=== PATIENT | female | born 1970 | race Caucasian/White ===

== ENCOUNTER → 2016-05-03 | Outpatient (REF) | payer MEDICARE, OTHER ==
[~2016-05-03] MED LIST: AMBI10TA PO; BIOT1CAP2 PO; CALC250T PO; DULO30CA PO; FLINTSTONE COMPLETE PO; GABA-279 PO; OMEP20CA3 PO; VYTO10TA PO; vitaminB12 PO; vitaminD3 PO
[2016-05-03 18:09] LABS: IONIZED CALCIUM 4.9 MG/DL (4.5-5.3)
== END ==
LOC: M SFHCCAPE 08:31
PROVIDERS: ATTEND Physician Assistant
DX: E83.51 Hypocalcemia (principal)

== ENCOUNTER → 2016-06-02 | Outpatient (CLI) | payer MEDICARE, OTHER ==
--- NOTE | 2016-06-02 14:06 | REP ---
PA CHEST AND LEFT RIB SERIES: 06/02/2016 COMPARISON: 04/11/2016. CLINICAL HISTORY: Pleuritic chest pain, chest wall pain. FINDINGS: PA CHEST: Lungs are well inflated. The CP angles are sharply defined. There is no effusion, lateral pleural thickening, apical scarring or pneumothorax. No infiltrate, atelectasis or mass. The heart is not enlarged. The aorta is normal. Airway is intact. There is no widening of the mediastinum. There are multiple clips in the right upper quadrant from cholecystectomy and a clip and staple lines in the left upper quadrant. These are unchanged. No free air. Clavicle, scapula, humerus and visualized ribs are intact. LEFT RIBS: Four detailed views show the posterior rib articulations intact. No effusion, lateral pleural thickening or pneumothorax noted. Visualized spine shows mild endplate spurs scattered throughout, but normal for age. The clavicle, scapula and humeral head are unremarkable. There are anastomotic suture lines overlying the left upper quadrant in the stomach. I cannot see any definite displaced fracture or healing fracture. The costochondral junctions are grossly intact. No focal lesion. IMPRESSION: 1. No visible or displaced fracture, healing fracture, focal rib lesion, effusion or pneumothorax on that left side. 2. Negative PA chest. Signed by Jayden Perkins MD 06/02/2016 05:07 P
== END ==
LOC: M RAD 12:34
PROVIDERS: ATTEND Physician Assistant
DX: R07.81 Pleurodynia (principal)

== ENCOUNTER → 2016-06-09 | Outpatient (REF) | payer MEDICARE, OTHER ==
[2016-06-09 16:53] LABS: BLOOD UREA NITROGEN 14 MG/DL (7-18); CREATININE FOR GFR 0.75 MG/DL (0.55-1.02); GLOMERULAR FILTRATION RATE > 60.0 (>58)
== END ==
LOC: M SFHCCAPE 07:34
PROVIDERS: ATTEND Physician Assistant
DX: I10 Essential (primary) hypertension (principal)

== ENCOUNTER → 2016-08-02 | Outpatient (REF) | payer MEDICARE, OTHER | LOC: M LABDRWCV 18:11 | PROVIDERS: ATTEND Internal Medicine Endocrinology, Diabetes & Metabolism | DX: M81.0 Age-related osteoporosis without current pathological fracture (principal) ==

== ENCOUNTER → 2016-08-19 | Outpatient (CLI) | payer MEDICARE, OTHER ==
--- NOTE | 2016-09-07 00:57 | ECWPNPC ---
PATIENT NAME: ELIDIA WEEMS : 1970 GENDER: FEMALE VISIT DATE: 08/19/2016 DISCHARGE DATE: 08/19/16 1517 VISIT LOCKED DATE TIME: PHYSICIAN: WILIAM HERBERT RESOURCE: WILIAM HERBERT REASON FOR APPOINTMENT 1. CHRONIC PAIN HISTORY OF PRESENT ILLNESS FALL RISK SCREENING: SCREENING :NO FALLS IN THE PAST YEAR PAIN SCREENING: PATIENT HAS A COMPLAINT OF ACUTE OR CHRONIC PAIN :YES TODAY'S VISIT: NOTES: REFERRED BY DR YASMIN ARIAS FOR CHRONIC PAIN INVOLVING RIBSLEFT SIDE. HAD SUDDEN SPONTANEOUS FX OF LEFT RIBS WHILE WALKING 03/22/16. 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 WENT TO ER FEW DAYS LATER. AT [facility]. AFTER CT OF ABD/CHEST - FOUND THAT FX AFFECTED 9, 10, 11, 12. FEELT TO BE SECONDARY TO SEVERE OSTEOPOROSIS. HAS MALABSORTION 2ND TO GASTRIC BYPASS. IS NOW ON FORTEO, BUT THIS IS MAKING THE BONES VERY SORE. ALL VIT LEVELS GOOD EXCEPT FOR CALCIUM. DR FAJARDO AND DR ARIAS FEELS THAT THERE IS NERVE ENTRAPMENT. . CURRENT MEDICATIONS TAKING FLINTSTONES COMPLETE 60 MG TABLET CHEWABLE 2 TABLETS ORALLY ONCE A DAY TAKING CALCIUM CITRATE + D 500MG/600MG TABLET 1 TABLET ORALLY TWICE A DAY TAKING VITAMIN B-12 500 MCG TABLET 1 TABLET ORALLY DAILY TAKING ALCOHOL PREP PAD 70 % PAD DIRECTED - DIRECTED TAKING BIOTIN 5000 MCG TABLET 1 TABLET ORALLY TWICE A DAY TAKING CPAP MACHINE DIRECTED TAKING EPIPEN 2-LEONARD 0.3 MG/0.3ML DEVICE DIRECTED INJECTION PRN TAKING MAGNESIUM 300 MG CAPSULE 1 CAPSULE WITH A MEAL ORALLY ONCE A DAY TAKING POTASSIUM 99 MG TABLET 1 TABLET ORALLY ONCE A DAY OTC PRODUCT TAKING VYTORIN 10-80 MG TABLET 1 TABLET ORALLY ONCE A DAY TAKING ALBUTEROL SULFATE HFA 108 (90 BASE) MCG/ACT AEROSOL SOLUTION 2 PUFFS NEEDED INHALATION EVERY 4 HRS TAKING OMEPRAZOLE 20 MG CAPSULE DELAYED RELEASE 1 CAPSULE ORALLY ONCE A DAY TAKING AMBIEN 10 MG TABLET 1 TABLET AT BEDTIME NEEDED ORALLY ONCE A DAY (MDD1) TAKING BUPROPION HCL ER (SR) 150 MG TABLET EXTENDED RELEASE 12 HOUR 1 TABLET ORALLY TWICE A DAY TAKING CYMBALTA 30 MG CAPSULE DELAYED RELEASE PARTICLES 2 ORALLY DAILY TAKING FORTEO 600 MCG/2.4ML SOLUTION 0.08 ML SUBCUTANEOUS ONCE A DAY TAKING GABAPENTIN 300 MG CAPSULE 1 ORALLY THREE TIMES A DAY TAKING OXYCODONE-ACETAMINOPHEN 10-325 MG TABLET 1 TABLET NEEDED ORALLY EVERY 8 HRS (MDD 3) TAKING LIDODERM 5 % PATCH 1 PATCH TO SKIN REMOVE AFTER 12 HOURS EXTERNALLY ONCE A DAY NOT-TAKING METHOCARBAMOL 750 MG TABLET 1 TABLET ORALLY EVERY 4 HRS NOT-TAKING ZETIA 10 MG TABLET 1 TABLET ORALLY ONCE A DAY DISCONTINUED CEFDINIR 300 MG CAPSULE 1 CAPSULE ORALLY EVERY 12 HRS MEDICATION LIST REVIEWED AND RECONCILED WITH THE PATIENT PAST MEDICAL HISTORY DEPRESSION CHRONIC PAIN HYPERTENSION/STROKE 06/2001 ELEVATED CHOLESTEROL SLEEP APNEA/COPD/DEVIATED SEPTUM-DR ROXIE HAMILTON RESTLESS LEG SYNDROME LT WRIST NERVE DAMAGE/RSD A RESULT HX OVARIAN CANCER ACID REFLUX STROKE IN 2001 SMOKER + HRT FX RIBS OSTEOPOROSIS HX [place] ALLERGIES BEE STINGS: ANAPHYLAXIS: ALLERGY SURGICAL HISTORY TUBAL LIGATION 08/1990 RT SIDE INGUINAL HERNIA REPAIR 03/2000 RADICAL HYSTERECTOMY DUE TO OVARIAN CANCER 06/2000 LT WRIST RECONSTRUCTION/JOINT FUSION 05/2005 RT KNEE PROCEDURE 05/2005 CYSTOSCOPY 12/2006 ENDOSCOPY 01/2007 GASTRIC BYPASS 01/23/2012 COLONOSCOPY 2009 CHOLECYSTECTOMY CYST REMOVAL FROM HEAD FAMILY HISTORY FATHER: 54 YRS, ACID REFLUX-ASPIRATED, DIAGNOSED WITH HEART DISEASE, OTHER MOTHER: ALIVE 66 YRS, HEART DISEASE, D.M., DIAGNOSED WITH DIABETES, HEART DISEASE SIBLINGS: ALIVE, ACID REFLUX, DIAGNOSED WITH HYPERTENSION SON(S): ALIVE, HYPERTENSION, DIAGNOSED WITH HYPERTENSION, OTHER DAUGHTER(S): ALIVE, DIAGNOSED WITH OTHER 2 BROTHER(S) . 2 SON(S) , 1 DAUGHTER(S) . FATHER FROM ASPIRATION DUE TO ACID REFLUX.NO CANCER REPORTED IN FAMILY.DAUGHTER--FIBROMYALGIA AND RA1 SON ADHD1 SON HTN. SOCIAL HISTORY GENERAL: TOBACCO USE ARE YOU A:CURRENT SOME DAY SMOKER ADDITIONAL FINDINGS: TOBACCO USERLIGHT CIGARETTE SMOKER ((1-9 CIGS/DAY) SMOKING CESSATION INFORMATION GIVEN08/19/2016 ADDITIONAL FINDINGS: TOBACCO NON-USER NOT READY TO QUIT AT THIS TIME VAPORNO E-CIGARETTENO ALCOHOL SCREENING DID YOU HAVE A DRINK CONTAINING ALCOHOL IN THE PAST YEAR?YES HOW OFTEN DID YOU HAVE A DRINK CONTAINING ALCOHOL IN THE PAST YEAR?MONTHLY OR LESS (1 POINT) HOW MANY DRINKS DID YOU HAVE ON A TYPICAL DAY WHEN YOU WERE DRINKING IN THE PAST YEAR?1 OR 2 (0 POINTS) HOW OFTEN DID YOU HAVE SIX OR MORE DRINKS ON ONE OCCASION IN THE PAST YEAR?NEVER (0 POINTS) POINTS1 INTERPRETATIONNEGATIVE RECREATIONAL DRUG USE DRUG USE?NO CAFFEINE CAFFEINE USE?YES 2 CUPS OF COFFEE IN THE AM HOW OFTEN AND HOW MUCH? 2-3 DIET SNAPPLES/DAY HIV / HEP-C SCREENING HIV TEST OFFERED TO PATIENT:YES DATE OFFERED:07/25/2016 TEST ACCEPTED:NO REASON:OTHER (DOCUMENT IN NOTE) PT STATES SHE HAS HAD IT DONE PREVIOUSLY HEP-C TEST OFFERED TO PATIENT:NO ALREADY TESTED OCCUPATION: DISABLED. DIET: SMALL FERQUENT MEALS. EXERCISE: NO REGULAR EXERCISE DUE TO RIB FX. MARITAL STATUS: . OTHERS AT HOME: SPOUSE. PETS: DOG,CAT. [place] NO PROTESTANT BELIEFS THAT WOULD IMPACT HEALTH CARE. LANGUAGE YI. EDUCATION LEVEL OF EDUCATION:HIGH SCHOOL REGENTS GED LEARNING BARRIERS / SPECIAL NEEDS CHANGE FROM LAST VISIT?NO 07/25/2016 BARRIERS TO LEARNING?NO HEARING IMPAIRED?NO VISION IMPAIRED?YES :CORRECTIVE LENSES COGNITIVELY IMPAIRED?NO READINESS TO LEARN?YES LEARNING PREFERENCES?YES :DEMONSTRATION/VERBAL INSTRUCTION LEARNING CAPABILITIES PRESENT?YES EMOTIONAL BARRIERS?NO SPECIAL DEVICES?NO PROCESS DESIGNER NEEDED?NO NEW PATIENT PAIN DIARY FROM 0-10, WHAT NUMBER IS YOUR PAIN TODAY? 7. PAIN CLINIC PFS, CLERGY, PUBLIC HEALTH REFERRALS PFS REFERRAL NEEDED?NO CLERGY REFERRAL NEEDED?NO PUBLIC HEALTH REFERRAL NEEDED?NO ADVANCED DIRECTIVES HEALTH CARE PROXY?NO WOULD YOU LIKE MORE INFORMATION?NO DO YOU HAVE A DNR?NO WOULD YOU LIKE MORE INFORMATION?NO LIVING WILL?NO WOULD YOU LIKE MORE INFORMATION?NO POWER OF MANAGER PAPER?NO WOULD YOU LIKE MORE INFORMATION?NO NO TRAVEL OUTSIDE US, NONE RECENT. DOMESTIC VIOLENCE: NONE. THIS PATIENT LIVES AT HOME WITH HER AND SON. SHE FRACTURED HER LEFT WRIST IN THE PAST. NO HISTORY OF AN EATING DISORDER. NO HISTORY OF PHYSICAL/SEXUAL ABUSE. SHE SLEEPS OKAY ONLY; USES CPAP. SHE WEARS SEAT BELTS. SHE IS CURRENT WITH DENTAL AND EYE EXAMINATIONS. SHE IS UP TO DATE WITH IMMUNIZATIONS AND TETANUS.08/19/16 PLAN OF CARE FOR THE PAIN CENTER REVIEWED WITH PT. AND SHE VERBALIZED UNDERSTANDING. AD. HOSPITALIZATION/MAJOR DIAGNOSTIC PROCEDURE STROKE 06/2001 HYPOGLYCEMIA 1997 REVIEW OF SYSTEMS CONSTITUTIONAL: ANY CHANGE IN YOUR MEDICAL CONDITION? NO . CHILLS NO . FEVER NO . INFECTION: DO YOU HAVE NEW INFECTIONS? STREP THROAT TREATED WITH ABX WITH RESOLUTION . DO YOU HAVE HISTORY OF MRSA? NO . MUSCULOSKELETAL: ANY NEW PATTERNS OF PAIN OR NUMBNESS? NO . SYTEMIC LUPUS NO . ARTHRITIS RIGHT HIP WITH ARTHISITS - EVALED BY JASEN BECERRA. HAS HAD INJECTIONS . FRACTURE WRIST DISTAL RADIUS AND ULNA, PLATE, CADAVER AND AUTO BONE GRAFTS TO AREA. HX CRPS WRIST. WAEARS BRACE. . GASTROENTEROLOGY: ANY NEW CHANGE IN BOWEL CONTROL? YES, TROUBLE WITH CONSTIPATION . BARRETTS ESOPHAGUS NO . CIRRHOSIS NO . HEPATITIS NO . LIVER FAILURE NO . ACID REFLUX YES . UNEXPLAINED WEIGHT LOSS NO . GENITOURINARY: ANY NEW CHANGE IN BLADDER CONTROL? NO - URINARY FREQ . IS THERE A CHANCE YOU COULD BE ? NO . HEMATOLOGY/LYMPH: DO YOU TAKE ANY BLOOD THINNERS? (FOR EXAMPLE- COUMADIN, PLAVIX, AGGRENOX, PLATEL, PRADAXA, OR XARELTO) NO . WHEN WAS YOUR LAST DOSE? DATE: TIME: . LOW PLATELET COUNT NO . SICKLE CELL DISEASE NO . VON WILLIEBRANDS NO . FACTOR V LEIDEN NO . THALLASEMIA NO . ANEMIA NO . EASY BRUISING NO . NEUROLOGY: HAVE YOU FALLEN IN THE PAST 6 MONTHS? NO . ANY NEW EXTREMITY NUMBNESS OR WEAKNESS? NO . HEAD INJURY NO . DEMENTIA NO . CEREBRAL PALSY NO . MULTIPLE SCLEROSIS NO . DIZZINESS NO . HEADACHE NO . STROKES NO . VERTIGO NO . CARDIOLOGY: DO YOU HAVE A PACEMAKER OR DEFIBRILLATOR? NO . ANGINA NO . HEART ATTACK YES, [place] 2006 . HEART SURGERY NO . CONGESTIVE HEART FAILURE/FLUID OVERLOAD NO . CHEST PAIN NO . HIGH BLOOD PRESSURE IN THE PAST RELATED TO OBESITY . IRREGULAR HEART BEAT NO . RESPIRATORY: HAVE YOU BEEN SICK IN THE PAST WEEK? NO . FEVER NO . FLU LIKE SYMPTOMS? NO . CPAP YES . BYPAP NO . ASTHMA YES, NO RECENT ATTACKS--PT. FEELS IT WAS MORE BRONCHITIS . EMPHYSEMA NO . CHRONIC LUNG DISEASES NO . SHORTNESS OF BREATH ON EXERTION NO . COUGH NO . SNORING YES, DUE TO DEVIATED SEPTUM . INTEGUMENTARY: DO YOU HAVE ANY RASHES OR OPEN SORES? NO . ALLERGIC/IMMUNO: ARE YOU ALLERGIC TO SHELLFISH OR IV DYE? NO . ANY NEW ALLERGIES? NO . PSYCHIATRIC: DO YOU HAVE THOUGHTS OF HURTING YOURSELF OR SOMEONE ELSE? NO . ARE YOU ABUSED, NEGLECTED, OR IN AN UNSAFE ENVIRONMENT? NO . ENDOCRINOLOGY: ARE YOU DIABETIC? NO . THYROID DISORDER NO . OTHER: DO YOU NEED ANY PRESCRIPTIONS? YES . IF YES, PLEASE LIST: PERCOCET AND POSSIBLE LIDODERM PATCH . ANY NEW PROBLEMS WITH YOUR MEDICATIONS? NO . WHEN DID YOU LAST EAT? ____ . WHEN DID YOU LAST DRINK? ____ . WHAT DID YOU LAST DRINK? ____ . NAME OF PERSON DRIVING YOU HOME? ____ . DO YOU HAVE ANY OTHER QUESTIONS OR CONCERNS WOULD LIKE RELIEF FROM CONSTANT PAIN AND BE ABLE TO SLEEP THROUGH THE NIGHT WITHOUT WAKING UP IN PAIN BECAUSE SHE HAS MOVED OR TURNED IN HER SLEEP . REVIEWED BY: PROVIDER: WILIAM SWIFT . VITAL SIGNS WT 110 LBS, HT 5'2 1/2", BMI 19.80 INDEX, BP 130/88 MM HG, HR 84 /MIN, RR 16 /MIN, TEMP 99.2 F, OXYGEN SAT % 96%, NA INITIALS SC 13:35, REVIEWED BY: AD. EXAMINATION GENERAL EXAMINATION: GENERAL APPEARANCE:THIN, PALE, MODERATE DISTRESS. PSYCHALERT , ORIENTED X 3 , APPROPRIATE MOOD AND AFFECT . HEENT:NORMOCEPHALIC, NO LYMPHADENOPATHY, NO THYROMEGLY. CHEST:EXQUISITE TENDERNESS OVER RIBS AT T6-9 LEVEL WITH FOCUS OF PAIN AT THE MIDAXILLARY LINE AND UNDER LEFT BREAST. SOME TENDERNESS AND TRIGERPOINTS IDENTIFIED OVER THORACIC SPINOUS PROCESSES. LUNGS:DECREASED AIR ENTRY AT BASES, NO WHEEZES, RALES AND RHONCHI. MUSCULOSKELETAL:MUSCLE STRENGTH TESTING 5/5 BILATERAL UPPER AND LOWER EXTREMITIES. ABLE TO RISE TO STANDING POSITION, POSTURE ROTATED TO RIGHT. GAIT NONANTALGIC. EXTREMITIES:NO EDEMA. NEUROLOGIC EXAM:CN'S II-XII GROSSLY INTACT. NO SENSORY DEFICIET NOTED IN UPPER EXTREMITIES. 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 WEIGHT LESS THAN BMI 22. IS FOLLOWING CLOSELY WITH PCP AND IS TRYING TO EAT SMALL FREQ MEALS WITH ADEQUETE PROTEIN AND DIETARY CALCIUM. PREVENTIVE MEDICINE DISCUSSED WHAT TO EXPECT WITH THE EPIDURAL INJECTION, AND PRE PROCEDURE CARE. REVIEWED INSTRUCTIONS WITH PT. PROCEDURE CODES FA211 ESTABILISHED PATIENT [facility] FACILITY CHARGE G8783 BP SCR PRFRM RCMDD DEFIND SCR INTVL G8730 PAIN ASSESS POS TOOL F/U PLAN DOC 3016F PT SCRND [place] USE 1124F ACP DISCUSS-NO DSCNMKR DOCD 1036F TOBACCO NON-USER 0518F FALL PLAN OF CARE DOCD G8427 DOC MEDS VERIFIED W/PT OR RE G8420 BMI<30 AND >=22 CALC & DOCU 3288F FALL RISK ASSESSMENT DOCD DISPOSITION & COMMUNICATION FOLLOW UP AFTER INJECTION (REASON: THORACIC EPIDURAL LEFT RIB PAIN) ELECTRONICALLY SIGNED BY ALEXANDREA HOPE ON 09/06/2016 AT 08:51 AM EDT DISCLAIMER : THIS IS A VISIT SUMMARY EXTRACTED FROM THE [employer] CHART. IT IS NOT A COPY OF THE [employer] PROGRESS NOTE. MTDD
== END ==
LOC: M PAIN 13:20
PROVIDERS: ATTEND Nurse Practitioner Family
DX: M54.14 Radiculopathy, thoracic region (principal); M79.1 Myalgia; G89.29 Other chronic pain; Z79.891 Long term (current) use of opiate analgesic; Z79.899 Other long term (current) drug therapy; Z91.030 Bee allergy status; F17.210 Nicotine dependence, cigarettes, uncomplicated; F34.1 Dysthymic disorder; I10 Essential (primary) hypertension; E78.2 Mixed hyperlipidemia; M81.0 Age-related osteoporosis without current pathological fracture; K21.9 Gastro-esophageal reflux disease without esophagitis; J44.9 Chronic obstructive pulmonary disease, unspecified; G47.33 Obstructive sleep apnea (adult) (pediatric); E83.51 Hypocalcemia; Z85.43 Personal history of malignant neoplasm of ovary; E89.40 Asymptomatic postprocedural ovarian failure

== ENCOUNTER → 2016-08-26 | Outpatient (CLI) | payer MEDICARE, OTHER ==
[~2016-08-26] MED LIST changes: +BUPIVACAINE HCL 0.25% 10 ML VIAL As Ordered ONE; +BUPIVACAINE HCL 0.25% 30 ML VIAL As Ordered ONE; +TRIAMCINOLONE ACETONIDE SUSP 40 MG/ML VIAL (J3301) As Ordered ONE; +diazePAM 5 MG TAB As Ordered ONE; +oxyCODONE 5MG TAB As Ordered ONE
--- NOTE | 2016-08-26 13:19 | REP ---
CHEST, THREE VIEWS INCLUDING INSPIRATION AND EXPIRATION PA: COMPARISON: 11/26/2009. There is no evidence of acute infiltrate. No pleural effusion is seen. The heart is normal in size. The mediastinal silhouette is unremarkable. The visualized osseous structures are intact. There is no evidence of pneumothorax. IMPRESSION: No acute pulmonary disease. Signed by Saad Ramirez MD 08/26/2016 04:39 P
--- NOTE | 2016-09-04 23:44 | ECWPNPC ---
PATIENT NAME: ELIDIA WEEMS : 1970 GENDER: FEMALE VISIT DATE: 08/26/2016 DISCHARGE DATE: 08/26/16 1333 VISIT LOCKED DATE TIME: PHYSICIAN: NALLELY FENTON RESOURCE: NALLELY FENTON REASON FOR APPOINTMENT 1. THORACIC EPIDURAL LEFT RIB PAIN HISTORY OF PRESENT ILLNESS HISTORY OF PRESENT ILLNESS: PAIN THE PATIENT DESCRIBES THE PAIN... FALL RISK SCREENING: SCREENING :NO FALLS IN THE PAST YEAR CURRENT MEDICATIONS TAKING FLINTSTONES COMPLETE 60 MG TABLET CHEWABLE 2 TABLETS ORALLY ONCE A DAY, NOTES: 714 TAKING CALCIUM CITRATE + D 500MG/600MG TABLET 1 TABLET ORALLY TWICE A DAY, NOTES: LAST TAKING VITAMIN B-12 500 MCG TABLET 1 TABLET ORALLY DAILY, NOTES: 714 TAKING ALCOHOL PREP PAD 70 % PAD DIRECTED - DIRECTED TAKING BIOTIN 5000 MCG TABLET 1 TABLET ORALLY TWICE A DAY, NOTES: 714 TAKING CPAP MACHINE DIRECTED TAKING EPIPEN 2-LEONARD 0.3 MG/0.3ML DEVICE DIRECTED INJECTION PRN TAKING MAGNESIUM 300 MG CAPSULE 1 CAPSULE WITH A MEAL ORALLY ONCE A DAY, NOTES: 714 TAKING POTASSIUM 99 MG TABLET 1 TABLET ORALLY ONCE A DAY OTC PRODUCT, NOTES: 714 TAKING VYTORIN 10-80 MG TABLET 1 TABLET ORALLY ONCE A DAY, NOTES: LAST NIGHT TAKING ALBUTEROL SULFATE HFA 108 (90 BASE) MCG/ACT AEROSOL SOLUTION 2 PUFFS NEEDED INHALATION EVERY 4 HRS, NOTES: MONTHS TAKING OMEPRAZOLE 20 MG CAPSULE DELAYED RELEASE 1 CAPSULE ORALLY ONCE A DAY, NOTES: LAST NIGHT TAKING AMBIEN 10 MG TABLET 1 TABLET AT BEDTIME NEEDED ORALLY ONCE A DAY (MDD1), NOTES: 2199 TAKING BUPROPION HCL ER (SR) 150 MG TABLET EXTENDED RELEASE 12 HOUR 1 TABLET ORALLY TWICE A DAY, NOTES: 714 TAKING CYMBALTA 30 MG CAPSULE DELAYED RELEASE PARTICLES 2 ORALLY DAILY, NOTES: 714 TAKING FORTEO 600 MCG/2.4ML SOLUTION 0.08 ML SUBCUTANEOUS ONCE A DAY, NOTES: AFTER DINNER TAKING GABAPENTIN 300 MG CAPSULE 1 ORALLY THREE TIMES A DAY, NOTES: 714 TAKING OXYCODONE-ACETAMINOPHEN 10-325 MG TABLET 1 TABLET NEEDED ORALLY EVERY 8 HRS (MDD 3), NOTES: 0-715 TAKING LIDODERM 5 % PATCH 1 PATCH TO SKIN REMOVE AFTER 12 HOURS EXTERNALLY ON 12 HOURS OFF 12 HOURS, NOTES: ON AT NIGHT/ OFF DAY TAKING COLACE 100 MG CAPSULE 1 CAPSULE NEEDED ORALLY BID PRN CONSTIPATION, NOTES: 0715 NOT-TAKING METHOCARBAMOL 750 MG TABLET 1 TABLET ORALLY EVERY 4 HRS NOT-TAKING ZETIA 10 MG TABLET 1 TABLET ORALLY ONCE A DAY MEDICATION LIST REVIEWED AND RECONCILED WITH THE PATIENT PAST MEDICAL HISTORY DEPRESSION CHRONIC PAIN HYPERTENSION/STROKE 06/2001 ELEVATED CHOLESTEROL SLEEP APNEA/COPD/DEVIATED SEPTUM-DR ROXIE HAMILTON RESTLESS LEG SYNDROME LT WRIST NERVE DAMAGE/RSD A RESULT HX OVARIAN CANCER ACID REFLUX STROKE IN 2001 SMOKER + HRT FX RIBS OSTEOPOROSIS HX MD ALLERGIES BEE STINGS: ANAPHYLAXIS: ALLERGY SOCIAL HISTORY GENERAL: TOBACCO USE ARE YOU A:CURRENT SOME DAY SMOKER ADDITIONAL FINDINGS: TOBACCO USERLIGHT CIGARETTE SMOKER ((1-9 CIGS/DAY) SMOKING CESSATION INFORMATION GIVEN08/19/2016 ADDITIONAL FINDINGS: TOBACCO NON-USER NOT READY TO QUIT AT THIS TIME VAPORNO E-CIGARETTENO ALCOHOL SCREENING DID YOU HAVE A DRINK CONTAINING ALCOHOL IN THE PAST YEAR?YES HOW OFTEN DID YOU HAVE A DRINK CONTAINING ALCOHOL IN THE PAST YEAR?MONTHLY OR LESS (1 POINT) HOW MANY DRINKS DID YOU HAVE ON A TYPICAL DAY WHEN YOU WERE DRINKING IN THE PAST YEAR?1 OR 2 (0 POINTS) HOW OFTEN DID YOU HAVE SIX OR MORE DRINKS ON ONE OCCASION IN THE PAST YEAR?NEVER (0 POINTS) POINTS1 INTERPRETATIONNEGATIVE RECREATIONAL DRUG USE DRUG USE?NO CAFFEINE CAFFEINE USE?YES 2 CUPS OF COFFEE IN THE AM HOW OFTEN AND HOW MUCH? 2-3 DIET SNAPPLES/DAY HIV / HEP-C SCREENING HIV TEST OFFERED TO PATIENT:YES DATE OFFERED:07/25/2016 TEST ACCEPTED:NO REASON:OTHER (DOCUMENT IN NOTE) PT STATES SHE HAS HAD IT DONE PREVIOUSLY HEP-C TEST OFFERED TO PATIENT:NO ALREADY TESTED OCCUPATION: DISABLED. DIET: SMALL FERQUENT MEALS. EXERCISE: NO REGULAR EXERCISE DUE TO RIB FX. MARITAL STATUS: . OTHERS AT HOME: SPOUSE. PETS: DOG,CAT. [place] NO RELIGION BELIEFS THAT WOULD IMPACT HEALTH CARE. LANGUAGE ROMANIAN. EDUCATION LEVEL OF EDUCATION:HIGH SCHOOL REGENTS GED LEARNING BARRIERS / SPECIAL NEEDS CHANGE FROM LAST VISIT?NO 07/25/2016 BARRIERS TO LEARNING?NO HEARING IMPAIRED?NO VISION IMPAIRED?YES :CORRECTIVE LENSES COGNITIVELY IMPAIRED?NO READINESS TO LEARN?YES LEARNING PREFERENCES?YES :DEMONSTRATION/VERBAL INSTRUCTION LEARNING CAPABILITIES PRESENT?YES EMOTIONAL BARRIERS?NO SPECIAL DEVICES?NO TESTING SHAKING SHIPPING NEEDED?NO NEW PATIENT PAIN DIARY FROM 0-10, WHAT NUMBER IS YOUR PAIN TODAY? 7. PAIN CLINIC PFS, CLERGY, PUBLIC HEALTH REFERRALS PFS REFERRAL NEEDED?NO CLERGY REFERRAL NEEDED?NO PUBLIC HEALTH REFERRAL NEEDED?NO ADVANCED DIRECTIVES HEALTH CARE PROXY?NO WOULD YOU LIKE MORE INFORMATION?NO DO YOU HAVE A DNR?NO WOULD YOU LIKE MORE INFORMATION?NO LIVING WILL?NO WOULD YOU LIKE MORE INFORMATION?NO POWER OF POLICE LIEUTENANT?NO WOULD YOU LIKE MORE INFORMATION?NO NO TRAVEL OUTSIDE US, NONE RECENT. DOMESTIC VIOLENCE: NONE. THIS PATIENT LIVES AT HOME WITH HER AND SON. SHE FRACTURED HER LEFT WRIST IN THE PAST. NO HISTORY OF AN EATING DISORDER. NO HISTORY OF PHYSICAL/SEXUAL ABUSE. SHE SLEEPS OKAY ONLY; USES CPAP. SHE WEARS SEAT BELTS. SHE IS CURRENT WITH DENTAL AND EYE EXAMINATIONS. SHE IS UP TO DATE WITH IMMUNIZATIONS AND TETANUS.08/19/16 PLAN OF CARE FOR THE PAIN CENTER REVIEWED WITH PT. AND SHE VERBALIZED UNDERSTANDING. AD. REVIEW OF SYSTEMS CONSTITUTIONAL: ANY CHANGE IN YOUR MEDICAL CONDITION? NO . CHILLS NO . FEVER NO . INFECTION: DO YOU HAVE NEW INFECTIONS? NO . DO YOU HAVE HISTORY OF MRSA? NO . MUSCULOSKELETAL: ANY NEW PATTERNS OF PAIN OR NUMBNESS? NO . GASTROENTEROLOGY: ANY NEW CHANGE IN BOWEL CONTROL? NO . GENITOURINARY: ANY NEW CHANGE IN BLADDER CONTROL? NO . IS THERE A CHANCE YOU COULD BE ? NO . HEMATOLOGY/LYMPH: DO YOU TAKE ANY BLOOD THINNERS? (FOR EXAMPLE- COUMADIN, PLAVIX, AGGRENOX, PLATEL, PRADAXA, OR XARELTO) NO . WHEN WAS YOUR LAST DOSE? DATE: TIME: . NEUROLOGY: HAVE YOU FALLEN IN THE PAST 6 MONTHS? NO . ANY NEW EXTREMITY NUMBNESS OR WEAKNESS? NO . CARDIOLOGY: DO YOU HAVE A PACEMAKER OR DEFIBRILLATOR? NO . RESPIRATORY: HAVE YOU BEEN SICK IN THE PAST WEEK? NO . FEVER NO . FLU LIKE SYMPTOMS? NO . COUGH NO . INTEGUMENTARY: DO YOU HAVE ANY RASHES OR OPEN SORES? NO . ALLERGIC/IMMUNO: ARE YOU ALLERGIC TO SHELLFISH OR IV DYE? NO . ANY NEW ALLERGIES? NO . PSYCHIATRIC: DO YOU HAVE THOUGHTS OF HURTING YOURSELF OR SOMEONE ELSE? NO . ARE YOU ABUSED, NEGLECTED, OR IN AN UNSAFE ENVIRONMENT? NO . ENDOCRINOLOGY: ARE YOU DIABETIC? NO . OTHER: DO YOU NEED ANY PRESCRIPTIONS? NO . IF YES, PLEASE LIST: ____ . ANY NEW PROBLEMS WITH YOUR MEDICATIONS? NO . WHEN DID YOU LAST EAT? [id number] . WHEN DID YOU LAST DRINK? 08-26-1645 . WHAT DID YOU LAST DRINK? DIET MCKAY HAI . NAME OF PERSON DRIVING YOU HOME? BILL . DO YOU HAVE ANY OTHER QUESTIONS OR CONCERNS NO . REVIEWED BY: PROVIDER: . VITAL SIGNS WT 110 LBS, HT 5'2 1/2", BMI 19.80 INDEX, BP 125/81 MM HG, HR 68 /MIN, RR 16 /MIN, TEMP 96.7 F, OXYGEN SAT % 97%, NA INITIALS SC 10:31, REVIEWED BY: VD. ASSESSMENTS MYALGIA - M79.1 (PRIMARY) PROCEDURES PN TRIGGER POINT INJECTION WITH STEROIDS PRE PROCEDURE DIAGNOSIS 1. MYALGIA 2. PAIN AT LEFT CHEST WALL AREA POST PROCEDURE DIAGNOSIS 1. MYALGIA 2. PAIN AT LEFT CHEST WALL PROCEDURE TRIGGER POINT INJECTION AT LEFT CHEST WALL SURGEON DR. NALLELY FENTON HOTEL CONTROLLER NONE ANESTHESIA LOCAL PRE PROCEDURE NOTE THE PATIENT HAS A HISTORY OF CHRONIC PAIN AT THE LEFT CHEST WALL AREA. I EVALUATE THE PATIENT AND REVIEWED THE CHART. THERE IS EVIDENCE OF BANDS OF TISSUE WITH RESTRICTION OF MOVEMENT AND PRESENCE OF TRIGGER POINT AT THE AFFECTED AREA. I WENT OVER THE RISKS, ALTERNATIVES, AND BENEFITS ASSOCIATED WITH THIS PROCEDURE. THE PATIENT WOULD LIKE TO PROCEED AND GIVE CONSENT TO PERFORMED THE PROCEDURE. THE PATIENT DENIES UNEXPLAINABLE WEIGHT LOSS, FEVER, CHILLS, OR NEW CHANGES IN URINARY OR BOWEL CONTROL DESCRIPTION OF PROCEDURE THE PATIENT WAS BROUGHT TO THE PROCEDURE ROOM AND PLACED IN THE SITTING POSITION. THE AREA WAS CLEANED WITH ALCOHOL. THE PROCEDURE WAS DONE USING ASEPTIC STERILE TECHNIQUE. I CHECKED LATERALITY AND THE LEVEL WHERE THE PROCEDURE WAS GOING TO BE PERFORMED WITH THE PATIENT AND THE SUPPORTING STAFF AT THE MOMENT OF THE TIME OUT IN THE PROCEDURE ROOM. USING A 25-GAUGE NEEDLE, TRIGGER POINTS WERE INJECTED AT THE LEFT CHEST WALL AREA WITH A TOTAL OF 40 ML OF BUPIVACAINE 0.25% AND KENALOG 40 MG. THERE WAS NO EVIDENCE OF BLOOD, PARESTHESIA OR CEREBROSPINAL FLUID DURING THE PROCEDURE. THE PATIENT WAS SENT TO THE RECOVERY ROOM. THE PATIENT WAS MOVING THE EXTREMITIES AND DOING WELL. THERE WAS NO COMPLICATION DURING THE PROCEDURE POST PROCEDURE NOTE THE PATIENT WILL BE SEEN IN A FOLLOW UP IN THE NEXT FEW WEEKS. INSTRUCTIONS WERE GIVEN, QUESTIONS WERE ANSWERED, AND THE PATIENT EXPRESSED UNDERSTANDING AND AGREES WITH THE PLAN. I, IRAIS FOY, DOCUMENTED THE ABOVE INFORMATION ACTING A SCRIBE FOR DR. FENTON. I HAVE REVIEWED THE ABOVE DOCUMENT, WRITTEN BY IRAIS DAILY AND I VERIFY THAT IT IS ACCURATE PROCEDURE CODES 05948 INJ TRIGGER POINT / [facility] [place] DISPOSITION & COMMUNICATION FOLLOW UP 3 WEEKS ELECTRONICALLY SIGNED BY NALLELY FENTON MD ON 09/04/2016 AT 05:54 PM EDT DISCLAIMER : THIS IS A VISIT SUMMARY EXTRACTED FROM THE [employer] CHART. IT IS NOT A COPY OF THE [employer] PROGRESS NOTE. EUGENIO
== END ==
LOC: M PAIN 10:20
PROVIDERS: ATTEND Anesthesiology
DX: M79.1 Myalgia (principal); Z79.891 Long term (current) use of opiate analgesic; Z79.899 Other long term (current) drug therapy; F17.210 Nicotine dependence, cigarettes, uncomplicated; Z91.030 Bee allergy status; G58.8 Other specified mononeuropathies; F34.1 Dysthymic disorder; I10 Essential (primary) hypertension; E78.2 Mixed hyperlipidemia; J44.9 Chronic obstructive pulmonary disease, unspecified; E78.5 Hyperlipidemia, unspecified; M81.0 Age-related osteoporosis without current pathological fracture; E83.51 Hypocalcemia
CPT/HCPCS: 20552; 71020; J3301

== ENCOUNTER → 2016-09-02 | Outpatient (CLI) | payer MEDICARE, OTHER ==
[~2016-09-02] MED LIST changes: +BIOTCAP PO; -BUPIVACAINE HCL 0.25% 10 ML VIAL As Ordered ONE; -BUPIVACAINE HCL 0.25% 30 ML VIAL As Ordered ONE; +BUPR1TAB17 PO; +CALC1CHW7 PO; +FLINCHW9 PO; +FORT600S SC; +GABA-283 PO; +MAGN250T2 PO; +OMEP40CA2 PO; +OXYC1TAB16 PO; +ROBA750T4 PO; -TRIAMCINOLONE ACETONIDE SUSP 40 MG/ML VIAL (J3301) As Ordered ONE; +ZETI10TA2 PO; -diazePAM 5 MG TAB As Ordered ONE; -oxyCODONE 5MG TAB As Ordered ONE
--- NOTE | 2016-09-14 00:10 | ECWPNPC ---
PATIENT NAME: ELIDIA WEEMS : 1970 GENDER: FEMALE VISIT DATE: 09/02/2016 DISCHARGE DATE: 09/02/16 1615 VISIT LOCKED DATE TIME: PHYSICIAN: NALLELY FENTON RESOURCE: NALLELY FENTON REASON FOR APPOINTMENT 1. IMAGING FROM XRAY HISTORY OF PRESENT ILLNESS HISTORY OF PRESENT ILLNESS: PAIN THE PATIENT DESCRIBES THE PAIN... 46 YEAR OLD FEMALE PATIENT WITH HISTORY OF CHRONIC NECK AND ARM PAIN. PATIENT DESCRIBES THE PAIN BURNING, SHARP, TENDER, THROBBING, SORE AND HAVING IT ALL THE TIME WITH A PAIN SCORE OF 6/10 ON TODAY'S VISIT. PATIENT RECEIVED A TPI IN THE LEFT CHEST WALL AND STATES THAT SHE ONLY HAD PAIN RELIEF FOR 5 DAYS. PATIENT DENIES UNEXPLAINABLE WEIGHT LOSS, FEVER, CHILLS, NEW CHANGES ON HER URINARY OR BOWEL CONTROL. FALL RISK SCREENING: SCREENING :NO FALLS IN THE PAST YEAR CURRENT MEDICATIONS TAKING FLINTSTONES COMPLETE 60 MG TABLET CHEWABLE 2 TABLETS ORALLY ONCE A DAY TAKING CALCIUM CITRATE + D 500MG/600MG TABLET 1 TABLET ORALLY TWICE A DAY TAKING VITAMIN B-12 500 MCG TABLET 1 TABLET ORALLY DAILY TAKING ALCOHOL PREP PAD 70 % PAD DIRECTED - DIRECTED TAKING BIOTIN 5000 MCG TABLET 1 TABLET ORALLY TWICE A DAY TAKING CPAP MACHINE DIRECTED TAKING EPIPEN 2-LEONARD 0.3 MG/0.3ML DEVICE DIRECTED INJECTION PRN TAKING MAGNESIUM 300 MG CAPSULE 1 CAPSULE WITH A MEAL ORALLY ONCE A DAY TAKING POTASSIUM 99 MG TABLET 1 TABLET ORALLY ONCE A DAY OTC PRODUCT TAKING VYTORIN 10-80 MG TABLET 1 TABLET ORALLY ONCE A DAY TAKING ALBUTEROL SULFATE HFA 108 (90 BASE) MCG/ACT AEROSOL SOLUTION 2 PUFFS NEEDED INHALATION EVERY 4 HRS TAKING OMEPRAZOLE 20 MG CAPSULE DELAYED RELEASE 1 CAPSULE ORALLY ONCE A DAY TAKING AMBIEN 10 MG TABLET 1 TABLET AT BEDTIME NEEDED ORALLY ONCE A DAY (MDD1) TAKING BUPROPION HCL ER (SR) 150 MG TABLET EXTENDED RELEASE 12 HOUR 1 TABLET ORALLY TWICE A DAY TAKING CYMBALTA 30 MG CAPSULE DELAYED RELEASE PARTICLES 2 ORALLY TWICE DAILY TAKING FORTEO 600 MCG/2.4ML SOLUTION 0.08 ML SUBCUTANEOUS ONCE A DAY TAKING GABAPENTIN 300 MG CAPSULE 1 ORALLY THREE TIMES A DAY TAKING OXYCODONE-ACETAMINOPHEN 10-325 MG TABLET 1 TABLET NEEDED ORALLY EVERY 8 HRS (MDD 3) TAKING LIDODERM 5 % PATCH 1 PATCH TO SKIN REMOVE AFTER 12 HOURS EXTERNALLY ON 12 HOURS OFF 12 HOURS TAKING COLACE 100 MG CAPSULE 1 CAPSULE NEEDED ORALLY BID PRN CONSTIPATION TAKING OXYCODONE-ACETAMINOPHEN 10-325 MG TABLET 1 TABLET NEEDED ORALLY EVERY 6 HRS DISCONTINUED METHOCARBAMOL 750 MG TABLET 1 TABLET ORALLY EVERY 4 HRS DISCONTINUED ZETIA 10 MG TABLET 1 TABLET ORALLY ONCE A DAY MEDICATION LIST REVIEWED AND RECONCILED WITH THE PATIENT PAST MEDICAL HISTORY DEPRESSION CHRONIC PAIN HYPERTENSION/STROKE 06/2001 ELEVATED CHOLESTEROL SLEEP APNEA/COPD/DEVIATED SEPTUM-DR FAUSTIN S[place]AC[place] RESTLESS LEG SYNDROME LT WRIST NERVE DAMAGE/RSD A RESULT HX OVARIAN CANCER ACID REFLUX STROKE IN 2001 SMOKER + HRT FX RIBS OSTEOPOROSIS HX [place] ALLERGIES BEE STINGS: ANAPHYLAXIS: ALLERGY SURGICAL HISTORY TUBAL LIGATION 08/1990 RT SIDE INGUINAL HERNIA REPAIR 03/2000 RADICAL HYSTERECTOMY DUE TO OVARIAN CANCER 06/2000 LT WRIST RECONSTRUCTION/JOINT FUSION 05/2005 RT KNEE PROCEDURE 05/2005 CYSTOSCOPY 12/2006 ENDOSCOPY 01/2007 GASTRIC BYPASS 01/23/2012 COLONOSCOPY 2009 CHOLECYSTECTOMY CYST REMOVAL FROM HEAD FAMILY HISTORY FATHER: 54 YRS, ACID REFLUX-ASPIRATED, DIAGNOSED WITH HEART DISEASE, OTHER MOTHER: ALIVE 66 YRS, HEART DISEASE, D.M., DIAGNOSED WITH DIABETES, HEART DISEASE SIBLINGS: ALIVE, ACID REFLUX, DIAGNOSED WITH HYPERTENSION SON(S): ALIVE, HYPERTENSION, DIAGNOSED WITH HYPERTENSION, OTHER DAUGHTER(S): ALIVE, DIAGNOSED WITH OTHER 2 BROTHER(S) . 2 SON(S) , 1 DAUGHTER(S) . FATHER FROM ASPIRATION DUE TO ACID REFLUX.NO CANCER REPORTED IN FAMILY.DAUGHTER--FIBROMYALGIA AND RA1 SON ADHD1 SON HTN. SOCIAL HISTORY GENERAL: TOBACCO USE ARE YOU A:CURRENT SOME DAY SMOKER ADDITIONAL FINDINGS: TOBACCO USERLIGHT CIGARETTE SMOKER ((1-9 CIGS/DAY) SMOKING CESSATION INFORMATION GIVEN08/19/2016 ADDITIONAL FINDINGS: TOBACCO NON-USER NOT READY TO QUIT AT THIS TIME VAPORNO E-CIGARETTENO ALCOHOL SCREENING DID YOU HAVE A DRINK CONTAINING ALCOHOL IN THE PAST YEAR?YES HOW OFTEN DID YOU HAVE A DRINK CONTAINING ALCOHOL IN THE PAST YEAR?MONTHLY OR LESS (1 POINT) HOW MANY DRINKS DID YOU HAVE ON A TYPICAL DAY WHEN YOU WERE DRINKING IN THE PAST YEAR?1 OR 2 (0 POINTS) HOW OFTEN DID YOU HAVE SIX OR MORE DRINKS ON ONE OCCASION IN THE PAST YEAR?NEVER (0 POINTS) POINTS1 INTERPRETATIONNEGATIVE RECREATIONAL DRUG USE DRUG USE?NO CAFFEINE CAFFEINE USE?YES 2 CUPS OF COFFEE IN THE AM HOW OFTEN AND HOW MUCH? 2-3 DIET SNAPPLES/DAY HIV / HEP-C SCREENING HIV TEST OFFERED TO PATIENT:YES DATE OFFERED:07/25/2016 TEST ACCEPTED:NO REASON:OTHER (DOCUMENT IN NOTE) PT STATES SHE HAS HAD IT DONE PREVIOUSLY HEP-C TEST OFFERED TO PATIENT:NO ALREADY TESTED OCCUPATION: DISABLED. DIET: SMALL FERQUENT MEALS. EXERCISE: NO REGULAR EXERCISE DUE TO RIB FX. MARITAL STATUS: . OTHERS AT HOME: SPOUSE. PETS: DOG,CAT. HINDU NO CHURCH BELIEFS THAT WOULD IMPACT HEALTH CARE. LANGUAGE CROATIAN. EDUCATION LEVEL OF EDUCATION:HIGH SCHOOL REGENTS GED LEARNING BARRIERS / SPECIAL NEEDS CHANGE FROM LAST VISIT?NO 07/25/2016 BARRIERS TO LEARNING?NO HEARING IMPAIRED?NO VISION IMPAIRED?YES :CORRECTIVE LENSES COGNITIVELY IMPAIRED?NO READINESS TO LEARN?YES LEARNING PREFERENCES?YES :DEMONSTRATION/VERBAL INSTRUCTION LEARNING CAPABILITIES PRESENT?YES EMOTIONAL BARRIERS?NO SPECIAL DEVICES?NO TRAVEL SPECIALIST NEEDED?NO NEW PATIENT PAIN DIARY FROM 0-10, WHAT NUMBER IS YOUR PAIN TODAY? 7. PAIN CLINIC PFS, CLERGY, PUBLIC HEALTH REFERRALS PFS REFERRAL NEEDED?NO CLERGY REFERRAL NEEDED?NO PUBLIC HEALTH REFERRAL NEEDED?NO ADVANCED DIRECTIVES HEALTH CARE PROXY?NO WOULD YOU LIKE MORE INFORMATION?NO DO YOU HAVE A DNR?NO WOULD YOU LIKE MORE INFORMATION?NO LIVING WILL?NO WOULD YOU LIKE MORE INFORMATION?NO POWER OF REVENUE TAX SPECIALIST?NO WOULD YOU LIKE MORE INFORMATION?NO NO TRAVEL OUTSIDE US, NONE RECENT. DOMESTIC VIOLENCE: NONE. THIS PATIENT LIVES AT HOME WITH HER AND SON. SHE FRACTURED HER LEFT WRIST IN THE PAST. NO HISTORY OF AN EATING DISORDER. NO HISTORY OF PHYSICAL/SEXUAL ABUSE. SHE SLEEPS OKAY ONLY; USES CPAP. SHE WEARS SEAT BELTS. SHE IS CURRENT WITH DENTAL AND EYE EXAMINATIONS. SHE IS UP TO DATE WITH IMMUNIZATIONS AND TETANUS.08/19/16 PLAN OF CARE FOR THE PAIN CENTER REVIEWED WITH PT. AND SHE VERBALIZED UNDERSTANDING. AD. HOSPITALIZATION/MAJOR DIAGNOSTIC PROCEDURE STROKE 06/2001 HYPOGLYCEMIA 1997 REVIEW OF SYSTEMS CONSTITUTIONAL: ANY CHANGE IN YOUR MEDICAL CONDITION? NO . CHILLS NO . FEVER NO . INFECTION: DO YOU HAVE NEW INFECTIONS? NO . DO YOU HAVE HISTORY OF MRSA? NO . MUSCULOSKELETAL: ANY NEW PATTERNS OF PAIN OR NUMBNESS? NO . GASTROENTEROLOGY: ANY NEW CHANGE IN BOWEL CONTROL? NO . GENITOURINARY: ANY NEW CHANGE IN BLADDER CONTROL? NO . IS THERE A CHANCE YOU COULD BE ? NO . HEMATOLOGY/LYMPH: DO YOU TAKE ANY BLOOD THINNERS? (FOR EXAMPLE- COUMADIN, PLAVIX, AGGRENOX, PLATEL, PRADAXA, OR XARELTO) NO . WHEN WAS YOUR LAST DOSE? DATE: TIME: . NEUROLOGY: HAVE YOU FALLEN IN THE PAST 6 MONTHS? NO . ANY NEW EXTREMITY NUMBNESS OR WEAKNESS? NO . CARDIOLOGY: DO YOU HAVE A PACEMAKER OR DEFIBRILLATOR? NO . RESPIRATORY: HAVE YOU BEEN SICK IN THE PAST WEEK? NO . FEVER NO . FLU LIKE SYMPTOMS? NO . COUGH NO . INTEGUMENTARY: DO YOU HAVE ANY RASHES OR OPEN SORES? NO . ALLERGIC/IMMUNO: ARE YOU ALLERGIC TO SHELLFISH OR IV DYE? NO . ANY NEW ALLERGIES? NO . PSYCHIATRIC: DO YOU HAVE THOUGHTS OF HURTING YOURSELF OR SOMEONE ELSE? NO . ARE YOU ABUSED, NEGLECTED, OR IN AN UNSAFE ENVIRONMENT? NO . ENDOCRINOLOGY: ARE YOU DIABETIC? NO . OTHER: DO YOU NEED ANY PRESCRIPTIONS? NO . IF YES, PLEASE LIST: ____ . ANY NEW PROBLEMS WITH YOUR MEDICATIONS? NO . WHEN DID YOU LAST EAT? ____ . WHEN DID YOU LAST DRINK? ____ . WHAT DID YOU LAST DRINK? ____ . NAME OF PERSON DRIVING YOU HOME? ____ . DO YOU HAVE ANY OTHER QUESTIONS OR CONCERNS NO . REVIEWED BY: PROVIDER: NALLELY FENTON MD . VITAL SIGNS WT 110 LBS, HT 5'2 1/2", BMI 19.80 INDEX, BP 131/76 MM HG, HR 83 /MIN, RR 16 /MIN, TEMP 98.0 F, OXYGEN SAT % 95%, NA INITIALS AW 1504, REVIEWED BY: CM. EXAMINATION : PATIENT IS ALERT O X 3 AND COOPERATIVE. X-RAY OF THE RIBS DONE ON 03-20-2016 SHOWS A MILDLY DISPLACED LEFT LATERAL RIB FRACTURE INVOLVING THE ELEVENTH, TENTH, AND POSSIBLY NINTH RIB. THERE IS TENDERNESS WITH HYPERPATHIA ON THE LEFT CHEST WALL. ASSESSMENTS LEFT CHEST WALL INTERCOSTAL NEURALGIA. TREATMENT OTHERS NOTES: WE DISCUSSED SEVERAL ISSUES WITH MS. WEEMS'S PAIN MANAGEMENT CASE. AFTER REVIEWING THE X-RAY AND EXAMINING THE PATIENT SHE IS A GOOD CANDIDATE FOR AN INTERCOSTAL BLOCK INJECTION. WE DISCUSSED THE RISK, BENEFITS, AND ALTERNATIVES THE PATIENT WANTS TO PROCEED. PATIENT WILL BE BOOKED PENDING APPROVAL. , INSTRUCTIONS WERE GIVEN, QUESTIONS WERE ANSWERED, PATIENT REPORTS UNDERSTANDING AND AGREES WITH THE PLAN. I, SHIRLEY PARRISH, DOCUMENTED THE ABOVE INFORMATION ACTING A SCRIBE FOR DR. FENTON. I HAVE REVIEWED THE ABOVE DOCUMENT, WRITTEN BY SHIRLEY PARRISH SCRIBE AND I VERIFY THAT IT IS ACCURATE. PROCEDURE CODES FA211 ESTABILISHED PATIENT [facility] CHARGE G8730 PAIN ASSESS POS TOOL F/U PLAN DOC G8427 DOC MEDS VERIFIED W/PT OR RE DISPOSITION & COMMUNICATION FOLLOW UP INTERCOSTAL INJECTION PENDING APPROVAL ELECTRONICALLY SIGNED BY NALLELY FENTON MD ON 09/13/2016 AT 06:39 PM EDT DISCLAIMER : THIS IS A VISIT SUMMARY EXTRACTED FROM THE [facility] CHART. IT IS NOT A COPY OF THE [facility] PROGRESS NOTE. MTDD
== END ==
LOC: M PAIN 14:40
PROVIDERS: ATTEND Anesthesiology
DX: G89.29 Other chronic pain (principal); M54.2 Cervicalgia; M79.603 Pain in arm, unspecified; F32.9 Major depressive disorder, single episode, unspecified; I10 Essential (primary) hypertension; E78.00 Pure hypercholesterolemia, unspecified; G47.30 Sleep apnea, unspecified; G25.81 Restless legs syndrome; J44.9 Chronic obstructive pulmonary disease, unspecified; K21.9 Gastro-esophageal reflux disease without esophagitis; M85.80 Other specified disorders of bone density and structure, unspecified site; I25.2 Old myocardial infarction; F17.210 Nicotine dependence, cigarettes, uncomplicated; Z79.899 Other long term (current) drug therapy; Z91.030 Bee allergy status

== ENCOUNTER → 2016-09-05 | Outpatient (CLI) | payer MEDICARE, OTHER ==
[~2016-09-05] MED LIST changes: -BIOTCAP PO; -BUPR1TAB17 PO; -CALC1CHW7 PO; -FLINCHW9 PO; -FORT600S SC; -GABA-283 PO; -MAGN250T2 PO; -OMEP40CA2 PO; -OXYC1TAB16 PO; -ROBA750T4 PO; -ZETI10TA2 PO
--- NOTE | 2016-09-05 19:44 | REP ---
THORACIC SPINE: REASON: Back pain with radicular symptoms. COMPARISON: 12/18/2014. There is a mild dextroconvex upper thoracic curve status quo. There is mild disc space narrowing seen involving the upper thoracic level anteriorly, status quo. Mild anterior lipping is seen in those respective areas status quo. Vertebral body height and alignment is unchanged. The pedicles are again seen to be intact. IMPRESSION: Chronic changes as described above. Signed by Armando Alejandro DO 09/06/2016 01:58 P
--- NOTE | 2016-09-06 05:48 | REP ---
REASON: Pain. COMPARISON: 04/11/2016. FINDINGS: Five views of the ribs show no acute fracture or destructive osseous lesion. The accompanying frontal view of the chest shows no cardiomegaly, infiltrates, effusions or pneumothoraces. IMPRESSION: Negative rib series. The accompanying frontal view of the chest is unchanged. Signed by Armando Alejandro DO 09/06/2016 01:59 P
== END ==
LOC: M RAD 10:19
PROVIDERS: ATTEND Nurse Practitioner Family
DX: M54.14 Radiculopathy, thoracic region (principal)

== ENCOUNTER → 2016-09-05 | Outpatient (CLI) | payer MEDICARE, OTHER ==
[~2016-09-05] MED LIST changes: +BIOTCAP PO; +BUPR1TAB17 PO; +CALC1CHW7 PO; +FLINCHW9 PO; +FORT600S SC; +GABA-283 PO; +MAGN250T2 PO; +OMEP40CA2 PO; +OXYC1TAB16 PO; +ROBA750T4 PO; +ZETI10TA2 PO
--- NOTE | 2016-09-26 23:34 | ECWPNPC ---
PATIENT NAME: ELIDIA WEEMS : 1970 GENDER: FEMALE VISIT DATE: 09/05/2016 DISCHARGE DATE: 09/05/16 1041 VISIT LOCKED DATE TIME: PHYSICIAN: WILIAM HERBERT RESOURCE: WILIAM HERBERT REASON FOR APPOINTMENT 1. LEFT CHEST/MEDS HISTORY OF PRESENT ILLNESS HISTORY OF PRESENT ILLNESS: PAIN THE PATIENT DESCRIBES THE PAIN... FALL RISK SCREENING: SCREENING :NO FALLS IN THE PAST YEAR TODAY'S VISIT: NOTES: RATES PAIN TODAY 11/07. WAS SEEN BY DR FENTON ON 09/02/16 AND HE DID INCREASE INCREASE HER PERS=COCET TO MAX 4/DAY. IS REPORTING INCREASED RIB PAIN AND IS CONCERNED SHE MAY HAVE A NEW RIB FX. MARKED INCREASE IN PAIN AT 10 PM LAST NITE. NOW IS HURTING TO BREATHE WITH PAIN CENTERED ALONG LEFT BIBS AND SPINE. FEELS BETTER TO STRETCH OUT RIGHT SIDE. . CURRENT MEDICATIONS TAKING FLINTSTONES COMPLETE 60 MG TABLET CHEWABLE 2 TABLETS ORALLY ONCE A DAY TAKING CALCIUM CITRATE + D 500MG/600MG TABLET 1 TABLET ORALLY TWICE A DAY TAKING VITAMIN B-12 500 MCG TABLET 1 TABLET ORALLY DAILY TAKING ALCOHOL PREP PAD 70 % PAD DIRECTED - DIRECTED TAKING BIOTIN 5000 MCG TABLET 1 TABLET ORALLY TWICE A DAY TAKING CPAP MACHINE DIRECTED TAKING EPIPEN 2-LEONARD 0.3 MG/0.3ML DEVICE DIRECTED INJECTION PRN TAKING MAGNESIUM 300 MG CAPSULE 1 CAPSULE WITH A MEAL ORALLY ONCE A DAY TAKING POTASSIUM 99 MG TABLET 1 TABLET ORALLY ONCE A DAY OTC PRODUCT TAKING VYTORIN 10-80 MG TABLET 1 TABLET ORALLY ONCE A DAY TAKING ALBUTEROL SULFATE HFA 108 (90 BASE) MCG/ACT AEROSOL SOLUTION 2 PUFFS NEEDED INHALATION EVERY 4 HRS TAKING OMEPRAZOLE 20 MG CAPSULE DELAYED RELEASE 1 CAPSULE ORALLY ONCE A DAY TAKING AMBIEN 10 MG TABLET 1 TABLET AT BEDTIME NEEDED ORALLY ONCE A DAY (MDD1) TAKING BUPROPION HCL ER (SR) 150 MG TABLET EXTENDED RELEASE 12 HOUR 1 TABLET ORALLY TWICE A DAY TAKING CYMBALTA 30 MG CAPSULE DELAYED RELEASE PARTICLES 2 ORALLY TWICE DAILY TAKING FORTEO 600 MCG/2.4ML SOLUTION 0.08 ML SUBCUTANEOUS ONCE A DAY TAKING GABAPENTIN 300 MG CAPSULE 1 ORALLY THREE TIMES A DAY TAKING OXYCODONE-ACETAMINOPHEN 10-325 MG TABLET 1 TABLET NEEDED ORALLY EVERY 6 HRS (MDD 4) TAKING LIDODERM 5 % PATCH 1 PATCH TO SKIN REMOVE AFTER 12 HOURS EXTERNALLY ON 12 HOURS OFF 12 HOURS TAKING COLACE 100 MG CAPSULE 1 CAPSULE NEEDED ORALLY BID PRN CONSTIPATION MEDICATION LIST REVIEWED AND RECONCILED WITH THE PATIENT PAST MEDICAL HISTORY DEPRESSION CHRONIC PAIN HYPERTENSION/STROKE 06/2001 ELEVATED CHOLESTEROL SLEEP APNEA/COPD/DEVIATED SEPTUM-DR FAUSTIN SYRACUSE RESTLESS LEG SYNDROME LT WRIST NERVE DAMAGE/RSD A RESULT HX OVARIAN CANCER ACID REFLUX STROKE IN 2001 SMOKER + HRT FX RIBS OSTEOPOROSIS HX [place] ALLERGIES BEE STINGS: ANAPHYLAXIS: ALLERGY REVIEW OF SYSTEMS CONSTITUTIONAL: ANY CHANGE IN YOUR MEDICAL CONDITION? NO . CHILLS NO . FEVER NO . INFECTION: DO YOU HAVE NEW INFECTIONS? NO . DO YOU HAVE HISTORY OF MRSA? NO . MUSCULOSKELETAL: ANY NEW PATTERNS OF PAIN OR NUMBNESS? NO . GASTROENTEROLOGY: GENERAL CONSTIPATION IMPROVED WITH COLACE . ANY NEW CHANGE IN BOWEL CONTROL? NO . GENITOURINARY: ANY NEW CHANGE IN BLADDER CONTROL? NO . IS THERE A CHANCE YOU COULD BE ? NO . HEMATOLOGY/LYMPH: DO YOU TAKE ANY BLOOD THINNERS? (FOR EXAMPLE- COUMADIN, PLAVIX, AGGRENOX, PLATEL, PRADAXA, OR XARELTO) NO . WHEN WAS YOUR LAST DOSE? DATE: TIME: . NEUROLOGY: HAVE YOU FALLEN IN THE PAST 6 MONTHS? NO . ANY NEW EXTREMITY NUMBNESS OR WEAKNESS? NO . CARDIOLOGY: DO YOU HAVE A PACEMAKER OR DEFIBRILLATOR? NO . CHEST PAIN DENIES CARDIAC PAIN . RESPIRATORY: HAVE YOU BEEN SICK IN THE PAST WEEK? NO . FEVER NO . FLU LIKE SYMPTOMS? NO . COUGH NO . INTEGUMENTARY: DO YOU HAVE ANY RASHES OR OPEN SORES? NO . ALLERGIC/IMMUNO: ARE YOU ALLERGIC TO SHELLFISH OR IV DYE? NO . ANY NEW ALLERGIES? NO . PSYCHIATRIC: DO YOU HAVE THOUGHTS OF HURTING YOURSELF OR SOMEONE ELSE? NO . ARE YOU ABUSED, NEGLECTED, OR IN AN UNSAFE ENVIRONMENT? NO . ENDOCRINOLOGY: ARE YOU DIABETIC? NO . OTHER: DO YOU NEED ANY PRESCRIPTIONS? NO . IF YES, PLEASE LIST: ____ . ANY NEW PROBLEMS WITH YOUR MEDICATIONS? NO . WHEN DID YOU LAST EAT? ____ . WHEN DID YOU LAST DRINK? ____ . WHAT DID YOU LAST DRINK? ____ . NAME OF PERSON DRIVING YOU HOME? ____ . DO YOU HAVE ANY OTHER QUESTIONS OR CONCERNS YES, DR FENTON INSTRUCTED PATIENT ON [place] THAT SHE COULD TAKE MDD OF 4 OF PERCOCET. FEELS LIKE SHE MIGHT HAVE BROKE ANOTHER RIB? . REVIEWED BY: PROVIDER: WILIAM SWIFT . VITAL SIGNS WT 110 LBS, HT 5'2 1/2", BMI 19.80 INDEX, BP 110/69 MM HG, HR 77 /MIN, RR 16 /MIN, TEMP 97.*, OXYGEN SAT % 98%, NA INITIALS CM 0935. EXAMINATION GENERAL EXAMINATION: GENERAL APPEARANCE:WELL DRESSED. COLOR PALE. PSYCHALERT , ORIENTED X 3 , APPROPRIATE MOOD AND AFFECT , GOOD EYE CONTACT. CHEST:EXQUISITE TENDERNESS OVER THORACIC SPINOUS PROCESSES AND LEFT RIBS FROM T4-110 WITH RADIATION OF PAIN TO THE MID CLAVICULAR LINE. LUNGS:DECREASED AIR ENTRY AT BASES, PAIN WITH INSPRATION. NO WHEEZES, RALES OR RHONCHI. HEART:HEART RATE REGULAR, NO MURMURS, CLICK OR RUBS. MUSCULOSKELETAL:TRIGGER POINTS AND TIGHT FIBROUS BANDS IDENTIFIED ALONG LEFT THORACIC PARAVERTEBRAL MUSCLES FROM T3-4 REGION TO T10 REGION. POINT TENDERNESS OVER THORACIC SPINOUS PROCESSES T4-T 8 REGION. POSTURE ROTATED TO RIGHT. EXTRUDER OPERATOR STRENGTH EQUAL AND STRONG. ABLE TO RISE TO UPRIGHT POSITION. GAIT NONANTALGIC. SKIN:ERYTHEMATOUS PATCH OVER THOURACIC SPINE RIGHT SIDE ALONG SCAPULA. 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 USE HYDROMORHONE TODAY ONLY. DO NOT TAKE WITH PERCOCET. TAKE 2 GABAPENTIN AT BEDTIME, PLUS USUAL DOSES THROUGH OUT THE DAY. PROCEDURE CODES FA211 ESTABILISHED PATIENT [facility] FACILITY CHARGE G3207 PAIN ASSESS POS TOOL F/U PLAN DOC G8427 DOC MEDS VERIFIED W/PT OR RE DISPOSITION & COMMUNICATION FOLLOW UP KEEP TOMORROW'S APPOINTMENT WITH DR FENTON FOR INJECTION ELECTRONICALLY SIGNED BY ALEXANDREA HOPE ON 09/26/2016 AT 05:14 PM EDT DISCLAIMER : THIS IS A VISIT SUMMARY EXTRACTED FROM THE [employer] CHART. IT IS NOT A COPY OF THE [employer] PROGRESS NOTE. EUGENIO
== END ==
LOC: M PAIN 09:10
PROVIDERS: ATTEND Nurse Practitioner Family
DX: M54.14 Radiculopathy, thoracic region (principal); G89.29 Other chronic pain; Z79.891 Long term (current) use of opiate analgesic; Z79.899 Other long term (current) drug therapy; F34.1 Dysthymic disorder; I10 Essential (primary) hypertension; E78.2 Mixed hyperlipidemia; Z91.030 Bee allergy status
CPT/HCPCS: 71101; 72070; G0463

== ENCOUNTER → 2016-09-08 | Outpatient (CLI) | payer MEDICARE, OTHER ==
[~2016-09-08] MED LIST changes: +BUPIVACAINE HCL 0.25% 30 ML VIAL As Ordered ONE; +ISOVUE-M 300 61% 15ML VIAL (Q9967) As Ordered ONE; +LIDOCAINE 1% SDV INJ 30 ML VIAL As Ordered ONE; +MIDAZOLAM INJ 2 MG/2 ML VIAL (J2250) As Ordered ONE; +TRIAMCINOLONE ACETONIDE SUSP 40 MG/ML VIAL (J3301) As Ordered ONE; +fentaNYL 100 MCG/2 ML INJECTION (J3010) As Ordered ONE
--- NOTE | 2016-09-08 17:04 | REP ---
Partial chest x-ray: Three views: History: Intercostal nerve block for pain. 23 seconds of fluoroscopy time. Findings: A sequence of five fluoroscopically obtained intraprocedural spot radiographs of the left injection associated with intercostal nerve block procedure. Signed by Grady Briceno MD 09/08/2016 06:02 P
--- NOTE | 2016-09-08 18:12 | REP ---
CHEST, TWO VIEWS: REASON: Rule out pneumothorax. Patient has acute chest pain. COMPARISON: Frontal view obtained is part of a rib series 09/05/2016 which was normal. FINDINGS: The superior mediastinal structures are midline. The cardiac silhouette is unremarkable in size, shape, and position. The diaphragmatic surfaces of the lungs are regular, and the costophrenic angles are clear. The pulmonary zaragoza are clear. The imaged osseous structures are intact. No change from the prior exam. IMPRESSION: There is no acute cardiopulmonary disease. Signed by Armando Alejandro DO 09/09/2016 11:58 A
--- NOTE | 2016-09-20 00:09 | ECWPNPC ---
PATIENT NAME: ELIDIA WEEMS : 1970 GENDER: FEMALE VISIT DATE: 09/08/2016 DISCHARGE DATE: 09/08/16 1324 VISIT LOCKED DATE TIME: PHYSICIAN: NALLELY FENTON RESOURCE: NALLELY FENTON REASON FOR APPOINTMENT 1. LEFT INTERCOSTAL IV SEDATION HISTORY OF PRESENT ILLNESS HISTORY OF PRESENT ILLNESS: PAIN THE PATIENT DESCRIBES THE PAIN... FALL RISK SCREENING: SCREENING :NO FALLS IN THE PAST YEAR CURRENT MEDICATIONS TAKING FLINTSTONES COMPLETE 60 MG TABLET CHEWABLE 2 TABLETS ORALLY ONCE A DAY, NOTES: 09/08/16599 TAKING CALCIUM CITRATE + D 500MG/600MG TABLET 1 TABLET ORALLY TWICE A DAY, NOTES: 09/07/162099 TAKING VITAMIN B-12 500 MCG TABLET 1 TABLET ORALLY DAILY, NOTES: 09/08/16599 TAKING ALCOHOL PREP PAD 70 % PAD DIRECTED - DIRECTED TAKING BIOTIN 5000 MCG TABLET 1 TABLET ORALLY TWICE A DAY, NOTES: 09/08/16599 TAKING CPAP MACHINE DIRECTED TAKING EPIPEN 2-LEONARD 0.3 MG/0.3ML DEVICE DIRECTED INJECTION PRN, NOTES: NEVER TAKING MAGNESIUM 300 MG CAPSULE 1 CAPSULE WITH A MEAL ORALLY ONCE A DAY, NOTES: 09/08/16599 TAKING POTASSIUM 99 MG TABLET 1 TABLET ORALLY ONCE A DAY OTC PRODUCT, NOTES: 09/08/16599 TAKING VYTORIN 10-80 MG TABLET 1 TABLET ORALLY ONCE A DAY, NOTES: 09/07/162099 TAKING ALBUTEROL SULFATE HFA 108 (90 BASE) MCG/ACT AEROSOL SOLUTION 2 PUFFS NEEDED INHALATION EVERY 4 HRS, NOTES: 8 MONTHS TAKING OMEPRAZOLE 20 MG CAPSULE DELAYED RELEASE 1 CAPSULE ORALLY ONCE A DAY, NOTES: 09/07/162099 TAKING AMBIEN 10 MG TABLET 1 TABLET AT BEDTIME NEEDED ORALLY ONCE A DAY (MDD1), NOTES: 09/07/162099 TAKING BUPROPION HCL ER (SR) 150 MG TABLET EXTENDED RELEASE 12 HOUR 1 TABLET ORALLY TWICE A DAY, NOTES: 09/08/16599 TAKING CYMBALTA 30 MG CAPSULE DELAYED RELEASE PARTICLES 1 CAPSULE ORALLY TWICE DAILY, NOTES: 09/08/16599 TAKING FORTEO 600 MCG/2.4ML SOLUTION 0.08 ML SUBCUTANEOUS ONCE A DAY, NOTES: 09/07/161729 TAKING GABAPENTIN 300 MG CAPSULE 1 ORALLY THREE TIMES A DAY, NOTES: 5/11/17 1100 TAKING LIDODERM 5 % PATCH 1 PATCH TO SKIN REMOVE AFTER 12 HOURS EXTERNALLY ON 12 HOURS OFF 12 HOURS, NOTES: 09/07/16 1900 TAKING COLACE 100 MG CAPSULE 1 CAPSULE NEEDED ORALLY BID PRN CONSTIPATION, NOTES: 09/08/16 0600 TAKING HYDROMORPHONE HCL 2 MG TABLET 1 TABLET NEEDED ORALLY Q 4-6 HRS PRN PAIN MDD=4, NOTES: 09/08/16 1100 NOT-TAKING OXYCODONE-ACETAMINOPHEN 10-325 MG TABLET 1 TABLET NEEDED ORALLY EVERY 6 HRS (MDD 4) MEDICATION LIST REVIEWED AND RECONCILED WITH THE PATIENT PAST MEDICAL HISTORY DEPRESSION CHRONIC PAIN HYPERTENSION/STROKE 06/2001 ELEVATED CHOLESTEROL SLEEP APNEA/COPD/DEVIATED SEPTUM-DR FAUSTIN S[place] RESTLESS LEG SYNDROME LT WRIST NERVE DAMAGE/RSD A RESULT HX OVARIAN CANCER ACID REFLUX STROKE IN 2001 SMOKER + HRT FX RIBS OSTEOPOROSIS HX [place] ALLERGIES BEE STINGS: ANAPHYLAXIS: ALLERGY SURGICAL HISTORY TUBAL LIGATION 08/1990 RT SIDE INGUINAL HERNIA REPAIR 03/2000 RADICAL HYSTERECTOMY DUE TO OVARIAN CANCER 06/2000 LT WRIST RECONSTRUCTION/JOINT FUSION 05/2005 RT KNEE PROCEDURE 05/2005 CYSTOSCOPY 12/2006 ENDOSCOPY 01/2007 GASTRIC BYPASS 01/23/2012 COLONOSCOPY 2008 CHOLECYSTECTOMY CYST REMOVAL FROM HEAD SOCIAL HISTORY GENERAL: TOBACCO USE ARE YOU A:CURRENT SOME DAY SMOKER ADDITIONAL FINDINGS: TOBACCO USERLIGHT CIGARETTE SMOKER ((1-9 CIGS/DAY) SMOKING CESSATION INFORMATION GIVEN08/19/2016 ADDITIONAL FINDINGS: TOBACCO NON-USER NOT READY TO QUIT AT THIS TIME VAPORNO E-CIGARETTENO ALCOHOL SCREENING DID YOU HAVE A DRINK CONTAINING ALCOHOL IN THE PAST YEAR?YES HOW OFTEN DID YOU HAVE A DRINK CONTAINING ALCOHOL IN THE PAST YEAR?MONTHLY OR LESS (1 POINT) HOW MANY DRINKS DID YOU HAVE ON A TYPICAL DAY WHEN YOU WERE DRINKING IN THE PAST YEAR?1 OR 2 (0 POINTS) HOW OFTEN DID YOU HAVE SIX OR MORE DRINKS ON ONE OCCASION IN THE PAST YEAR?NEVER (0 POINTS) POINTS1 INTERPRETATIONNEGATIVE RECREATIONAL DRUG USE DRUG USE?NO CAFFEINE CAFFEINE USE?YES 2 CUPS OF COFFEE IN THE AM HOW OFTEN AND HOW MUCH? 2-3 DIET SNAPPLES/DAY HIV / HEP-C SCREENING HIV TEST OFFERED TO PATIENT:YES DATE OFFERED:07/25/2016 TEST ACCEPTED:NO REASON:OTHER (DOCUMENT IN NOTE) PT STATES SHE HAS HAD IT DONE PREVIOUSLY HEP-C TEST OFFERED TO PATIENT:NO ALREADY TESTED OCCUPATION: DISABLED. DIET: SMALL FERQUENT MEALS. EXERCISE: NO REGULAR EXERCISE DUE TO RIB FX. MARITAL STATUS: . OTHERS AT HOME: SPOUSE. PETS: DOG,CAT. CONFUCIANISM NO TEMPLE BELIEFS THAT WOULD IMPACT HEALTH CARE. LANGUAGE NORTHERN IRISH. EDUCATION LEVEL OF EDUCATION:HIGH SCHOOL REGENTS GED LEARNING BARRIERS / SPECIAL NEEDS CHANGE FROM LAST VISIT?NO 07/25/2016 BARRIERS TO LEARNING?NO HEARING IMPAIRED?NO VISION IMPAIRED?YES :CORRECTIVE LENSES COGNITIVELY IMPAIRED?NO READINESS TO LEARN?YES LEARNING PREFERENCES?YES :DEMONSTRATION/VERBAL INSTRUCTION LEARNING CAPABILITIES PRESENT?YES EMOTIONAL BARRIERS?NO SPECIAL DEVICES?NO SOCIAL WORK SPECIALIST NEEDED?NO NEW PATIENT PAIN DIARY FROM 0-10, WHAT NUMBER IS YOUR PAIN TODAY? 7. PAIN CLINIC PFS, CLERGY, PUBLIC HEALTH REFERRALS PFS REFERRAL NEEDED?NO CLERGY REFERRAL NEEDED?NO PUBLIC HEALTH REFERRAL NEEDED?NO ADVANCED DIRECTIVES HEALTH CARE PROXY?NO WOULD YOU LIKE MORE INFORMATION?NO DO YOU HAVE A DNR?NO WOULD YOU LIKE MORE INFORMATION?NO LIVING WILL?NO WOULD YOU LIKE MORE INFORMATION?NO POWER OF CHIEF OPERATING ENGINEER?NO WOULD YOU LIKE MORE INFORMATION?NO NO TRAVEL OUTSIDE US, NONE RECENT. DOMESTIC VIOLENCE NONE. THIS PATIENT LIVES AT HOME WITH HER AND SON. SHE FRACTURED HER LEFT WRIST IN THE PAST. NO HISTORY OF AN EATING DISORDER. NO HISTORY OF PHYSICAL/SEXUAL ABUSE. SHE SLEEPS OKAY ONLY; USES CPAP. SHE WEARS SEAT BELTS. SHE IS CURRENT WITH DENTAL AND EYE EXAMINATIONS. SHE IS UP TO DATE WITH IMMUNIZATIONS AND TETANUS.08/19/16 PLAN OF CARE FOR THE PAIN CENTER REVIEWED WITH PT. AND SHE VERBALIZED UNDERSTANDING. AD. HOSPITALIZATION/MAJOR DIAGNOSTIC PROCEDURE STROKE 06/2001 HYPOGLYCEMIA 1997 REVIEW OF SYSTEMS CONSTITUTIONAL: ANY CHANGE IN YOUR MEDICAL CONDITION? NO . CHILLS NO . FEVER NO . INFECTION: DO YOU HAVE NEW INFECTIONS? NO . DO YOU HAVE HISTORY OF MRSA? NO . MUSCULOSKELETAL: ANY NEW PATTERNS OF PAIN OR NUMBNESS? NO . GASTROENTEROLOGY: ANY NEW CHANGE IN BOWEL CONTROL? NO . GENITOURINARY: ANY NEW CHANGE IN BLADDER CONTROL? NO . IS THERE A CHANCE YOU COULD BE ? NO . HEMATOLOGY/LYMPH: DO YOU TAKE ANY BLOOD THINNERS? (FOR EXAMPLE- COUMADIN, PLAVIX, AGGRENOX, PLATEL, PRADAXA, OR XARELTO) NO . WHEN WAS YOUR LAST DOSE? DATE: TIME: . NEUROLOGY: HAVE YOU FALLEN IN THE PAST 6 MONTHS? NO . ANY NEW EXTREMITY NUMBNESS OR WEAKNESS? NO . CARDIOLOGY: DO YOU HAVE A PACEMAKER OR DEFIBRILLATOR? NO . RESPIRATORY: HAVE YOU BEEN SICK IN THE PAST WEEK? NO . FEVER NO . FLU LIKE SYMPTOMS? NO . COUGH NO . INTEGUMENTARY: DO YOU HAVE ANY RASHES OR OPEN SORES? NO . ALLERGIC/IMMUNO: ARE YOU ALLERGIC TO SHELLFISH OR IV DYE? NO . ANY NEW ALLERGIES? NO . PSYCHIATRIC: DO YOU HAVE THOUGHTS OF HURTING YOURSELF OR SOMEONE ELSE? NO . ARE YOU ABUSED, NEGLECTED, OR IN AN UNSAFE ENVIRONMENT? NO . ENDOCRINOLOGY: ARE YOU DIABETIC? NO . OTHER: DO YOU NEED ANY PRESCRIPTIONS? NO . IF YES, PLEASE LIST: ____ . ANY NEW PROBLEMS WITH YOUR MEDICATIONS? NO . WHEN DID YOU LAST EAT? 1999 . WHEN DID YOU LAST DRINK? 999 . WHAT DID YOU LAST DRINK? TEA . NAME OF PERSON DRIVING YOU HOME? BILL . DO YOU HAVE ANY OTHER QUESTIONS OR CONCERNS NO . REVIEWED BY: PROVIDER: . VITAL SIGNS WT 110 LBS, HT 5'2 1/2", BMI 19.80 INDEX, BP 114/68 MM HG, HR 82 /MIN, RR 16 /MIN, TEMP 99.0 F, OXYGEN SAT % 97%, NA INITIALS AW 1335, REVIEWED BY: LS. ASSESSMENTS INTERCOSTAL NEURALGIA CHEST WALL PAIN. PROCEDURES PRE-PROCEDURE DIAGNOSIS: INTERCOSTAL NEURALGIA. CHEST WALL PAINPOST-PROCEDURE DIAGNOSIS: INTERCOSTAL NEURALGIA. CHEST WALL PAINPROCEDURE: LEFT T10, T11, T12 INTERCOSTAL NERVE BLOCK UNDER FLUOROSCOPIC GUIDANCE.SURGEON: NALLELY FENTON MDANESTHESIA: LOCAL WITH IV SEDATIONCOMPLICATIONS: NONEPRE-PROCEDURE NOTE: THE PATIENT IS SUFFERING OF CHEST WALL PAIN. WE HAVE DISCUSSED ALTERNATIVES. I REVIEWED THE CHART. WE BOTH AGREED ON DOING AN INTERCOSTAL NERVE BLOCK OVER THE AFFECTED AREA. DUE TO THE PAIN, ANXIETY, AND DISCOMFORT PATIENT WANTS IV SEDATION. I WENT THROUGH THE RISK ALTERNATIVES AND BENEFITS ASSOCIATED WITH THIS PROCEDURE AND THE PATIENT EXPRESSED THAT WANT TO PROCEED WITH THE PROCEDURE WITH IV SEDATION. THE PATIENT IS AWARE THAT THE MAIN POTENTIAL COMPLICATION IS THE DEVELOPMENT OF A PNEUMOTHORAX, IN WHICH CASE A CHEST TUBE WILL BE NEEDED. THE PATIENT DENIES UNEXPLAINABLE WEIGHT LOSS FEVER CHILLS NEW CHANGES IN THE URINARY OR BOWEL CONTROL.PROCEDURE NOTE: THE CONSENT WAS REVIEWED WITH THE PATIENT. PATIENT WAS BROUGHT TO THE PROCEDURE ROOM AND PLACED IN THE PRONE POSITION. THORACOLUMBAR AREA WAS CLEANED WITH CHLORAPREP SOLUTION AND A DRAPED ASEPTICALLY. PROCEDURE WAS UNDERSTATED STANDARD CONDITIONS. UNDER FLUOROSCOPIC GUIDANCE TARGET POINT WAS SELECTED AT THE LEFT T10, T11, T12 RIB. LIDOCAINE WAS USED LOCAL ANESTHETIC. NEITHER WAS ADVANCED UNDER FLUOROSCOPIC GUIDANCE UNTIL WE TOUCHED THE AFFECTED RIB. THEN THE NEEDLE WAS MOVED TO THE INFERIOR BORDER OF THE RIB. ISOVUE-M 30% THE QUARTER CC WAS INJECTED SHOWING ADEQUATE SPREAD OF THE DYE FOLLOWING THE INFERIOR BORDER OF THE RIB. THEN A SOLUTION OF 10 ML OF BUPIVACAINE 0.125% WITH KENALOG 10 MG WAS INJECTED AT EACH LEVEL. PATIENT RECEIVED VERSED 1 MG AND FENTANYL 100 MCG DIVIDED DOSES V1. FACE TO FACE TIME WAS 45 MINUTES. THERE WAS NO EVIDENCE OF VASCULAR UPTAKE OR LUNG PUNCTURE. PATIENT WAS SENT TO THE RECOVERY ROOM. PATIENT WAS DOING WELL THERE WAS NO COMPLICATIONS. FLUOROSCOPIC TIME WAS 23 SECONDS.POST-PROCEDURE NOTE: I DISCUSSED ALTERNATIVES WITH THE PATIENT. CHECK A AP AND LATERAL WERE DONE. THERE IS NO EVIDENCE OF PNEUMOTHORAX. PATIENT IS GOING TO BE SEEN IN A FOLLOW-UP. THERE WERE NO COMPLICATIONS DURING THE PROCEDURE. I, SHIRLEY APRRISH, DOCUMENTED THE ABOVE INFORMATION ACTING A SCRIBE FOR DR. FENTON. I HAVE REVIEWED THE ABOVE DOCUMENT, WRITTEN BY SHIRLEY PARRISH SCRIBJohnnie AND I VERIFY THAT IT IS ACCURATE. DIAGNOSTIC IMAGING [facility] GUIDANCE (PAIN)[id number] DISPOSITION & COMMUNICATION FOLLOW UP 3 WEEKS ELECTRONICALLY SIGNED BY NALLELY FENTON MD ON 09/19/2016 AT 06:48 PM EDT DISCLAIMER : THIS IS A VISIT SUMMARY EXTRACTED FROM THE [employer] CHART. IT IS NOT A COPY OF THE [employer] PROGRESS NOTE. [facility]
== END ==
LOC: M PAIN 13:40
PROVIDERS: ATTEND Anesthesiology
DX: G58.8 Other specified mononeuropathies (principal); R07.89 Other chest pain; F32.9 Major depressive disorder, single episode, unspecified; I10 Essential (primary) hypertension; E78.2 Mixed hyperlipidemia; E83.51 Hypocalcemia; M81.0 Age-related osteoporosis without current pathological fracture; G47.30 Sleep apnea, unspecified; G25.81 Restless legs syndrome; K21.9 Gastro-esophageal reflux disease without esophagitis; I25.2 Old myocardial infarction; M85.80 Other specified disorders of bone density and structure, unspecified site; F34.1 Dysthymic disorder; F17.210 Nicotine dependence, cigarettes, uncomplicated; Z79.899 Other long term (current) drug therapy; Z91.030 Bee allergy status
CPT/HCPCS: 64421; 71020; 77003; J2250; J3010; J3301; Q9967

== ENCOUNTER 2016-09-16 11:50 | Emergency (ER) | payer MEDICARE, OTHER ==
[~2016-09-16] VITALS: Ht 157.5 cm; Wt 52.2 kg
[~2016-09-16 11:50] MED LIST changes: -BIOTCAP PO; -BUPIVACAINE HCL 0.25% 30 ML VIAL As Ordered ONE; -BUPR1TAB17 PO; -CALC1CHW7 PO; -FLINCHW9 PO; -FORT600S SC; -GABA-283 PO; -ISOVUE-M 300 61% 15ML VIAL (Q9967) As Ordered ONE; -LIDOCAINE 1% SDV INJ 30 ML VIAL As Ordered ONE; -MAGN250T2 PO; -MIDAZOLAM INJ 2 MG/2 ML VIAL (J2250) As Ordered ONE; -OMEP40CA2 PO; -OXYC1TAB16 PO; -ROBA750T4 PO; -TRIAMCINOLONE ACETONIDE SUSP 40 MG/ML VIAL (J3301) As Ordered ONE; -ZETI10TA2 PO; -fentaNYL 100 MCG/2 ML INJECTION (J3010) As Ordered ONE
--- NOTE | 2016-09-16 12:20 | ECGEPIP ---
Stationary ECG Study [facility] - ED Test Date: 2016-09-16 Pat Name: ELIDIA WEEMS Department: Room: - Gender: F Quotation Clerk: krish : 1970 Requested By: Cathy Heredia Order Number: [id number] Reading MD: Nayely Lepe Measurements Intervals [place] Rate: 67 P: 64 WA: 147 QRS: 72 QRSD: 80 T: 62 QT: 379 QTc: 401 Interpretive Statements SINUS RHYTHM POSSIBLE RIGHT VENTRICULAR CONDUCTION DELAY NO PRIOR FOR COMPARISON Electronically Signed On 09-16-2016 12:20:08 EDT by Nayely Lepe
[2016-09-16] MEDS ORDERED: BIOTCAP PO (12:21)
[2016-09-16] MEDS ORDERED: DULO30CA PO (12:21)
[2016-09-16] MEDS ORDERED: GABA-283 PO (12:21)
[2016-09-16] MEDS ORDERED: OXYC1TAB16 PO (12:21)
[2016-09-16] MEDS ORDERED: ZETI10TA2 PO (12:21)
[2016-09-16] MEDS ORDERED: AMBI10TA PO (12:21)
[2016-09-16] MEDS ORDERED: CALC1CHW7 PO (12:21)
[2016-09-16] MEDS ORDERED: MAGN250T2 PO (12:21)
[2016-09-16] MEDS ORDERED: ROBA750T4 PO (12:21)
[2016-09-16] MEDS ORDERED: OMEP40CA2 PO (12:21)
[2016-09-16] MEDS ORDERED: FLINCHW9 PO (12:21)
[2016-09-16] MEDS ORDERED: BUPR1TAB17 PO (12:21)
[2016-09-16] MEDS ORDERED: VYTO10TA PO (12:21)
[2016-09-16] MEDS ORDERED: FORT600S SC (12:21)
[2016-09-16 13:10] VITALS: BP 122/76
[2016-09-16] MEDS ORDERED: NITROGLYCERIN 0.4 MG SUBL TABLET SL STA (13:16)
[2016-09-16 13:17] LABS: BASO % 0.6 % (0.0-1.0); EOS # 0.2 K/mm3 (0.0-0.50); EOS % 2.2 % (0.0-3.0); LARGE UNSTAINED CELL # 0.2 K/mm3 (0.0-0.4); LARGE UNSTAINED CELL % 2.4 % (0.0-4.0); LYMPH # 2.2 K/mm3 (1.5-4.5); LYMPH % 31.3 % (24.0-44.0); MEAN CORPUSCULAR HEMOGLOBIN 34.2 pg (27.0-33.0); MEAN CORPUSCULAR HGB CONC 35.1 g/dl (32.0-36.5); MEAN CORPUSCULAR VOLUME 97.5 fl (80.0-96.0); MONO # 0.5 K/mm3 (0.0-0.8); MONO % 6.8 % (0.0-5.0); NEUTROPHILS # 3.8 K/mm3 (1.8-7.7); NEUTROPHILS % 56.8 % (36.0-66.0); PLATELET COUNT, AUTOMATED 238 k/mm3 (150-450); RED CELL DISTRIBUTION WIDTH 11.9 % (11.5-14.5); WHITE BLOOD COUNT 6.7 K/mm3 (4.0-10.0)
[2016-09-16 13:31] LABS: ALKALINE PHOSPHATASE 96 U/L (45-117); ALT/SGPT 30 U/L (12-78); AST/SGOT 19 U/L (15-37); BILIRUBIN,DIRECT 0.2 MG/DL (0.0-0.2); BILIRUBIN,TOTAL 0.6 MG/DL (0.2-1.0); BLOOD UREA NITROGEN 16 MG/DL (7-18); CALCIUM LEVEL 8.1 MG/DL (8.5-10.1); CHLORIDE LEVEL 109 MEQ/L (98-107); CREATININE FOR GFR 0.65 MG/DL (0.55-1.02); GLUCOSE, FASTING 65 MG/DL (70-105); SODIUM LEVEL 142 MEQ/L (136-145); TOTAL PROTEIN 6.1 GM/DL (6.4-8.2)
--- NOTE | 2016-09-16 13:47 | REP ---
Clinical: Bilateral pain and swelling . Technique: Ramirez scale and color Doppler evaluation using linear high frequency transducer. Findings: Ultrasound examination of the right and left lower extremity deep venous structures from the common femoral vein to the popliteal vein demonstrates normal compressibility flow and wave patterns in response to respiration and augmentation. There is no evidence for deep venous thrombosis. Impression: No evidence for deep venous thrombosis. Signed by Jt Ng MD 09/16/2016 01:39 P
[2016-09-16] MEDS ORDERED: ISOVUE-370 76% 100ML VIAL (Q9967) As Ordered ONE (14:04)
--- NOTE | 2016-09-16 14:08 | REP ---
Clinical: Chest pain . Comparison: 09/08/2016 . Technique: PA and lateral. Findings: The mediastinum and cardiac silhouette are normal. The lung zaragoza are clear and without acute consolidation, effusion, or pneumothorax. The skeletal structures are intact and normal. Impression: 1. No acute cardiopulmonary process. Signed by Jt Ng MD 09/16/2016 02:00 P
[2016-09-16 14:13] LABS: ALBUMIN 3.4 GM/DL (3.2-5.2); ALBUMIN/GLOBULIN RATIO 1.26 (1.00-1.93); ANION GAP 6 MEQ/L (8-16); CARBON DIOXIDE LEVEL 27 MEQ/L (21-32)
--- NOTE | 2016-09-16 14:30 | REP ---
Clinical: Pleuritic chest pain. Technique: Axial contrast enhanced images from the thoracic inlet to the upper abdomen using 100 ml Isovue 370 intravenous contrast material with multiplanar re-formations. Findings: Satisfactory enhancement of the pulmonary vasculature is achieved and no filling defects are identified to suggest pulmonary embolus. Further evaluation of the mediastinum demonstrates normal thoracic aorta, heart and pericardium. The bilateral lung zaragoza are well aerated and clear without consolidation, pleural effusion or pneumothorax. Tracheobronchial tree is patent. No nodule or mass lesion is identified. No adenopathy noted. Surrounding musculoskeletal structures intact Impression: No evidence for pulmonary embolus. No acute mediastinal or pleural parenchymal process. Signed by Jt Ng MD 09/16/2016 02:21 P
[2016-09-16 19:04] VITALS: BP 118/77
--- NOTE | 2016-09-16 19:31 | ECGEPIP ---
Stationary ECG Study [facility] - ED Test Date: 2016-09-16 Pat Name: ELIDIA WEEMS Department: Room: - Gender: F Hotel Staff Member: ROSEANNE : 1970 Requested By: MARLIN Estrada Order Number: [id number] Reading MD: Rafa Lamb Measurements Intervals [place] Rate: 66 P: 74 GA: 140 QRS: 74 QRSD: 77 T: 62 QT: 377 QTc: 397 Interpretive Statements SINUS RHYTHM Electronically Signed On 09-16-2016 19:31:34 EDT by Rafa Lamb
== END 2016-09-16 19:47 | disposition home or self-care (01) ==
LOC: M ED 15:58
DX: R07.9 Chest pain, unspecified (principal); I25.2 Old myocardial infarction; M81.0 Age-related osteoporosis without current pathological fracture; F17.200 Nicotine dependence, unspecified, uncomplicated; Z86.73 Personal history of transient ischemic attack (TIA), and cerebral infarction without residual deficits; Z87.39 Personal history of other diseases of the musculoskeletal system and connective tissue; Z98.84 Bariatric surgery status; Z82.49 Family history of ischemic heart disease and other diseases of the circulatory system; Z79.899 Other long term (current) drug therapy; Z91.030 Bee allergy status
CPT/HCPCS: 36415; 71020; 71275; 80048; 80076; 82550; 82553; 83690; 84484; 85025; 93005; 93041; 93970; 94760; 99285; Q9967

== ENCOUNTER → 2016-09-29 | Outpatient (CLI) | payer MEDICARE, OTHER ==
[~2016-09-29] MED LIST changes: +BIOTCAP PO; +BUPR1TAB17 PO; +CALC1CHW7 PO; +FLINCHW9 PO; +FORT600S SC; +GABA-283 PO; +MAGN250T2 PO; +OMEP40CA2 PO; +OXYC1TAB16 PO; +ROBA750T4 PO; +ZETI10TA2 PO
--- NOTE | 2016-10-18 02:46 | ECWPNPC ---
PATIENT NAME: ELIDIA WEEMS : 1970 GENDER: FEMALE VISIT DATE: 09/29/2016 DISCHARGE DATE: 09/29/16 1007 VISIT LOCKED DATE TIME: PHYSICIAN: WILIAM HERBERT RESOURCE: WILIAM HERBERT REASON FOR APPOINTMENT 1. POST INJ HISTORY OF PRESENT ILLNESS HISTORY OF PRESENT ILLNESS: PAIN THE PATIENT DESCRIBES THE PAIN... FALL RISK SCREENING: SCREENING :NO FALLS IN THE PAST YEAR TODAY'S VISIT: NOTES: RATES PAIN TODAY 3/10. DESCRIBES PAIN CONSTANT, ACHING TENDER AND SORE. IS S/P LEFTINTERCOSTAL NERVE BLOCK AT T10-11 AND 12 ON 09/08/16. MOST OF DAY IS NOW 1-2/10. AT END OF DAY PAIN 4/10. 1 WEEK AFTER INJECTION HAD CHEST PAIN AT LEFT 3-4TH RIBS AND WAS DX INTERCOSTAL PAIN / COSTACHONDRITIS. HAD THOROUGH CARDIAC WORKUP AND NO CARDIAC ISSUES WERE FOUND. HAS HAD 2 SUBSEQUENT EPISODES. . CURRENT MEDICATIONS TAKING FLINTSTONES COMPLETE 60 MG TABLET CHEWABLE 2 TABLETS ORALLY ONCE A DAY, NOTES: 09/08/16599 TAKING CALCIUM CITRATE + D 500MG/600MG TABLET 1 TABLET ORALLY TWICE A DAY, NOTES: 09/07/162099 TAKING VITAMIN B-12 500 MCG TABLET 1 TABLET ORALLY DAILY, NOTES: 09/08/16599 TAKING ALCOHOL PREP PAD 70 % PAD DIRECTED - DIRECTED TAKING BIOTIN 5000 MCG TABLET 1 TABLET ORALLY TWICE A DAY, NOTES: 09/08/16599 TAKING CPAP MACHINE DIRECTED TAKING EPIPEN 2-LEONARD 0.3 MG/0.3ML DEVICE DIRECTED INJECTION PRN, NOTES: NEVER TAKING MAGNESIUM 300 MG CAPSULE 1 CAPSULE WITH A MEAL ORALLY ONCE A DAY, NOTES: 09/08/16599 TAKING POTASSIUM 99 MG TABLET 1 TABLET ORALLY ONCE A DAY OTC PRODUCT, NOTES: 09/08/16599 TAKING VYTORIN 10-80 MG TABLET 1 TABLET ORALLY ONCE A DAY, NOTES: 09/07/162099 TAKING ALBUTEROL SULFATE HFA 108 (90 BASE) MCG/ACT AEROSOL SOLUTION 2 PUFFS NEEDED INHALATION EVERY 4 HRS, NOTES: 8 MONTHS TAKING OMEPRAZOLE 20 MG CAPSULE DELAYED RELEASE 1 CAPSULE ORALLY ONCE A DAY, NOTES: 09/07/162099 TAKING AMBIEN 10 MG TABLET 1 TABLET AT BEDTIME NEEDED ORALLY ONCE A DAY (MDD1), NOTES: 09/07/16 2100 TAKING FORTEO 600 MCG/2.4ML SOLUTION 0.08 ML SUBCUTANEOUS ONCE A DAY, NOTES: 09/07/16 1730 TAKING LIDODERM 5 % PATCH 1 PATCH TO SKIN REMOVE AFTER 12 HOURS EXTERNALLY ON 12 HOURS OFF 12 HOURS, NOTES: 09/07/16 1900 TAKING COLACE 100 MG CAPSULE 1 CAPSULE NEEDED ORALLY BID PRN CONSTIPATION, NOTES: 09/08/16 0600 TAKING BUPROPION HCL ER (SR) 150 MG TABLET EXTENDED RELEASE 12 HOUR 1 TABLET ORALLY TWICE A DAY, NOTES: 09/08/16 0600 TAKING CYMBALTA 30 MG CAPSULE DELAYED RELEASE PARTICLES 1 CAPSULE ORALLY TWICE DAILY, NOTES: 09/08/16 0600 TAKING GABAPENTIN 300 MG CAPSULE 1 ORALLY THREE TIMES A DAY, NOTES: 09/08/16 1100 TAKING OXYCODONE-ACETAMINOPHEN 10-325 MG TABLET 1 TABLET NEEDED ORALLY EVERY 6 HRS (MDD 4) NOT-TAKING HYDROMORPHONE HCL 2 MG TABLET 1 TABLET NEEDED ORALLY Q 4-6 HRS PRN PAIN MDD=4, NOTES: 09/08/16 1100 MEDICATION LIST REVIEWED AND RECONCILED WITH THE PATIENT PAST MEDICAL HISTORY DEPRESSION CHRONIC PAIN HYPERTENSION/STROKE 06/2001 ELEVATED CHOLESTEROL SLEEP APNEA/COPD/DEVIATED SEPTUM-DR FAUSTIN SYRACUSE RESTLESS LEG SYNDROME LT WRIST NERVE DAMAGE/RSD A RESULT HX OVARIAN CANCER ACID REFLUX STROKE IN 2001 SMOKER + HRT FX RIBS OSTEOPOROSIS HX [place] ALLERGIES BEE STINGS: ANAPHYLAXIS: ALLERGY REVIEW OF SYSTEMS CONSTITUTIONAL: ANY CHANGE IN YOUR MEDICAL CONDITION? YES PT WENT TO ED 09/16/16 FOR CHEST PAIN, SHORTNESS OF BREATH. EKG, CXR, CT SCAN OF CHEST ALL NEGATIVE FOR ACUTE FINDINGS. . CHILLS NO . FEVER NO . INFECTION: DO YOU HAVE NEW INFECTIONS? NO . DO YOU HAVE HISTORY OF MRSA? NO . MUSCULOSKELETAL: ANY NEW PATTERNS OF PAIN OR NUMBNESS? YES PT HAD LEFT T10, T11, T12 INTERCOSTAL NERVE BLOCK. REPORTS GENERALLY GOOD RESULTS, A 2-3/10, BUT BY THE END OF THE DAY, SHE REPORTS HER PAIN IS ABOUT A 4/10. . GASTROENTEROLOGY: ANY NEW CHANGE IN BOWEL CONTROL? NO . GENITOURINARY: ANY NEW CHANGE IN BLADDER CONTROL? NO . IS THERE A CHANCE YOU COULD BE ? NO . HEMATOLOGY/LYMPH: DO YOU TAKE ANY BLOOD THINNERS? (FOR EXAMPLE- COUMADIN, PLAVIX, AGGRENOX, PLATEL, PRADAXA, OR XARELTO) NO . WHEN WAS YOUR LAST DOSE? DATE: TIME: . NEUROLOGY: HAVE YOU FALLEN IN THE PAST 6 MONTHS? NO . ANY NEW EXTREMITY NUMBNESS OR WEAKNESS? NO . CARDIOLOGY: DO YOU HAVE A PACEMAKER OR DEFIBRILLATOR? NO . RESPIRATORY: HAVE YOU BEEN SICK IN THE PAST WEEK? NO . FEVER NO . FLU LIKE SYMPTOMS? NO . COUGH NO . INTEGUMENTARY: DO YOU HAVE ANY RASHES OR OPEN SORES? NO . ALLERGIC/IMMUNO: ARE YOU ALLERGIC TO SHELLFISH OR IV DYE? NO . ANY NEW ALLERGIES? NO . PSYCHIATRIC: DO YOU HAVE THOUGHTS OF HURTING YOURSELF OR SOMEONE ELSE? NO . ARE YOU ABUSED, NEGLECTED, OR IN AN UNSAFE ENVIRONMENT? NO . ENDOCRINOLOGY: ARE YOU DIABETIC? NO . OTHER: DO YOU NEED ANY PRESCRIPTIONS? YES . IF YES, PLEASE LIST: ____OXYCODONE . ANY NEW PROBLEMS WITH YOUR MEDICATIONS? NO . WHEN DID YOU LAST EAT? ____ . WHEN DID YOU LAST DRINK? ____ . WHAT DID YOU LAST DRINK? ____ . NAME OF PERSON DRIVING YOU HOME? ____ . DO YOU HAVE ANY OTHER QUESTIONS OR CONCERNS NO . REVIEWED BY: PROVIDER: WILIAM SWIFT . VITAL SIGNS WT 110.0 LBS, HT 5'2 1/2", BMI 19.80 INDEX, BP 127/81 MM HG, HR 77 /MIN, RR 16 /MIN, TEMP 98.3 F, OXYGEN SAT % 98%, SAFE IN ENV? (Y/N) YES, NA INITIALS TL 0916, REVIEWED BY: ZENA. EXAMINATION GENERAL EXAMINATION: GENERAL APPEARANCE:WELL DRESSED. COLOR PALE. PSYCHALERT , ORIENTED X 3 , APPROPRIATE MOOD AND AFFECT , GOOD EYE CONTACT. CHEST:MILD TENDERNESS OVER THORACIC SPINOUS PROCESSES AND LEFT RIBS FROM T4-110 WITH RADIATION OF PAIN TO THE MID CLAVICULAR LINE. LUNGS:DECREASED AIR ENTRY AT BASES, PAIN WITH INSPRATION. NO WHEEZES, RALES OR RHONCHI. HEART:HEART RATE REGULAR, NO MURMURS, CLICK OR RUBS. MUSCULOSKELETAL:TRIGGER POINTS AND TIGHT FIBROUS BANDS IDENTIFIED ALONG LEFT THORACIC PARAVERTEBRAL MUSCLES FROM T3-4 REGION TO T10 REGION. POINT TENDERNESS OVER THORACIC SPINOUS PROCESSES T4-T 8 REGION. POSTURE UPRIGHT AND STRAIGHT TODAY. TEST PULLER STRENGTH EQUAL AND STRONG. ABLE TO RISE TO UPRIGHT POSITION. GAIT NONANTALGIC. 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 USE PAIN PATCH OVER PAINFUL AREAS. NO UNDERWIRE BRA. PROCEDURE CODES FA211 ESTABILISHED PATIENT [facility] FACILITY CHARGE G8730 PAIN ASSESS POS TOOL F/U PLAN DOC G8427 DOC MEDS VERIFIED W/PT OR RE DISPOSITION & COMMUNICATION FOLLOW UP 1 MONTH (REASON: INTERCOSTAL NEURALGIA) ELECTRONICALLY SIGNED BY LAEXANDREA HOPE ON 10/17/2016 AT 08:38 AM EDT DISCLAIMER : THIS IS A VISIT SUMMARY EXTRACTED FROM THE [employer] CHART. IT IS NOT A COPY OF THE [employer] PROGRESS NOTE. EUGENIO
== END ==
LOC: M PAIN 09:20
PROVIDERS: ATTEND Nurse Practitioner Family
DX: M54.14 Radiculopathy, thoracic region (principal); Z79.891 Long term (current) use of opiate analgesic; Z79.899 Other long term (current) drug therapy; Z91.030 Bee allergy status; I10 Essential (primary) hypertension; F34.1 Dysthymic disorder; E78.2 Mixed hyperlipidemia; J44.9 Chronic obstructive pulmonary disease, unspecified

== ENCOUNTER → 2016-10-27 | Outpatient (CLI) | payer MEDICARE, OTHER ==
[~2016-10-27] MED LIST changes: -BUPR1TAB17 PO; +BUPR1TAB53 PO; +CALTTAB11 PO; +FLIN1CHW PO; +LIDO5DIS41 TOP; -MAGN250T2 PO; +MAGN250T6 PO; +MAGN250T7 PO; +OXYC15TA76 PO; -VYTO10TA PO; +VYTO10TA29 PO; -ZETI10TA2 PO; +ZETI10TA30 PO
--- NOTE | 2016-10-27 10:46 | REP ---
Clinical: Thoracic pain Technique: Frontal view of the chest with multiple views of the right and left hemithoraces. Findings: Frontal view of the chest demonstrates no acute cardiopulmonary process. Multiple views of the right and left hemithorax demonstrates no obvious acute rib fracture or pathology. Impression: Normal bilateral rib series Signed by Jt Ng MD 10/27/2016 10:37 A
== END ==
LOC: M LAB 10:14
PROVIDERS: ATTEND Nurse Practitioner Family
DX: M54.14 Radiculopathy, thoracic region (principal)

== ENCOUNTER → 2016-10-27 | Outpatient (CLI) | payer MEDICARE, OTHER ==
--- NOTE | 2016-11-16 03:43 | ECWPNPC ---
PATIENT NAME: ELIDIA WEEMS : 1970 GENDER: FEMALE VISIT DATE: 10/27/2016 DISCHARGE DATE: 10/27/16956 VISIT LOCKED DATE TIME: PHYSICIAN: WILIAM HERBERT RESOURCE: WILIAM HERBERT REASON FOR APPOINTMENT 1. L RIB CAGE HISTORY OF PRESENT ILLNESS HISTORY OF PRESENT ILLNESS: PAIN THE PATIENT DESCRIBES THE PAIN... FALL RISK SCREENING: SCREENING :NO FALLS IN THE PAST YEAR TODAY'S VISIT: NOTES: RATES PAIN TODAY 11/07. DESCRIBES PAIN CONSTANT, BURNING SHARP TENDER AND SORE.STATES HAS HAD RECURRANCE OF LEFT CHEST WALL PAIN OVER LAST 7 DAYS. ALSO REPORTS HAS A NEW DISCOLORATION OF THE SKIN IN THE LEFT ABDOMEN AND A SUNKENNESS OF THE SKIN OVER THE SKIN ALONG THE LEFT LOWER RIB. THIS BEGAN 3 WEEKS AGO. HAS BEEN USING THE OXYCODONE AND HYDROMORPHONE BUT HAS NOT NOTED MUCH RELIEF. . CURRENT MEDICATIONS TAKING FLINTSTONES COMPLETE 60 MG TABLET CHEWABLE 2 TABLETS ORALLY ONCE A DAY, NOTES: 09/08/16599 TAKING CALCIUM CITRATE + D 500MG/600MG TABLET 1 TABLET ORALLY TWICE A DAY, NOTES: 09/07/162099 TAKING VITAMIN B-12 500 MCG TABLET 1 TABLET ORALLY DAILY, NOTES: 09/08/16599 TAKING ALCOHOL PREP PAD 70 % PAD DIRECTED - DIRECTED TAKING BIOTIN 5000 MCG TABLET 1 TABLET ORALLY TWICE A DAY, NOTES: 09/08/16599 TAKING CPAP MACHINE DIRECTED TAKING EPIPEN 2-LEONARD 0.3 MG/0.3ML DEVICE DIRECTED INJECTION PRN, NOTES: NEVER TAKING MAGNESIUM 300 MG CAPSULE 1 CAPSULE WITH A MEAL ORALLY ONCE A DAY, NOTES: 09/08/16599 TAKING POTASSIUM 99 MG TABLET 1 TABLET ORALLY ONCE A DAY OTC PRODUCT, NOTES: 09/08/16599 TAKING VYTORIN 10-80 MG TABLET 1 TABLET ORALLY ONCE A DAY, NOTES: 09/07/162099 TAKING ALBUTEROL SULFATE HFA 108 (90 BASE) MCG/ACT AEROSOL SOLUTION 2 PUFFS NEEDED INHALATION EVERY 4 HRS, NOTES: 8 MONTHS TAKING OMEPRAZOLE 20 MG CAPSULE DELAYED RELEASE 1 CAPSULE ORALLY ONCE A DAY, NOTES: 09/07/162099 TAKING FORTEO 600 MCG/2.4ML SOLUTION 0.08 ML SUBCUTANEOUS ONCE A DAY, NOTES: 09/07/161729 TAKING COLACE 100 MG CAPSULE 1 CAPSULE NEEDED ORALLY BID PRN CONSTIPATION, NOTES: 09/08/16 06 TAKING BUPROPION HCL ER (SR) 150 MG TABLET EXTENDED RELEASE 12 HOUR 1 TABLET ORALLY TWICE A DAY, NOTES: 09/08/16 06 TAKING GABAPENTIN 300 MG CAPSULE 1 ORALLY THREE TIMES A DAY, NOTES: 09/08/16 1100 TAKING LIDODERM 5 % PATCH 1 PATCH TO SKIN REMOVE AFTER 12 HOURS EXTERNALLY ON 12 HOURS OFF 12 HOURS TAKING AMBIEN 10 MG TABLET 1 TABLET AT BEDTIME NEEDED ORALLY ONCE A DAY (MDD1), NOTES: 09/07/16 2100 TAKING CYMBALTA 30 MG CAPSULE DELAYED RELEASE PARTICLES 1 CAPSULE ORALLY TWICE DAILY, NOTES: 09/08/16 0600 TAKING HYDROMORPHONE HCL 2 MG TABLET 1 TABLET NEEDED ORALLY Q 4-6 HRS PRN PAIN MDD=4, NOTES: 09/08/16 1100 NOT-TAKING OXYCODONE-ACETAMINOPHEN 10-325 MG TABLET 1 TABLET NEEDED ORALLY EVERY 6 HRS (MDD 4) MEDICATION LIST REVIEWED AND RECONCILED WITH THE PATIENT PAST MEDICAL HISTORY DEPRESSION CHRONIC PAIN HYPERTENSION/STROKE 06/2001 ELEVATED CHOLESTEROL SLEEP APNEA/COPD/DEVIATED SEPTUM-DR FAUSTIN SYRACUSE RESTLESS LEG SYNDROME LT WRIST NERVE DAMAGE/RSD A RESULT HX OVARIAN CANCER ACID REFLUX STROKE IN 2001 SMOKER + HRT FX RIBS OSTEOPOROSIS HX [place] ALLERGIES BEE STINGS: ANAPHYLAXIS: ALLERGY REVIEW OF SYSTEMS REVIEWED BY: PROVIDER: IWLIAM SWIFT . CONSTITUTIONAL: ANY CHANGE IN YOUR MEDICAL CONDITION? NO . CHILLS NO . FEVER NO . INFECTION: DO YOU HAVE NEW INFECTIONS? NO . DO YOU HAVE HISTORY OF MRSA? NO . MUSCULOSKELETAL: ANY NEW PATTERNS OF PAIN OR NUMBNESS? YES LEFT RIB AREA VERY TENDER/CONTINUEOUS PAIN ALSO TENDER TO TOUCH/ SPOTS VISIBLE PT STATES THIS IS NEW . GASTROENTEROLOGY: ANY NEW CHANGE IN BOWEL CONTROL? NO . GENITOURINARY: ANY NEW CHANGE IN BLADDER CONTROL? NO . IS THERE A CHANCE YOU COULD BE ? NO . HEMATOLOGY/LYMPH: DO YOU TAKE ANY BLOOD THINNERS? (FOR EXAMPLE- COUMADIN, PLAVIX, AGGRENOX, PLATEL, PRADAXA, OR XARELTO) NO . WHEN WAS YOUR LAST DOSE? DATE: TIME: . NEUROLOGY: HAVE YOU FALLEN IN THE PAST 6 MONTHS? NO . ANY NEW EXTREMITY NUMBNESS OR WEAKNESS? NO . CARDIOLOGY: DO YOU HAVE A PACEMAKER OR DEFIBRILLATOR? NO . RESPIRATORY: HAVE YOU BEEN SICK IN THE PAST WEEK? NO . FEVER NO . FLU LIKE SYMPTOMS? NO . COUGH NO . INTEGUMENTARY: DO YOU HAVE ANY RASHES OR OPEN SORES? NO . ALLERGIC/IMMUNO: ARE YOU ALLERGIC TO SHELLFISH OR IV DYE? NO . ANY NEW ALLERGIES? NO . PSYCHIATRIC: DO YOU HAVE THOUGHTS OF HURTING YOURSELF OR SOMEONE ELSE? NO . ARE YOU ABUSED, NEGLECTED, OR IN AN UNSAFE ENVIRONMENT? NO . ENDOCRINOLOGY: ARE YOU DIABETIC? NO . OTHER: DO YOU NEED ANY PRESCRIPTIONS? NO . IF YES, PLEASE LIST: ____ . ANY NEW PROBLEMS WITH YOUR MEDICATIONS? NO . WHEN DID YOU LAST EAT? ____ . WHEN DID YOU LAST DRINK? ____ . WHAT DID YOU LAST DRINK? ____ . NAME OF PERSON DRIVING YOU HOME? ____ . DO YOU HAVE ANY OTHER QUESTIONS OR CONCERNS NO . VITAL SIGNS WT 110.0 LBS, HT 5'2 1/2", BMI 19.80 INDEX, BP 117/82 MM HG, HR 78 /MIN, RR 16 /MIN, TEMP 98.5 F, OXYGEN SAT % 98%, NA INITIALS TL 0846. EXAMINATION GENERAL EXAMINATION: GENERAL APPEARANCE:WELL DRESSED. COLOR PALE. PSYCHALERT , ORIENTED X 3 , APPROPRIATE MOOD AND AFFECT , GOOD EYE CONTACT. CHEST:MILD TENDERNESS OVER THORACIC SPINOUS PROCESSES AND LEFT RIBS FROM T4-110 WITH RADIATION OF PAIN TO THE MID CLAVICULAR LINE. LUNGS:DECREASED AIR ENTRY AT BASES, PAIN WITH INSPRATION. NO WHEEZES, RALES OR RHONCHI. HEART:HEART RATE REGULAR, NO MURMURS, CLICK OR RUBS. MUSCULOSKELETAL:TRIGGER POINTS AND TIGHT FIBROUS BANDS IDENTIFIED ALONG LEFT THORACIC PARAVERTEBRAL MUSCLES FROM T3-4 REGION TO T10 REGION. POINT TENDERNESS OVER THORACIC SPINOUS PROCESSES T4-T 8 REGION. POSTURE UPRIGHT AND STRAIGHT TODAY. INSPECTOR OUTSIDE STEAM DISTRIBUTION STRENGTH EQUAL AND STRONG. ABLE TO RISE TO UPRIGHT POSITION. GAIT NONANTALGIC. 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 USE HYDROMORPHONE NEEDED. REFERRAL TO:NALLELY VINSON REASON:DCS FOR LEFT INTERCOSTAL NEURALGIA PROCEDURE CODES FA211 ESTABILISHED PATIENT [facility] CHARGE G8730 PAIN ASSESS POS TOOL F/U PLAN DOC G8427 DOC MEDS VERIFIED W/PT OR RE DISPOSITION & COMMUNICATION FOLLOW UP SCHED JOSE (TOMORROW?) FOR INTERCOSTAL. ALSO NEEDS DATE WITH DR FENTON TO DISCUSS DCS (REASON: LEFT CHEST WALL/RIB PAIN) ELECTRONICALLY SIGNED BY ALEXANDREA HOPE ON 11/15/2016 AT 08:20 AM EDT DISCLAIMER : THIS IS A VISIT SUMMARY EXTRACTED FROM THE [employer] CHART. IT IS NOT A COPY OF THE [employer] PROGRESS NOTE. EUGENIO
== END ==
LOC: M PAIN 08:40
PROVIDERS: ATTEND Nurse Practitioner Family
DX: M54.14 Radiculopathy, thoracic region (principal); G58.8 Other specified mononeuropathies; Z79.891 Long term (current) use of opiate analgesic; Z79.899 Other long term (current) drug therapy; Z91.030 Bee allergy status; F34.1 Dysthymic disorder; I10 Essential (primary) hypertension; E78.2 Mixed hyperlipidemia; M81.0 Age-related osteoporosis without current pathological fracture; E83.51 Hypocalcemia

== ENCOUNTER → 2016-10-28 | Outpatient (CLI) | payer MEDICARE, OTHER ==
--- NOTE | 2016-11-06 23:39 | ECWPNPC ---
PATIENT NAME: ELIDIA WEEMS : 1970 GENDER: FEMALE VISIT DATE: 10/28/2016 DISCHARGE DATE: 10/28/16 1038 VISIT LOCKED DATE TIME: PHYSICIAN: NALLELY FENTON RESOURCE: NALLELY FENTON REASON FOR APPOINTMENT 1. CHEST WALL PAIN HISTORY OF PRESENT ILLNESS HISTORY OF PRESENT ILLNESS: PAIN THE PATIENT DESCRIBES THE PAIN... 46 YEAR OLD FEMALE PATIENT WITH HISTORY OF CHEST WALL PAIN. PATIENT DESCRIBES THE PAIN SHARP, TENDER, SORE, AND HAVING IT ALL THE TIME WITH A PAIN SORE OF 7/10. AT THIS TIME THE PATIENT REPORTS HAVING AN INDENTATION WHERE THE LAST INJECTION WAS GIVEN. PATIENT WOULD LIKE TO MOVE FORWARD WITH THE DCS AT THIS TIME. PATIENT DENIES UNEXPLAINABLE WEIGHT LOSS, FEVER, CHILLS, NEW CHANGES ON HER URINARY OR BOWEL CONTROL. FALL RISK SCREENING: SCREENING :NO FALLS IN THE PAST YEAR CURRENT MEDICATIONS TAKING FLINTSTONES COMPLETE 60 MG TABLET CHEWABLE 2 TABLETS ORALLY ONCE A DAY, NOTES: 10/28/16 0500 TAKING CALCIUM CITRATE + D 500MG/600MG TABLET 1 TABLET ORALLY TWICE A DAY, NOTES: 10/27/16 9PM TAKING VITAMIN B-12 500 MCG TABLET 1 TABLET ORALLY DAILY, NOTES: 10/28/16 0500 TAKING ALCOHOL PREP PAD 70 % PAD DIRECTED - DIRECTED TAKING BIOTIN 5000 MCG TABLET 1 TABLET ORALLY TWICE A DAY, NOTES: 10/28/16 050 TAKING CPAP MACHINE DIRECTED TAKING EPIPEN 2-LEONARD 0.3 MG/0.3ML DEVICE DIRECTED INJECTION PRN TAKING MAGNESIUM 300 MG CAPSULE 1 CAPSULE WITH A MEAL ORALLY ONCE A DAY, NOTES: 10/28/16 050 TAKING POTASSIUM 99 MG TABLET 1 TABLET ORALLY ONCE A DAY OTC PRODUCT, NOTES: 10/28/16 050 TAKING VYTORIN 10-80 MG TABLET 1 TABLET ORALLY ONCE A DAY, NOTES: 10/27/16 9PM TAKING ALBUTEROL SULFATE HFA 108 (90 BASE) MCG/ACT AEROSOL SOLUTION 2 PUFFS NEEDED INHALATION EVERY 4 HRS, NOTES: MONTHS TAKING OMEPRAZOLE 20 MG CAPSULE DELAYED RELEASE 1 CAPSULE ORALLY ONCE A DAY, NOTES: 10/27/16 9PM TAKING FORTEO 600 MCG/2.4ML SOLUTION 0.08 ML SUBCUTANEOUS ONCE A DAY, NOTES: 10/27/16 6PM TAKING COLACE 100 MG CAPSULE 1 CAPSULE NEEDED ORALLY BID PRN CONSTIPATION, NOTES: 10/28/16 0500 TAKING BUPROPION HCL ER (SR) 150 MG TABLET EXTENDED RELEASE 12 HOUR 1 TABLET ORALLY TWICE A DAY, NOTES: 10/28/16 0500 TAKING GABAPENTIN 300 MG CAPSULE 1 ORALLY THREE TIMES A DAY, NOTES: 10/28/16 0500 TAKING LIDODERM 5 % PATCH 1 PATCH TO SKIN REMOVE AFTER 12 HOURS EXTERNALLY ON 12 HOURS OFF 12 HOURS, NOTES: OFF NOW ON ALL NIGHT TAKING AMBIEN 10 MG TABLET 1 TABLET AT BEDTIME NEEDED ORALLY ONCE A DAY (MDD1), NOTES: 10/27/16 9PM TAKING CYMBALTA 30 MG CAPSULE DELAYED RELEASE PARTICLES 1 CAPSULE ORALLY TWICE DAILY, NOTES: 10/28/16 0500 TAKING HYDROMORPHONE HCL 2 MG TABLET 1 TABLET NEEDED ORALLY Q 4-6 HRS PRN PAIN MDD=4, NOTES: 10/27/16 9PM NOT-TAKING OXYCODONE-ACETAMINOPHEN 10-325 MG TABLET 1 TABLET NEEDED ORALLY EVERY 6 HRS (MDD 4) MEDICATION LIST REVIEWED AND RECONCILED WITH THE PATIENT PAST MEDICAL HISTORY DEPRESSION CHRONIC PAIN HYPERTENSION/STROKE 06/2001 ELEVATED CHOLESTEROL SLEEP APNEA/COPD/DEVIATED SEPTUM-DR FAUSTIN SYRACUSE RESTLESS LEG SYNDROME LT WRIST NERVE DAMAGE/RSD A RESULT HX OVARIAN CANCER ACID REFLUX STROKE IN 2001 SMOKER + HRT FX RIBS OSTEOPOROSIS HX [place] ALLERGIES BEE STINGS: ANAPHYLAXIS: ALLERGY REVIEW OF SYSTEMS REVIEWED BY: PROVIDER: NALLELY FENTON MD . CONSTITUTIONAL: ANY CHANGE IN YOUR MEDICAL CONDITION? NO . CHILLS NO . FEVER NO . INFECTION: DO YOU HAVE NEW INFECTIONS? NO . DO YOU HAVE HISTORY OF MRSA? NO . MUSCULOSKELETAL: ANY NEW PATTERNS OF PAIN OR NUMBNESS? NO . GASTROENTEROLOGY: ANY NEW CHANGE IN BOWEL CONTROL? NO . GENITOURINARY: ANY NEW CHANGE IN BLADDER CONTROL? NO . IS THERE A CHANCE YOU COULD BE ? NO . HEMATOLOGY/LYMPH: DO YOU TAKE ANY BLOOD THINNERS? (FOR EXAMPLE- COUMADIN, PLAVIX, AGGRENOX, PLATEL, PRADAXA, OR XARELTO) NO . WHEN WAS YOUR LAST DOSE? DATE: TIME: . NEUROLOGY: HAVE YOU FALLEN IN THE PAST 6 MONTHS? NO . ANY NEW EXTREMITY NUMBNESS OR WEAKNESS? NO . CARDIOLOGY: DO YOU HAVE A PACEMAKER OR DEFIBRILLATOR? NO . RESPIRATORY: HAVE YOU BEEN SICK IN THE PAST WEEK? NO . FEVER NO . FLU LIKE SYMPTOMS? NO . COUGH NO . INTEGUMENTARY: DO YOU HAVE ANY RASHES OR OPEN SORES? NO . ALLERGIC/IMMUNO: ARE YOU ALLERGIC TO SHELLFISH OR IV DYE? NO . ANY NEW ALLERGIES? NO . PSYCHIATRIC: DO YOU HAVE THOUGHTS OF HURTING YOURSELF OR SOMEONE ELSE? NO . ARE YOU ABUSED, NEGLECTED, OR IN AN UNSAFE ENVIRONMENT? NO . ENDOCRINOLOGY: ARE YOU DIABETIC? NO . OTHER: DO YOU NEED ANY PRESCRIPTIONS? YES . IF YES, PLEASE LIST: COLACE, LIDODERM PATCH , ONLY HAS 9 HYDROMORPHINE LEFT . ANY NEW PROBLEMS WITH YOUR MEDICATIONS? NO . WHEN DID YOU LAST EAT? 6PM . WHEN DID YOU LAST DRINK? 6M . WHAT DID YOU LAST DRINK? TEA . NAME OF PERSON DRIVING YOU HOME? BILL . DO YOU HAVE ANY OTHER QUESTIONS OR CONCERNS NO . VITAL SIGNS WT 110 LBS, HT 5'2 1/2", BMI 19.80 INDEX, BP 109/68 MM HG, HR 86 /MIN, RR 16 /MIN, TEMP 99.5 F, OXYGEN SAT % 97%, NA INITIALS AW 0908, REVIEWED BY: NL. EXAMINATION : PATIENT IS ALERT O X 3 AND COOPERATIVE. X-RAY OF THE RIBS DONE ON 03-20-2016 SHOWS A MILDLY DISPLACED LEFT LATERAL RIB FRACTURE INVOLVING THE ELEVENTH, TENTH, AND POSSIBLY NINTH RIB. THERE IS TENDERNESS WITH HYPERPATHIA ON THE LEFT CHEST WALL. ASSESSMENTS NEURALGIA AND NEURITIS, UNSPECIFIED - M79.2 (PRIMARY) LEFT CHEST WALL INTERCOSTAL NEURALGIA. TREATMENT NEURALGIA AND NEURITIS, UNSPECIFIED NOTES: WE DISCUSSED SEVERAL ISSUES WITH MS. WEEMS'S PAIN MANAGEMENT CASE. PATIENT WILL CONTINUE WITH THE SAME MEDICATION REGIME BEFORE. WE WILL HOLD OFF ON STEROIDS FOR A FEW WEEKS DUE TO THE INDENTION WHERE THE LAST INJECTION WAS. HOWEVER, AFTER REVIEWING THE X-RAY AND EXAMINING THE PATIENT SHE IS A GOOD CANDIDATE FOR AN INTERCOSTAL BLOCK INJECTION. WE DISCUSSED THE RISK, BENEFITS, AND ALTERNATIVES THE PATIENT WANTS TO PROCEED. I WOULD ALSO LIKE THE PATIENT TO RECEIVE A LUMBAR AND THORACIC MRI FOR THE DCS PLACEMENT WELL A PSYCHOLOGICAL EVALUATION. INSTRUCTIONS WERE GIVEN, QUESTIONS WERE ANSWERED, PATIENT REPORTS UNDERSTANDING AND AGREES WITH THE PLAN. I, IRAIS FOY, DOCUMENTED THE ABOVE INFORMATION ACTING A SCRIBE FOR DR. FENTON. I HAVE REVIEWED THE ABOVE DOCUMENT, WRITTEN BY IRAIS SHAMPINE SCRIBE AND I VERIFY THAT IT IS ACCURATE. PROCEDURE CODES FA211 ESTABILISHED PATIENT [facility] FACILITY CHARGE G8427 DOC MEDS VERIFIED W/PT OR RE G8730 PAIN ASSESS POS TOOL F/U PLAN DOC DISPOSITION & COMMUNICATION FOLLOW UP 3 WEEKS ELECTRONICALLY SIGNED BY NALLELY FENTON MD ON 11/06/2016 AT 07:49 PM EDT DISCLAIMER : THIS IS A VISIT SUMMARY EXTRACTED FROM THE [employer] CHART. IT IS NOT A COPY OF THE [employer] PROGRESS NOTE. EUGENIO
== END ==
LOC: M PAIN 08:40
PROVIDERS: ATTEND Anesthesiology
DX: M79.2 Neuralgia and neuritis, unspecified (principal); Z79.891 Long term (current) use of opiate analgesic; Z79.899 Other long term (current) drug therapy; Z91.030 Bee allergy status

== ENCOUNTER → 2016-11-08 | Outpatient (CLI) | payer MEDICARE, OTHER ==
--- NOTE | 2016-11-08 12:11 | REP ---
MR THORACIC SPINE WITHOUT CONTRAST: HISTORY: Back pain. There is no disc bulge or herniation. The spinal canal and the neural foramina are patent. The spinal cord is normal in signal intensity. A hemangioma is present in the T4 vertebral body. Normal signal intensity is present in the remaining thoracic vertebral bodies. Small anterior osteophytes are present in the mid and lower thoracic spine. IMPRESSION: There is no disc bulge or herniation. Signed by Neeraj Chan MD 11/08/2016 12:17 P
--- NOTE | 2016-11-08 15:20 | REP ---
MR LUMBAR SPINE WITHOUT CONTRAST: HISTORY: Back pain. Decreased signal intensity on T2-weighted images is present in the L4-5 and L5-S1 intervertebral discs. The discs are decreased in height. These findings are consistent with disc degeneration. There is no disc bulge or herniation at the L1-2 through L3-4 levels. The nerves exit the neural foramina without compression. A diffuse disc bulge and small left intraforaminal disc protrusion are present at the L4-5 level. There is minimal compression of the thecal sac. The disc protrusion of abuts the left L4 nerve in the distal neural foramen. The right L4 nerve exits the neural foramen without compression. A diffuse disc bulge and small left paracentral and intraforaminal disc protrusion are present at the L5-S1 level. There is minimal compression of the thecal sac and left S1 nerve as it exits the thecal sac. There is hypertrophy of the posterior articulating facets. There is compression of the left L5 nerve in the neural foramen. The right L5 nerve exits the neural foramen without compression. The conus medullaris is normal in appearance terminating at the level of the L1-2 intervertebral disc. Normal signal intensity is present in the lumbar vertebral bodies. IMPRESSION: 1. Diffuse disc bulge at the L4-5 level with minimal thecal sac compression. A small left intraforaminal disc protrusion is present. This abuts the left L4 nerve in the distal neural foramen. 2. Diffuse disc bugle and small left paracentral and intraforaminal disc protrusion at the L5-S1 level with minimal compression of the thecal sac and left S1 nerve as its exits the thecal sac. There is compression of the left L5 nerve in the neural foramen. Signed by Neeraj Chan MD 11/08/2016 03:24 P
== END ==
LOC: M RAD 10:55
PROVIDERS: ATTEND Anesthesiology
DX: M51.26 Other intervertebral disc displacement, lumbar region (principal); M51.27 Other intervertebral disc displacement, lumbosacral region

== ENCOUNTER → 2016-11-11 | Outpatient (CLI) | payer MEDICARE, OTHER ==
[~2016-11-11] MED LIST changes: +BUPIVACAINE HCL 0.25% 30 ML VIAL As Ordered ONE; +ISOVUE-M 300 61% 15ML VIAL (Q9967) As Ordered ONE; +LIDOCAINE 1% SDV INJ 30 ML VIAL As Ordered ONE; +MIDAZOLAM INJ 2 MG/2 ML VIAL (J2250) As Ordered ONE; +TRIAMCINOLONE ACETONIDE SUSP 40 MG/ML VIAL (J3301) As Ordered ONE; +fentaNYL 100 MCG/2 ML INJECTION (J3010) As Ordered ONE
--- NOTE | 2016-11-11 17:12 | REP ---
CHEST, THREE VIEWS: HISTORY: Left intercostal pain. COMPARISON: 10/27/2016. The lungs are clear. The heart is normal in size. The pulmonary vasculature is normal in appearance. The bony structure is intact. IMPRESSION: No acute disease. Signed by Neeraj Chan MD 11/11/2016 05:13 P
--- NOTE | 2016-11-11 17:24 | REP ---
Partial chest x-ray: Eight views: History: Intercostal nerve block. 24 seconds of fluoroscopy time is reported. Findings: A sequence of eight fluoroscopically obtained intraprocedural spot radiographs of the left lower rib cage document various needle positions and contrast injections associated with intercostal nerve block procedure. Signed by Grady Briceno MD 11/13/2016 07:33 A
--- NOTE | 2016-11-26 02:20 | ECWPNPC ---
PATIENT NAME: ELIDIA WEEMS : 1970 GENDER: FEMALE VISIT DATE: 11/11/2016 DISCHARGE DATE: 11/11/161621 VISIT LOCKED DATE TIME: PHYSICIAN: NALLELY FENTON RESOURCE: NALLELY FENTON REASON FOR APPOINTMENT 1. INTERCOSTAL HISTORY OF PRESENT ILLNESS HISTORY OF PRESENT ILLNESS: PAIN THE PATIENT DESCRIBES THE PAIN... FALL RISK SCREENING: SCREENING :NO FALLS IN THE PAST YEAR CURRENT MEDICATIONS TAKING FLINTSTONES COMPLETE 60 MG TABLET CHEWABLE 2 TABLETS ORALLY ONCE A DAY, NOTES: 11/11/16429 TAKING CALCIUM CITRATE + D 500MG/600MG TABLET 1 TABLET ORALLY TWICE A DAY, NOTES: 11/10/162099 TAKING VITAMIN B-12 500 MCG TABLET 1 TABLET ORALLY DAILY, NOTES: 11/11/16429 TAKING ALCOHOL PREP PAD 70 % PAD DIRECTED - DIRECTED TAKING BIOTIN 5000 MCG TABLET 1 TABLET ORALLY TWICE A DAY, NOTES: 11/11/16429 TAKING CPAP MACHINE DIRECTED TAKING EPIPEN 2-LEONARD 0.3 MG/0.3ML DEVICE DIRECTED INJECTION PRN, NOTES: NONE LATELY TAKING MAGNESIUM 300 MG CAPSULE 1 CAPSULE WITH A MEAL ORALLY ONCE A DAY, NOTES: 11/11/16429 TAKING POTASSIUM 99 MG TABLET 1 TABLET ORALLY ONCE A DAY OTC PRODUCT, NOTES: 11/11/16429 TAKING VYTORIN 10-80 MG TABLET 1 TABLET ORALLY ONCE A DAY, NOTES: 11/10/162099 TAKING ALBUTEROL SULFATE HFA 108 (90 BASE) MCG/ACT AEROSOL SOLUTION 2 PUFFS NEEDED INHALATION EVERY 4 HRS, NOTES: MONTHS TAKING OMEPRAZOLE 20 MG CAPSULE DELAYED RELEASE 1 CAPSULE ORALLY ONCE A DAY, NOTES: 11/10/162099 TAKING FORTEO 600 MCG/2.4ML SOLUTION 0.08 ML SUBCUTANEOUS ONCE A DAY, NOTES: 11/10/161729 TAKING BUPROPION HCL ER (SR) 150 MG TABLET EXTENDED RELEASE 12 HOUR 1 TABLET ORALLY TWICE A DAY, NOTES: 11/11/16 TAKING GABAPENTIN 300 MG CAPSULE 1 ORALLY THREE TIMES A DAY, NOTES: 11/11/16429 TAKING AMBIEN 10 MG TABLET 1 TABLET AT BEDTIME NEEDED ORALLY ONCE A DAY (MDD1), NOTES: 11/10/162099 TAKING CYMBALTA 30 MG CAPSULE DELAYED RELEASE PARTICLES 1 CAPSULE ORALLY TWICE DAILY, NOTES: 7/14/17 0430 TAKING COLACE 100 MG CAPSULE 1 CAPSULE NEEDED ORALLY BID PRN CONSTIPATION, NOTES: 11/11/16 0430 TAKING LIDODERM 5 % PATCH 1 PATCH TO SKIN REMOVE AFTER 12 HOURS EXTERNALLY ON 12 HOURS OFF 12 HOURS, NOTES: 11/10/16 2100 TAKING HYDROMORPHONE HCL 2 MG TABLET 1 TABLET NEEDED ORALLY Q 4-6 HRS PRN PAIN MDD=4, NOTES: 11/11/16 0630 NOT-TAKING OXYCODONE-ACETAMINOPHEN 10-325 MG TABLET 1 TABLET NEEDED ORALLY EVERY 6 HRS (MDD 4) MEDICATION LIST REVIEWED AND RECONCILED WITH THE PATIENT PAST MEDICAL HISTORY DEPRESSION CHRONIC PAIN HYPERTENSION/STROKE 06/2001 ELEVATED CHOLESTEROL SLEEP APNEA/COPD/DEVIATED SEPTUM-DR FAUSTIN SYRACUSE RESTLESS LEG SYNDROME LT WRIST NERVE DAMAGE/RSD A RESULT HX OVARIAN CANCER ACID REFLUX STROKE IN 2001 SMOKER + HRT FX RIBS OSTEOPOROSIS HX [place] ALLERGIES BEE STINGS: ANAPHYLAXIS: ALLERGY SURGICAL HISTORY TUBAL LIGATION 08/1990 RT SIDE INGUINAL HERNIA REPAIR 03/2000 RADICAL HYSTERECTOMY DUE TO OVARIAN CANCER 06/2000 LT WRIST RECONSTRUCTION/JOINT FUSION 05/2005 RT KNEE PROCEDURE 05/2005 CYSTOSCOPY 12/2006 ENDOSCOPY 01/2007 GASTRIC BYPASS 01/23/2012 COLONOSCOPY 2008 CHOLECYSTECTOMY CYST REMOVAL FROM HEAD HOSPITALIZATION/MAJOR DIAGNOSTIC PROCEDURE STROKE 06/2001 HYPOGLYCEMIA 1998 REVIEW OF SYSTEMS REVIEWED BY: PROVIDER: . CONSTITUTIONAL: ANY CHANGE IN YOUR MEDICAL CONDITION? NO . CHILLS NO . FEVER NO . INFECTION: DO YOU HAVE NEW INFECTIONS? NO . DO YOU HAVE HISTORY OF MRSA? NO . MUSCULOSKELETAL: ANY NEW PATTERNS OF PAIN OR NUMBNESS? NO . GASTROENTEROLOGY: ANY NEW CHANGE IN BOWEL CONTROL? NO . GENITOURINARY: ANY NEW CHANGE IN BLADDER CONTROL? NO . IS THERE A CHANCE YOU COULD BE ? NO . HEMATOLOGY/LYMPH: DO YOU TAKE ANY BLOOD THINNERS? (FOR EXAMPLE- COUMADIN, PLAVIX, AGGRENOX, PLATEL, PRADAXA, OR XARELTO) NO . WHEN WAS YOUR LAST DOSE? DATE: TIME: . NEUROLOGY: HAVE YOU FALLEN IN THE PAST 6 MONTHS? NO . ANY NEW EXTREMITY NUMBNESS OR WEAKNESS? NO . CARDIOLOGY: DO YOU HAVE A PACEMAKER OR DEFIBRILLATOR? NO . RESPIRATORY: HAVE YOU BEEN SICK IN THE PAST WEEK? NO . FEVER NO . FLU LIKE SYMPTOMS? NO . COUGH NO . INTEGUMENTARY: DO YOU HAVE ANY RASHES OR OPEN SORES? NO . ALLERGIC/IMMUNO: ARE YOU ALLERGIC TO SHELLFISH OR IV DYE? NO . ANY NEW ALLERGIES? NO . PSYCHIATRIC: DO YOU HAVE THOUGHTS OF HURTING YOURSELF OR SOMEONE ELSE? NO . ARE YOU ABUSED, NEGLECTED, OR IN AN UNSAFE ENVIRONMENT? NO . ENDOCRINOLOGY: ARE YOU DIABETIC? NO . OTHER: DO YOU NEED ANY PRESCRIPTIONS? NO . IF YES, PLEASE LIST: ____ . ANY NEW PROBLEMS WITH YOUR MEDICATIONS? NO . WHEN DID YOU LAST EAT? 11/10/161999 . WHEN DID YOU LAST DRINK? 11/11/16629 . WHAT DID YOU LAST DRINK? TEA . NAME OF PERSON DRIVING YOU HOME? BILL- . DO YOU HAVE ANY OTHER QUESTIONS OR CONCERNS NO . VITAL SIGNS WT 110 LBS, HT 5'2 1/2", BMI 19.80 INDEX, BP 106/64 MM HG, HR 83 /MIN, RR 16 /MIN, TEMP 99.0 F, OXYGEN SAT % 95%, SAFE IN ENV? (Y/N) Y, NA INITIALS DC 12:01, REVIEWED BY: EM. ASSESSMENTS OTHER SPECIFIED MONONEUROPATHIES - G58.8 (PRIMARY) TREATMENT OTHER SPECIFIED MONONEUROPATHIES NOTES: PRE-PROCEDURE DIAGNOSIS: INTERCOSTAL NEURALGIA. CHEST WALL PAINPOST-PROCEDURE DIAGNOSIS: INTERCOSTAL NEURALGIA. CHEST WALL PAINPROCEDURE: LEFT T10, LEFT T11, LEFT T12 INTERCOSTAL NERVE BLOCK UNDER FLUOROSCOPIC GUIDANCE.SURGEON: NALLELY FENTON MDANESTHESIA: LOCAL WITH IV SEDATIONCOMPLICATIONS: NONEPRE-PROCEDURE NOTE: THE PATIENT IS SUFFERING OF CHEST WALL PAIN. WE HAVE DISCUSSED ALTERNATIVES. I REVIEWED THE CHART. WE BOTH AGREED ON DOING AN INTERCOSTAL NERVE BLOCK OVER THE AFFECTED AREA. I WENT THROUGH THE RISK ALTERNATIVES AND BENEFITS ASSOCIATED WITH THIS PROCEDURE AND THE PATIENT EXPRESSED THAT WANT TO PROCEED. THE PATIENT IS AWARE THAT THE MAIN POTENTIAL COMPLICATION IS THE DEVELOPMENT OF A PNEUMOTHORAX, IN WHICH CASE A CHEST TUBE WILL BE NEEDED. PATIENT WOULD LIKE TO MOVE FORWARD WITH IV SEDATION DUE TO DISCOMFORT, PAIN AND ANXIETY ASSOCIATED WITH THE PROCEDURE. THE PATIENT DENIES UNEXPLAINABLE WEIGHT LOSS FEVER CHILLS NEW CHANGES IN THE URINARY OR BOWEL CONTROL.PROCEDURE NOTE: THE CONSENT WAS REVIEWED WITH THE PATIENT. PATIENT WAS BROUGHT TO THE PROCEDURE ROOM AND PLACED IN THE PRONE POSITION. THORACOLUMBAR AREA WAS CLEANED WITH CHLORAPREP SOLUTION AND A DRAPED ASEPTICALLY. PROCEDURE WAS UNDERSTATED STANDARD CONDITIONS. UNDER FLUOROSCOPIC GUIDANCE TARGET POINT WAS SELECTED AT THE LEFT T10, LEFT T11 AND LEFT T12 RIB. LIDOCAINE WAS USED LOCAL ANESTHETIC. NEITHER WAS ADVANCED UNDER FLUOROSCOPIC GUIDANCE UNTIL WE TOUCHED THE AFFECTED RIB. THEN THE NEEDLE WAS MOVED TO THE INFERIOR BORDER OF THE RIB. ISOVUE-M 30% THE QUARTER CC WAS INJECTED SHOWING ADEQUATE SPREAD OF THE DYE FOLLOWING THE INFERIOR BORDER OF THE RIB. THEN A SOLUTION OF 10 ML OF BUPIVACAINE 0.125% WITH KENALOG 10 MG WAS INJECTED AT EACH LEVEL. PATIENT RECEIVED VERSED 2 MG AND FENTANYL 100 MCG IV DIVIDED DOSES THERE WAS NO EVIDENCE OF VASCULAR UPTAKE OR LUNG PUNCTURE. PATIENT WAS SENT TO THE RECOVERY ROOM. PATIENT WAS DOING WELL THERE WAS NO COMPLICATIONS. FLUOROSCOPIC TIME WAS 24 SECONDS. FACE TO FACE TIME WAS 36 MINUTESPOST-PROCEDURE NOTE: I DISCUSSED ALTERNATIVES WITH THE PATIENT. CHECK A AP AND LATERAL WERE DONE. THERE IS NO EVIDENCE OF PNEUMOTHORAX. PATIENT IS GOING TO BE SEEN IN A FOLLOW-UP. THERE WERE NO COMPLICATIONS DURING THE PROCEDURE. I, IRAIS FOY, DOCUMENTED THE ABOVE INFORMATION ACTING A SCRIBE FOR DR. FENTON. I HAVE REVIEWED THE ABOVE DOCUMENT, WRITTEN BY IRAIS FOY SCRIBE AND I VERIFY THAT IT IS ACCURATE. DIAGNOSTIC IMAGING [facility] FLUORO GUIDANCE (PAIN)[id number] PROCEDURE CODES 26540 N BLOCK INJ INTERCOST AIRPLANE FUELER 6045F RADXPS IN END [id number] PXD 56037 MOD SED SAME PHYS/QHP 5/>YRS 69986 MOD SED SAME PHYS/QHP EA DISPOSITION & COMMUNICATION FOLLOW UP 3 WEEKS ELECTRONICALLY SIGNED BY NALLELY FENTON MD ON 11/25/2016 AT 05:14 PM EDT DISCLAIMER : THIS IS A VISIT SUMMARY EXTRACTED FROM THE [employer] CHART. IT IS NOT A COPY OF THE [employer] PROGRESS NOTE. MTDD
--- NOTE | 2016-11-27 23:44 | ECWPNPC ---
PATIENT NAME: ELIDIA WEEMS : 1970 GENDER: FEMALE VISIT DATE: 11/11/2016 DISCHARGE DATE: 11/11/161621 VISIT LOCKED DATE TIME: PHYSICIAN: NALLELY FENTON RESOURCE: NALLELY FENTON REASON FOR APPOINTMENT 1. INTERCOSTAL HISTORY OF PRESENT ILLNESS HISTORY OF PRESENT ILLNESS: PAIN THE PATIENT DESCRIBES THE PAIN... FALL RISK SCREENING: SCREENING :NO FALLS IN THE PAST YEAR CURRENT MEDICATIONS TAKING FLINTSTONES COMPLETE 60 MG TABLET CHEWABLE 2 TABLETS ORALLY ONCE A DAY, NOTES: 11/11/16429 TAKING CALCIUM CITRATE + D 500MG/600MG TABLET 1 TABLET ORALLY TWICE A DAY, NOTES: 11/10/162099 TAKING VITAMIN B-12 500 MCG TABLET 1 TABLET ORALLY DAILY, NOTES: 11/11/16429 TAKING ALCOHOL PREP PAD 70 % PAD DIRECTED - DIRECTED TAKING BIOTIN 5000 MCG TABLET 1 TABLET ORALLY TWICE A DAY, NOTES: 11/11/16429 TAKING CPAP MACHINE DIRECTED TAKING EPIPEN 2-LEONARD 0.3 MG/0.3ML DEVICE DIRECTED INJECTION PRN, NOTES: NONE LATELY TAKING MAGNESIUM 300 MG CAPSULE 1 CAPSULE WITH A MEAL ORALLY ONCE A DAY, NOTES: 11/11/16429 TAKING POTASSIUM 99 MG TABLET 1 TABLET ORALLY ONCE A DAY OTC PRODUCT, NOTES: 11/11/16429 TAKING VYTORIN 10-80 MG TABLET 1 TABLET ORALLY ONCE A DAY, NOTES: 11/10/162099 TAKING ALBUTEROL SULFATE HFA 108 (90 BASE) MCG/ACT AEROSOL SOLUTION 2 PUFFS NEEDED INHALATION EVERY 4 HRS, NOTES: MONTHS TAKING OMEPRAZOLE 20 MG CAPSULE DELAYED RELEASE 1 CAPSULE ORALLY ONCE A DAY, NOTES: 11/10/162099 TAKING FORTEO 600 MCG/2.4ML SOLUTION 0.08 ML SUBCUTANEOUS ONCE A DAY, NOTES: 11/10/161729 TAKING BUPROPION HCL ER (SR) 150 MG TABLET EXTENDED RELEASE 12 HOUR 1 TABLET ORALLY TWICE A DAY, NOTES: 11/11/16 TAKING GABAPENTIN 300 MG CAPSULE 1 ORALLY THREE TIMES A DAY, NOTES: 11/11/16429 TAKING AMBIEN 10 MG TABLET 1 TABLET AT BEDTIME NEEDED ORALLY ONCE A DAY (MDD1), NOTES: 11/10/162099 TAKING CYMBALTA 30 MG CAPSULE DELAYED RELEASE PARTICLES 1 CAPSULE ORALLY TWICE DAILY, NOTES: 7/14/17 0430 TAKING COLACE 100 MG CAPSULE 1 CAPSULE NEEDED ORALLY BID PRN CONSTIPATION, NOTES: 11/11/16 0430 TAKING LIDODERM 5 % PATCH 1 PATCH TO SKIN REMOVE AFTER 12 HOURS EXTERNALLY ON 12 HOURS OFF 12 HOURS, NOTES: 11/10/16 2100 TAKING HYDROMORPHONE HCL 2 MG TABLET 1 TABLET NEEDED ORALLY Q 4-6 HRS PRN PAIN MDD=4, NOTES: 11/11/16 0630 NOT-TAKING OXYCODONE-ACETAMINOPHEN 10-325 MG TABLET 1 TABLET NEEDED ORALLY EVERY 6 HRS (MDD 4) MEDICATION LIST REVIEWED AND RECONCILED WITH THE PATIENT PAST MEDICAL HISTORY DEPRESSION CHRONIC PAIN HYPERTENSION/STROKE 06/2001 ELEVATED CHOLESTEROL SLEEP APNEA/COPD/DEVIATED SEPTUM-DR FAUSTIN SYRACUSE RESTLESS LEG SYNDROME LT WRIST NERVE DAMAGE/RSD A RESULT HX OVARIAN CANCER ACID REFLUX STROKE IN 2001 SMOKER + HRT FX RIBS OSTEOPOROSIS HX [place] ALLERGIES BEE STINGS: ANAPHYLAXIS: ALLERGY SURGICAL HISTORY TUBAL LIGATION 08/1990 RT SIDE INGUINAL HERNIA REPAIR 03/2000 RADICAL HYSTERECTOMY DUE TO OVARIAN CANCER 06/2000 LT WRIST RECONSTRUCTION/JOINT FUSION 05/2005 RT KNEE PROCEDURE 05/2005 CYSTOSCOPY 12/2006 ENDOSCOPY 01/2007 GASTRIC BYPASS 01/23/2012 COLONOSCOPY 2008 CHOLECYSTECTOMY CYST REMOVAL FROM HEAD HOSPITALIZATION/MAJOR DIAGNOSTIC PROCEDURE STROKE 06/2001 HYPOGLYCEMIA 1998 REVIEW OF SYSTEMS REVIEWED BY: PROVIDER: . CONSTITUTIONAL: ANY CHANGE IN YOUR MEDICAL CONDITION? NO . CHILLS NO . FEVER NO . INFECTION: DO YOU HAVE NEW INFECTIONS? NO . DO YOU HAVE HISTORY OF MRSA? NO . MUSCULOSKELETAL: ANY NEW PATTERNS OF PAIN OR NUMBNESS? NO . GASTROENTEROLOGY: ANY NEW CHANGE IN BOWEL CONTROL? NO . GENITOURINARY: ANY NEW CHANGE IN BLADDER CONTROL? NO . IS THERE A CHANCE YOU COULD BE ? NO . HEMATOLOGY/LYMPH: DO YOU TAKE ANY BLOOD THINNERS? (FOR EXAMPLE- COUMADIN, PLAVIX, AGGRENOX, PLATEL, PRADAXA, OR XARELTO) NO . WHEN WAS YOUR LAST DOSE? DATE: TIME: . NEUROLOGY: HAVE YOU FALLEN IN THE PAST 6 MONTHS? NO . ANY NEW EXTREMITY NUMBNESS OR WEAKNESS? NO . CARDIOLOGY: DO YOU HAVE A PACEMAKER OR DEFIBRILLATOR? NO . RESPIRATORY: HAVE YOU BEEN SICK IN THE PAST WEEK? NO . FEVER NO . FLU LIKE SYMPTOMS? NO . COUGH NO . INTEGUMENTARY: DO YOU HAVE ANY RASHES OR OPEN SORES? NO . ALLERGIC/IMMUNO: ARE YOU ALLERGIC TO SHELLFISH OR IV DYE? NO . ANY NEW ALLERGIES? NO . PSYCHIATRIC: DO YOU HAVE THOUGHTS OF HURTING YOURSELF OR SOMEONE ELSE? NO . ARE YOU ABUSED, NEGLECTED, OR IN AN UNSAFE ENVIRONMENT? NO . ENDOCRINOLOGY: ARE YOU DIABETIC? NO . OTHER: DO YOU NEED ANY PRESCRIPTIONS? NO . IF YES, PLEASE LIST: ____ . ANY NEW PROBLEMS WITH YOUR MEDICATIONS? NO . WHEN DID YOU LAST EAT? 11/10/161999 . WHEN DID YOU LAST DRINK? 11/11/16629 . WHAT DID YOU LAST DRINK? TEA . NAME OF PERSON DRIVING YOU HOME? BILL- . DO YOU HAVE ANY OTHER QUESTIONS OR CONCERNS NO . VITAL SIGNS WT 110 LBS, HT 5'2 1/2", BMI 19.80 INDEX, BP 106/64 MM HG, HR 83 /MIN, RR 16 /MIN, TEMP 99.0 F, OXYGEN SAT % 95%, SAFE IN ENV? (Y/N) Y, NA INITIALS DC 12:01, REVIEWED BY: EM. ASSESSMENTS OTHER SPECIFIED MONONEUROPATHIES - G58.8 (PRIMARY) TREATMENT OTHER SPECIFIED MONONEUROPATHIES NOTES: PRE-PROCEDURE DIAGNOSIS: INTERCOSTAL NEURALGIA. CHEST WALL PAINPOST-PROCEDURE DIAGNOSIS: INTERCOSTAL NEURALGIA. CHEST WALL PAINPROCEDURE: LEFT T10, LEFT T11, LEFT T12 INTERCOSTAL NERVE BLOCK UNDER FLUOROSCOPIC GUIDANCE.SURGEON: NALLELY FENTON MDANESTHESIA: LOCAL WITH IV SEDATIONCOMPLICATIONS: NONEPRE-PROCEDURE NOTE: THE PATIENT IS SUFFERING OF CHEST WALL PAIN. WE HAVE DISCUSSED ALTERNATIVES. I REVIEWED THE CHART. WE BOTH AGREED ON DOING AN INTERCOSTAL NERVE BLOCK OVER THE AFFECTED AREA. I WENT THROUGH THE RISK ALTERNATIVES AND BENEFITS ASSOCIATED WITH THIS PROCEDURE AND THE PATIENT EXPRESSED THAT WANT TO PROCEED. THE PATIENT IS AWARE THAT THE MAIN POTENTIAL COMPLICATION IS THE DEVELOPMENT OF A PNEUMOTHORAX, IN WHICH CASE A CHEST TUBE WILL BE NEEDED. PATIENT WOULD LIKE TO MOVE FORWARD WITH IV SEDATION DUE TO DISCOMFORT, PAIN AND ANXIETY ASSOCIATED WITH THE PROCEDURE. THE PATIENT DENIES UNEXPLAINABLE WEIGHT LOSS FEVER CHILLS NEW CHANGES IN THE URINARY OR BOWEL CONTROL.PROCEDURE NOTE: THE CONSENT WAS REVIEWED WITH THE PATIENT. PATIENT WAS BROUGHT TO THE PROCEDURE ROOM AND PLACED IN THE PRONE POSITION. THORACOLUMBAR AREA WAS CLEANED WITH CHLORAPREP SOLUTION AND A DRAPED ASEPTICALLY. PROCEDURE WAS UNDERSTATED STANDARD CONDITIONS. UNDER FLUOROSCOPIC GUIDANCE TARGET POINT WAS SELECTED AT THE LEFT T10, LEFT T11 AND LEFT T12 RIB. LIDOCAINE WAS USED LOCAL ANESTHETIC. NEITHER WAS ADVANCED UNDER FLUOROSCOPIC GUIDANCE UNTIL WE TOUCHED THE AFFECTED RIB. THEN THE NEEDLE WAS MOVED TO THE INFERIOR BORDER OF THE RIB. ISOVUE-M 30% THE QUARTER CC WAS INJECTED SHOWING ADEQUATE SPREAD OF THE DYE FOLLOWING THE INFERIOR BORDER OF THE RIB. THEN A SOLUTION OF 10 ML OF BUPIVACAINE 0.125% WITH KENALOG 10 MG WAS INJECTED AT EACH LEVEL. PATIENT RECEIVED VERSED 2 MG AND FENTANYL 100 MCG IV DIVIDED DOSES THERE WAS NO EVIDENCE OF VASCULAR UPTAKE OR LUNG PUNCTURE. PATIENT WAS SENT TO THE RECOVERY ROOM. PATIENT WAS DOING WELL THERE WAS NO COMPLICATIONS. FLUOROSCOPIC TIME WAS 24 SECONDS. FACE TO FACE TIME WAS 36 MINUTESPOST-PROCEDURE NOTE: I DISCUSSED ALTERNATIVES WITH THE PATIENT. CHECK A AP AND LATERAL WERE DONE. THERE IS NO EVIDENCE OF PNEUMOTHORAX. PATIENT IS GOING TO BE SEEN IN A FOLLOW-UP. THERE WERE NO COMPLICATIONS DURING THE PROCEDURE. I, IRAIS FOY, DOCUMENTED THE ABOVE INFORMATION ACTING A SCRIBE FOR DR. FENTON. I HAVE REVIEWED THE ABOVE DOCUMENT, WRITTEN BY IRAIS FOY SCRIBE AND I VERIFY THAT IT IS ACCURATE. DIAGNOSTIC IMAGING [facility] FLUORO GUIDANCE ([phone])[id number] PROCEDURE CODES 82725 N BLOCK INJ INTERCOST BENCH WORKER 6045F RADXPS IN END [id number] PXD 96313 MOD SED SAME PHYS/QHP 5/>YRS 22470 MOD SED SAME PHYS/QHP EA DISPOSITION & COMMUNICATION FOLLOW UP 3 WEEKS ELECTRONICALLY SIGNED BY NALLELY FENTON MD ON 11/25/2016 AT 05:14 PM EDT DISCLAIMER : THIS IS A VISIT SUMMARY EXTRACTED FROM THE [facility] CHART. IT IS NOT A COPY OF THE [facility] PROGRESS NOTE. MTDD
== END ==
LOC: M PAIN 11:40
PROVIDERS: ATTEND Anesthesiology
DX: G58.8 Other specified mononeuropathies (principal); Z79.891 Long term (current) use of opiate analgesic; Z79.899 Other long term (current) drug therapy; Z91.030 Bee allergy status; F34.1 Dysthymic disorder; I10 Essential (primary) hypertension; E78.2 Mixed hyperlipidemia; J44.9 Chronic obstructive pulmonary disease, unspecified; M81.0 Age-related osteoporosis without current pathological fracture; E83.51 Hypocalcemia
CPT/HCPCS: 64421; 71020; 99152; 99153; J2250; J3010; J3301; Q9967

== ENCOUNTER → 2016-11-18 | Outpatient (CLI) | payer MEDICARE, OTHER ==
[~2016-11-18] MED LIST changes: -BUPIVACAINE HCL 0.25% 30 ML VIAL As Ordered ONE; -ISOVUE-M 300 61% 15ML VIAL (Q9967) As Ordered ONE; -LIDOCAINE 1% SDV INJ 30 ML VIAL As Ordered ONE; -MIDAZOLAM INJ 2 MG/2 ML VIAL (J2250) As Ordered ONE; -TRIAMCINOLONE ACETONIDE SUSP 40 MG/ML VIAL (J3301) As Ordered ONE; -fentaNYL 100 MCG/2 ML INJECTION (J3010) As Ordered ONE
--- NOTE | 2016-12-16 00:40 | ECWPNPC ---
PATIENT NAME: ELIDIA WEEMS : 1970 GENDER: FEMALE VISIT DATE: 11/18/2016 DISCHARGE DATE: 11/18/16 1107 VISIT LOCKED DATE TIME: PHYSICIAN: WILIAM HERBERT RESOURCE: WILIAM HERBERT HISTORY OF PRESENT ILLNESS HISTORY OF PRESENT ILLNESS: PAIN THE PATIENT DESCRIBES THE PAIN... FALL RISK SCREENING: SCREENING :NO FALLS IN THE PAST YEAR TODAY'S VISIT: NOTES: S/P LEFT INTERCOSTAL BLOCK AT &10, T-11, AND T12 COMPLETED ON 11/11/16. PAIN DECREASED TO 4/10 AFTER BLOCK BUT RETURNED TO 7/10 BY 8:30 PM. PREVIOUS BLOCK LASTED 2 1/2 WEEKS. ABDOMENAL DIVIT LUQ LORENA TENDER AND FEELS WIGGLING". . CURRENT MEDICATIONS TAKING FLINTSTONES COMPLETE 60 MG TABLET CHEWABLE 2 TABLETS ORALLY ONCE A DAY, NOTES: 7/ TAKING CALCIUM CITRATE + D 500MG/600MG TABLET 1 TABLET ORALLY TWICE A DAY TAKING VITAMIN B-12 500 MCG TABLET 1 TABLET ORALLY DAILY TAKING ALCOHOL PREP PAD 70 % PAD DIRECTED - DIRECTED TAKING BIOTIN 5000 MCG TABLET 1 TABLET ORALLY TWICE A DAY TAKING CPAP MACHINE DIRECTED TAKING EPIPEN 2-LEONARD 0.3 MG/0.3ML DEVICE DIRECTED INJECTION PRN TAKING MAGNESIUM 300 MG CAPSULE 1 CAPSULE WITH A MEAL ORALLY ONCE A DAY TAKING POTASSIUM 99 MG TABLET 1 TABLET ORALLY ONCE A DAY OTC PRODUCT TAKING VYTORIN 10-80 MG TABLET 1 TABLET ORALLY ONCE A DAY TAKING ALBUTEROL SULFATE HFA 108 (90 BASE) MCG/ACT AEROSOL SOLUTION 2 PUFFS NEEDED INHALATION EVERY 4 HRS TAKING OMEPRAZOLE 20 MG CAPSULE DELAYED RELEASE 1 CAPSULE ORALLY ONCE A DAY TAKING FORTEO 600 MCG/2.4ML SOLUTION 0.08 ML SUBCUTANEOUS ONCE A DAY TAKING BUPROPION HCL ER (SR) 150 MG TABLET EXTENDED RELEASE 12 HOUR 1 TABLET ORALLY TWICE A DAY TAKING GABAPENTIN 300 MG CAPSULE 1 ORALLY THREE TIMES A DAY TAKING AMBIEN 10 MG TABLET 1 TABLET AT BEDTIME NEEDED ORALLY ONCE A DAY (MDD1) TAKING CYMBALTA 30 MG CAPSULE DELAYED RELEASE PARTICLES 1 CAPSULE ORALLY TWICE DAILY TAKING COLACE 100 MG CAPSULE 1 CAPSULE NEEDED ORALLY BID PRN CONSTIPATION TAKING LIDODERM 5 % PATCH 1 PATCH TO SKIN REMOVE AFTER 12 HOURS EXTERNALLY ON 12 HOURS OFF 12 HOURS TAKING HYDROMORPHONE HCL 2 MG TABLET 1 TABLET NEEDED ORALLY Q 4-6 HRS PRN PAIN MDD=4 NOT-TAKING OXYCODONE-ACETAMINOPHEN 10-325 MG TABLET 1 TABLET NEEDED ORALLY EVERY 6 HRS (MDD 4) MEDICATION LIST REVIEWED AND RECONCILED WITH THE PATIENT PAST MEDICAL HISTORY DEPRESSION CHRONIC PAIN HYPERTENSION/STROKE 06/2001 ELEVATED CHOLESTEROL SLEEP APNEA/COPD/DEVIATED SEPTUM-DR ROXIE HAMILTON RESTLESS LEG SYNDROME LT WRIST NERVE DAMAGE/RSD A RESULT HX OVARIAN CANCER ACID REFLUX STROKE IN 2001 SMOKER + HRT FX RIBS OSTEOPOROSIS HX [place] ALLERGIES BEE STINGS: ANAPHYLAXIS: ALLERGY REVIEW OF SYSTEMS REVIEWED BY: PROVIDER: WILIAM HERBERT SENIOR BUSINESS BROKER . CONSTITUTIONAL: ANY CHANGE IN YOUR MEDICAL CONDITION? NO . CHILLS NO . FEVER NO . INFECTION: DO YOU HAVE NEW INFECTIONS? NO . DO YOU HAVE HISTORY OF MRSA? NO . MUSCULOSKELETAL: ANY NEW PATTERNS OF PAIN OR NUMBNESS? NO . GASTROENTEROLOGY: ANY NEW CHANGE IN BOWEL CONTROL? NO . GENITOURINARY: ANY NEW CHANGE IN BLADDER CONTROL? NO . IS THERE A CHANCE YOU COULD BE ? NO . HEMATOLOGY/LYMPH: DO YOU TAKE ANY BLOOD THINNERS? (FOR EXAMPLE- COUMADIN, PLAVIX, AGGRENOX, PLATEL, PRADAXA, OR XARELTO) NO . WHEN WAS YOUR LAST DOSE? DATE: TIME: . NEUROLOGY: HAVE YOU FALLEN IN THE PAST 6 MONTHS? NO . ANY NEW EXTREMITY NUMBNESS OR WEAKNESS? NO . CARDIOLOGY: DO YOU HAVE A PACEMAKER OR DEFIBRILLATOR? NO . RESPIRATORY: HAVE YOU BEEN SICK IN THE PAST WEEK? NO . FEVER NO . FLU LIKE SYMPTOMS? NO . COUGH NO . INTEGUMENTARY: DO YOU HAVE ANY RASHES OR OPEN SORES? NO . ALLERGIC/IMMUNO: ARE YOU ALLERGIC TO SHELLFISH OR IV DYE? NO . ANY NEW ALLERGIES? NO . PSYCHIATRIC: DO YOU HAVE THOUGHTS OF HURTING YOURSELF OR SOMEONE ELSE? NO . ARE YOU ABUSED, NEGLECTED, OR IN AN UNSAFE ENVIRONMENT? NO . ENDOCRINOLOGY: ARE YOU DIABETIC? NO . OTHER: DO YOU NEED ANY PRESCRIPTIONS? NO . IF YES, PLEASE LIST: ____ . ANY NEW PROBLEMS WITH YOUR MEDICATIONS? NO . WHEN DID YOU LAST EAT? ____ . WHEN DID YOU LAST DRINK? ____ . WHAT DID YOU LAST DRINK? ____ . NAME OF PERSON DRIVING YOU HOME? ____ . DO YOU HAVE ANY OTHER QUESTIONS OR CONCERNS NOT DID NOT HELP . VITAL SIGNS WT 110 LBS, HT 5'2 1/2", BMI 19.80 INDEX, BP 123/80 MM HG, HR 71 /MIN, RR 16 /MIN, TEMP 98.5 F, OXYGEN SAT % 99%, NA INITIALS CM 0915. EXAMINATION GENERAL EXAMINATION: GENERAL APPEARANCE:WELL DRESSED. COLOR PALE. PSYCHALERT , ORIENTED X 3 , APPROPRIATE MOOD AND AFFECT , GOOD EYE CONTACT. CHEST:MILD TENDERNESS OVER THORACIC SPINOUS PROCESSES AND LEFT RIBS FROM T4-110 WITH RADIATION OF PAIN TO THE MID CLAVICULAR LINE. LUNGS:DECREASED AIR ENTRY AT BASES, PAIN WITH INSPRATION. NO WHEEZES, RALES OR RHONCHI. HEART:HEART RATE REGULAR, NO MURMURS, CLICK OR RUBS. MUSCULOSKELETAL:TRIGGER POINTS AND TIGHT FIBROUS BANDS IDENTIFIED ALONG LEFT THORACIC PARAVERTEBRAL MUSCLES FROM T3-4 REGION TO T10 REGION. POINT TENDERNESS OVER THORACIC SPINOUS PROCESSES T4-T 8 REGION. POSTURE UPRIGHT AND STRAIGHT TODAY. KETTLE WORKER STRENGTH EQUAL AND STRONG. ABLE TO RISE TO UPRIGHT POSITION. GAIT NONANTALGIC. 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 CLINICAL NOTES: ISTOP REGISTRY REVIEWED AND DEMNOSTRATES COMPLLIANCE. BRINGS IN MEDICATIONS WHICH IS APPROPRIATE FOR WHAT WAS DISPENSED. RECENT URINE TOXICOLOGY REVIEWED. NO UNAUTHORIZED MEDICATIONS. NO ILLICIT SUBSTANCES AND PRESCRIBED MEDICATIONS WERE PRESENT. , RISKS AND BENEFITS OF NARCOTIC/OPIOD MEDICATIONS WERE REVIEWED WITH PATIENT - THIS INCLUDES BUT IS NOT LIMITED TO RISK OF DEPENDANCE/DEVELOPMENT OF ADDICTION, MOOD DISTURBANCE AND DEPRESSION, OSTEOPOROSIS, HORMONAL AND LABIDAL CHANGES, RESPIRATORY DEPRESSION AND . PATIENT IS ADVISED NOT TO DRIVE WHILE ON THESE MEDICATIONS. PROCEDURE CODES FA211 ESTABILISHED PATIENT [facility] CHARGE G8730 PAIN ASSESS POS TOOL F/U PLAN DOC G8427 DOC MEDS VERIFIED W/PT OR RE DISPOSITION & COMMUNICATION FOLLOW UP 1 MONTH (REASON: INTERCOSTAL NEURALGIA) ELECTRONICALLY SIGNED BY ALEXANDREA HOPE ON 12/15/2016 AT 08:19 PM EDT DISCLAIMER : THIS IS A VISIT SUMMARY EXTRACTED FROM THE [employer] CHART. IT IS NOT A COPY OF THE [employer] PROGRESS NOTE. MTDD
== END ==
LOC: M PAIN 09:00
PROVIDERS: ATTEND Nurse Practitioner Family
DX: M54.14 Radiculopathy, thoracic region (principal); F34.1 Dysthymic disorder; I10 Essential (primary) hypertension; E78.2 Mixed hyperlipidemia; E83.51 Hypocalcemia; M81.0 Age-related osteoporosis without current pathological fracture; Z79.891 Long term (current) use of opiate analgesic; Z79.899 Other long term (current) drug therapy; Z91.030 Bee allergy status

== ENCOUNTER → 2016-11-29 | Outpatient (REF) | payer MEDICARE, OTHER | LOC: M SFHCCAPE 16:50 | PROVIDERS: ATTEND Physician Assistant | DX: J02.9 Acute pharyngitis, unspecified (principal) ==

== ENCOUNTER → 2016-12-05 | Outpatient (CLI) | payer MEDICARE, OTHER ==
--- NOTE | 2016-12-20 01:15 | ECWPNPC ---
PATIENT NAME: ELIDIA WEEMS : 1970 GENDER: FEMALE VISIT DATE: 12/05/2016 DISCHARGE DATE: 12/05/16 0000 VISIT LOCKED DATE TIME: PHYSICIAN: NALLELY FENTON RESOURCE: NALLELY FENTON REASON FOR APPOINTMENT 1. CHEST WALL PAIN HISTORY OF PRESENT ILLNESS HISTORY OF PRESENT ILLNESS: PAIN THE PATIENT DESCRIBES THE PAIN... 46 YEAR OLD FEMALE PATIENT WITH HISTORY OF CHEST WALL PAIN. PATIENT DESCRIBES THE PAIN SHARP, TENDER, SORE, AND HAVING IT ALL THE TIME WITH A PAIN SORE OF 7/10. PATIENT IS CURRENTLY USING GABAPENTIN, LIDODERM, CYMBALTA, AND HYDROMORPHONE TO HELP WITH THIS PAIN AND STATES THE MEDICATIONS KEEP HER MOBILE BUT SHE HAS CONSTANT PAIN. PATIENT WOULD LIKE TO MOVE FORWARD WITH THE DCS WITH [employer] AT THIS TIME. PATIENT DENIES UNEXPLAINABLE WEIGHT LOSS, FEVER, CHILLS, NEW CHANGES ON HER URINARY OR BOWEL CONTROL. FALL RISK SCREENING: SCREENING :NO FALLS IN THE PAST YEAR CURRENT MEDICATIONS TAKING FLINTSTONES COMPLETE 60 MG TABLET CHEWABLE 2 TABLETS ORALLY ONCE A DAY TAKING CALCIUM CITRATE + D 500MG/600MG TABLET 1 TABLET ORALLY TWICE A DAY TAKING VITAMIN B-12 500 MCG TABLET 1 TABLET ORALLY DAILY TAKING ALCOHOL PREP PAD 70 % PAD DIRECTED - DIRECTED TAKING BIOTIN 5000 MCG TABLET 1 TABLET ORALLY TWICE A DAY TAKING CPAP MACHINE DIRECTED TAKING EPIPEN 2-LEONARD 0.3 MG/0.3ML DEVICE DIRECTED INJECTION PRN TAKING MAGNESIUM 300 MG CAPSULE 1 CAPSULE WITH A MEAL ORALLY ONCE A DAY TAKING POTASSIUM 99 MG TABLET 1 TABLET ORALLY ONCE A DAY OTC PRODUCT TAKING VYTORIN 10-80 MG TABLET 1 TABLET ORALLY ONCE A DAY TAKING ALBUTEROL SULFATE HFA 108 (90 BASE) MCG/ACT AEROSOL SOLUTION 2 PUFFS NEEDED INHALATION EVERY 4 HRS TAKING OMEPRAZOLE 20 MG CAPSULE DELAYED RELEASE 1 CAPSULE ORALLY ONCE A DAY TAKING FORTEO 600 MCG/2.4ML SOLUTION 0.08 ML SUBCUTANEOUS ONCE A DAY TAKING BUPROPION HCL ER (SR) 150 MG TABLET EXTENDED RELEASE 12 HOUR 1 TABLET ORALLY TWICE A DAY TAKING GABAPENTIN 300 MG CAPSULE 1 ORALLY FOUR TIMES DAILY TAKING AMBIEN 10 MG TABLET 1 TABLET AT BEDTIME NEEDED ORALLY ONCE A DAY (MDD1) TAKING CYMBALTA 30 MG CAPSULE DELAYED RELEASE PARTICLES 1 CAPSULE ORALLY TWICE DAILY TAKING COLACE 100 MG CAPSULE 1 CAPSULE NEEDED ORALLY BID PRN CONSTIPATION TAKING OXYCODONE HCL 15 MG TABLET 1 TABLET NEEDED ORALLY EVERY 4- 6 HRS PRN PAIN MDD=6 TAKING LIDODERM 5 % PATCH 3 PATCH TO CHEST WALL AND RIBS EXTERNALLY ON 12 HOURS OFF 12 HOURS TAKING CEFDINIR 300 MG CAPSULE 1 CAPSULE ORALLY EVERY 12 HRS NOT-TAKING OXYCODONE-ACETAMINOPHEN 10-325 MG TABLET 1 TABLET NEEDED ORALLY EVERY 6 HRS (MDD 4) MEDICATION LIST REVIEWED AND RECONCILED WITH THE PATIENT PAST MEDICAL HISTORY DEPRESSION CHRONIC PAIN HYPERTENSION/STROKE 06/2001 ELEVATED CHOLESTEROL SLEEP APNEA/COPD/DEVIATED SEPTUM-DR FAUSTIN SYRACUSE RESTLESS LEG SYNDROME LT WRIST NERVE DAMAGE/RSD A RESULT HX OVARIAN CANCER ACID REFLUX STROKE IN 2001 SMOKER + HRT FX RIBS OSTEOPOROSIS HX [place] ALLERGIES BEE STINGS: ANAPHYLAXIS: ALLERGY SURGICAL HISTORY TUBAL LIGATION 08/1990 RT SIDE INGUINAL HERNIA REPAIR 03/2000 RADICAL HYSTERECTOMY DUE TO OVARIAN CANCER 06/2000 LT WRIST RECONSTRUCTION/JOINT FUSION 05/2005 RT KNEE PROCEDURE 05/2005 CYSTOSCOPY 12/2006 ENDOSCOPY 01/2007 GASTRIC BYPASS 01/23/2012 COLONOSCOPY 2008 CHOLECYSTECTOMY CYST REMOVAL FROM HEAD HOSPITALIZATION/MAJOR DIAGNOSTIC PROCEDURE STROKE 06/2001 HYPOGLYCEMIA 1998 REVIEW OF SYSTEMS REVIEWED BY: PROVIDER: NALLELY FENTON MD . CONSTITUTIONAL: ANY CHANGE IN YOUR MEDICAL CONDITION? NO . CHILLS NO . FEVER NO . INFECTION: DO YOU HAVE NEW INFECTIONS? NO . DO YOU HAVE HISTORY OF MRSA? NO . MUSCULOSKELETAL: ANY NEW PATTERNS OF PAIN OR NUMBNESS? NO . GASTROENTEROLOGY: ANY NEW CHANGE IN BOWEL CONTROL? NO . GENITOURINARY: ANY NEW CHANGE IN BLADDER CONTROL? NO . IS THERE A CHANCE YOU COULD BE ? NO . HEMATOLOGY/LYMPH: DO YOU TAKE ANY BLOOD THINNERS? (FOR EXAMPLE- COUMADIN, PLAVIX, AGGRENOX, PLATEL, PRADAXA, OR XARELTO) NO . WHEN WAS YOUR LAST DOSE? DATE: TIME: . NEUROLOGY: HAVE YOU FALLEN IN THE PAST 6 MONTHS? NO . ANY NEW EXTREMITY NUMBNESS OR WEAKNESS? NO . CARDIOLOGY: DO YOU HAVE A PACEMAKER OR DEFIBRILLATOR? NO . RESPIRATORY: HAVE YOU BEEN SICK IN THE PAST WEEK? YES, SORE THROAT, SUBMANDIBULAR LYMPHADENOPATHY, PT TX'D WITH CEFDINIR&NBSP;. FEVER &NBSP;&NBSP; NO&NBSP;. FLU LIKE SYMPTOMS? &NBSP;&NBSP; NO&NBSP;. COUGH &NBSP;&NBSP; NO&NBSP;. INTEGUMENTARY: DO YOU HAVE ANY RASHES OR OPEN SORES? NO . ALLERGIC/IMMUNO: ARE YOU ALLERGIC TO SHELLFISH OR IV DYE? NO . ANY NEW ALLERGIES? NO . PSYCHIATRIC: DO YOU HAVE THOUGHTS OF HURTING YOURSELF OR SOMEONE ELSE? NO . ARE YOU ABUSED, NEGLECTED, OR IN AN UNSAFE ENVIRONMENT? NO . ENDOCRINOLOGY: ARE YOU DIABETIC? NO . OTHER: DO YOU NEED ANY PRESCRIPTIONS? YES, OXYCODONE . IF YES, PLEASE LIST: ____ . ANY NEW PROBLEMS WITH YOUR MEDICATIONS? NO . WHEN DID YOU LAST EAT? ____ . WHEN DID YOU LAST DRINK? ____ . WHAT DID YOU LAST DRINK? ____ . NAME OF PERSON DRIVING YOU HOME? ____ . DO YOU HAVE ANY OTHER QUESTIONS OR CONCERNS NO . VITAL SIGNS WT 110 LBS, HT 5'2 1/2", BMI 19.80 INDEX, BP 124/83 MM HG, HR 81 /MIN, RR 16 /MIN, TEMP 98.4 F, OXYGEN SAT % 96%, SAFE IN ENV? (Y/N) Y, NA INITIALS TR 1558, REVIEWED BY: ZEINA. EXAMINATION : PATIENT IS ALERT O X 3 AND COOPERATIVE. X-RAY OF THE RIBS DONE ON 03-20-2016 SHOWS A MILDLY DISPLACED LEFT LATERAL RIB FRACTURE INVOLVING THE ELEVENTH, TENTH, AND POSSIBLY NINTH RIB. THERE IS TENDERNESS WITH HYPERPATHIA ON THE LEFT CHEST WALL. ASSESSMENTS NEURALGIA AND NEURITIS, UNSPECIFIED - M79.2 (PRIMARY) THORACIC RADICULOPATHY - M54.14 LEFT CHEST WALL NEURALGIA. TREATMENT NEURALGIA AND NEURITIS, UNSPECIFIED NOTES: WE DISCUSSED SEVERAL ISSUES WITH MRS. WEEMS'S PAIN MANAGEMENT CASE. AT THIS TIME THE PATIENT WILL CONTINUE WITH THE SAME MEDICATION REGIME BEFORE. PATIENT WILL RECEIVE KEFLEX AN ANTIBIOTIC TO BE USED DURING THE TRIAL ONCE THE PATIENT HAS LEFT THE HOSPITAL. PATIENT WILL NEED TO HAVE A CLEARANCE FROM THE PRIMARY CARE DOCTOR PRIOR TO THE TRIAL. PATIENT WAS REMINDED TO DECREASE PAIN MEDICATIONS PRIOR TO THE TRIAL AND STOP IBUPROFEN, ASPIRIN, AND ANY BLOOD THINNERS 10 DAYS PRIOR. DUE TO THE PATIENT STAYING ONE NIGHT IN THE HOSPITAL PATIENT WILL NEED TO BRING CPAP WITH HER. MRS. WEEMS WILL FOLLOW UP THE FOLLOWING MONDAY FOR A LEAD PULL AND TO DISCUSS HOW THE DCS WORKED FOR THE PATIENT. INSTRUCTIONS WERE GIVEN, QUESTIONS WERE ANSWERED, PATIENT REPORTS UNDERSTANDING AND AGREES WITH THE PLAN. I, IRAIS FOY, DOCUMENTED THE ABOVE INFORMATION ACTING A SCRIBE FOR DR. FENTON. I HAVE REVIEWED THE ABOVE DOCUMENT, WRITTEN BY IRAIS DAILY AND I VERIFY THAT IT IS ACCURATE. THORACIC RADICULOPATHY REFILL OXYCODONE HCL TABLET, 15 MG, 1 TABLET NEEDED, ORALLY, EVERY 4- 6 HRS PRN PAIN MDD=4, 30 DAY(S), 120, REFILLS 0 START KEFLEX CAPSULE, 500 MG, 1 CAPSULE, ORALLY, THREE TIMES DAILY, 10 DAY(S), 30, REFILLS 0 PROCEDURE CODES FA211 ESTABILISHED PATIENT [facility] CHARGE G3400 DOC MEDS VERIFIED W/PT OR RE G1236 PAIN ASSESS POS TOOL F/U PLAN DOC DISPOSITION & COMMUNICATION FOLLOW UP DCS TRIAL 01/09/17 ELECTRONICALLY SIGNED BY NALLELY FENTON MD ON 12/19/2016 AT 05:49 PM EDT DISCLAIMER : THIS IS A VISIT SUMMARY EXTRACTED FROM THE [employer] CHART. IT IS NOT A COPY OF THE [employer] PROGRESS NOTE. MTDD
== END ==
LOC: M PAIN 15:40
PROVIDERS: ATTEND Anesthesiology
DX: M79.2 Neuralgia and neuritis, unspecified (principal); F34.1 Dysthymic disorder; I10 Essential (primary) hypertension; E78.2 Mixed hyperlipidemia; J44.9 Chronic obstructive pulmonary disease, unspecified; M81.0 Age-related osteoporosis without current pathological fracture; Z79.899 Other long term (current) drug therapy; Z91.030 Bee allergy status

== ENCOUNTER → 2016-12-16 | Outpatient (CLI) | payer MEDICARE, OTHER ==
--- NOTE | 2017-01-02 23:28 | ECWPNPC ---
PATIENT NAME: ELIDIA WEEMS : 1970 GENDER: FEMALE VISIT DATE: 12/16/2016 DISCHARGE DATE: 12/16/16 1617 VISIT LOCKED DATE TIME: PHYSICIAN: NALLELY FENTON RESOURCE: NALLELY FENTON REASON FOR APPOINTMENT 1. CHEST WALL PAIN HISTORY OF PRESENT ILLNESS HISTORY OF PRESENT ILLNESS: PAIN THE PATIENT DESCRIBES THE PAIN... 46 YEAR OLD FEMALE PATIENT WITH HISTORY OF CHEST WALL PAIN. PATIENT DESCRIBES THE PAIN SHARP, TENDER, SORE, AND HAVING IT ALL THE TIME WITH A PAIN SORE OF 7/10. PATIENT IS CURRENTLY USING GABAPENTIN, LIDODERM, CYMBALTA, AND HYDROMORPHONE TO HELP WITH THIS PAIN AND STATES THE MEDICATIONS KEEP HER MOBILE BUT SHE HAS CONSTANT PAIN. PATIENT WOULD LIKE TO MOVE FORWARD WITH THE DCS WITH [employer] AT THIS TIME. PATIENT DENIES UNEXPLAINABLE WEIGHT LOSS, FEVER, CHILLS, NEW CHANGES ON HER URINARY OR BOWEL CONTROL. FALL RISK SCREENING: SCREENING :NO FALLS IN THE PAST YEAR CURRENT MEDICATIONS TAKING FLINTSTONES COMPLETE 60 MG TABLET CHEWABLE 2 TABLETS ORALLY ONCE A DAY TAKING CALCIUM CITRATE + D 500MG/600MG TABLET 1 TABLET ORALLY TWICE A DAY TAKING VITAMIN B-12 500 MCG TABLET 1 TABLET ORALLY DAILY TAKING ALCOHOL PREP PAD 70 % PAD DIRECTED - DIRECTED TAKING BIOTIN 5000 MCG TABLET 1 TABLET ORALLY TWICE A DAY TAKING CPAP MACHINE DIRECTED TAKING EPIPEN 2-LEONARD 0.3 MG/0.3ML DEVICE DIRECTED INJECTION PRN TAKING MAGNESIUM 300 MG CAPSULE 1 CAPSULE WITH A MEAL ORALLY ONCE A DAY TAKING POTASSIUM 99 MG TABLET 1 TABLET ORALLY ONCE A DAY OTC PRODUCT TAKING VYTORIN 10-80 MG TABLET 1 TABLET ORALLY ONCE A DAY TAKING ALBUTEROL SULFATE HFA 108 (90 BASE) MCG/ACT AEROSOL SOLUTION 2 PUFFS NEEDED INHALATION EVERY 4 HRS TAKING OMEPRAZOLE 20 MG CAPSULE DELAYED RELEASE 1 CAPSULE ORALLY ONCE A DAY TAKING FORTEO 600 MCG/2.4ML SOLUTION 0.08 ML SUBCUTANEOUS ONCE A DAY TAKING BUPROPION HCL ER (SR) 150 MG TABLET EXTENDED RELEASE 12 HOUR 1 TABLET ORALLY TWICE A DAY TAKING GABAPENTIN 300 MG CAPSULE 1 ORALLY FOUR TIMES DAILY TAKING AMBIEN 10 MG TABLET 1 TABLET AT BEDTIME NEEDED ORALLY ONCE A DAY (MDD1) TAKING CYMBALTA 30 MG CAPSULE DELAYED RELEASE PARTICLES 1 CAPSULE ORALLY TWICE DAILY TAKING COLACE 100 MG CAPSULE 1 CAPSULE NEEDED ORALLY BID PRN CONSTIPATION TAKING LIDODERM 5 % PATCH 3 PATCH TO CHEST WALL AND RIBS EXTERNALLY ON 12 HOURS OFF 12 HOURS NEEDED TAKING OXYCODONE HCL 15 MG TABLET 1 TABLET NEEDED ORALLY EVERY 4- 6 HRS PRN PAIN MDD=4 TAKING KEFLEX 500 MG CAPSULE 1 CAPSULE ORALLY THREE TIMES DAILY NOT-TAKING CEFDINIR 300 MG CAPSULE 1 CAPSULE ORALLY EVERY 12 HRS NOT-TAKING OXYCODONE-ACETAMINOPHEN 10-325 MG TABLET 1 TABLET NEEDED ORALLY EVERY 6 HRS (MDD 4) MEDICATION LIST REVIEWED AND RECONCILED WITH THE PATIENT PAST MEDICAL HISTORY DEPRESSION CHRONIC PAIN HYPERTENSION/STROKE 06/2001 ELEVATED CHOLESTEROL SLEEP APNEA/COPD/DEVIATED SEPTUM-DR ROXIE HAMILTON RESTLESS LEG SYNDROME LT WRIST NERVE DAMAGE/RSD A RESULT HX OVARIAN CANCER ACID REFLUX STROKE IN 2001 SMOKER + HRT FX RIBS OSTEOPOROSIS HX [place] ALLERGIES BEE STINGS: ANAPHYLAXIS: ALLERGY SURGICAL HISTORY TUBAL LIGATION 08/1990 RT SIDE INGUINAL HERNIA REPAIR 03/2000 RADICAL HYSTERECTOMY DUE TO OVARIAN CANCER 06/2000 LT WRIST RECONSTRUCTION/JOINT FUSION 05/2005 RT KNEE PROCEDURE 05/2005 CYSTOSCOPY 12/2006 ENDOSCOPY 01/2007 GASTRIC BYPASS 01/23/2012 COLONOSCOPY 2008 CHOLECYSTECTOMY CYST REMOVAL FROM HEAD FAMILY HISTORY FATHER: 54 YRS, ACID REFLUX-ASPIRATED, DIAGNOSED WITH HEART DISEASE, OTHER MOTHER: ALIVE 66 YRS, HEART DISEASE, D.M., DIAGNOSED WITH DIABETES, HEART DISEASE SIBLINGS: ALIVE, ACID REFLUX, DIAGNOSED WITH HYPERTENSION SON(S): ALIVE, HYPERTENSION, DIAGNOSED WITH HYPERTENSION, OTHER DAUGHTER(S): ALIVE, DIAGNOSED WITH OTHER 2 BROTHER(S) . 2 SON(S) , 1 DAUGHTER(S) . FATHER FROM ASPIRATION DUE TO ACID REFLUX.NO CANCER REPORTED IN FAMILY.DAUGHTER--FIBROMYALGIA AND RA1 SON ADHD1 SON HTN. SOCIAL HISTORY GENERAL: TOBACCO USE ARE YOU A:CURRENT EVERY DAY SMOKER ADDITIONAL FINDINGS: TOBACCO USERMODERATE CIGARETTE SMOKER (10-19 CIGS/DAY) SMOKING CESSATION INFORMATION GIVEN08/19/2016 ADDITIONAL FINDINGS: TOBACCO NON-USER NOT READY TO QUIT AT THIS TIME VAPORNO E-CIGARETTENO ALCOHOL SCREENING DID YOU HAVE A DRINK CONTAINING ALCOHOL IN THE PAST YEAR?NO POINTS0 INTERPRETATIONNEGATIVE RECREATIONAL DRUG USE DRUG USE?NO CAFFEINE CAFFEINE USE?YES 2 CUPS OF COFFEE IN THE AM HOW OFTEN AND HOW MUCH? 2-3 DIET SNAPPLES/DAY HIV / HEP-C SCREENING HIV TEST OFFERED TO PATIENT:YES DATE OFFERED:07/25/2016 TEST ACCEPTED:NO REASON:OTHER (DOCUMENT IN NOTE) PT STATES SHE HAS HAD IT DONE PREVIOUSLY HEP-C TEST OFFERED TO PATIENT:NO ALREADY TESTED OCCUPATION: DISABLED. DIET: SMALL FERQUENT MEALS. EXERCISE: NO REGULAR EXERCISE DUE TO RIB FX. MARITAL STATUS: . OTHERS AT HOME: SPOUSE. PETS: DOG,CAT. RELIGIOUS NO BAPTIST BELIEFS THAT WOULD IMPACT HEALTH CARE. LANGUAGE GUINEAN. EDUCATION LEVEL OF EDUCATION:HIGH SCHOOL REGENTS GED LEARNING BARRIERS / SPECIAL NEEDS CHANGE FROM LAST VISIT?NO 11/29/2016 BARRIERS TO LEARNING?NO HEARING IMPAIRED?NO VISION IMPAIRED?YES :CORRECTIVE LENSES COGNITIVELY IMPAIRED?NO READINESS TO LEARN?YES LEARNING PREFERENCES?YES :DEMONSTRATION/VERBAL INSTRUCTION LEARNING CAPABILITIES PRESENT?YES EMOTIONAL BARRIERS?NO SPECIAL DEVICES?NO DATA ABSTRACTOR NEEDED?NO NEW PATIENT PAIN DIARY FROM 0-10, WHAT NUMBER IS YOUR PAIN TODAY? 7. PAIN CLINIC PFS, CLERGY, PUBLIC HEALTH REFERRALS PFS REFERRAL NEEDED?NO CLERGY REFERRAL NEEDED?NO PUBLIC HEALTH REFERRAL NEEDED?NO HAS THE PATIENT BEEN EDUCATED REGARDING HIS/HER PLAN OF CARE?YES HAS THE PATIENT BEEN EDUCATED REGARDING PAIN, THE RISK FOR PAIN, THE IMPORTANCE OF EFFECTIVE PAIN MANAGEMENT, AND THE PAIN ASSESSMENT PROCESS?YES ADVANCE DIRECTIVES HEALTH CARE PROXY?NO WOULD YOU LIKE MORE INFORMATION?NO DO YOU HAVE A DNR?NO WOULD YOU LIKE MORE INFORMATION?NO LIVING WILL?NO WOULD YOU LIKE MORE INFORMATION?NO POWER OF DIELECTRIC EMBOSSING MACHINE OPERATOR?NO WOULD YOU LIKE MORE INFORMATION?NO NO TRAVEL OUTSIDE US, NONE RECENT. DOMESTIC VIOLENCE NONE. THIS PATIENT LIVES AT HOME WITH HER AND SON. SHE FRACTURED HER LEFT WRIST IN THE PAST. NO HISTORY OF AN EATING DISORDER. NO HISTORY OF PHYSICAL/SEXUAL ABUSE. SHE SLEEPS OKAY ONLY; USES CPAP. SHE WEARS SEAT BELTS. SHE IS CURRENT WITH DENTAL AND EYE EXAMINATIONS. SHE IS UP TO DATE WITH IMMUNIZATIONS AND TETANUS.08/19/16 PLAN OF CARE FOR THE PAIN CENTER REVIEWED WITH PT. AND SHE VERBALIZED UNDERSTANDING. AD. HOSPITALIZATION/MAJOR DIAGNOSTIC PROCEDURE STROKE 06/2001 HYPOGLYCEMIA 1997 REVIEW OF SYSTEMS REVIEWED BY: PROVIDER: NALLELY FENTON MD . CONSTITUTIONAL: ANY CHANGE IN YOUR MEDICAL CONDITION? NO . CHILLS NO . FEVER NO . INFECTION: DO YOU HAVE NEW INFECTIONS? NO . DO YOU HAVE HISTORY OF MRSA? NO . MUSCULOSKELETAL: ANY NEW PATTERNS OF PAIN OR NUMBNESS? NO . GASTROENTEROLOGY: ANY NEW CHANGE IN BOWEL CONTROL? NO . GENITOURINARY: ANY NEW CHANGE IN BLADDER CONTROL? NO . IS THERE A CHANCE YOU COULD BE ? NO . HEMATOLOGY/LYMPH: DO YOU TAKE ANY BLOOD THINNERS? (FOR EXAMPLE- COUMADIN, PLAVIX, AGGRENOX, PLATEL, PRADAXA, OR XARELTO) NO . WHEN WAS YOUR LAST DOSE? DATE: TIME: . NEUROLOGY: HAVE YOU FALLEN IN THE PAST 6 MONTHS? NO . ANY NEW EXTREMITY NUMBNESS OR WEAKNESS? NO . CARDIOLOGY: DO YOU HAVE A PACEMAKER OR DEFIBRILLATOR? NO . RESPIRATORY: HAVE YOU BEEN SICK IN THE PAST WEEK? NO . FEVER NO . FLU LIKE SYMPTOMS? NO . COUGH NO . INTEGUMENTARY: DO YOU HAVE ANY RASHES OR OPEN SORES? NO . ALLERGIC/IMMUNO: ARE YOU ALLERGIC TO SHELLFISH OR IV DYE? NO . ANY NEW ALLERGIES? NO . PSYCHIATRIC: DO YOU HAVE THOUGHTS OF HURTING YOURSELF OR SOMEONE ELSE? NO . ARE YOU ABUSED, NEGLECTED, OR IN AN UNSAFE ENVIRONMENT? NO . ENDOCRINOLOGY: ARE YOU DIABETIC? NO . OTHER: DO YOU NEED ANY PRESCRIPTIONS? NO . IF YES, PLEASE LIST: ____ . ANY NEW PROBLEMS WITH YOUR MEDICATIONS? NO . WHEN DID YOU LAST EAT? ____ . WHEN DID YOU LAST DRINK? ____ . WHAT DID YOU LAST DRINK? ____ . NAME OF PERSON DRIVING YOU HOME? ____ . DO YOU HAVE ANY OTHER QUESTIONS OR CONCERNS NO . VITAL SIGNS WT 110 LBS, HT 5'2 1/2", BMI 19.80 INDEX, BP 126/75 MM HG, HR 73 /MIN, RR 16 /MIN, TEMP 98.8 F, OXYGEN SAT % 95%, NA INITIALS AW 1522, REVIEWED BY: LS. EXAMINATION : PATIENT IS ALERT O X 3 AND COOPERATIVE. X-RAY OF THE RIBS DONE ON 03-20-2016 SHOWS A MILDLY DISPLACED LEFT LATERAL RIB FRACTURE INVOLVING THE ELEVENTH, TENTH, AND POSSIBLY NINTH RIB. THERE IS TENDERNESS WITH HYPERPATHIA ON THE LEFT CHEST WALL. 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 TREATMENT OTHERS REFILL OXYCODONE HCL TABLET, 15 MG, 1 TABLET NEEDED, ORALLY, EVERY 4- 6 HRS PRN PAIN MDD=4, 30 DAY(S), 100, REFILLS 0 NOTES: WE DISCUSSED SEVERAL ISSUES WITH MRS. WEEMS'S PAIN MANAGEMENT CASE. AT THIS TIME THE PATIENT WILL CONTINUE WITH THE SAME MEDICATION REGIME BEFORE. PATIENT IS AWARE SHE WILL NEED TO WEEN HERSELF FROM HER PAIN MEDICATIONS FOR THE TRIAL. PATIENT WILL RECEIVE KEFLEX AN ANTIBIOTIC TO BE USED DURING THE TRIAL ONCE THE PATIENT HAS LEFT THE HOSPITAL. PATIENT WILL NEED TO HAVE A CLEARANCE FROM THE PRIMARY CARE DOCTOR PRIOR TO THE TRIAL. PATIENT WAS REMINDED TO DECREASE PAIN MEDICATIONS PRIOR TO THE TRIAL AND STOP IBUPROFEN, ASPIRIN, AND ANY BLOOD THINNERS 10 DAYS PRIOR. DUE TO THE PATIENT STAYING ONE NIGHT IN THE HOSPITAL PATIENT WILL NEED TO BRING CPAP WITH HER. MRS. WEEMS WILL FOLLOW UP THE FOLLOWING MONDAY FOR A LEAD PULL AND TO DISCUSS HOW THE DCS WORKED FOR THE PATIENT. INSTRUCTIONS WERE GIVEN, QUESTIONS WERE ANSWERED, PATIENT REPORTS UNDERSTANDING AND AGREES WITH THE PLAN. I, IRAIS FOY, DOCUMENTED THE ABOVE INFORMATION ACTING A SCRIBE FOR DR. FENTON. I HAVE REVIEWED THE ABOVE DOCUMENT, WRITTEN BY IRAIS DAILY AND I VERIFY THAT IT IS ACCURATE. PROCEDURE CODES FA211 ESTABILISHED PATIENT [facility] FACILITY CHARGE [id number] DOC MEDS VERIFIED W/PT OR RE G8730 PAIN ASSESS POS TOOL F/U PLAN DOC DISPOSITION & COMMUNICATION FOLLOW UP 2 WEEKS ELECTRONICALLY SIGNED BY NALLELY FENTON MD ON 01/02/2017 AT 09:07 PM EDT DISCLAIMER : THIS IS A VISIT SUMMARY EXTRACTED FROM THE [employer] CHART. IT IS NOT A COPY OF THE [employer] PROGRESS NOTE. MTDD
== END ==
LOC: M PAIN 15:15
PROVIDERS: ATTEND Anesthesiology
DX: M79.2 Neuralgia and neuritis, unspecified (principal); F17.210 Nicotine dependence, cigarettes, uncomplicated; F34.1 Dysthymic disorder; I10 Essential (primary) hypertension; E78.5 Hyperlipidemia, unspecified; J44.9 Chronic obstructive pulmonary disease, unspecified; E83.51 Hypocalcemia; Z79.899 Other long term (current) drug therapy; Z91.030 Bee allergy status

== ENCOUNTER 2017-01-09 08:08 | Day surgery (SDC) | payer MEDICARE, OTHER ==
[2017-01-09] VITALS (8 sets, daily range): BP systolic 99–109; BP diastolic 57–65
[~2017-01-09] VITALS: Ht 157.5 cm; Wt 49.9 kg
[~2017-01-09 08:08] MED LIST changes: +LIDOCAINE 2% INJ 100 MG/5 ML SDV (FOR ANES.) As Ordered ONE; +LR 1,000 ML IV ONE; +MIDAZOLAM INJ 2 MG/2 ML VIAL (J2250) As Ordered ONE; +PROPOFOL 200 MG/20 ML VIAL As Ordered ONE; +ceFAZolin SOD 1 GM in D5W MINI-BAG PLUS 50 ML IV ONE; +fentaNYL 100 MCG/2 ML INJECTION (J3010) As Ordered ONE
[2017-01-09] MEDS ORDERED: ONDANSETRON 4MG/2ML VIAL (J2405) As Ordered ONE (08:20)
[2017-01-09] MEDS ORDERED: dexameTHASONE 4 MG/ML 1ML VIAL (J1100) As Ordered ONE (08:20)
[2017-01-09] MEDS ORDERED: LIDOCAINE W/EPINEPHRINE 1% 20ML VIAL As Ordered ONE (08:52)
[2017-01-09] MEDS ORDERED: fentaNYL 100 MCG/2 ML INJECTION (J3010) As Ordered ONE (11:49)
[2017-01-09] MEDS: fentaNYL 100 MCG/2 ML INJECTION (J3010) IV PRN ×4 (11:52→12:10)
[2017-01-09] MEDS ORDERED: PERCOCET 5MG/325MG TAB PO PRN (12:15)
[2017-01-09] MEDS ORDERED: ONDANSETRON 4MG/2ML VIAL (J2405) IV PRN (12:15)
[2017-01-09] MEDS ORDERED: LR 1,000 ML IV SCH (12:15)
--- NOTE | 2017-01-09 13:46 | REP ---
Partial thoracic spine series: Six views. History: Thoracic radiculopathy. 6 minutes 43 seconds of fluoroscopy time is reported. Findings: A sequence of six last image hold fluoroscopic spot radiographs of the thoracic spine document dorsal column stimulator lead placement. Signed by Grady Briceno MD 01/09/2017 03:53 P
[2017-01-09] MEDS: oxyCODONE 5MG TAB PO PRN ×3 (14:07→22:41)
--- NOTE | 2017-01-09 15:51 | CR.PDOC ---
[facility] Consultation Consultation DATE OF CONSULTATION: Jan 09, 2017 at 08:08 REFERRING PROVIDER: Carlos Stewart M.D. ATTENDING PHYSICIAN: Dr. Santoyo REASON FOR CONSULTATION/CHIEF COMPLAINT: . Medical comanagement HISTORY OF PRESENT ILLNESS: . 46-year-old female with past medical history of dyslipidemia, GERD, ovarian cancer, CVA with no residual deficits, depression, and chronic pain was admitted to [facility] for a trial of spinal cord stimulator. At this time, the patient states that her pain is relatively well controlled. She denies any acute complaints of fevers, chills, chest pain, shortness of breath, palpitations, abdominal pain, or any nausea/vomiting/diarrhea. The hospitalist service has been consulted to aid in the medical management of the patient's comorbidity's. ALLERGIES: Please see below. HOME MEDICATIONS: Please see below. PAST MEDICAL HISTORY: As noted in HPI. PAST SURGICAL HISTORY: TUBAL LIGATION 08/1990 RT SIDE INGUINAL HERNIA REPAIR 03/2000 RADICAL HYSTERECTOMY DUE TO OVARIAN CANCER 06/2000 LT WRIST RECONSTRUCTION/JOINT FUSION 05/2005 RT KNEE PROCEDURE 05/2005 CYSTOSCOPY 12/2006 ENDOSCOPY 01/2007 GASTRIC BYPASS 01/23/2012 COLONOSCOPY 2008 CHOLECYSTECTOMY CYST REMOVAL FROM HEAD As per outpatient charting FAMILY HISTORY: Noncontributory SOCIAL HISTORY: Currently smokes tobacco, denies alcohol or illicit drug use. She is functionally independent at baseline. REVIEW OF SYSTEMS: 10 point review of systems negative unless otherwise specified in HPI. PHYSICAL EXAMINATION: VITAL SIGNS: Please see below. GENERAL APPEARANCE: . Awake, alert, oriented HEENT: . Normocephalic, atraumatic RESPIRATORY: . Clear to auscultation bilaterally CARDIOVASCULAR: . Normal rate, normal S1, S2 ABDOMEN: . Soft, nontender, nondistended EXTREMITIES: . No tenderness, or swelling LABORATORY DATA: Please see below. ASSESSMENT/PLAN: Chronic Pain s/p Spinal Cord Stimulator Trial Pain management as per primary team Dyslipidemia Continue simvastatin, ezetimibe History of ovarian cancer History of CVA with no residual functional deficits The patient states that this was deemed likely secondary to hormone replacement therapy, ovarian cancer She reports that she no longer takes aspirin as per her PCP Continue simvastatin, ezetimibe GERD Continue PPI Depression/anxiety Continue regimen as prescribed DVT prophylaxis TEDs/SCDs This patient will be followed by my colleague Dr. Chambers starting 01/10/17 at 7 AM. Thank you for allowing us to participate in the care of this patient. Vital Signs/I&O Vital Signs Date Time Temp Pulse Resp B/P (MAP) Pulse Ox O2 Delivery O2 Flow Rate FiO2 01/09/17 14:45 98.4 67 18 108/60 (76) 98 Room Air Allergies Coded Allergies: Bee Venom (Verified Allergy, Severe, ANAPHYLAXIS, 09/16/16) Home Medications Scheduled (Vytorin 10-80 mg) 1 Tab Tab, 1 TAB PO DAILY, (Reported) (Forteo) 600 Mcg/2.4 Ml Katelin, 600 MCG SC DAILY, (Reported) (Caltrate 600+D 600-800 mg-Unit) 1 Tab Tab, 1 TAB PO BID, (Reported) (Flintstones Gummies Compl) 1 Chw Chw, 2 CHW PO DAILY, (Reported) Biotin (Vitamin H) (Biotin 5000) 5 Mg Cap, 5 MG PO BID, (Reported) Bupropion HCl (Bupropion HCl ER) 150 Mg Tab, 150 MG PO BID, (Reported) Duloxetine Hcl (Cymbalta) 30 Mg Cap, 60 MG PO DAILY, (Reported) Gabapentin (Gabapentin) 400 Mg Cap, 300 MG PO TID, (Reported) Lidocaine (Lidoderm) 5 % Dis, 3 PATCH TOP Q12H, #90 (Reported) Magnesium Oxide (Magnesium) 250 Mg Tab, 250 MG PO DAILY, (Reported) Omeprazole (Omeprazole) 40 Mg Cap, 40 MG PO DAILY, (Reported) Oxycodone Hcl (Oxycodone HCl) 15 Mg Tab, 15 MG PO TID, #120 (Reported) Zolpidem Tartrate (Ambien) 10 Mg Tab, 10 MG PO QHS, (Reported) CARLOS STEWART MD Jan 09, 2017 15:51
[2017-01-09] MEDS: GABAPENTIN 300 MG CAP PO SCH ×2 (16:43→21:49)
[2017-01-09] MEDS: ceFAZolin SOD 1 GM in D5W MINI-BAG PLUS 50 ML IV SCH (16:43)
[2017-01-09] MEDS ORDERED: zolPIDEM TARTRATE 5 MG TAB PO SCH (21:00)
[2017-01-09] MEDS: buPROPion **SR TABLET** (ZYBAN) 150MG PO SCH (21:49)
[2017-01-10 00:30] VITALS: BP 115/67
[2017-01-10] MEDS: ceFAZolin SOD 1 GM in D5W MINI-BAG PLUS 50 ML IV SCH (00:42)
[2017-01-10] MEDS: oxyCODONE 5MG TAB PO PRN ×2 (02:39→06:28)
[2017-01-10 04:00] VITALS: BP 114/63
[2017-01-10 07:22] LABS: MEAN CORPUSCULAR HGB CONC 34.6 g/dl (32.0-36.5); MEAN CORPUSCULAR VOLUME 98.3 fl (80.0-96.0); RED CELL DISTRIBUTION WIDTH 11.1 % (11.5-14.5); WHITE BLOOD COUNT 7.4 K/mm3 (4.0-10.0)
[2017-01-10 07:42] LABS: ANION GAP 8 MEQ/L (8-16); BLOOD UREA NITROGEN 12 MG/DL (7-18); CALCIUM LEVEL 8.6 MG/DL (8.5-10.1); CARBON DIOXIDE LEVEL 31 MEQ/L (21-32); CHLORIDE LEVEL 103 MEQ/L (98-107); GLOMERULAR FILTRATION RATE > 60.0 (>58); GLUCOSE, FASTING 86 MG/DL (70-105); POTASSIUM SERUM 3.8 MEQ/L (3.5-5.1); SODIUM LEVEL 142 MEQ/L (136-145)
[2017-01-10 08:00] VITALS: BP 105/64
[2017-01-10] MEDS ORDERED: SIMVASTATIN 40 MG TAB PO SCH (09:00)
[2017-01-10] MEDS ORDERED: EZETIMIBE 10 MG TAB (ZETIA) PO SCH (09:00)
[2017-01-10] MEDS ORDERED: DULoxetine 30 MG CAP (CYMBALTA) PO SCH (09:00)
[2017-01-10] MEDS ORDERED: OMEPRAZOLE 20 MG CAP PO SCH (09:00)
[2017-01-10] MEDS: buPROPion **SR TABLET** (ZYBAN) 150MG PO SCH (09:08)
[2017-01-10] MEDS: GABAPENTIN 300 MG CAP PO SCH (09:08)
--- NOTE | 2017-01-10 17:47 | IPN ---
DATE: 01/10/2017 The patient is seen and examined. Reported surgical site pain in the back that is sharp, intermittent, worsened with movement. Denies any chest pain, pressure or discomfort, shortness of breath, fevers, chills, nausea, or vomiting. Patient currently tolerating oral. VITAL SIGNS: Temperature 98.9, pulse 63, respiratory rate 18, blood pressure 105/64, pulse oximetry 98% on room air. LABORATORY DATA: WBC is 7.4, hemoglobin and hematocrit 13.4/38.8, platelets 249. Chemistry: Sodium 142, potassium 3.8, chloride 103, bicarbonate 31, BUN 12, creatinine 0.6. PHYSICAL EXAMINATION: GENERAL: Patient alert and oriented times three, frail, in no acute distress. HEENT: Normocephalic, atraumatic. PULMONARY: Bilaterally clear to auscultation. CARDIAC: Regular rate and rhythm with normal S1, S2. ABDOMEN: Soft, nontender. Positive bowel sounds. EXTREMITIES: No clubbing, cyanosis, or edema. BACK: Surgical site and nerve stimulator clean, dry, and in place. Dressing intact. ASSESSMENT AND PLAN: This is a 46-year-old female patient with underlying medical history of dyslipidemia, gastroesophageal reflux disease (GERD), ovarian cancer, cerebral vascular accident (CVA) with no residual deficit, depression, and chronic pain admitted under ambulatory surgery for observation status post spinal cord stimulator, admitted under pain management, Dr. Santoyo. PROBLEM LIST: 1. Chronic pain, status post spinal cord stimulator trial. Management as per pain management. Patient likely getting discharged today. 2. Dyslipidemia. Continue home medication. 3. History of ovarian cancer. Outpatient followup. 4. History of cerebrovascular accident (CVA). Outpatient followup. Continue current medication. 5. Gastroesophageal reflux disease (GERD). Continue proton pump inhibitor (PPI). 6. Depression and anxiety. Continue current medication. 7. Deep vein thrombosis (DVT) prophylaxis. Thromboembolic-deterrent stockings (TEDS) and sequentials. DISPOSITION: Discharge as per pain management, likely discharge today.
--- NOTE | 2017-01-17 09:15 | RO ---
DATE OF PROCEDURE: 01/09/2017 PREPROCEDURE DIAGNOSES: Left chest wall pain, intercostal neuralgia. POSTPROCEDURE DIAGNOSES: Left chest wall pain, intercostal neuralgia. PROCEDURE: Spinal column stimulator trial. SURGEON: Shawn Keller MD DEVELOPER ADVISOR: ANESTHESIA: Local with monitored anesthesia care. PREPROCEDURE NOTE: Ms. Reis is a 46-year-old female patient with history of left chest wall pain. The patient received intervention and medication management, and the pain has persisted. She has been evaluated by multiple providers. The patient expressed that she would like to have a spinal column stimulator trial. I went through the risks, alternatives, and benefits associated with this procedure, and the patient expressed that she would like to proceed. The patient denies unexplainable weight loss, fever, chills, changes in her urinary or bowel control. DESCRIPTION OF PROCEDURE: Procedure note: After consent was taken, the patient was brought to the procedure room and placed in the prone position. The thoracolumbar area was cleaned with Betadine solution and draped aseptically. The procedure was done under sterile conditions. Under fluoroscopic guidance, the target point was selected at the interlaminar level of T11 and T12. Lidocaine was used to numb the skin and the subcutaneous tissue below it. An Epimed needle was advanced until the right lamina of T12 was touched; and then, by the loss of resistance technique, the epidural space was reached 6 cm deep into the skin by the loss of resistance technique. A 16 contact lead from [employer] was advanced through the Tuohy needle until I reached the posterior and medial aspect of the epidural space, and the lead was advanced under fluoroscopic guidance until I put the lead approximately at the level of T5. A decision was made to place a second lead, I used the space of T12-L1. Lidocaine was used to numb the skin and the subcutaneous tissue below it. A second Epimed needle was advanced until I touched the left lamina of L1; and then, by the loss of resistance technique, I reached the epidural space 6 cm deep into the skin by the loss of resistance technique. I advanced this lead to the posterior and medial aspect of the epidural space, and I placed this lead parallel to the first one. Extension cables were attached to the computer system of [employer], and I started to do programming. This was a simple 30-minute programming, where I changed the position of the leads, the contact use, the voltage use until the patient was satisfied with the coverage. Final position of the leads were kept at the patient's electronic medical record (EMR), which was at the position of T4, T5, and T6. I removed the extensions. I removed the stylets, and I attached the leads to the patient's skin with Steri-Strips and covered the area with Tegaderm. The patient was sent to the recovery room. She was moving her extremities and doing well. There was no complication during the procedure. The trial will be started. EUGENIO
== END 2017-01-10 10:35 | disposition home or self-care (01) ==
LOC: M SDC 08:08 → M PED 12:43 → M SDC 01-10 10:35
PROVIDERS: ATTEND Anesthesiology
DX: G58.0 Intercostal neuropathy (principal); R07.89 Other chest pain; I25.2 Old myocardial infarction; E78.00 Pure hypercholesterolemia, unspecified; K21.9 Gastro-esophageal reflux disease without esophagitis; M15.0 Primary generalized (osteo)arthritis; F41.9 Anxiety disorder, unspecified; F32.9 Major depressive disorder, single episode, unspecified; I69.998 Other sequelae following unspecified cerebrovascular disease; J34.2 Deviated nasal septum; R06.83 Snoring; G47.33 Obstructive sleep apnea (adult) (pediatric); Z91.030 Bee allergy status; Z79.899 Other long term (current) drug therapy; Z92.21 Personal history of antineoplastic chemotherapy; Z92.3 Personal history of irradiation; Z98.84 Bariatric surgery status; Z90.710 Acquired absence of both cervix and uterus; Z72.0 Tobacco use; Z85.43 Personal history of malignant neoplasm of ovary
CPT/HCPCS: 36415; 63650; 72052; 80048; 83735; 85027; 96374; C1778; J0690; J1100; J2250; J2405; J3010

== ENCOUNTER → 2017-01-13 | Outpatient (CLI) | payer MEDICARE, OTHER ==
[~2017-01-13] MED LIST changes: -LIDOCAINE 2% INJ 100 MG/5 ML SDV (FOR ANES.) As Ordered ONE; -LR 1,000 ML IV ONE; -MIDAZOLAM INJ 2 MG/2 ML VIAL (J2250) As Ordered ONE; -PROPOFOL 200 MG/20 ML VIAL As Ordered ONE; -ceFAZolin SOD 1 GM in D5W MINI-BAG PLUS 50 ML IV ONE; -fentaNYL 100 MCG/2 ML INJECTION (J3010) As Ordered ONE
--- NOTE | 2017-01-13 12:56 | REP ---
Partial thoracic spine series: Three views. History: Dorsal column stimulator lead pole. Findings: A sequence of three last image hold fluoroscopic spot radiographs of the thoracic spine document lead position. 16 seconds of fluoroscopy time is reported. Signed by Grady Briceno MD 01/13/2017 02:48 P
--- NOTE | 2017-01-22 00:06 | ECWPNPC ---
PATIENT NAME: ELIDIA WEEMS : 1970 GENDER: FEMALE VISIT DATE: 01/13/2017 DISCHARGE DATE: 01/13/17 1259 VISIT LOCKED DATE TIME: PHYSICIAN: NALLELY FENTON RESOURCE: NALLELY FENTON REASON FOR APPOINTMENT 1. RIB PAIN HISTORY OF PRESENT ILLNESS HISTORY OF PRESENT ILLNESS: PAIN THE PATIENT DESCRIBES THE PAIN... 46 YEAR OLD FEMALE PATIENT WITH HISTORY OF CHRONIC RIGHT RIB PAIN. PATIENT DESCRIBES THE PAIN ACHING, SHARP, TENDER, SORE, AND HAVING IT ALL THE TIME WITH A PAIN SCORE OF 2/10. PATIENT STATES THAT SHE RECEIVED 80% RELIEF FROM THE DCS THROUGHOUT THE TRIAL. MRS. WEEMS STATES SHE DID NOT HAVE TO USE HER PAIN MEDICATION DURING THE TRIAL AND SHE WOULD LIKE TO PROCEED WITH THE PERMANENT. PATIENT DENIES UNEXPLAINABLE WEIGHT LOSS, FEVER, CHILLS, NEW CHANGES ON HER URINARY OR BOWEL CONTROL. FALL RISK SCREENING: SCREENING :NO FALLS IN THE PAST YEAR CURRENT MEDICATIONS TAKING FLINTSTONES COMPLETE 60 MG TABLET CHEWABLE 2 TABLETS ORALLY ONCE A DAY TAKING CALCIUM CITRATE + D 500MG/600MG TABLET 1 TABLET ORALLY TWICE A DAY TAKING VITAMIN B-12 500 MCG TABLET 1 TABLET ORALLY DAILY TAKING ALCOHOL PREP PAD 70 % PAD DIRECTED - DIRECTED TAKING BIOTIN 5000 MCG TABLET 1 TABLET ORALLY TWICE A DAY TAKING CPAP MACHINE DIRECTED TAKING EPIPEN 2-LEONARD 0.3 MG/0.3ML DEVICE DIRECTED INJECTION PRN TAKING MAGNESIUM 300 MG CAPSULE 1 CAPSULE WITH A MEAL ORALLY ONCE A DAY TAKING POTASSIUM 99 MG TABLET 1 TABLET ORALLY ONCE A DAY OTC PRODUCT TAKING VYTORIN 10-80 MG TABLET 1 TABLET ORALLY ONCE A DAY TAKING ALBUTEROL SULFATE HFA 108 (90 BASE) MCG/ACT AEROSOL SOLUTION 2 PUFFS NEEDED INHALATION EVERY 4 HRS TAKING OMEPRAZOLE 20 MG CAPSULE DELAYED RELEASE 1 CAPSULE ORALLY ONCE A DAY TAKING FORTEO 600 MCG/2.4ML SOLUTION 0.08 ML SUBCUTANEOUS ONCE A DAY TAKING BUPROPION HCL ER (SR) 150 MG TABLET EXTENDED RELEASE 12 HOUR 1 TABLET ORALLY TWICE A DAY TAKING GABAPENTIN 300 MG CAPSULE 1 ORALLY FOUR TIMES DAILY TAKING AMBIEN 10 MG TABLET 1 TABLET AT BEDTIME NEEDED ORALLY ONCE A DAY (MDD1) TAKING CYMBALTA 30 MG CAPSULE DELAYED RELEASE PARTICLES 1 CAPSULE ORALLY TWICE DAILY TAKING COLACE 100 MG CAPSULE 1 CAPSULE NEEDED ORALLY BID PRN CONSTIPATION TAKING LIDODERM 5 % PATCH 3 PATCH TO CHEST WALL AND RIBS EXTERNALLY ON 12 HOURS OFF 12 HOURS NEEDED TAKING OXYCODONE HCL 15 MG TABLET 1 TABLET NEEDED ORALLY EVERY 4- 6 HRS PRN PAIN MDD=4 MEDICATION LIST REVIEWED AND RECONCILED WITH THE PATIENT PAST MEDICAL HISTORY DEPRESSION CHRONIC PAIN HYPERTENSION/STROKE 06/2001 ELEVATED CHOLESTEROL SLEEP APNEA/COPD/DEVIATED SEPTUM-DR ROXIE HAMILTON RESTLESS LEG SYNDROME LT WRIST NERVE DAMAGE/RSD A RESULT HX OVARIAN CANCER ACID REFLUX STROKE IN 2001 SMOKER + HRT FX RIBS OSTEOPOROSIS HX AK ALLERGIES BEE STINGS: ANAPHYLAXIS: ALLERGY REVIEW OF SYSTEMS REVIEWED BY: PROVIDER: NALLELY FENTON MD . CONSTITUTIONAL: ANY CHANGE IN YOUR MEDICAL CONDITION? NO . CHILLS NO . FEVER NO . INFECTION: DO YOU HAVE NEW INFECTIONS? NO . DO YOU HAVE HISTORY OF MRSA? NO . MUSCULOSKELETAL: ANY NEW PATTERNS OF PAIN OR NUMBNESS? NO . GASTROENTEROLOGY: ANY NEW CHANGE IN BOWEL CONTROL? NO . GENITOURINARY: ANY NEW CHANGE IN BLADDER CONTROL? NO . IS THERE A CHANCE YOU COULD BE ? NO . HEMATOLOGY/LYMPH: DO YOU TAKE ANY BLOOD THINNERS? (FOR EXAMPLE- COUMADIN, PLAVIX, AGGRENOX, PLATEL, PRADAXA, OR XARELTO) NO . WHEN WAS YOUR LAST DOSE? DATE: TIME: . NEUROLOGY: HAVE YOU FALLEN IN THE PAST 6 MONTHS? NO . ANY NEW EXTREMITY NUMBNESS OR WEAKNESS? NO . CARDIOLOGY: DO YOU HAVE A PACEMAKER OR DEFIBRILLATOR? NO . RESPIRATORY: HAVE YOU BEEN SICK IN THE PAST WEEK? NO . FEVER NO . FLU LIKE SYMPTOMS? NO . COUGH NO . INTEGUMENTARY: DO YOU HAVE ANY RASHES OR OPEN SORES? NO . ALLERGIC/IMMUNO: ARE YOU ALLERGIC TO SHELLFISH OR IV DYE? NO . ANY NEW ALLERGIES? NO . PSYCHIATRIC: DO YOU HAVE THOUGHTS OF HURTING YOURSELF OR SOMEONE ELSE? NO . ARE YOU ABUSED, NEGLECTED, OR IN AN UNSAFE ENVIRONMENT? NO . ENDOCRINOLOGY: ARE YOU DIABETIC? NO . OTHER: DO YOU NEED ANY PRESCRIPTIONS? NO . IF YES, PLEASE LIST: ____ . ANY NEW PROBLEMS WITH YOUR MEDICATIONS? NO . WHEN DID YOU LAST EAT? ____ . WHEN DID YOU LAST DRINK? ____ . WHAT DID YOU LAST DRINK? ____ . NAME OF PERSON DRIVING YOU HOME? ____ . DO YOU HAVE ANY OTHER QUESTIONS OR CONCERNS NO . VITAL SIGNS WT 110 LBS, HT 5'2 1/2", BMI 19.80 INDEX, BP 121/78 MM HG, HR 82 /MIN, RR 16 /MIN, TEMP 98.2 F, OXYGEN SAT % 96%, NA INITIALS SC 10:53, REVIEWED BY: CM. EXAMINATION : PATIENT IS ALERT O X 3 AND COOPERATIVE. X-RAY OF THE RIBS DONE ON 03-20-2016 SHOWS A MILDLY DISPLACED LEFT LATERAL RIB FRACTURE INVOLVING THE ELEVENTH, TENTH, AND POSSIBLY NINTH RIB. THERE IS TENDERNESS WITH HYPERPATHIA ON THE LEFT CHEST WALL. ASSESSMENTS NEURALGIA AND NEURITIS, UNSPECIFIED - M79.2 (PRIMARY) LEFT CHEST WALL NEURALGIAINTERCOSTAL NEURALGIA. TREATMENT NEURALGIA AND NEURITIS, UNSPECIFIED NOTES: WE DISCUSSED SEVERAL ISSUES WITH MRS. WEEMS'S PAIN MANAGEMENT CASE. AT THIS TIME THE PATIENT REPORTS HAVING OVER 80% RELIEF FROM THE DCS AND WOULD LIKE TO PROCEED WITH THE PERMANENT JOSE. PATIENT STATES THAT HER PAIN WAD DECREASED AND MOBILITY AND FUNCTIONALITY WELL HER QUALITY OF LIFE INCREASED. PATIENT STATES SHE DID NOT USE AN PAIN MEDICATION THROUGHOUT THE TRIAL. AT THIS TIME I WILL REQUEST AUTHORIZATION FOR THE PERMANENT DCS. PATIENT WILL RETURN TO THE CLINIC IN 3 WEEKS. INSTRUCTIONS WERE GIVEN, QUESTIONS WERE ANSWERED, PATIENT REPORTS UNDERSTANDING AND AGREES WITH THE PLAN. I, IRAIS FOY, DOCUMENTED THE ABOVE INFORMATION ACTING A SCRIBE FOR DR. FENTON. I HAVE REVIEWED THE ABOVE DOCUMENT, WRITTEN BY IRAIS DAILY AND I VERIFY THAT IT IS ACCURATE. DIAGNOSTIC IMAGING [facility] FLUORO GUIDANCE (PAIN)[id number] DISPOSITION & COMMUNICATION FOLLOW UP 3 WEEKS ELECTRONICALLY SIGNED BY NALLELY FENTON MD ON 01/20/2017 AT 04:28 PM EDT DISCLAIMER : THIS IS A VISIT SUMMARY EXTRACTED FROM THE [employer] CHART. IT IS NOT A COPY OF THE [employer] PROGRESS NOTE. MTDD
== END ==
LOC: M PAIN 10:20
PROVIDERS: ATTEND Anesthesiology
DX: M79.2 Neuralgia and neuritis, unspecified (principal); G89.29 Other chronic pain; I10 Essential (primary) hypertension; E78.5 Hyperlipidemia, unspecified; E83.51 Hypocalcemia; Z79.891 Long term (current) use of opiate analgesic; Z79.899 Other long term (current) drug therapy; Z91.030 Bee allergy status; Z85.43 Personal history of malignant neoplasm of ovary; E89.40 Asymptomatic postprocedural ovarian failure; Z90.710 Acquired absence of both cervix and uterus
CPT/HCPCS: 76000; G0463

== ENCOUNTER → 2017-01-20 | Outpatient (CLI) | payer MEDICARE, OTHER ==
[~2017-01-20] MED LIST changes: +ISOVUE-370 76% 100ML VIAL (Q9967) As Ordered ONE
--- NOTE | 2017-01-24 08:21 | REP ---
CT of the chest with IV contrast: The patient had a CT of the chest dated 06/14/2016 at [place], [place] that identified a 3 mm left lower lobe lung nodule. On the study today there is a left lower lobe lung nodule on image 52 that measures 7 mm. The the patient had a chest CT dated 09/16/2016. Upon review this 7 mm lung nodule was also present on that CT. No other lung nodules or masses are identified. There are no acute infiltrates or effusions. There is no hilar, mediastinal or axillary adenopathy. Thoracic aorta is unremarkable. Cardiac size is normal. The visualized upper abdominal contents are unremarkable. There is no adrenal mass. Impression: There is a 7 mm nodule in the left lobe as described, unchanged from our prior study of 09/16/2016. Delay in reporting results from awaiting the report of the outside study. Signed by Saad Monreal MD 01/24/2017 08:14 A
== END ==
LOC: M RAD 15:59
PROVIDERS: ATTEND Physician Assistant
DX: R91.1 Solitary pulmonary nodule (principal)
CPT/HCPCS: 71260; Q9967

== ENCOUNTER → 2017-02-03 | Outpatient (CLI) | payer MEDICARE, OTHER ==
[~2017-02-03] MED LIST changes: -ISOVUE-370 76% 100ML VIAL (Q9967) As Ordered ONE
--- NOTE | 2017-02-10 01:25 | ECWPNPC ---
PATIENT NAME: ELIDIA WEEMS : 1970 GENDER: FEMALE VISIT DATE: 02/03/2017 DISCHARGE DATE: 02/03/17 1225 VISIT LOCKED DATE TIME: PHYSICIAN: NALLELY FENTON RESOURCE: NALLELY FENTON REASON FOR APPOINTMENT 1. LEFT CHEST WALL PAIN HISTORY OF PRESENT ILLNESS HISTORY OF PRESENT ILLNESS: PAIN THE PATIENT DESCRIBES THE PAIN... THE PATIENT DESCRIBES THE PAIN... 46 YEAR OLD FEMALE PATIENT WITH HISTORY OF CHRONIC LEFT CHEST WALL PAIN. PATIENT DESCRIBES THE PAIN ACHING, BURNING, SHARP, STABBING, TENDER, THROBBING, SORE, SHOOTING, AND HAVING IT ALL THE TIME WITH A PAIN SCORE OF 7/10. PATIENT REPORTS SHE WOULD LIKE TO MOVE FORWARD WITH DCS HOWEVER SHE WOULD LIKE TO PUT IT ON HOLD UNTIL SHE KNOWS WHAT TO DO ABOUT THE LUNGS. PATIENT RECENTLY FOUND OUT THAT SHE HAS NODULES IN HER LUNG AND IS ACTIVELY SEEING HER PECAN MALLOW DIPPER. PATIENT DENIES UNEXPLAINABLE WEIGHT LOSS, FEVER, CHILLS, NEW CHANGES ON HER URINARY OR BOWEL CONTROL. FALL RISK SCREENING: SCREENING :NO FALLS IN THE PAST YEAR :NO FALLS IN THE PAST YEAR SCREENING :NO FALLS IN THE PAST YEAR :NO FALLS IN THE PAST YEAR CURRENT MEDICATIONS TAKING FLINTSTONES COMPLETE 60 MG TABLET CHEWABLE 2 TABLETS ORALLY ONCE A DAY TAKING CALCIUM CITRATE + D 500MG/600MG TABLET 1 TABLET ORALLY TWICE A DAY TAKING VITAMIN B-12 500 MCG TABLET 1 TABLET ORALLY DAILY TAKING BIOTIN 5000 MCG TABLET 1 TABLET ORALLY TWICE A DAY TAKING CPAP MACHINE DIRECTED TAKING EPIPEN 2-LEONARD 0.3 MG/0.3ML DEVICE DIRECTED INJECTION PRN TAKING MAGNESIUM 300 MG CAPSULE 1 CAPSULE WITH A MEAL ORALLY ONCE A DAY TAKING POTASSIUM 99 MG TABLET 1 TABLET ORALLY ONCE A DAY OTC PRODUCT TAKING VYTORIN 10-80 MG TABLET 1 TABLET ORALLY ONCE A DAY TAKING ALBUTEROL SULFATE HFA 108 (90 BASE) MCG/ACT AEROSOL SOLUTION 2 PUFFS NEEDED INHALATION EVERY 4 HRS TAKING OMEPRAZOLE 20 MG CAPSULE DELAYED RELEASE 1 CAPSULE ORALLY ONCE A DAY TAKING FORTEO 600 MCG/2.4ML SOLUTION 0.08 ML SUBCUTANEOUS ONCE A DAY TAKING BUPROPION HCL ER (SR) 150 MG TABLET EXTENDED RELEASE 12 HOUR 1 TABLET ORALLY TWICE A DAY TAKING GABAPENTIN 300 MG CAPSULE 1 ORALLY FOUR TIMES DAILY TAKING CYMBALTA 30 MG CAPSULE DELAYED RELEASE PARTICLES 1 CAPSULE ORALLY TWICE DAILY TAKING COLACE 100 MG CAPSULE 1 CAPSULE NEEDED ORALLY BID PRN CONSTIPATION TAKING LIDODERM 5 % PATCH 3 PATCH TO CHEST WALL AND RIBS EXTERNALLY ON 12 HOURS OFF 12 HOURS NEEDED TAKING OXYCODONE HCL 15 MG TABLET 1 TABLET NEEDED ORALLY EVERY 4- 6 HRS PRN PAIN MDD=4 TAKING ALCOHOL PREP PAD 70 % PAD DIRECTED - DIRECTED TAKING AMBIEN 10 MG TABLET 1 TABLET AT BEDTIME NEEDED ORALLY ONCE A DAY (MDD1) DISCONTINUED ZILACTIN-B 10 % GEL 1 APPLICATION TO AFFECTED AREA NEEDED MOUTH FOUR TIMES A DAY MEDICATION LIST REVIEWED AND RECONCILED WITH THE PATIENT PAST MEDICAL HISTORY DEPRESSION CHRONIC PAIN HYPERTENSION/STROKE 06/2001 ELEVATED CHOLESTEROL SLEEP APNEA/COPD/DEVIATED SEPTUM-DR FAUSTIN SYRACJAYDEN RESTLESS LEG SYNDROME LT WRIST NERVE DAMAGE/RSD A RESULT HX OVARIAN CANCER ACID REFLUX STROKE IN 2001 SMOKER + HRT FX RIBS OSTEOPOROSIS HX MO LUNG NODULE IN THE LEFT LOWER LOBE ALLERGIES BEE STINGS: ANAPHYLAXIS: ALLERGY SURGICAL HISTORY TUBAL LIGATION 08/1990 RT SIDE INGUINAL HERNIA REPAIR 03/2000 RADICAL HYSTERECTOMY DUE TO OVARIAN CANCER 06/2000 LT WRIST RECONSTRUCTION/JOINT FUSION 05/2005 RT KNEE PROCEDURE 05/2005 CYSTOSCOPY 12/2006 ENDOSCOPY 01/2007 GASTRIC BYPASS 01/23/2012 COLONOSCOPY 2008 CHOLECYSTECTOMY CYST REMOVAL FROM HEAD DORSAL STIMULATOR PLACED FOR 5 DAYS THAN REMOVED ON 01/14/17 01/09/17 SOCIAL HISTORY GENERAL: TOBACCO USE ARE YOU A:CURRENT SOME DAY SMOKER ADDITIONAL FINDINGS: TOBACCO USERMODERATE CIGARETTE SMOKER (10-19 CIGS/DAY) SMOKING CESSATION INFORMATION GIVEN02/03/2017 ADDITIONAL FINDINGS: TOBACCO NON-USER NOT READY TO QUIT AT THIS TIME VAPORNO E-CIGARETTENO ALCOHOL SCREENING DID YOU HAVE A DRINK CONTAINING ALCOHOL IN THE PAST YEAR?NO POINTS0 INTERPRETATIONNEGATIVE RECREATIONAL DRUG USE DRUG USE?NO CAFFEINE CAFFEINE USE?YES 2 CUPS OF COFFEE IN THE AM HOW OFTEN AND HOW MUCH? 2-3 DIET SNAPPLES/DAY SEXUAL HX HAD SEX IN THE LAST 12 MONTHS (VAGINAL, ORAL, OR ANAL)?NO HAVE YOU EVER HAD AN STD?NO HIV / HEP-C SCREENING HIV TEST OFFERED TO PATIENT:YES DATE OFFERED:12/27/2016 JUST PREVIOUSLY HAD TEST ACCEPTED:NO REASON:OTHER (DOCUMENT IN NOTE) PT STATES SHE HAS HAD IT DONE PREVIOUSLY HEP-C TEST OFFERED TO PATIENT:NO ALREADY TESTED OCCUPATION: DISABLED. DIET: SMALL FERQUENT MEALS. EXERCISE: NO REGULAR EXERCISE DUE TO RIB FX. MARITAL STATUS: . OTHERS AT HOME: SPOUSE. PETS: DOG,CAT. MANDAEISM NO QUAKER BELIEFS THAT WOULD IMPACT HEALTH CARE. LANGUAGE LEBANESE. EDUCATION LEVEL OF EDUCATION:HIGH SCHOOL REGENTS GED LEARNING BARRIERS / SPECIAL NEEDS CHANGE FROM LAST VISIT?NO 01/31/17 BARRIERS TO LEARNING?NO HEARING IMPAIRED?NO VISION IMPAIRED?YES :CORRECTIVE LENSES COGNITIVELY IMPAIRED?NO READINESS TO LEARN?YES LEARNING PREFERENCES?YES :DEMONSTRATION/VERBAL INSTRUCTION LEARNING CAPABILITIES PRESENT?YES EMOTIONAL BARRIERS?NO SPECIAL DEVICES?NO REAL ESTATE TEACHER NEEDED?NO NEW PATIENT PAIN DIARY FROM 0-10, WHAT NUMBER IS YOUR PAIN TODAY? 7. PAIN CLINIC PFS, CLERGY, PUBLIC HEALTH REFERRALS PFS REFERRAL NEEDED?NO CLERGY REFERRAL NEEDED?NO PUBLIC HEALTH REFERRAL NEEDED?NO HAS THE PATIENT BEEN EDUCATED REGARDING HIS/HER PLAN OF CARE?YES HAS THE PATIENT BEEN EDUCATED REGARDING PAIN, THE RISK FOR PAIN, THE IMPORTANCE OF EFFECTIVE PAIN MANAGEMENT, AND THE PAIN ASSESSMENT PROCESS?YES ADVANCE DIRECTIVES HEALTH CARE PROXY?NO WOULD YOU LIKE MORE INFORMATION?NO DO YOU HAVE A DNR?NO WOULD YOU LIKE MORE INFORMATION?NO LIVING WILL?NO WOULD YOU LIKE MORE INFORMATION?NO POWER OF GPS FIELD DATA COLLECTOR?NO WOULD YOU LIKE MORE INFORMATION?NO NO TRAVEL OUTSIDE US, NONE RECENT. DOMESTIC VIOLENCE NONE. THIS PATIENT LIVES AT HOME WITH HER AND SON. SHE FRACTURED HER LEFT WRIST IN THE PAST. NO HISTORY OF AN EATING DISORDER. NO HISTORY OF PHYSICAL/SEXUAL ABUSE. SHE SLEEPS OKAY ONLY; USES CPAP. SHE WEARS SEAT BELTS. SHE IS CURRENT WITH DENTAL AND EYE EXAMINATIONS. SHE IS UP TO DATE WITH IMMUNIZATIONS AND TETANUS.08/19/16 PLAN OF CARE FOR THE PAIN CENTER REVIEWED WITH PT. AND SHE VERBALIZED UNDERSTANDING. AD. HOSPITALIZATION/MAJOR DIAGNOSTIC PROCEDURE STROKE 06/2001 HYPOGLYCEMIA 1997 REVIEW OF SYSTEMS REVIEWED BY: PROVIDER: , NALLELY FENTON MD . CONSTITUTIONAL: ANY CHANGE IN YOUR MEDICAL CONDITION? YES . CHILLS NO, NO . FEVER NO, NO . INFECTION: DO YOU HAVE NEW INFECTIONS? NO, NO . DO YOU HAVE HISTORY OF MRSA? NO, NO . MUSCULOSKELETAL: ANY NEW PATTERNS OF PAIN OR NUMBNESS? NO, NO . GASTROENTEROLOGY: ANY NEW CHANGE IN BOWEL CONTROL? NO, NO . GENITOURINARY: ANY NEW CHANGE IN BLADDER CONTROL? NO, NO . IS THERE A CHANCE YOU COULD BE ? NO, NO . HEMATOLOGY/LYMPH: DO YOU TAKE ANY BLOOD THINNERS? (FOR EXAMPLE- COUMADIN, PLAVIX, AGGRENOX, PLATEL, PRADAXA, OR XARELTO) NO, NO . WHEN WAS YOUR LAST DOSE? DATE: TIME: , DATE: TIME: . NEUROLOGY: HAVE YOU FALLEN IN THE PAST 6 MONTHS? NO, NO . ANY NEW EXTREMITY NUMBNESS OR WEAKNESS? NO, NO . CARDIOLOGY: DO YOU HAVE A PACEMAKER OR DEFIBRILLATOR? NO, NO . RESPIRATORY: HAVE YOU BEEN SICK IN THE PAST WEEK? NO, NO . FEVER NO, NO . FLU LIKE SYMPTOMS? NO, NO . COUGH NO, NO . INTEGUMENTARY: DO YOU HAVE ANY RASHES OR OPEN SORES? NO, NO . ALLERGIC/IMMUNO: ARE YOU ALLERGIC TO SHELLFISH OR IV DYE? NO, NO . ANY NEW ALLERGIES? NO, NO . PSYCHIATRIC: DO YOU HAVE THOUGHTS OF HURTING YOURSELF OR SOMEONE ELSE? NO, NO . ARE YOU ABUSED, NEGLECTED, OR IN AN UNSAFE ENVIRONMENT? NO, NO . ENDOCRINOLOGY: ARE YOU DIABETIC? NO, NO . OTHER: DO YOU NEED ANY PRESCRIPTIONS? YES, NO . IF YES, PLEASE LIST: ____OXYCODONE, ____ . ANY NEW PROBLEMS WITH YOUR MEDICATIONS? NO, NO . WHEN DID YOU LAST EAT? ____, ____ . WHEN DID YOU LAST DRINK? ____, ____ . WHAT DID YOU LAST DRINK? ____, ____ . NAME OF PERSON DRIVING YOU HOME? ____, ____ . DO YOU HAVE ANY OTHER QUESTIONS OR CONCERNS YES,RECENTLY WAS INFORMED OF A LUNG NODULE ON LEFT LOWER LOBE THAT HAS DOUBLED IN SIZE FROM 3 MM TO 7MMIN ABOUT 5-6 MONTHS, NO . VITAL SIGNS WT 110 LBS, HT 5'2 1/2", BMI 19.80 INDEX, BP 109/72 MM HG, HR 74 /MIN, RR 16 /MIN, TEMP 98.4 F, OXYGEN SAT % 99%, SAFE IN ENV? (Y/N) YES, NA INITIALS SC 11:15, REVIEWED BY: SALOME. EXAMINATION : PATIENT IS ALERT O X 3 AND COOPERATIVE. X-RAY OF THE RIBS DONE ON 03-20-2016 SHOWS A MILDLY DISPLACED LEFT LATERAL RIB FRACTURE INVOLVING THE ELEVENTH, TENTH, AND POSSIBLY NINTH RIB. THERE IS TENDERNESS WITH HYPERPATHIA ON THE LEFT CHEST WALL. ASSESSMENTS NEURALGIA AND NEURITIS, UNSPECIFIED - M79.2 (PRIMARY) LEFT CHEST WALL NEURALGIA. TREATMENT NEURALGIA AND NEURITIS, UNSPECIFIED NOTES: TENNS UNITURINE TOXICOLOGY NARCOTIC AGREEMENT. CLINICAL NOTES: WE DISCUSSED SEVERAL ISSUES WITH MRS. WEEMS'S PAIN MANAGEMENT CASE. AT THIS TIME THE PATIENT WILL STOP OXYCODONE SHE STATES SHE DOES NOT GET GOOD RELIEF FROM THE MEDICATION. PATIENT WILL BEGIN MORPHINE SULPHATE AND WAS REMINDED TO USE THIS MEDICATION CAREFULLY. PATIENT DENIES ABUSE OF MEDICATION, DENIES USE OF ILLEGAL SUBSTANCES, AND STATES SHE IS ONLY USING THE MEDICATION FOR PAIN MANAGEMENT. MRS. WEEMS BROUGHT THE MEDICATION TO TODAY'S VISIT. ISTOP REVIEWED [phone]. PATIENT WILL PERFORM A URINE TOXICOLOGY TODAY AND SIGN A NARCOTIC AGREEMENT. PATIENT WILL FOLLOW UP WITH THE PECAN MALLOW DIPPER TO DISCUSS THE NODULES AND AFTER A PLAN IS ESTABLISHED WE WILL CONTINUE TO MOVE FORWARD WITH THE PERMANENT DCS. I WOULD LIKE THE PATIENT TO START USING A TENNS UNIT TO SEE IF IT WILL GIVE THE PATIENT RELIEF. PATIENT WILL RETURN TO THE CLINIC IN ONE WEEK TO DISCUSS HOW THE MORPHINE SULPHATE AIDED THE PATIENT, IF IT IS WORKING WELL FOR THE PATIENT SHE WILL CANCEL THE APPOINTMENT AND RETURN IN ONE MONTH. INSTRUCTIONS WERE GIVEN, QUESTIONS WERE ANSWERED, PATIENT REPORTS UNDERSTANDING AND AGREES WITH THE PLAN. I, IRAIS FOY, DOCUMENTED THE ABOVE INFORMATION ACTING A SCRIBE FOR DR. FENTON. I HAVE REVIEWED THE ABOVE DOCUMENT, WRITTEN BY IRAIS DAILY AND I VERIFY THAT IT IS ACCURATE. OTHERS START MORPHINE SULFATE TABLET, 15 MG, 1 TABLET NEEDED, ORALLY, EVERY 6 HRS NEEDED FOR PAIN MDD4, 30 DAYS, 120, REFILLS 0 PROCEDURE CODES FA211 ESTABILISHED PATIENT [facility] FACILITY CHARGE G8427 DOC MEDS VERIFIED W/PT OR RE G9033 PAIN ASSESS POS TOOL F/U PLAN DOC DISPOSITION & COMMUNICATION FOLLOW UP 1 WEEK ELECTRONICALLY SIGNED BY NALLELY FENTON MD ON 02/09/2017 AT 12:55 PM EDT DISCLAIMER : THIS IS A VISIT SUMMARY EXTRACTED FROM THE [employer] CHART. IT IS NOT A COPY OF THE [employer] PROGRESS NOTE. MTDD
== END ==
LOC: M PAIN 11:00
PROVIDERS: ATTEND Anesthesiology
DX: M79.2 Neuralgia and neuritis, unspecified (principal); I10 Essential (primary) hypertension; Z79.891 Long term (current) use of opiate analgesic; Z79.899 Other long term (current) drug therapy; Z91.030 Bee allergy status

== ENCOUNTER → 2017-02-07 | Outpatient (REF) | payer MEDICARE, OTHER ==
[2017-02-07 18:10] LABS: BASO % 0.4 % (0.0-1.0); EOS # 0.1 10^3/uL (0.0-0.50); EOS % 2.4 % (0.0-3.0); IMMATURE GRANULOCYTE % 0.2 % (0-0); LYMPH # 2.3 10^3/uL (1.5-4.5); LYMPH % 42.1 % (24.0-44.0); MEAN CORPUSCULAR HEMOGLOBIN 33.3 pg (27.0-33.0); MEAN CORPUSCULAR HGB CONC 34.5 g/dl (32.0-36.5); MEAN CORPUSCULAR VOLUME 96.6 fl (80.0-96.0); MONO # 0.5 10^3/uL (0.0-0.8); MONO % 8.2 % (0.0-5.0); NEUTROPHILS # 2.6 10^3/uL (1.8-7.7); NEUTROPHILS % 46.7 % (36.0-66.0); PLATELET COUNT, AUTOMATED 232 10^3/uL (150-450); RED CELL DISTRIBUTION WIDTH 11.1 % (11.5-14.5); WHITE BLOOD COUNT 5.5 10^3/uL (4.0-10.0)
[2017-02-07 18:14] LABS: CALCIUM OXALATE CRYSTALS LARGE
[2017-02-07 19:22] LABS: FREE T4 1.04 NG/DL (0.76-1.46)
[2017-02-07 19:37] LABS: CA 125 3.7 U/ML (<30.2)
[2017-02-13 10:21] LABS: DOPAMINE PLASMA <30 pg/mL (0-48); EPINEPHRINE PLASMA <15 pg/mL (0-62); NOREPINEPHRINE PLASMA 302 pg/mL (0-874)
== END ==
LOC: M SFHCCAPE 08:54
PROVIDERS: ATTEND Physician Assistant
DX: J02.9 Acute pharyngitis, unspecified (principal); R61 Generalized hyperhidrosis; Z79.899 Other long term (current) drug therapy

== ENCOUNTER → 2017-02-21 | Outpatient (CLI) | payer MEDICARE, OTHER ==
--- NOTE | 2017-02-22 09:36 | REP ---
Whole body PET CT scan: The the patient had a 7 ml left lower lobe lung nodule identified by CT. Whole body PET CT scanning today is performed from skull base to the upper thighs. Neck and supraclavicular areas: There are no hypermetabolic foci. There is artifactual uptake in tonsillar and salivary tissues. Chest: There are no hypermetabolic foci. There is non hypermetabolic uptake in the patient's known left lower lobe lung nodule with a maximal standard uptake value of 1.1. Abdomen, pelvis and upper thighs: There are no hypermetabolic foci. Impression: There are no hypermetabolic foci. The known left lower lobe lung nodule demonstrates a maximal standard uptake value of 1.1. This is not hypermetabolic. The study is performed with 10 mCi of F 18 Signed by Saad Monreal MD 02/22/2017 09:28 A
== END ==
LOC: M PLARAD 12:07
PROVIDERS: ATTEND Internal Medicine Pulmonary Disease
DX: R91.1 Solitary pulmonary nodule (principal); Z85.43 Personal history of malignant neoplasm of ovary
CPT/HCPCS: 78815; A9552

== ENCOUNTER → 2017-03-07 | Outpatient (CLI) | payer MEDICARE, OTHER ==
--- NOTE | 2017-03-29 00:24 | ECWPNPC ---
PATIENT NAME: ELIDIA WEEMS : 1970 GENDER: FEMALE VISIT DATE: 03/07/2017 DISCHARGE DATE: 03/07/17 1122 VISIT LOCKED DATE TIME: PHYSICIAN: WILIAM HERBERT RESOURCE: WILIAM HERBERT REASON FOR APPOINTMENT 1. CHEST WALL PAIN HISTORY OF PRESENT ILLNESS HISTORY OF PRESENT ILLNESS: PAIN THE PATIENT DESCRIBES THE PAIN... FALL RISK SCREENING: SCREENING :NO FALLS IN THE PAST YEAR TODAY'S VISIT: NOTES: DCS PLACED ON HOLD BECAUSE OF CONCERNS WITH LUNG NODULE - THIS WAS EVALUATED BY DR JACKSON AND IS REPORTED CLEARED. WILL OBTAIN NOTES. WAS STARTED ON MORPHINE AND SHE REPORTS THIS IS HELPFUL. HAS NOT HEARD ABOUT TENS UNIT. WOULD LIKE TO MOVE FORWARD WITH DCS IMPLANT - HAD GREATER THAN 70% IMPROVENT WHEN STIM WAS IN PLACE.. SLEEP IS 4-5 HOURS. IS HAVING HOT FLASHES WITH DRENCHING SWEATS AT NITE. CURRENT MEDICATIONS TAKING FLINTSTONES COMPLETE 60 MG TABLET CHEWABLE 2 TABLETS ORALLY ONCE A DAY TAKING CALCIUM CITRATE + D 500MG/600MG TABLET 1 TABLET ORALLY TWICE A DAY TAKING VITAMIN B-12 500 MCG TABLET 1 TABLET ORALLY DAILY TAKING BIOTIN 5000 MCG TABLET 1 TABLET ORALLY TWICE A DAY TAKING CPAP MACHINE DIRECTED TAKING EPIPEN 2-LEONARD 0.3 MG/0.3ML DEVICE DIRECTED INJECTION PRN TAKING MAGNESIUM 300 MG CAPSULE 1 CAPSULE WITH A MEAL ORALLY ONCE A DAY TAKING POTASSIUM 99 MG TABLET 1 TABLET ORALLY ONCE A DAY OTC PRODUCT TAKING VYTORIN 10-80 MG TABLET 1 TABLET ORALLY ONCE A DAY TAKING ALBUTEROL SULFATE HFA 108 (90 BASE) MCG/ACT AEROSOL SOLUTION 2 PUFFS NEEDED INHALATION EVERY 4 HRS TAKING OMEPRAZOLE 20 MG CAPSULE DELAYED RELEASE 1 CAPSULE ORALLY ONCE A DAY TAKING FORTEO 600 MCG/2.4ML SOLUTION 0.08 ML SUBCUTANEOUS ONCE A DAY TAKING BUPROPION HCL ER (SR) 150 MG TABLET EXTENDED RELEASE 12 HOUR 1 TABLET ORALLY TWICE A DAY TAKING GABAPENTIN 300 MG CAPSULE 1 ORALLY FOUR TIMES DAILY TAKING CYMBALTA 30 MG CAPSULE DELAYED RELEASE PARTICLES 1 CAPSULE ORALLY TWICE DAILY TAKING COLACE 100 MG CAPSULE 1 CAPSULE NEEDED ORALLY BID PRN CONSTIPATION TAKING ALCOHOL PREP PAD 70 % PAD DIRECTED - DIRECTED TAKING AMBIEN 10 MG TABLET 1 TABLET AT BEDTIME NEEDED ORALLY ONCE A DAY (MDD1) TAKING LIDODERM 5 % PATCH 3 PATCH TO CHEST WALL AND RIBS EXTERNALLY ON 12 HOURS OFF 12 HOURS NEEDED TAKING ACCU-CHEK WILMAR - DEVICE DIRECTED TAKING ALCOHOL SWABS 70 % PAD DIRECTED TWICE A DAY TAKING COOL BLOOD GLUCOSE TEST STRIPS - STRIP DIRECTED IN VITRO TWICE DAILY TAKING ACCU-CHEK FASTCLIX LANCET - KIT DIRECTED BID TAKING MORPHINE SULFATE 15 MG TABLET 1 TABLET NEEDED ORALLY EVERY 6 HRS NEEDED FOR PAIN MDD4 NOT-TAKING OXYCODONE HCL 15 MG TABLET 1 TABLET NEEDED ORALLY EVERY 4- 6 HRS PRN PAIN MDD=4 MEDICATION LIST REVIEWED AND RECONCILED WITH THE PATIENT PAST MEDICAL HISTORY DEPRESSION CHRONIC PAIN HYPERTENSION/STROKE 06/2001 ELEVATED CHOLESTEROL SLEEP APNEA/COPD/DEVIATED SEPTUM-DR ROXIE HAMILTON RESTLESS LEG SYNDROME LT WRIST NERVE DAMAGE/RSD A RESULT HX OVARIAN CANCER ACID REFLUX STROKE IN 2001 SMOKER + HRT FX RIBS OSTEOPOROSIS HX ID LUNG NODULE IN THE LEFT LOWER LOBE HYPOGCEMIA ALLERGIES BEE STINGS: ANAPHYLAXIS: ALLERGY SURGICAL HISTORY TUBAL LIGATION 08/1990 RT SIDE INGUINAL HERNIA REPAIR 03/2000 RADICAL HYSTERECTOMY DUE TO OVARIAN CANCER 06/2000 LT WRIST RECONSTRUCTION/JOINT FUSION 05/2005 RT KNEE PROCEDURE 05/2005 CYSTOSCOPY 12/2006 ENDOSCOPY 01/2007 GASTRIC BYPASS 01/23/2012 COLONOSCOPY 2008 CHOLECYSTECTOMY CYST REMOVAL FROM HEAD DORSAL STIMULATOR PLACED FOR 5 DAYS THAN REMOVED ON 01/14/17 01/09/17 FAMILY HISTORY FATHER: 54 YRS, ACID REFLUX-ASPIRATED, DIAGNOSED WITH HEART DISEASE, OTHER MOTHER: ALIVE 66 YRS, HEART DISEASE, D.M., DIAGNOSED WITH DIABETES, HEART DISEASE SIBLINGS: ALIVE, ACID REFLUX, DIAGNOSED WITH HYPERTENSION SON(S): ALIVE, HYPERTENSION, DIAGNOSED WITH HYPERTENSION, OTHER DAUGHTER(S): ALIVE, DIAGNOSED WITH OTHER 2 BROTHER(S) . 2 SON(S) , 1 DAUGHTER(S) . FATHER FROM ASPIRATION DUE TO ACID REFLUX.NO CANCER REPORTED IN FAMILY.DAUGHTER--FIBROMYALGIA AND RA1 SON ADHD1 SON HTN. SOCIAL HISTORY GENERAL: TOBACCO USE ARE YOU A:CURRENT SOME DAY SMOKER ADDITIONAL FINDINGS: TOBACCO USERMODERATE CIGARETTE SMOKER (10-19 CIGS/DAY) SMOKING CESSATION INFORMATION GIVEN03/07/2017 ADDITIONAL FINDINGS: TOBACCO NON-USER NOT READY TO QUIT AT THIS TIME VAPORNO E-CIGARETTENO ALCOHOL SCREENING DID YOU HAVE A DRINK CONTAINING ALCOHOL IN THE PAST YEAR?NO POINTS0 INTERPRETATIONNEGATIVE RECREATIONAL DRUG USE DRUG USE?NO CAFFEINE CAFFEINE USE?YES 2 CUPS OF COFFEE IN THE AM HOW OFTEN AND HOW MUCH? 2-3 DIET SNAPPLES/DAY SEXUAL HX HAD SEX IN THE LAST 12 MONTHS (VAGINAL, ORAL, OR ANAL)?NO HAVE YOU EVER HAD AN STD?NO HIV / HEP-C SCREENING HIV TEST OFFERED TO PATIENT:YES DATE OFFERED:12/27/2016 JUST PREVIOUSLY HAD TEST ACCEPTED:NO REASON:OTHER (DOCUMENT IN NOTE) PT STATES SHE HAS HAD IT DONE PREVIOUSLY HEP-C TEST OFFERED TO PATIENT:NO ALREADY TESTED OCCUPATION: DISABLED. DIET: SMALL FERQUENT MEALS. EXERCISE: NO REGULAR EXERCISE DUE TO RIB FX. MARITAL STATUS: . OTHERS AT HOME: SPOUSE. PETS: DOG,CAT. SIKHISM NO EVANGELICAL BELIEFS THAT WOULD IMPACT HEALTH CARE. LANGUAGE AMHARIC. EDUCATION LEVEL OF EDUCATION:HIGH SCHOOL REGENTS GED LEARNING BARRIERS / SPECIAL NEEDS CHANGE FROM LAST VISIT?NO 01/31/17 BARRIERS TO LEARNING?NO HEARING IMPAIRED?NO VISION IMPAIRED?YES :CORRECTIVE LENSES COGNITIVELY IMPAIRED?NO READINESS TO LEARN?YES LEARNING PREFERENCES?YES :DEMONSTRATION/VERBAL INSTRUCTION LEARNING CAPABILITIES PRESENT?YES EMOTIONAL BARRIERS?NO SPECIAL DEVICES?NO STRETCHER LEVELER OPERATOR HELPER NEEDED?NO NEW PATIENT PAIN DIARY FROM 0-10, WHAT NUMBER IS YOUR PAIN TODAY? 7. PAIN CLINIC PFS, CLERGY, PUBLIC HEALTH REFERRALS PFS REFERRAL NEEDED?NO CLERGY REFERRAL NEEDED?NO PUBLIC HEALTH REFERRAL NEEDED?NO HAS THE PATIENT BEEN EDUCATED REGARDING HIS/HER PLAN OF CARE?YES HAS THE PATIENT BEEN EDUCATED REGARDING PAIN, THE RISK FOR PAIN, THE IMPORTANCE OF EFFECTIVE PAIN MANAGEMENT, AND THE PAIN ASSESSMENT PROCESS?YES ADVANCE DIRECTIVES HEALTH CARE PROXY?NO WOULD YOU LIKE MORE INFORMATION?NO DO YOU HAVE A DNR?NO WOULD YOU LIKE MORE INFORMATION?NO LIVING WILL?NO WOULD YOU LIKE MORE INFORMATION?NO POWER OF OPERATIONS PROCESSOR?NO WOULD YOU LIKE MORE INFORMATION?NO NO TRAVEL OUTSIDE US, NONE RECENT. DOMESTIC VIOLENCE NONE. THIS PATIENT LIVES AT HOME WITH HER AND SON. SHE FRACTURED HER LEFT WRIST IN THE PAST. NO HISTORY OF AN EATING DISORDER. NO HISTORY OF PHYSICAL/SEXUAL ABUSE. SHE SLEEPS OKAY ONLY; USES CPAP. SHE WEARS SEAT BELTS. SHE IS CURRENT WITH DENTAL AND EYE EXAMINATIONS. SHE IS UP TO DATE WITH IMMUNIZATIONS AND TETANUS.08/19/16 PLAN OF CARE FOR THE PAIN CENTER REVIEWED WITH PT. AND SHE VERBALIZED UNDERSTANDING. AD. HOSPITALIZATION/MAJOR DIAGNOSTIC PROCEDURE STROKE 06/2001 HYPOGLYCEMIA 1997 REVIEW OF SYSTEMS REVIEWED BY: PROVIDER: . CONSTITUTIONAL: ANY CHANGE IN YOUR MEDICAL CONDITION? NO . CHILLS NO . FEVER NO . INFECTION: DO YOU HAVE NEW INFECTIONS? NO . DO YOU HAVE HISTORY OF MRSA? NO . MUSCULOSKELETAL: ANY NEW PATTERNS OF PAIN OR NUMBNESS? NO . GASTROENTEROLOGY: ANY NEW CHANGE IN BOWEL CONTROL? NO . GENITOURINARY: ANY NEW CHANGE IN BLADDER CONTROL? NO . IS THERE A CHANCE YOU COULD BE ? NO . HEMATOLOGY/LYMPH: DO YOU TAKE ANY BLOOD THINNERS? (FOR EXAMPLE- COUMADIN, PLAVIX, AGGRENOX, PLATEL, PRADAXA, OR XARELTO) NO . WHEN WAS YOUR LAST DOSE? DATE: TIME: . NEUROLOGY: HAVE YOU FALLEN IN THE PAST 6 MONTHS? NO . ANY NEW EXTREMITY NUMBNESS OR WEAKNESS? NO . CARDIOLOGY: DO YOU HAVE A PACEMAKER OR DEFIBRILLATOR? NO . RESPIRATORY: HAVE YOU BEEN SICK IN THE PAST WEEK? NO . FEVER NO . FLU LIKE SYMPTOMS? NO . COUGH NO . INTEGUMENTARY: DO YOU HAVE ANY RASHES OR OPEN SORES? NO . ALLERGIC/IMMUNO: ARE YOU ALLERGIC TO SHELLFISH OR IV DYE? NO . ANY NEW ALLERGIES? NO . PSYCHIATRIC: DO YOU HAVE THOUGHTS OF HURTING YOURSELF OR SOMEONE ELSE? NO . ARE YOU ABUSED, NEGLECTED, OR IN AN UNSAFE ENVIRONMENT? NO . ENDOCRINOLOGY: ARE YOU DIABETIC? UNSURE - IS HAVING LABS AND FURTHER TESTING THROUGH PRIMARY CARE . OTHER: DO YOU NEED ANY PRESCRIPTIONS? NO . IF YES, PLEASE LIST: ____ . ANY NEW PROBLEMS WITH YOUR MEDICATIONS? NO . WHEN DID YOU LAST EAT? ____ . WHEN DID YOU LAST DRINK? ____ . WHAT DID YOU LAST DRINK? ____ . NAME OF PERSON DRIVING YOU HOME? ____ . DO YOU HAVE ANY OTHER QUESTIONS OR CONCERNS NO . VITAL SIGNS WT 110.0 LBS, HT 5'2 1/2", BMI 19.80 INDEX, BP 128/62 MM HG, HR 83 /MIN, RR 16 /MIN, TEMP 98.2 F, OXYGEN SAT % 96%, NA INITIALS TL 1023, REVIEWED BY: LS. EXAMINATION GENERAL EXAMINATION: CHEST:LEFT MID THORACIC CHEST WALL TENDERNESS TO PALPATION POSTERIOR. LUNGS:CLEAR TO AUSCULTATION BILATERALLY. 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 PROCEDURE CODES FA211 ESTABILISHED PATIENT [facility] FACILITY CHARGE G8730 PAIN ASSESS POS TOOL F/U PLAN DOC G8427 DOC MEDS VERIFIED W/PT OR RE DISPOSITION & COMMUNICATION FOLLOW UP DR FENTON FRO DCS IMPLANT (REASON: SILVA - NEED OFFICE NOTES FROM DR JACKSON/PULMONOLOGY) ELECTRONICALLY SIGNED BY ALEXANDREA HOPE ON 03/28/2017 AT 08:28 AM EST DISCLAIMER : THIS IS A VISIT SUMMARY EXTRACTED FROM THE [employer] CHART. IT IS NOT A COPY OF THE [employer] PROGRESS NOTE. EUGENIO
== END ==
LOC: M PAIN 10:00
PROVIDERS: ATTEND Nurse Practitioner Family
DX: G89.29 Other chronic pain (principal); M54.14 Radiculopathy, thoracic region; F32.9 Major depressive disorder, single episode, unspecified; I10 Essential (primary) hypertension; E78.00 Pure hypercholesterolemia, unspecified; G47.30 Sleep apnea, unspecified; J44.9 Chronic obstructive pulmonary disease, unspecified; G25.81 Restless legs syndrome; K21.9 Gastro-esophageal reflux disease without esophagitis; M81.0 Age-related osteoporosis without current pathological fracture; F17.210 Nicotine dependence, cigarettes, uncomplicated; I25.2 Old myocardial infarction; R91.1 Solitary pulmonary nodule; Z85.43 Personal history of malignant neoplasm of ovary; Z98.84 Bariatric surgery status; Z79.899 Other long term (current) drug therapy; Z86.73 Personal history of transient ischemic attack (TIA), and cerebral infarction without residual deficits; Z91.030 Bee allergy status

== ENCOUNTER → 2017-03-16 | Outpatient (REF) | payer MEDICARE, OTHER ==
[2017-03-16 19:07] LABS: ALBUMIN 3.2 GM/DL (3.2-5.2); ALBUMIN/GLOBULIN RATIO 1.28 (1.00-1.93); ALKALINE PHOSPHATASE 154 U/L (45-117); ALT/SGPT 72 U/L (12-78); ANION GAP 7 MEQ/L (8-16); AST/SGOT 63 U/L (7-37); BILIRUBIN,TOTAL 0.6 MG/DL (0.2-1.0); BLOOD UREA NITROGEN 11 MG/DL (7-18); CALCIUM LEVEL 8.9 MG/DL (8.5-10.1); CARBON DIOXIDE LEVEL 32 MEQ/L (21-32); CHLORIDE LEVEL 104 MEQ/L (98-107); CREATININE FOR GFR 0.54 MG/DL (0.55-1.02); GLOMERULAR FILTRATION RATE > 60.0 (>58); GLUCOSE, FASTING 65 MG/DL (70-105); POTASSIUM SERUM 3.7 MEQ/L (3.5-5.1); SODIUM LEVEL 143 MEQ/L (136-145); TOTAL PROTEIN 5.7 GM/DL (6.4-8.2)
== END ==
LOC: M SFHCCAPE 07:20
PROVIDERS: ATTEND Physician Assistant
DX: E16.2 Hypoglycemia, unspecified (principal); Z23 Encounter for immunization
CPT/HCPCS: 36415; 80053; 83036; 90686; G0008

== ENCOUNTER → 2017-03-27 | Outpatient (CLI) | payer MEDICARE, OTHER ==
--- NOTE | 2017-04-12 00:28 | ECWPNPC ---
PATIENT NAME: ELIDIA WEEMS : 1970 GENDER: FEMALE VISIT DATE: 03/27/2017 DISCHARGE DATE: 03/27/17 1700 VISIT LOCKED DATE TIME: PHYSICIAN: NALLELY FENTON RESOURCE: NALLELY FENTON REASON FOR APPOINTMENT 1. RIB PAIN HISTORY OF PRESENT ILLNESS HISTORY OF PRESENT ILLNESS: PAIN THE PATIENT DESCRIBES THE PAIN... 46 YEAR OLD FEMALE PATIENT WITH HISTORY OF CHRONIC LEFT CHEST WALL PAIN. PATIENT DESCRIBES THE PAIN ACHING, BURNING, SHARP, STABBING, TENDER, THROBBING, SORE, SHOOTING, AND HAVING IT ALL THE TIME WITH A PAIN SCORE OF 7/10. PATIENT REPORTS SHE WOULD LIKE TO MOVE FORWARD WITH PERMANENT DCS. PATIENT REPORTS HAVING OVER 80% RELIEF FROM THE DCS AND WOULD LIKE TO PROCEED SOON POSSIBLE. PATIENT DENIES UNEXPLAINABLE WEIGHT LOSS, FEVER, CHILLS, NEW CHANGES ON HER URINARY OR BOWEL CONTROL. FALL RISK SCREENING: SCREENING :NO FALLS IN THE PAST YEAR CURRENT MEDICATIONS TAKING FLINTSTONES COMPLETE 60 MG TABLET CHEWABLE 2 TABLETS ORALLY ONCE A DAY TAKING CALCIUM CITRATE + D 500MG/600MG TABLET 1 TABLET ORALLY TWICE A DAY TAKING VITAMIN B-12 500 MCG TABLET 1 TABLET ORALLY DAILY TAKING BIOTIN 5000 MCG TABLET 1 TABLET ORALLY TWICE A DAY TAKING CPAP MACHINE DIRECTED TAKING EPIPEN 2-LEONARD 0.3 MG/0.3ML DEVICE DIRECTED INJECTION PRN TAKING MAGNESIUM 300 MG CAPSULE 1 CAPSULE WITH A MEAL ORALLY ONCE A DAY TAKING POTASSIUM 99 MG TABLET 1 TABLET ORALLY ONCE A DAY OTC PRODUCT TAKING VYTORIN 10-80 MG TABLET 1 TABLET ORALLY ONCE A DAY TAKING ALBUTEROL SULFATE HFA 108 (90 BASE) MCG/ACT AEROSOL SOLUTION 2 PUFFS NEEDED INHALATION EVERY 4 HRS TAKING OMEPRAZOLE 20 MG CAPSULE DELAYED RELEASE 1 CAPSULE ORALLY ONCE A DAY TAKING FORTEO 600 MCG/2.4ML SOLUTION 0.08 ML SUBCUTANEOUS ONCE A DAY TAKING BUPROPION HCL ER (SR) 150 MG TABLET EXTENDED RELEASE 12 HOUR 1 TABLET ORALLY TWICE A DAY TAKING GABAPENTIN 300 MG CAPSULE 1 ORALLY FOUR TIMES DAILY TAKING CYMBALTA 30 MG CAPSULE DELAYED RELEASE PARTICLES 1 CAPSULE ORALLY TWICE DAILY TAKING COLACE 100 MG CAPSULE 1 CAPSULE NEEDED ORALLY BID PRN CONSTIPATION TAKING ALCOHOL PREP PAD 70 % PAD DIRECTED - DIRECTED TAKING AMBIEN 10 MG TABLET 1 TABLET AT BEDTIME NEEDED ORALLY ONCE A DAY (MDD1) TAKING LIDODERM 5 % PATCH 3 PATCH TO CHEST WALL AND RIBS EXTERNALLY ON 12 HOURS OFF 12 HOURS NEEDED TAKING ACCU-CHEK WILMAR - DEVICE DIRECTED TAKING ALCOHOL SWABS 70 % PAD DIRECTED TWICE A DAY TAKING ACCU-CHEK FASTCLIX LANCET - KIT DIRECTED BID TAKING MORPHINE SULFATE 15 MG TABLET 1 TABLET NEEDED ORALLY EVERY 6 HRS NEEDED FOR PAIN MDD4 TAKING COOL BLOOD GLUCOSE TEST STRIPS - STRIP DIRECTED IN VITRO QID/ NEEDED DISCONTINUED OXYCODONE HCL 15 MG TABLET 1 TABLET NEEDED ORALLY EVERY 4- 6 HRS PRN PAIN MDD=4 MEDICATION LIST REVIEWED AND RECONCILED WITH THE PATIENT PAST MEDICAL HISTORY DEPRESSION CHRONIC PAIN HYPERTENSION/STROKE 06/2001 ELEVATED CHOLESTEROL SLEEP APNEA/COPD/DEVIATED SEPTUM-DR FAUSTIN SYRACUSE RESTLESS LEG SYNDROME LT WRIST NERVE DAMAGE/RSD A RESULT HX OVARIAN CANCER ACID REFLUX STROKE IN 2001 SMOKER + HRT FX RIBS OSTEOPOROSIS HX PA LUNG NODULE IN THE LEFT LOWER LOBE HYPOGCEMIA ALLERGIES BEE STINGS: ANAPHYLAXIS: ALLERGY SOCIAL HISTORY GENERAL: TOBACCO USE ARE YOU A:USES TOBACCO IN OTHER FORMS ADDITIONAL FINDINGS: TOBACCO USERMODERATE CIGARETTE SMOKER (10-19 CIGS/DAY) SMOKING CESSATION INFORMATION GIVEN03/27/2017 COUNCELED ON THE IMPORTANCE OF QUITTING ADDITIONAL FINDINGS: TOBACCO NON-USER NOT READY TO QUIT AT THIS TIME VAPORNO E-CIGARETTENO ALCOHOL SCREENING DID YOU HAVE A DRINK CONTAINING ALCOHOL IN THE PAST YEAR?NO POINTS0 INTERPRETATIONNEGATIVE RECREATIONAL DRUG USE DRUG USE?NO CAFFEINE CAFFEINE USE?YES 2 CUPS OF COFFEE IN THE AM HOW OFTEN AND HOW MUCH? 2-3 DIET SNAPPLES/DAY SEXUAL HX HAD SEX IN THE LAST 12 MONTHS (VAGINAL, ORAL, OR ANAL)?NO HAVE YOU EVER HAD AN STD?NO HIV / HEP-C SCREENING HIV TEST OFFERED TO PATIENT:YES DATE OFFERED:12/27/2016 JUST PREVIOUSLY HAD TEST ACCEPTED:NO REASON:OTHER (DOCUMENT IN NOTE) PT STATES SHE HAS HAD IT DONE PREVIOUSLY HEP-C TEST OFFERED TO PATIENT:NO ALREADY TESTED OCCUPATION: DISABLED. DIET: SMALL FERQUENT MEALS. EXERCISE: NO REGULAR EXERCISE DUE TO RIB FX. MARITAL STATUS: . OTHERS AT HOME: SPOUSE. PETS: DOG,CAT. CONFUCIANISM [id number] NONE LANGUAGE TANZANIAN. EDUCATION LEVEL OF EDUCATION:HIGH SCHOOL REGENTS GED LEARNING BARRIERS / SPECIAL NEEDS CHANGE FROM LAST VISIT?NO 01/31/17 BARRIERS TO LEARNING?NO HEARING IMPAIRED?NO VISION IMPAIRED?YES :CORRECTIVE LENSES COGNITIVELY IMPAIRED?NO READINESS TO LEARN?YES LEARNING PREFERENCES?YES :DEMONSTRATION/VERBAL INSTRUCTION LEARNING CAPABILITIES PRESENT?YES EMOTIONAL BARRIERS?NO SPECIAL DEVICES?NO PAD EXTRACTOR TENDER NEEDED?NO NEW PATIENT PAIN DIARY FROM 0-10, WHAT NUMBER IS YOUR PAIN TODAY? 7. PAIN CLINIC PFS, CLERGY, PUBLIC HEALTH REFERRALS PFS REFERRAL NEEDED?NO CLERGY REFERRAL NEEDED?NO PUBLIC HEALTH REFERRAL NEEDED?NO HAS THE PATIENT BEEN EDUCATED REGARDING HIS/HER PLAN OF CARE?YES HAS THE PATIENT BEEN EDUCATED REGARDING PAIN, THE RISK FOR PAIN, THE IMPORTANCE OF EFFECTIVE PAIN MANAGEMENT, AND THE PAIN ASSESSMENT PROCESS?YES ADVANCE DIRECTIVES HEALTH CARE PROXY?NO WOULD YOU LIKE MORE INFORMATION?NO DO YOU HAVE A DNR?NO WOULD YOU LIKE MORE INFORMATION?NO LIVING WILL?NO WOULD YOU LIKE MORE INFORMATION?NO POWER OF SPECIAL INVESTIGATION UNIT INVESTIGATOR?NO WOULD YOU LIKE MORE INFORMATION?NO NO TRAVEL OUTSIDE US, NONE RECENT. DOMESTIC VIOLENCE DO YOU FEEL SAFE IN YOUR ENVIRONMENT?YES THIS PATIENT LIVES AT HOME WITH HER AND SON. SHE FRACTURED HER LEFT WRIST IN THE PAST. NO HISTORY OF AN EATING DISORDER. NO HISTORY OF PHYSICAL/SEXUAL ABUSE. SHE SLEEPS OKAY ONLY; USES CPAP. SHE WEARS SEAT BELTS. SHE IS CURRENT WITH DENTAL AND EYE EXAMINATIONS. SHE IS UP TO DATE WITH IMMUNIZATIONS AND TETANUS.08/19/16 PLAN OF CARE FOR THE PAIN CENTER REVIEWED WITH PT. AND SHE VERBALIZED UNDERSTANDING. AD. REVIEW OF SYSTEMS REVIEWED BY: PROVIDER: , NALLELY FENTON MD . CONSTITUTIONAL: ANY CHANGE IN YOUR MEDICAL CONDITION? NO . CHILLS NO . FEVER NO . INFECTION: DO YOU HAVE NEW INFECTIONS? NO . DO YOU HAVE HISTORY OF MRSA? NO . MUSCULOSKELETAL: ANY NEW PATTERNS OF PAIN OR NUMBNESS? INCREASE IN PAIN IN CENTER OF BACK, AND SOMETIMES HER LEGS JERK . GASTROENTEROLOGY: ANY NEW CHANGE IN BOWEL CONTROL? NO . GENITOURINARY: ANY NEW CHANGE IN BLADDER CONTROL? NO . IS THERE A CHANCE YOU COULD BE ? NO . HEMATOLOGY/LYMPH: DO YOU TAKE ANY BLOOD THINNERS? (FOR EXAMPLE- COUMADIN, PLAVIX, AGGRENOX, PLATEL, PRADAXA, OR XARELTO) NO . WHEN WAS YOUR LAST DOSE? DATE: TIME: . NEUROLOGY: HAVE YOU FALLEN IN THE PAST 6 MONTHS? NO . ANY NEW EXTREMITY NUMBNESS OR WEAKNESS? NO . CARDIOLOGY: DO YOU HAVE A PACEMAKER OR DEFIBRILLATOR? NO . RESPIRATORY: HAVE YOU BEEN SICK IN THE PAST WEEK? NO . FEVER NO . FLU LIKE SYMPTOMS? NO . COUGH NO . INTEGUMENTARY: DO YOU HAVE ANY RASHES OR OPEN SORES? NO . ALLERGIC/IMMUNO: ARE YOU ALLERGIC TO SHELLFISH OR IV DYE? NO . ANY NEW ALLERGIES? NO . PSYCHIATRIC: DO YOU HAVE THOUGHTS OF HURTING YOURSELF OR SOMEONE ELSE? NO . ARE YOU ABUSED, NEGLECTED, OR IN AN UNSAFE ENVIRONMENT? NO . ENDOCRINOLOGY: ARE YOU DIABETIC? NOT SURE--HER GLUCOSE HAS BEEN RUNNING LOW AT TIMES--IN 30-40'S. SHE IS WAITING TO SEE ENDOCRONOLOGIST FOR THIS. . OTHER: DO YOU NEED ANY PRESCRIPTIONS? YES . IF YES, PLEASE LIST: DOLCUSATE, LIDODERM PATCHES . ANY NEW PROBLEMS WITH YOUR MEDICATIONS? NO . WHEN DID YOU LAST EAT? ____ . WHEN DID YOU LAST DRINK? ____ . WHAT DID YOU LAST DRINK? ____ . NAME OF PERSON DRIVING YOU HOME? ____ . DO YOU HAVE ANY OTHER QUESTIONS OR CONCERNS SHE HAS BEEN EXPERIENCING DISCOMFORT IN HER MID-LOWER BACK AND LEGS HAVE BEEN JUMPING AND JERKING. . VITAL SIGNS WT 105.0 LBS, HT 62.5", BMI 18.90 INDEX, BP 109/60 MM HG, HR 78 /MIN, RR 16 /MIN, TEMP 97.7 F, OXYGEN SAT % 96%, SAFE IN ENV? (Y/N) Y, NA INITIALS TL 1524, REVIEWED BY: HUBERT. EXAMINATION : THE PATIENT IS ALERT OX3 AND COOPERATIVE. ASSESSMENTS NEURALGIA AND NEURITIS, UNSPECIFIED - M79.2 (PRIMARY) INTERCOSTAL NEURALGIACHEST WALL PAIN. TREATMENT OTHERS CLINICAL NOTES: WE DISCUSSED SEVERAL ISSUES WITH MRS. WEEMS'S PAIN MANAGEMENT CASE. AT THIS TIME THE PATIENT REPORTS HAVING OVER 80% RELIEF FROM THE DCS AND WOULD LIKE TO PROCEED WITH THE PERMANENT JOSE. PATIENT STATES THAT HER PAIN WAS DECREASED AND MOBILITY AND FUNCTIONALITY WELL HER QUALITY OF LIFE INCREASED. PATIENT STATES SHE DID NOT USE AN PAIN MEDICATION THROUGHOUT THE TRIAL. WE DISCUSSED PERCUTANEOUS AND SURGICAL OPTIONS WITH MRS. WEEMS. THE PATIENT HAS DECIDED TO MOVE FORWARD WITH THE SURGICAL OPTION AND IS BEING REFERRED TO NEUROSURGERY FOR THE PERMANENT SCS IMPLANT WITH MRI COMPATIBILITY. INSTRUCTIONS WERE GIVEN, QUESTIONS WERE ANSWERED, PATIENT REPORTS UNDERSTANDING AND AGREES WITH THE PLAN. IJESSE, DOCUMENTED THE ABOVE INFORMATION ACTING A SCRIBE FOR DR. FENTON. I HAVE REVIEWED THE ABOVE DOCUMENT, WRITTEN BY JESSE SIMMS SCRIBE AND I VERIFY THAT IT IS ACCURATE. PROCEDURE CODES G8730 PAIN ASSESS POS TOOL F/U PLAN DOC G8427 DOC MEDS VERIFIED W/PT OR RE FA211 ESTABILISHED PATIENT [facility] CHARGE DISPOSITION & COMMUNICATION FOLLOW UP 3 WEEKS ELECTRONICALLY SIGNED BY NALLELY FENTON MD ON 04/11/2017 AT 09:10 PM EST DISCLAIMER : THIS IS A VISIT SUMMARY EXTRACTED FROM THE [employer] CHART. IT IS NOT A COPY OF THE The [employer] PROGRESS NOTE. MTDD
== END ==
LOC: M PAIN 15:30
PROVIDERS: ATTEND Anesthesiology
DX: M79.2 Neuralgia and neuritis, unspecified (principal); F17.210 Nicotine dependence, cigarettes, uncomplicated; Z79.899 Other long term (current) drug therapy; Z91.030 Bee allergy status

== ENCOUNTER → 2017-04-26 | Outpatient (REF) | payer MEDICARE, OTHER ==
[2017-04-26 16:29] LABS: BASO % 0.8 % (0.0-1.0); EOS # 0.2 10^3/uL (0.0-0.50); EOS % 2.9 % (0.0-3.0); IMMATURE GRANULOCYTE % 0.2 % (0-0); LYMPH % 39.1 % (24.0-44.0); MEAN CORPUSCULAR HEMOGLOBIN 32.7 pg (27.0-33.0); MEAN CORPUSCULAR VOLUME 96.2 fl (80.0-96.0); MONO # 0.4 10^3/uL (0.0-0.8); MONO % 8.2 % (0.0-5.0); NEUTROPHILS # 2.5 10^3/uL (1.8-7.7); NEUTROPHILS % 48.8 % (36.0-66.0); PLATELET COUNT, AUTOMATED 283 10^3/uL (150-450); RED CELL DISTRIBUTION WIDTH 11.5 % (11.5-14.5); WHITE BLOOD COUNT 5.1 10^3/uL (4.0-10.0)
[2017-04-26 17:21] LABS: ALBUMIN 3.2 GM/DL (3.2-5.2); ALBUMIN/GLOBULIN RATIO 1.19 (1.00-1.93); ALKALINE PHOSPHATASE 134 U/L (45-117); ALT/SGPT 23 U/L (12-78); ANION GAP 7 MEQ/L (8-16); AST/SGOT 18 U/L (7-37); BILIRUBIN,TOTAL 0.4 MG/DL (0.2-1.0); BLOOD UREA NITROGEN 10 MG/DL (7-18); CALCIUM LEVEL 8.3 MG/DL (8.5-10.1); CARBON DIOXIDE LEVEL 30 MEQ/L (21-32); CHLORIDE LEVEL 106 MEQ/L (98-107); CREATININE FOR GFR 0.54 MG/DL (0.55-1.02); GLOMERULAR FILTRATION RATE > 60.0 (>58); GLUCOSE, FASTING 74 MG/DL (70-105); POTASSIUM SERUM 3.8 MEQ/L (3.5-5.1); SODIUM LEVEL 143 MEQ/L (136-145); TOTAL PROTEIN 5.9 GM/DL (6.4-8.2)
[2017-04-26 17:25] LABS: VITAMIN B12 LEVEL > 2000 PG/ML
[2017-04-26 17:26] LABS: FOLATE > 24.0 NG/ML
== END ==
LOC: M SFHCCAPE 09:46
PROVIDERS: ATTEND Physician Assistant
DX: M25.50 Pain in unspecified joint (principal)

== ENCOUNTER → 2017-04-28 | Outpatient (CLI) | payer MEDICARE, OTHER | LOC: M PAIN 09:30 | DX: M54.14 Radiculopathy, thoracic region (principal); F32.9 Major depressive disorder, single episode, unspecified; I10 Essential (primary) hypertension; E78.00 Pure hypercholesterolemia, unspecified; G47.30 Sleep apnea, unspecified; J44.9 Chronic obstructive pulmonary disease, unspecified; G25.81 Restless legs syndrome; K21.9 Gastro-esophageal reflux disease without esophagitis; I25.2 Old myocardial infarction; F17.210 Nicotine dependence, cigarettes, uncomplicated; Z91.030 Bee allergy status; Z79.891 Long term (current) use of opiate analgesic; Z79.899 Other long term (current) drug therapy; Z86.73 Personal history of transient ischemic attack (TIA), and cerebral infarction without residual deficits | CPT/HCPCS: G0463 ==

== ENCOUNTER → 2017-05-02 | Outpatient (REF) | payer MEDICARE, OTHER | LOC: M SFHCCAPE 09:38 | DX: R74.8 Abnormal levels of other serum enzymes (principal); Z53.8 Procedure and treatment not carried out for other reasons ==

== ENCOUNTER → 2017-05-16 | Outpatient (REF) | payer MEDICARE, OTHER ==
[2017-05-16 18:58] LABS: TOTAL VOLUME, URINE 2825 ML
[2017-05-16 20:51] LABS: CREATININE 24 HOUR, URINE 768.4 MG/24HR (600-1800); CREATININE, URINE 27.2 MG/DL; SODIUM 24 HOUR URINE 81 MEQ/24HR (40-220); SODIUM, URINE 29 MEQ/L; URINE PHOSPHOROUS 19.4 MG/DL
[2017-05-16 21:19] LABS: CALCIUM, URINE < 5.0 MG/DL
== END ==
LOC: M LAB REF 16:54
DX: E16.2 Hypoglycemia, unspecified (principal); E04.2 Nontoxic multinodular goiter; M81.0 Age-related osteoporosis without current pathological fracture; Z98.84 Bariatric surgery status
CPT/HCPCS: 82340

== ENCOUNTER → 2017-05-16 | Outpatient (REF) | payer MEDICARE, OTHER ==
[2017-05-16 17:36] LABS: ALKALINE PHOSPHATASE 155 U/L (45-117); GAMMA GLUTAMYLTRANSPEPTIDASE 35 U/L (5-55); LABILE ALKPHOS 91 U/L; STABLE ALKPHOS 64 U/L
== END ==
LOC: M SFHCCAPE 10:26
DX: R74.8 Abnormal levels of other serum enzymes (principal)
CPT/HCPCS: 84078

== ENCOUNTER → 2017-05-26 | Outpatient (CLI) | payer MEDICARE, OTHER | LOC: M PAIN 10:00 | DX: M54.14 Radiculopathy, thoracic region (principal); M81.0 Age-related osteoporosis without current pathological fracture; M25.50 Pain in unspecified joint; F17.210 Nicotine dependence, cigarettes, uncomplicated; I10 Essential (primary) hypertension; J44.9 Chronic obstructive pulmonary disease, unspecified; E78.2 Mixed hyperlipidemia; E16.2 Hypoglycemia, unspecified; I25.2 Old myocardial infarction; Z79.899 Other long term (current) drug therapy; Z79.891 Long term (current) use of opiate analgesic; Z91.030 Bee allergy status; Z88.8 Allergy status to other drugs, medicaments and biological substances; Z85.43 Personal history of malignant neoplasm of ovary | CPT/HCPCS: 71111 ==

== ENCOUNTER → 2017-05-26 | Outpatient (CLI) | payer MEDICARE, OTHER | LOC: M RAD 12:08 | DX: M51.34 Other intervertebral disc degeneration, thoracic region (principal); M25.78 Osteophyte, vertebrae | CPT/HCPCS: 71111 ==

== ENCOUNTER → 2017-06-19 | Outpatient (REF) | payer MEDICARE, OTHER ==
[2017-06-19 19:03] LABS: CALCIUM, URINE 6.5 MG/DL; CREATININE, URINE 42.7 MG/DL
[2017-06-19 19:08] LABS: CALCIUM, 24 HOUR URINE 139.7 MG/24HR (42-353); TOTAL VOLUME, URINE 2150 ML
== END ==
LOC: M LAB REF 17:20
DX: R74.8 Abnormal levels of other serum enzymes (principal)
CPT/HCPCS: 82340

== ENCOUNTER → 2017-06-26 | Outpatient (CLI) | payer MEDICARE, OTHER | LOC: M PAIN 09:45 | DX: G89.29 Other chronic pain (principal); M54.14 Radiculopathy, thoracic region; M81.0 Age-related osteoporosis without current pathological fracture; G25.3 Myoclonus; R41.82 Altered mental status, unspecified; F32.9 Major depressive disorder, single episode, unspecified; I10 Essential (primary) hypertension; E78.00 Pure hypercholesterolemia, unspecified; E16.2 Hypoglycemia, unspecified; G47.30 Sleep apnea, unspecified; G25.81 Restless legs syndrome; G90.512 Complex regional pain syndrome I of left upper limb; K21.9 Gastro-esophageal reflux disease without esophagitis; I25.2 Old myocardial infarction; F17.210 Nicotine dependence, cigarettes, uncomplicated; Z86.73 Personal history of transient ischemic attack (TIA), and cerebral infarction without residual deficits; Z91.030 Bee allergy status; Z88.8 Allergy status to other drugs, medicaments and biological substances; Z79.899 Other long term (current) drug therapy | CPT/HCPCS: G0463 ==

== ENCOUNTER → 2017-06-26 | Outpatient (REF) | payer MEDICARE, OTHER ==
[2017-06-26 18:30] LABS: APPEARANCE, URINE CLEAR (CLEAR); BACTERIA, URINE AUTO NEGATIVE (NEGATIVE); BILIRUBIN, URINE AUTO NEGATIVE (NEGATIVE); BLOOD, URINE BLOOD 1+ (NEGATIVE); COLOR, URINE YELLOW (YELLOW); GLUCOSE, URINE (UA) AUTO NEGATIVE (NEGATIVE); KETONE, URINE AUTO NEGATIVE (NEGATIVE); LEUKOCYTE ESTERASE, URINE AUTO TRACE (NEGATIVE); MUCUS, URINE SMALL (NEGATIVE); NITRITE, URINE AUTO NEGATIVE (NEGATIVE); PROTEIN, URINE AUTO NEGATIVE (NEGATIVE); RBC, URINE AUTO 7 /HPF (0-3); SPECIFIC GRAVITY URINE AUTO 1.008 (1.002-1.035); SQUAMOUS EPITHELIAL CELL UR AU 0 /HPF (0-6); UROBILINOGEN, URINE AUTO 0.2 mg/dL (0.0-2.0); WBC, URINE AUTO 1 /HPF (0-3)
== END ==
LOC: M SMT 17:26
DX: R31.29 Other microscopic hematuria (principal); G89.29 Other chronic pain; M54.14 Radiculopathy, thoracic region
CPT/HCPCS: 81001

== ENCOUNTER → 2017-07-06 | Outpatient (CLI) | payer MEDICARE, OTHER | LOC: M SLEEP 08:25 | DX: R41.82 Altered mental status, unspecified (principal) ==

== ENCOUNTER → 2017-07-10 | Outpatient (REF) | payer MEDICARE, OTHER | LOC: M SMT 16:53 | DX: R31.29 Other microscopic hematuria (principal) | CPT/HCPCS: 88108 ==

== ENCOUNTER → 2017-07-12 | Outpatient (REF) | payer MEDICARE, OTHER ==
[2017-07-12 18:52] LABS: ESTIMATED AVERAGE GLUCOSE 94 MG/DL (60-110); HEMOGLOBIN A1c 4.9 %
[2017-07-12 18:53] LABS: BASO % 0.6 % (0.0-1.0); EOS # 0.2 10^3/uL (0.0-0.50); EOS % 3.2 % (0.0-3.0); HEMATOCRIT 46.7 % (36.0-47.0); HEMOGLOBIN 15.5 g/dl (12.0-16.0); IMMATURE GRANULOCYTE % 0.3 % (0-3.0); LYMPH # 3.4 10^3/uL (1.5-4.5); LYMPH % 46.4 % (24.0-44.0); MEAN CORPUSCULAR HGB CONC 33.2 g/dl (32.0-36.5); MEAN CORPUSCULAR VOLUME 96.3 fl (80.0-96.0); MONO # 0.5 10^3/uL (0.0-0.8); MONO % 6.3 % (0.0-5.0); NEUTROPHILS # 3.2 10^3/uL (1.8-7.7); NEUTROPHILS % 43.2 % (36.0-66.0); PLATELET COUNT, AUTOMATED 362 10^3/uL (150-450); RED BLOOD COUNT 4.85 10^6/uL (4.00-5.40); RED CELL DISTRIBUTION WIDTH 11.7 % (11.5-14.5); VITAMIN B12 LEVEL 1563 PG/ML (247-911); WHITE BLOOD COUNT 7.3 10^3/uL (4.0-10.0)
[2017-07-12 18:55] LABS: ALBUMIN 3.4 GM/DL (3.2-5.2); ALBUMIN/GLOBULIN RATIO 1.21 (1.00-1.93); ALKALINE PHOSPHATASE 197 U/L (45-117); ALT/SGPT 65 U/L (12-78); ANION GAP 7 MEQ/L (8-16); AST/SGOT 29 U/L (7-37); BILIRUBIN,TOTAL 0.5 MG/DL (0.2-1.0); BLOOD UREA NITROGEN 13 MG/DL (7-18); CALCIUM LEVEL 8.7 MG/DL (8.5-10.1); CARBON DIOXIDE LEVEL 31 MEQ/L (21-32); CHLORIDE LEVEL 104 MEQ/L (98-107); CHOLESTEROL LEVEL 156 MG/DL (<200); CHOLESTEROL RISK RATIO 3.627 (<5); CREATININE FOR GFR 0.67 MG/DL (0.55-1.30); FREE T4 0.85 NG/DL (0.76-1.46); GLOMERULAR FILTRATION RATE > 60.0 (>58); GLUCOSE, FASTING 82 MG/DL (70-100); HDL CHOLESTEROL 43 MG/DL (>40); NON-HDL-C 113 MG/DL; SODIUM LEVEL 142 MEQ/L (136-145); TOTAL PROTEIN 6.2 GM/DL (6.4-8.2); TRIGLYCERIDES LEVEL 240 MG/DL (<150)
[2017-07-12 18:59] LABS: HEMATOCRIT 46.7 % (36.0-47.0)
== END ==
LOC: M SFHCCAPE 08:36
DX: E16.2 Hypoglycemia, unspecified (principal); I10 Essential (primary) hypertension; Z98.84 Bariatric surgery status; R31.29 Other microscopic hematuria; K13.79 Other lesions of oral mucosa
CPT/HCPCS: 84443

== ENCOUNTER → 2017-07-18 | Outpatient (CLI) | payer MEDICARE, OTHER | LOC: M WHC 13:29 | DX: Z01.419 Encounter for gynecological examination (general) (routine) without abnormal findings (principal); Z12.31 Encounter for screening mammogram for malignant neoplasm of breast (principal); Z78.0 Asymptomatic menopausal state; Z85.43 Personal history of malignant neoplasm of ovary; Z98.890 Other specified postprocedural states; N94.10 Unspecified dyspareunia | CPT/HCPCS: 77067; G0123 ==

== ENCOUNTER → 2017-07-18 | Outpatient (REF) | payer MEDICARE, OTHER | LOC: M SFHCWAGY 13:52 | DX: Z01.419 Encounter for gynecological examination (general) (routine) without abnormal findings (principal); N95.2 Postmenopausal atrophic vaginitis; Z85.43 Personal history of malignant neoplasm of ovary | CPT/HCPCS: G0123 ==

== ENCOUNTER → 2017-08-28 | Outpatient (REF) | payer MEDICARE, OTHER ==
[2017-08-28 18:57] LABS: BASO % 0.6 % (0.0-1.0); EOS # 0.2 10^3/uL (0.0-0.50); EOS % 3.8 % (0.0-3.0); HEMATOCRIT 40.5 % (36.0-47.0); HEMOGLOBIN 13.8 g/dl (12.0-15.5); LYMPH # 2.4 10^3/uL (1.5-4.5); LYMPH % 45.8 % (24.0-44.0); MEAN CORPUSCULAR HEMOGLOBIN 32.2 pg (27.0-33.0); MEAN CORPUSCULAR HGB CONC 34.1 g/dl (32.0-36.5); MEAN CORPUSCULAR VOLUME 94.4 fl (80.0-96.0); MONO # 0.4 10^3/uL (0.0-0.8); MONO % 6.7 % (0.0-5.0); NEUTROPHILS # 2.3 10^3/uL (1.8-7.7); NEUTROPHILS % 43.1 % (36.0-66.0); PLATELET COUNT, AUTOMATED 245 10^3/uL (150-450); RED BLOOD COUNT 4.29 10^6/uL (4.00-5.40); RED CELL DISTRIBUTION WIDTH 11.8 % (11.5-14.5); WHITE BLOOD COUNT 5.2 10^3/uL (4.0-10.0)
[2017-08-28 19:24] LABS: ERYTHROCYTE SEDIMENTATION RATE 11 mm/hr (0-20)
[2017-08-28 19:38] LABS: TOTAL 25(OH) VITAMIN D 39.6 NG/ML (30.0-100.0)
[2017-08-28 19:45] LABS: ALBUMIN 3.3 GM/DL (3.2-5.2); ALBUMIN/GLOBULIN RATIO 1.14 (1.00-1.93); ALKALINE PHOSPHATASE 145 U/L (45-117); ALT/SGPT 54 U/L (12-78); ANION GAP 9 MEQ/L (8-16); AST/SGOT 33 U/L (7-37); BILIRUBIN,TOTAL 0.3 MG/DL (0.2-1.0); BLOOD UREA NITROGEN 10 MG/DL (7-18); CALCIUM LEVEL 8.1 MG/DL (8.5-10.1); CARBON DIOXIDE LEVEL 26 MEQ/L (21-32); CHLORIDE LEVEL 106 MEQ/L (98-107); CREATININE FOR GFR 0.73 MG/DL (0.55-1.30); GLOMERULAR FILTRATION RATE > 60.0 (>58); GLUCOSE, FASTING 94 MG/DL (70-100); POTASSIUM SERUM 4.3 MEQ/L (3.5-5.1); RHEUMATOID FACTOR QUANT < 10.0 IU/ML (<15.0); SODIUM LEVEL 141 MEQ/L (136-145); TOTAL PROTEIN 6.2 GM/DL (6.4-8.2)
[2017-08-30 14:15] LABS: ANTINUCLEAR ANTIBODIES DIRECT Negative (Negative)
== END ==
LOC: M LABNEURO 18:49
DX: R56.9 Unspecified convulsions (principal); Z79.899 Other long term (current) drug therapy
CPT/HCPCS: 84443

== ENCOUNTER → 2017-08-31 | Outpatient (CLI) | payer MEDICARE, OTHER | LOC: M PAIN 08:30 | DX: G89.29 Other chronic pain (principal); M54.14 Radiculopathy, thoracic region; M81.0 Age-related osteoporosis without current pathological fracture; T40.2X5A Adverse effect of other opioids, initial encounter; K59.03 Drug induced constipation; F32.9 Major depressive disorder, single episode, unspecified; I10 Essential (primary) hypertension; E78.00 Pure hypercholesterolemia, unspecified; G47.30 Sleep apnea, unspecified; J44.9 Chronic obstructive pulmonary disease, unspecified; G25.81 Restless legs syndrome; K21.9 Gastro-esophageal reflux disease without esophagitis; I25.2 Old myocardial infarction; Z98.84 Bariatric surgery status; Z86.73 Personal history of transient ischemic attack (TIA), and cerebral infarction without residual deficits; F17.210 Nicotine dependence, cigarettes, uncomplicated; Z91.030 Bee allergy status; Z88.8 Allergy status to other drugs, medicaments and biological substances; Z79.899 Other long term (current) drug therapy | CPT/HCPCS: G0463 ==

== ENCOUNTER → 2017-09-04 | Outpatient (CLI) | payer MEDICARE, OTHER | LOC: M RAD 14:12 | DX: R91.8 Other nonspecific abnormal finding of lung field (principal) | CPT/HCPCS: 71250 ==

== ENCOUNTER → 2017-10-11 | Outpatient (CLI) | payer MEDICARE, OTHER | LOC: M CLY 10:31 | DX: M51.34 Other intervertebral disc degeneration, thoracic region (principal); M51.36 Other intervertebral disc degeneration, lumbar region | CPT/HCPCS: 72072 ==

== ENCOUNTER → 2017-10-30 | Outpatient (CLI) | payer MEDICARE, OTHER | LOC: M PAIN 08:30 | DX: M54.14 Radiculopathy, thoracic region (principal); G89.29 Other chronic pain; F32.9 Major depressive disorder, single episode, unspecified; I10 Essential (primary) hypertension; E78.00 Pure hypercholesterolemia, unspecified; G47.30 Sleep apnea, unspecified; J44.9 Chronic obstructive pulmonary disease, unspecified; G25.81 Restless legs syndrome; K21.9 Gastro-esophageal reflux disease without esophagitis; M81.0 Age-related osteoporosis without current pathological fracture; I25.2 Old myocardial infarction; R56.9 Unspecified convulsions; F17.210 Nicotine dependence, cigarettes, uncomplicated; Z79.899 Other long term (current) drug therapy; Z88.8 Allergy status to other drugs, medicaments and biological substances; Z91.030 Bee allergy status; Z86.73 Personal history of transient ischemic attack (TIA), and cerebral infarction without residual deficits; Z85.43 Personal history of malignant neoplasm of ovary; Z98.84 Bariatric surgery status | CPT/HCPCS: G0463 ==

== ENCOUNTER → 2017-11-09 | Outpatient (REF) | payer MEDICARE, OTHER ==
[2017-11-09 16:52] LABS: BASO % 0.4 % (0.0-1.0); EOS # 0.1 10^3/uL (0.0-0.50); EOS % 1.8 % (0.0-3.0); HEMATOCRIT 42.8 % (36.0-47.0); HEMOGLOBIN 14.4 g/dl (12.0-15.5); IMMATURE GRANULOCYTE % 0.1 % (0-3.0); LYMPH # 3.6 10^3/uL (1.5-4.5); LYMPH % 50.9 % (24.0-44.0); MEAN CORPUSCULAR HEMOGLOBIN 32.3 pg (27.0-33.0); MEAN CORPUSCULAR HGB CONC 33.6 g/dl (32.0-36.5); MONO # 0.4 10^3/uL (0.0-0.8); MONO % 5.7 % (0.0-5.0); NEUTROPHILS # 2.9 10^3/uL (1.8-7.7); NEUTROPHILS % 41.1 % (36.0-66.0); PLATELET COUNT, AUTOMATED 238 10^3/uL (150-450); RED BLOOD COUNT 4.46 10^6/uL (4.00-5.40); RED CELL DISTRIBUTION WIDTH 11.5 % (11.5-14.5)
[2017-11-09 16:54] LABS: APPEARANCE, URINE HAZY (CLEAR); BACTERIA, URINE AUTO NEGATIVE (NEGATIVE); BILIRUBIN, URINE AUTO NEGATIVE (NEGATIVE); BLOOD, URINE BLOOD NEGATIVE (NEGATIVE); COLOR, URINE YELLOW (YELLOW); GLUCOSE, URINE (UA) AUTO NEGATIVE (NEGATIVE); KETONE, URINE AUTO NEGATIVE (NEGATIVE); LEUKOCYTE ESTERASE, URINE AUTO NEGATIVE (NEGATIVE); NITRITE, URINE AUTO NEGATIVE (NEGATIVE); PROTEIN, URINE AUTO NEGATIVE (NEGATIVE); RBC, URINE AUTO 20 /HPF (0-3); SQUAMOUS EPITHELIAL CELL UR AU 0 /HPF (0-6); UROBILINOGEN, URINE AUTO 0.2 mg/dL (0.0-2.0); WBC, URINE AUTO 1 /HPF (0-3)
[2017-11-09 17:33] LABS: ALBUMIN 3.5 GM/DL (3.2-5.2); ALBUMIN/GLOBULIN RATIO 1.25 (1.00-1.93); ALKALINE PHOSPHATASE 123 U/L (45-117); ALT/SGPT 53 U/L (12-78); ANION GAP 9 MEQ/L (8-16); AST/SGOT 62 U/L (7-37); BILIRUBIN,TOTAL 0.5 MG/DL (0.2-1.0); BLOOD UREA NITROGEN 11 MG/DL (7-18); C REACTIVE PROTEIN QUANTITATIV < 0.30 MG/DL (0.00-0.30); CALCIUM LEVEL 8.7 MG/DL (8.5-10.1); CARBON DIOXIDE LEVEL 30 MEQ/L (21-32); CHLORIDE LEVEL 104 MEQ/L (98-107); GLOMERULAR FILTRATION RATE > 60.0 (>58); GLUCOSE, FASTING 80 MG/DL (70-100); NT-PRO BNP 133 PG/ML (<125); SODIUM LEVEL 143 MEQ/L (136-145); TOTAL PROTEIN 6.3 GM/DL (6.4-8.2)
== END ==
LOC: M SFHCCAPE 12:01
DX: R14.0 Abdominal distension (gaseous) (principal); R10.12 Left upper quadrant pain; R60.0 Localized edema
CPT/HCPCS: 84443

== ENCOUNTER → 2017-11-10 | Outpatient (CLI) | payer MEDICARE, OTHER | LOC: M RAD 07:29 | DX: R14.0 Abdominal distension (gaseous) (principal); R10.12 Left upper quadrant pain; Z98.890 Other specified postprocedural states | CPT/HCPCS: 74176 ==

== ENCOUNTER → 2017-11-14 | Outpatient (REF) | payer MEDICARE, OTHER ==
[2017-11-18 06:51] LABS: H PYLORI STOOL ANTIGEN Negative
== END ==
LOC: M SFHCCAPE 17:31
DX: R14.0 Abdominal distension (gaseous) (principal); R10.12 Left upper quadrant pain
CPT/HCPCS: 87338

== ENCOUNTER → 2017-11-20 | Outpatient (REF) | payer MEDICARE, OTHER ==
[2017-11-20 17:20] LABS: APPEARANCE, URINE CLOUDY (CLEAR); BACTERIA, URINE AUTO 1+ (NEGATIVE); BILIRUBIN, URINE AUTO NEGATIVE (NEGATIVE); BLOOD, URINE BLOOD 2+ (NEGATIVE); COLOR, URINE YELLOW (YELLOW); GLUCOSE, URINE (UA) AUTO NEGATIVE (NEGATIVE); KETONE, URINE AUTO NEGATIVE (NEGATIVE); LEUKOCYTE ESTERASE, URINE AUTO 3+ (NEGATIVE); MUCUS, URINE SMALL (NEGATIVE); NITRITE, URINE AUTO NEGATIVE (NEGATIVE); PROTEIN, URINE AUTO NEGATIVE (NEGATIVE); RBC, URINE AUTO 60 /HPF (0-3); SPECIFIC GRAVITY URINE AUTO 1.014 (1.002-1.035); SQUAMOUS EPITHELIAL CELL UR AU 0 /HPF (0-6); UROBILINOGEN, URINE AUTO 0.2 mg/dL (0.0-2.0); WBC, URINE AUTO TNTC /HPF (0-3)
== END ==
LOC: M SFHCCAPE 13:32
DX: R31.0 Gross hematuria (principal)
CPT/HCPCS: 81001

== ENCOUNTER → 2017-12-04 | Outpatient (CLI) | payer MEDICARE, OTHER | LOC: M PAIN 09:30 | DX: G89.29 Other chronic pain (principal); M54.14 Radiculopathy, thoracic region; M81.0 Age-related osteoporosis without current pathological fracture; T40.2X5A Adverse effect of other opioids, initial encounter; K59.03 Drug induced constipation; M46.96 Unspecified inflammatory spondylopathy, lumbar region; F32.9 Major depressive disorder, single episode, unspecified; I10 Essential (primary) hypertension; E78.00 Pure hypercholesterolemia, unspecified; G47.30 Sleep apnea, unspecified; J44.9 Chronic obstructive pulmonary disease, unspecified; G25.81 Restless legs syndrome; K21.9 Gastro-esophageal reflux disease without esophagitis; N81.0 Urethrocele; R91.1 Solitary pulmonary nodule; F17.210 Nicotine dependence, cigarettes, uncomplicated; Z79.899 Other long term (current) drug therapy; Z91.030 Bee allergy status; Z88.8 Allergy status to other drugs, medicaments and biological substances; Z86.73 Personal history of transient ischemic attack (TIA), and cerebral infarction without residual deficits; Z79.891 Long term (current) use of opiate analgesic | CPT/HCPCS: G0463 ==

== ENCOUNTER → 2017-12-11 | Outpatient (REF) | payer MEDICARE, OTHER ==
[2017-12-11 18:36] LABS: APPEARANCE, URINE HAZY (CLEAR); BACTERIA, URINE AUTO NEGATIVE (NEGATIVE); BILIRUBIN, URINE AUTO NEGATIVE (NEGATIVE); BLOOD, URINE BLOOD NEGATIVE (NEGATIVE); COLOR, URINE YELLOW (YELLOW); GLUCOSE, URINE (UA) AUTO NEGATIVE (NEGATIVE); KETONE, URINE AUTO NEGATIVE (NEGATIVE); LEUKOCYTE ESTERASE, URINE AUTO NEGATIVE (NEGATIVE); NITRITE, URINE AUTO NEGATIVE (NEGATIVE); PROTEIN, URINE AUTO NEGATIVE (NEGATIVE); RBC, URINE AUTO 13 /HPF (0-3); SPECIFIC GRAVITY URINE AUTO 1.008 (1.002-1.035); SQUAMOUS EPITHELIAL CELL UR AU 0 /HPF (0-6); UROBILINOGEN, URINE AUTO 0.2 mg/dL (0.0-2.0); WBC, URINE AUTO 0 /HPF (0-3)
== END ==
LOC: M SFHCCAPE 13:44
DX: L08.9 Local infection of the skin and subcutaneous tissue, unspecified (principal); R35.0 Frequency of micturition
CPT/HCPCS: 81001

== ENCOUNTER → 2017-12-18 | Outpatient (CLI) | payer MEDICARE, OTHER | LOC: M RAD 09:28 | DX: R91.8 Other nonspecific abnormal finding of lung field (principal) | CPT/HCPCS: 71250 ==

== ENCOUNTER → 2018-01-26 | Outpatient (CLI) | payer MEDICARE, OTHER | LOC: M PAIN 08:45 | DX: M54.14 Radiculopathy, thoracic region (principal); M81.0 Age-related osteoporosis without current pathological fracture; T40.2X5A Adverse effect of other opioids, initial encounter; K59.03 Drug induced constipation; M46.96 Unspecified inflammatory spondylopathy, lumbar region; F32.9 Major depressive disorder, single episode, unspecified; I10 Essential (primary) hypertension; E78.00 Pure hypercholesterolemia, unspecified; G47.30 Sleep apnea, unspecified; J44.9 Chronic obstructive pulmonary disease, unspecified; G25.81 Restless legs syndrome; K21.9 Gastro-esophageal reflux disease without esophagitis; F17.200 Nicotine dependence, unspecified, uncomplicated; Z79.899 Other long term (current) drug therapy; Z88.8 Allergy status to other drugs, medicaments and biological substances; Z91.030 Bee allergy status; Z98.84 Bariatric surgery status; Z85.43 Personal history of malignant neoplasm of ovary; Z86.79 Personal history of other diseases of the circulatory system; Z86.69 Personal history of other diseases of the nervous system and sense organs; Z86.73 Personal history of transient ischemic attack (TIA), and cerebral infarction without residual deficits | CPT/HCPCS: G0463 ==

== ENCOUNTER → 2018-02-15 | Outpatient (REF) | payer MEDICARE, OTHER | LOC: M SFHCPLAZ 08:38 | DX: K21.9 Gastro-esophageal reflux disease without esophagitis (principal); E78.2 Mixed hyperlipidemia ==

== ENCOUNTER → 2018-02-21 | Outpatient (REF) | payer MEDICARE, OTHER ==
[2018-02-21 17:31] LABS: BASO % 0.5 % (0.0-1.0); EOS # 0.1 10^3/uL (0.0-0.50); EOS % 1.8 % (0.0-3.0); HEMATOCRIT 43.1 % (36.0-47.0); HEMOGLOBIN 14.8 g/dl (12.0-15.5); IMMATURE GRANULOCYTE % 0.2 % (0-3.0); LYMPH # 3.2 10^3/uL (1.5-4.5); LYMPH % 48.7 % (24.0-44.0); MEAN CORPUSCULAR HEMOGLOBIN 33.1 pg (27.0-33.0); MEAN CORPUSCULAR HGB CONC 34.3 g/dl (32.0-36.5); MEAN CORPUSCULAR VOLUME 96.4 fl (80.0-96.0); MONO # 0.4 10^3/uL (0.0-0.8); MONO % 6.6 % (0.0-5.0); NEUTROPHILS # 2.8 10^3/uL (1.8-7.7); NEUTROPHILS % 42.2 % (36.0-66.0); PLATELET COUNT, AUTOMATED 267 10^3/uL (150-450); RED BLOOD COUNT 4.47 10^6/uL (4.00-5.40); RED CELL DISTRIBUTION WIDTH 11.9 % (11.5-14.5); RETIC HEMOGLOBIN EQUIVALENT 36.4 pg (24-36); RETICULOCYTE # 75.1 10^9/L (17-77); RETICULOCYTE % 1.7 % (0.5-1.5); WHITE BLOOD COUNT 6.6 10^3/uL (4.0-10.0)
[2018-02-21 17:40] LABS: ALBUMIN 3.3 GM/DL (3.2-5.2); ALBUMIN/GLOBULIN RATIO 1.18 (1.00-1.93); ALKALINE PHOSPHATASE 133 U/L (45-117); ALT/SGPT 35 U/L (12-78); ANION GAP 5 MEQ/L (8-16); AST/SGOT 30 U/L (7-37); BILIRUBIN,TOTAL 0.6 MG/DL (0.2-1.0); BLOOD UREA NITROGEN 12 MG/DL (7-18); C REACTIVE PROTEIN QUANTITATIV < 0.30 MG/DL (0.00-0.30); CALCIUM LEVEL 8.6 MG/DL (8.5-10.1); CARBON DIOXIDE LEVEL 31 MEQ/L (21-32); CHLORIDE LEVEL 103 MEQ/L (98-107); CHOLESTEROL LEVEL 123 MG/DL (<200); CPK CREATINE PHOSPHOKINASE 65 U/L (26-192); CREATININE FOR GFR 0.62 MG/DL (0.55-1.30); ESTIMATED AVERAGE GLUCOSE 103 MG/DL (60-110); GLOMERULAR FILTRATION RATE > 60.0 (>58); GLUCOSE, FASTING 75 MG/DL (70-100); HDL CHOLESTEROL 50 MG/DL (>40); HEMOGLOBIN A1c 5.2 %; LDL CHOLESTEROL 58 MG/DL (<100); NON-HDL-C 73 MG/DL; POTASSIUM SERUM 4.2 MEQ/L (3.5-5.1); SODIUM LEVEL 139 MEQ/L (136-145); TOTAL PROTEIN 6.1 GM/DL (6.4-8.2); TRIGLYCERIDES LEVEL 77 MG/DL (<150)
[2018-02-21 18:37] LABS: GOLD SPEC TUBE RECIEVED
== END ==
LOC: M SFHCCAPE 16:14
DX: E78.2 Mixed hyperlipidemia (principal); K21.9 Gastro-esophageal reflux disease without esophagitis; E55.9 Vitamin D deficiency, unspecified; M81.0 Age-related osteoporosis without current pathological fracture; Z98.84 Bariatric surgery status
CPT/HCPCS: 82550

== ENCOUNTER → 2018-03-02 | Outpatient (CLI) | payer MEDICARE, OTHER | LOC: M PAIN 08:30 | DX: M54.14 Radiculopathy, thoracic region (principal); M81.0 Age-related osteoporosis without current pathological fracture; T40.2X5A Adverse effect of other opioids, initial encounter; K59.03 Drug induced constipation; M46.96 Unspecified inflammatory spondylopathy, lumbar region; F32.9 Major depressive disorder, single episode, unspecified; E78.5 Hyperlipidemia, unspecified; K21.9 Gastro-esophageal reflux disease without esophagitis; M47.896 Other spondylosis, lumbar region; Z98.84 Bariatric surgery status; Z90.49 Acquired absence of other specified parts of digestive tract; F17.210 Nicotine dependence, cigarettes, uncomplicated; Z91.030 Bee allergy status; Z88.8 Allergy status to other drugs, medicaments and biological substances; Z79.899 Other long term (current) drug therapy | CPT/HCPCS: G0463 ==

== ENCOUNTER → 2018-04-26 | Outpatient (CLI) | payer MEDICARE, OTHER ==
[~2018-04-26] MED LIST changes: +GABA-1171 PO; -GABA-279 PO; -GABA-283 PO; +GABA-845 PO; +OXYC10TA3 PO; -OXYC1TAB16 PO
--- NOTE | 2018-05-21 00:24 | ECWPNPC ---
PATIENT NAME: ELIDIA WEEMS : 1970 GENDER: FEMALE VISIT DATE: 04/26/2018 DISCHARGE DATE: 04/26/18 1105 VISIT LOCKED DATE TIME: PHYSICIAN: LUÍS AGARWAL PHYSICIAN PAGER NO: [phone] RESOURCE: LUÍS AGARWAL REASON FOR APPOINTMENT 1. INTERCOSTAL NEURALGIA HISTORY OF PRESENT ILLNESS HISTORY OF PRESENT ILLNESS: HERE FOR F/U OF CHRONIC THORACIC AND LOW BACK PAIN WITH HISTORY OF FRACTURE.HAS TRIALED INTERCOSTAL BLOCK AND TPI WITH ONLY SHORT TERM IMPROVEMENT.HAD DCS TRIAL AND DID WELL BUT COULDNT HAVE PERMANENT DUE TO SEIZURE HX AND LUNG NODULES.CURRENTLY TAKING MS IR 15MG 2 TAB Q6H MDD 8-HELPFUL.WILL BE GOING TO [facility] TO INVESTIGATE CRYOTHERAPY PER OUR REFERRAL. PAIN THE PATIENT DESCRIBES THE PAIN... FALL RISK SCREENING: SCREENING :NO FALLS IN THE PAST YEAR CURRENT MEDICATIONS TAKING RECLAST 5 MG/100ML SOLUTION INTRAVENOUS EVERY 12 MONTHS, NOTES: LAST ONE 05/2017 TAKING MAGNESIUM 300 MG CAPSULE 1 CAPSULE WITH A MEAL ORALLY ONCE A DAY TAKING POTASSIUM 99 MG TABLET 1 TABLET ORALLY ONCE A DAY OTC PRODUCT TAKING CALCIUM CITRATE + D 500MG/600MG TABLET 2 TABLET ORALLY FOUR TIMES A DAY TAKING ACCU-CHEK WILMAR - DEVICE DIRECTED TAKING COOL BLOOD GLUCOSE TEST STRIPS - STRIP DIRECTED IN VITRO QID/ NEEDED TAKING FREESTYLE LITE TEST - STRIP DIRECTED THREE TIMES DAILY IN VITRO TAKING LANCETS - MISCELLANEOUS DIRECTED THREE TIMES DAILY TAKING EPIPEN 2-LEONARD 0.3 MG/0.3ML DEVICE DIRECTED INJECTION PRN TAKING VITAMIN B-12 500 MCG TABLET 1 TABLET ORALLY DAILY TAKING ACCU-CHEK FASTCLIX LANCET - KIT DIRECTED BID TAKING INTRAROSA 6.5 MG OVULES DIRECTED VAGINAL INSERTION ONCE DAILY AT BEDTIME TAKING VENTOLIN HFA 108 (90 BASE) MCG/ACT AEROSOL SOLUTION 2 PUFFS NEEDED INHALATION EVERY 6 HRS TAKING ALIGN - CAPSULE DIRECTED ORALLY DAILY TAKING NARCAN 4 MG/0.1ML LIQUID DIRECTED NASALLY USE IF SIGNS OF RESPITORY DEPRESS OR ALTER MENTAL STAUS. CALL 911 IF USED TAKING ALCOHOL SWABS 70 % PAD DIRECTED TWICE A DAY TAKING GLUCOMETER DIRECTED THREE TIMES A DAY NEEDED TAKING WOMENS ONE DAILY - TABLET ORALLY TAKING MOVANTIK 25 MG TABLET 1 TABLET IN THE MORNING ORALLY ONCE A DAY TAKING COLACE 100 MG CAPSULE 2 CAPSULE NEEDED ORALLY BID PRN CONSTIPATION TAKING GABAPENTIN 300 MG CAPSULE 1 ORALLY FOUR TIMES DAILY TAKING MORPHINE SULFATE 15 MG TABLET 1 - 2 TABLET NEEDED ORALLY EVERY 4- 6 HRS PRN PAIN MDD=8 TAKING AMITRIPTYLINE HCL 10 MG TABLET 1 -2 TABLET ORALLY BEFORE BEDTIME TAKING LIDODERM 5 % PATCH 3 PATCH TO CHEST WALL AND RIBS EXTERNALLY ON 12 HOURS OFF 12 HOURS NEEDED TAKING DULOXETINE HCL 30 MG CAPSULE DELAYED RELEASE PARTICLES 2 CAPSULES ORALLY DAILY TAKING OMEPRAZOLE 20 MG CAPSULE DELAYED RELEASE 1 CAPSULE ORALLY ONCE A DAY TAKING SIMVASTATIN 80 MG TABLET 1 TABLET IN THE EVENING ORALLY ONCE A DAY TAKING EZETIMIBE 10 MG TABLET 1 TABLET ORALLY ONCE A DAY TAKING ZOLPIDEM TARTRATE 10 MG TABLET 1 TABLET AT BEDTIME NEEDED ORALLY AT BEDTIME PRN INSOMNIA, NOTES: PATIENT TO HAND CARRY AND TAKE TO GAVIN MEDICATION LIST REVIEWED AND RECONCILED WITH THE PATIENT PAST MEDICAL HISTORY MDD HYERPTENSION, ESSENTIAL HYPERLIPIDEMIA 2B H/O JYOTI-STOPPED CPAP 12 11/17/2014 C WT LOSS P GB-PER DR. FAUSTIN LT WRIST NERVE DAMAGE/RSD A RESULT HX OVARIAN CANCER GERD OSTEOPOROSIS RECURRENT BRONCHIECTASIS/RLS LUMBAR [id number] DIFFUSE BULGE C L4/5 HNP ABUTTING L L4 IN NF AND L5/S1 HNP COMPRESSION OF L L5 IN NF BY 10/2016 MRI-[facility] THROACIC NEUROPATHY-T4 VERTEBRAL BODY HEMANGIOMA, S BULGE/HNP BY 10/2016 MRI/05/2017 MILD ML DSN, OSTEOPHYTES BY 05/2017 XRAY, 05/2017 NROAM B RIB XRAY PNES-08/2017 -VEEG MONITORING OF 3 SPELLS//08/26/17 MRI BRAIN, MRA BRAIN, NECK SMALL DEVELOPMENTAL VENOUS ANOMALY IN L BG NICOTINE USE DISORDER GROWTH ON POUCH 10CM LONG NODULE 6 CM ON ESOPHAGUS ALLERGIES BEE STINGS: ANAPHYLAXIS: ALLERGY METFORMIN HCL: EXTREMLY TIRED: SIDE EFFECTS SURGICAL HISTORY TUBAL LIGATION 08/1990 RT SIDE INGUINAL HERNIA REPAIR 03/2000 RADICAL HYSTERECTOMY DUE TO OVARIAN CANCER 06/2000 LT WRIST RECONSTRUCTION/JOINT FUSION 05/2005 RT KNEE PROCEDURE 05/2005 CYSTOSCOPY 12/2006 & 07/07/17 ENDOSCOPY 01/2007 GASTRIC BYPASS 01/23/2012 COLONOSCOPY 2008 CHOLECYSTECTOMY CYST REMOVAL FROM HEAD DORSAL STIMULATOR PLACED FOR 5 DAYS THAN REMOVED ON 01/14/17 01/09/17 ENDOSCOPY/COLONOSCOPY 03/18 FAMILY HISTORY FATHER: 54 YRS, ACID REFLUX-ASPIRATED, DIAGNOSED WITH HEART DISEASE, OTHER MOTHER: ALIVE 66 YRS, HEART DISEASE, D.M., DIAGNOSED WITH DIABETES, HEART DISEASE SIBLINGS: ALIVE, ACID REFLUX, DIAGNOSED WITH HYPERTENSION SON(S): ALIVE, HYPERTENSION, DIAGNOSED WITH HYPERTENSION, OTHER DAUGHTER(S): ALIVE, DIAGNOSED WITH OTHER 2 BROTHER(S) . 2 SON(S) , 1 DAUGHTER(S) . FATHER FROM ASPIRATION DUE TO ACID REFLUX.NO CANCER REPORTED IN FAMILY.DAUGHTER--FIBROMYALGIA AND RA1 SON ADHD1 SON HTN. SOCIAL HISTORY GENERAL: TOBACCO USE ARE YOU A:CURRENT SMOKER ARE YOU INTERESTED IN QUITTING?NOT READY TO QUIT WILL WORK THROUGH [employer] WHEN SHE IS READY COUNSELED THE PATIENT ON SMOKING EFFECTS, EDUCATION [id number]/27/2018 HOW MANY CIGARETTES A DAY DO YOU SMOKE?11-20 HOW SOON AFTER YOU WAKE UP DO YOU SMOKE YOUR FIRST CIGARETTE?WITHIN 5 MIN HOW OFTEN DO YOU SMOKE CIGARETTES?EVERY DAY PATIENT COUNSELED ON THE DANGERS OF TOBACCO USE AND URGED TO QUIT:04/26/2018 SMOKING CESSATION INFORMATION GIVEN02/13/2018 VAPORNO E-CIGARETTENO ALCOHOL SCREENING DID YOU HAVE A DRINK CONTAINING ALCOHOL IN THE PAST YEAR?NO POINTS0 INTERPRETATIONNEGATIVE RECREATIONAL DRUG USE DRUG USE?NO CAFFEINE CAFFEINE USE?YES 2 CUPS OF COFFEE IN THE AM HOW OFTEN AND HOW MUCH? 2-3 DIET SNAPPLES/DAY SEXUAL HX HAD SEX IN THE LAST 12 MONTHS (VAGINAL, ORAL, OR ANAL)?NO LMP:HYSTER HAVE YOU EVER HAD AN STD?NO HIV / HEP-C SCREENING HIV TEST OFFERED TO PATIENT:YES DATE OFFERED:12/27/2016 JUST PREVIOUSLY HAD TEST ACCEPTED:NO HEP-C TEST OFFERED TO PATIENT:NO ALREADY TESTED REASON:OTHER (DOCUMENT IN NOTE) PT STATES SHE HAS HAD IT DONE PREVIOUSLY [place] [id number] NONE LANGUAGE [id number]. EDUCATION LEVEL OF EDUCATION:HIGH SCHOOL REGENTS GED LEARNING BARRIERS / SPECIAL NEEDS CHANGE FROM LAST VISIT?NO BARRIERS TO LEARNING?NO HEARING IMPAIRED?YES VISION IMPAIRED?YES COGNITIVELY IMPAIRED?NO :CORRECTIVE LENSES READINESS TO LEARN?YES LEARNING PREFERENCES?YES :DEMONSTRATION/VERBAL INSTRUCTION LEARNING CAPABILITIES PRESENT?YES EMOTIONAL BARRIERS?NO SPECIAL DEVICES?NO FLAT OPTICAL ELEMENT MAKER NEEDED?NO DOMESTIC VIOLENCE DO YOU FEEL SAFE IN YOUR ENVIRONMENT?YES OCCUPATION: DISABLED. DIET: SMALL FERQUENT MEALS. EXERCISE: NO REGULAR EXERCISE DUE TO RIB FX. MARITAL STATUS: . OTHERS AT HOME: SPOUSE. NEW PATIENT PAIN DIARY FROM 0-10, WHAT NUMBER IS YOUR PAIN TODAY? 7. PAIN CLINIC PFS, CLERGY, PUBLIC HEALTH REFERRALS PFS REFERRAL NEEDED?NO CLERGY REFERRAL NEEDED?NO PUBLIC HEALTH REFERRAL NEEDED?NO HAS THE PATIENT BEEN EDUCATED REGARDING HIS/HER PLAN OF CARE?YES HAS THE PATIENT BEEN EDUCATED REGARDING PAIN, THE RISK FOR PAIN, THE IMPORTANCE OF EFFECTIVE PAIN MANAGEMENT, AND THE PAIN ASSESSMENT PROCESS?YES ADVANCE DIRECTIVE ADVANCE DIRECTIVE DISCUSSED WITH PATIENT:YES HCP BRE WEEMS [phone] THIS PATIENT LIVES AT HOME WITH HER AND SON. SHE FRACTURED HER LEFT WRIST IN THE PAST. NO HISTORY OF AN EATING DISORDER. NO HISTORY OF PHYSICAL/SEXUAL ABUSE. SHE SLEEPS OKAY ONLY; USES CPAP. SHE WEARS SEAT BELTS. SHE IS CURRENT WITH DENTAL AND EYE EXAMINATIONS. SHE IS UP TO DATE WITH IMMUNIZATIONS AND TETANUS.REVIEWED WITH PT 04/26/18 1020 LAS. HOSPITALIZATION/MAJOR DIAGNOSTIC PROCEDURE STROKE 06/2001 HYPOGLYCEMIA 1998 SURGERIES ? SEIZURE ACTIVITY 09/2017 REVIEW OF SYSTEMS REVIEWED BY: PROVIDER: LUÍS SWIFT . CONSTITUTIONAL: ANY CHANGE IN YOUR MEDICAL CONDITION? NO . CHILLS NO . FEVER NO . INFECTION: DO YOU HAVE NEW INFECTIONS? NO . DO YOU HAVE HISTORY OF MRSA? NO . MUSCULOSKELETAL: ANY NEW PATTERNS OF PAIN OR NUMBNESS? NO . GASTROENTEROLOGY: ANY NEW CHANGE IN BOWEL CONTROL? NO . GENITOURINARY: ANY NEW CHANGE IN BLADDER CONTROL? NO . IS THERE A CHANCE YOU COULD BE ? NO . HEMATOLOGY/LYMPH: DO YOU TAKE ANY BLOOD THINNERS? (FOR EXAMPLE- COUMADIN, PLAVIX, AGGRENOX, PLATEL, PRADAXA, OR XARELTO) NO . WHEN WAS YOUR LAST DOSE? DATE: TIME: . NEUROLOGY: HAVE YOU FALLEN IN THE PAST 6 MONTHS? NO . ANY NEW EXTREMITY NUMBNESS OR WEAKNESS? NO . CARDIOLOGY: DO YOU HAVE A PACEMAKER OR DEFIBRILLATOR? NO . RESPIRATORY: HAVE YOU BEEN SICK IN THE PAST WEEK? NO . FEVER NO . FLU LIKE SYMPTOMS? NO . COUGH NO . INTEGUMENTARY: DO YOU HAVE ANY RASHES OR OPEN SORES? NO . ALLERGIC/IMMUNO: ARE YOU ALLERGIC TO SHELLFISH OR IV DYE? NO . ANY NEW ALLERGIES? NO . PSYCHIATRIC: DO YOU HAVE THOUGHTS OF HURTING YOURSELF OR SOMEONE ELSE? NO . ARE YOU ABUSED, NEGLECTED, OR IN AN UNSAFE ENVIRONMENT? NO . ENDOCRINOLOGY: ARE YOU DIABETIC? NO . OTHER: DO YOU NEED ANY PRESCRIPTIONS? YES . IF YES, PLEASE LIST: ____MORPHINE IR . ANY NEW PROBLEMS WITH YOUR MEDICATIONS? NO . WHEN DID YOU LAST EAT? ____ . WHEN DID YOU LAST DRINK? ____ . WHAT DID YOU LAST DRINK? ____ . NAME OF PERSON DRIVING YOU HOME? ____ . DO YOU HAVE ANY OTHER QUESTIONS OR CONCERNS NO . VITAL SIGNS WT 147.4 LBS, HT 62.5", BMI 26.53 INDEX, BP 112/71 MM HG, HR 76 /MIN, RR 16 /MIN, TEMP 96.0 F, OXYGEN SAT % 98%, SAFE IN ENV? (Y/N) YES, NA INITIALS DC 09:58, REVIEWED BY: ZENA. EXAMINATION GENERAL EXAMINATION: GENERAL APPEARANCE:COLOR PALE. PSYCHAPPROPRIATE MOOD AND AFFECT . LUNGS:CLEAR TO AUSCULTATION BILATERALLY, NO WHEEZES, RHONCHI, RALES . HEART:NO MURMURS, REGULAR RATE AND RHYTHM . MUSCULOSKELETAL:TRIGGER POINTS AND TIGHT FIBROUS BANDS OVER THORACIC PARVERTEBRAL MUSCLES. POINT TENDERNESS OVER RIGHT LOWER RIBS.. EXTREMITIES: NO EDEMA . ASSESSMENTS THORACIC RADICULOPATHY - M54.14 (PRIMARY) CHRONIC PRESCRIPTION OPIATE USE - Z79.891 TREATMENT THORACIC RADICULOPATHY CONTINUE MOVANTIK TABLET, 25 MG, 1 TABLET IN THE MORNING, ORALLY, ONCE A DAY CONTINUE COLACE CAPSULE, 100 MG, 2 CAPSULE NEEDED, ORALLY, BID PRN CONSTIPATION CONTINUE GABAPENTIN CAPSULE, 300 MG, 1, ORALLY, FOUR TIMES DAILY CONTINUE MORPHINE SULFATE TABLET, 15 MG, 1 - 2 TABLET NEEDED, ORALLY, EVERY 4- 6 HRS PRN PAIN MDD=8 CONTINUE AMITRIPTYLINE HCL TABLET, 10 MG, 1 -2 TABLET, ORALLY, BEFORE BEDTIME CONTINUE LIDODERM PATCH, 5 %, 3 PATCH TO CHEST WALL AND RIBS, EXTERNALLY, ON 12 HOURS OFF 12 HOURS NEEDED CONTINUE DULOXETINE HCL CAPSULE DELAYED RELEASE PARTICLES, 30 MG, 2 CAPSULES, ORALLY, DAILY CONTINUE ZOLPIDEM TARTRATE TABLET, 10 MG, 1 TABLET AT BEDTIME NEEDED, ORALLY, AT BEDTIME PRN INSOMNIA, NOTES: PATIENT TO HAND CARRY AND TAKE TO GAVIN NOTES: [employer] REGISTRY REVIEWED AND DEMONSTRATES COMPLLIANCE. (REF # [id number] ) BRINGS IN MEDICATIONS WHICH IS APPROPRIATE FOR WHAT WAS DISPENSED. RECENT URINE TOXICOLOGY REVIEWED. NO UNAUTHORIZED MEDICATIONS. NO ILLICIT SUBSTANCES AND PRESCRIBED MEDICATIONS WERE PRESENT. URINE TOX TODAY, [facility] NARCOTIC AGREEMENT WAS REVIEWED AND SIGNED TODAY BY THE PATIENT. SEE ATTACHED DOCUMENT FOR FULL DETAILS; SPECIFIC ISSUES WERE REVIEWED: 1) KEEP PAIN MEDS IN THEIR ORIGINAL BOTTLES AND ANY WEEKLY PLANNERS ARE TO BE BROUGHT TO THE PAIN CENTER AT EVERY VISIT. 2) THE PATIENT IS NOT TO INCREASE DOSING OR TIMING OF THEIR PAIN MEDICATION WITHOUT SPECIFIC DIRECTION OF THEIR PAIN CENTERPROVIDER (NOT ER OR OTHER PROVIDERS). 3) ALL PAIN MEDS ARE TO BE KEPT SECURED, IN A LOCKED BOX. 4) NO PAIN MEDS ARE TO BE SHARED WITH ANY OTHER PERSON FOR ANY REASON. 5) NO PAIN MEDS MAY BE TAKEN FROM ANY FRIENDS OR RELATIVES FOR ANY REASON 6) NO MEDS OR SUBSTANCES WHICH ARE NOT LEGAL ARE TO BE USED- NO MARIJUANA, NO COCAINE, AMPHETAMINES, HEROIN, OR OTHERS ARE EVER TO BE USED. 7)URINE TESTING IS DONE TO ACCOUNT FOR MEDS AND SUBSTANCES BEING TAKEN AND WILL BE DONE RANDOMLY., RISKS AND BENEFITS OF NARCOTIC/OPIOD MEDICATIONS WERE REVIEWED WITH PATIENT - THIS INCLUDES BUT IS NOT LIMITED TO RISK OF DEPENDANCE/DEVELOPMENT OF ADDICTION, MOOD DISTURBANCE AND DEPRESSION, OSTEOPOROSIS, HORMONAL AND LABIDAL CHANGES, RESPIRATORY DEPRESSION AND . PATIENT IS ADVISED NOT TO DRIVE OR DRINK ALCOHOL WHILE ON THESE MEDICATIONS. PROCEDURE CODES FA211 ESTABILISHED PATIENT [facility] CHARGE DISPOSITION & COMMUNICATION FOLLOW UP 2 MONTHS ELECTRONICALLY SIGNED BY JENIFFER ALFORD ON 05/20/2018 AT 05:40 PM EST DISCLAIMER : THIS IS A VISIT SUMMARY EXTRACTED FROM THE [employer] CHART. IT IS NOT A COPY OF THE [employer] PROGRESS NOTE. MTDD
== END ==
LOC: M PAIN 10:00
PROVIDERS: ATTEND Nurse Practitioner Family
DX: M54.14 Radiculopathy, thoracic region (principal); G89.29 Other chronic pain; I10 Essential (primary) hypertension; E78.5 Hyperlipidemia, unspecified; F32.9 Major depressive disorder, single episode, unspecified; G47.33 Obstructive sleep apnea (adult) (pediatric); K21.9 Gastro-esophageal reflux disease without esophagitis; F17.210 Nicotine dependence, cigarettes, uncomplicated; Z79.891 Long term (current) use of opiate analgesic; Z79.899 Other long term (current) drug therapy; Z91.030 Bee allergy status; Z88.8 Allergy status to other drugs, medicaments and biological substances; Z85.43 Personal history of malignant neoplasm of ovary; Z86.73 Personal history of transient ischemic attack (TIA), and cerebral infarction without residual deficits; Z98.84 Bariatric surgery status

== ENCOUNTER → 2018-05-14 | Outpatient (REF) | payer MEDICARE, OTHER ==
[2018-05-14 16:51] LABS: ALBUMIN 3.2 GM/DL (3.2-5.2); ALT/SGPT 30 U/L (12-78); BILIRUBIN,TOTAL 0.4 MG/DL (0.2-1.0); BLOOD UREA NITROGEN 9 MG/DL (7-18); CALCIUM LEVEL 8.6 MG/DL (8.5-10.1); CARBON DIOXIDE LEVEL 30 MEQ/L (21-32); CHLORIDE LEVEL 102 MEQ/L (98-107); CREATININE FOR GFR 0.58 MG/DL (0.55-1.30); GLOMERULAR FILTRATION RATE > 60.0 (>58); GLUCOSE, FASTING 88 MG/DL (70-100); POTASSIUM SERUM 4.1 MEQ/L (3.5-5.1); SODIUM LEVEL 140 MEQ/L (136-145); TOTAL PROTEIN 5.8 GM/DL (6.4-8.2)
[2018-05-14 16:59] LABS: PTH INTACT 52.3 PG/ML (18.5-88.0); TOTAL 25(OH) VITAMIN D 51.1 NG/ML (30.0-100.0)
[2018-05-14 17:12] LABS: BASO % 0.3 % (0.0-1.0); EOS # 0.2 10^3/uL (0.0-0.50); EOS % 2.4 % (0.0-3.0); HEMATOCRIT 46.5 % (36.0-47.0); HEMOGLOBIN 15.7 g/dl (12.0-15.5); LYMPH # 2.9 10^3/uL (1.5-4.5); LYMPH % 41.1 % (24.0-44.0); MEAN CORPUSCULAR HGB CONC 33.8 g/dl (32.0-36.5); MEAN CORPUSCULAR VOLUME 97.7 fl (80.0-96.0); MONO # 0.5 10^3/uL (0.0-0.8); MONO % 6.7 % (0.0-5.0); NEUTROPHILS # 3.5 10^3/uL (1.8-7.7); NEUTROPHILS % 49.2 % (36.0-66.0); PLATELET COUNT, AUTOMATED 257 10^3/uL (150-450); RED BLOOD COUNT 4.76 10^6/uL (4.00-5.40); WHITE BLOOD COUNT 7.2 10^3/uL (4.0-10.0)
[2018-05-15 13:21] LABS: ALBUMIN % 57.1 % (55.8-66.1); ALPHA-1-GLOBULIN % 6.7 % (2.9-4.9); ALPHA-2-GLOBULINS % 13.7 % (7.1-11.8); BETA-1-GLOBULINS % 6.9 % (4.7-7.2); BETA-2-GLOBULINS % 4.9 % (3.2-6.5); GAMMA GLOBULIN % 10.7 % (11.1-18.8)
[2018-05-15 13:22] LABS: ALBUMIN 3.31 GM/DL (3.29-5.55); ALPHA-1-GLOBULINS 0.39 GM/DL (0.17-0.41); ALPHA-2-GLOBULINS 0.79 GM/DL (0.42-0.99); BETA-2-GLOBULINS 0.28 GM/DL (0.19-0.55); GAMMA GLOBULINS 0.62 GM/DL (0.65-1.58)
== END ==
LOC: M SFHCCAPE 07:38
PROVIDERS: ATTEND Family Medicine
DX: E55.9 Vitamin D deficiency, unspecified (principal)

== ENCOUNTER → 2018-06-26 | Outpatient (CLI) | payer MEDICARE, OTHER ==
--- NOTE | 2018-06-26 12:30 | REP ---
CT study of the chest without contrast: History: Abnormal lung field findings. Comparison chest CT studies are reviewed, the most remote of which is from September 16, 2016. The most recent prior chest CT study is from December 18, 2017. CT findings: Multiple noncalcified pulmonary nodules are again identified. The largest of these is a 7 mm rounded noncalcified nodule in the left lower lobe which is visible on today's page 48 of 99 in series 201. This was previously measured at 7 mm August of 2016. There are also multiple stable tiny nodular opacities noted, under 5 mm in size. These include a right lower lobe nodule on page 72, a subpleural right lower lobe nodule laterally on page 59, a tiny peribronchovascular nodule in the right upper lobe on page 32, a stable 4 mm nodule in the right upper lobe on page 25. There is an ill-defined fibrotic appearing somewhat nodular density in the right apex 5 mm in greatest diameter on page 19 of today's study which appears less prominent than an infiltrative density seen in this location on September 04, 2017. This is more prominent than on September 16, 2016 and similar in appearance to December 18, 2017. Today's CT study demonstrates inspissated endobronchial material in the right lower lobe medial basal segment bronchus. This is most consistent with retained endobronchial secretions. It was not visible on September 04, 2017 however there is a similar finding on the September 16, 2016 and December 18, 2017 CT studies and this segmental bronchus. There is no evidence of hilar or mediastinal adenopathy. Some vascular calcification is observed. The patient is status post gastric bypass and cholecystectomy. Impression: Multiple pulmonary nodular densities as described above stable from most recent prior CT studies. Inspissated endobronchial material in medial basal segment right lower lobe again noted. Electronically Signed by Grady Briceno MD 06/26/2018 07:28 P
== END ==
LOC: M RAD 09:35
PROVIDERS: ATTEND Internal Medicine Pulmonary Disease
DX: R91.1 Solitary pulmonary nodule (principal)

== ENCOUNTER → 2018-07-02 | Outpatient (CLI) | payer MEDICARE, OTHER ==
--- NOTE | 2018-07-17 01:32 | ECWPNPC ---
PATIENT NAME: ELIDIA WEEMS : 1970 GENDER: FEMALE VISIT DATE: 07/02/2018 DISCHARGE DATE: 07/02/18 1204 VISIT LOCKED DATE TIME: PHYSICIAN: LUÍS AGARWAL PHYSICIAN PAGER NO: [phone] RESOURCE: LUÍS AGARWAL REASON FOR APPOINTMENT 1. INTERCOSTAL NEURALGIA HISTORY OF PRESENT ILLNESS HISTORY OF PRESENT ILLNESS: HERE FOR F/U OF CHRONIC THORACIC AND LOW BACK PAIN WITH HISTORY OF FRACTURE.HAS TRIALED INTERCOSTAL BLOCK AND TPI WITH ONLY SHORT TERM IMPROVEMENT.HAD DCS TRIAL AND DID WELL BUT COULDNT HAVE PERMANENT DUE TO SEIZURE HX AND LUNG NODULES.CURRENTLY TAKING MS IR 15MG 2 TAB Q6H MDD 8.FEELS MORPHINE IS INEFFECTIVE ANYMORE.DISCUSSED MEDICATION OPTIONS.RATING PAIN VAS 6/10. PAIN THE PATIENT DESCRIBES THE PAIN... THE PATIENT DESCRIBES THE PAIN... FALL RISK SCREENING: SCREENING : NO FALLS IN THE PAST YEAR. CURRENT MEDICATIONS TAKING OMEPRAZOLE 20 MG CAPSULE DELAYED RELEASE 1 CAPSULE ORALLY ONCE A DAY TAKING MOVANTIK 25 MG TABLET 1 TABLET IN THE MORNING ORALLY ONCE A DAY TAKING COLACE 100 MG CAPSULE 2 CAPSULE NEEDED ORALLY BID PRN CONSTIPATION TAKING RECLAST 5 MG/100ML SOLUTION INTRAVENOUS EVERY 12 MONTHS TAKING FLINTSTONES COMPLETE 60 MG TABLET CHEWABLE 2 TABLETS ORALLY ONCE A DAY TAKING MAGNESIUM 300 MG CAPSULE 1 CAPSULE WITH A MEAL ORALLY ONCE A DAY TAKING POTASSIUM 99 MG TABLET 1 TABLET ORALLY ONCE A DAY OTC PRODUCT TAKING CALCIUM CITRATE + D 500MG/600MG TABLET 2 TABLET ORALLY FOUR TIMES A DAY TAKING EZETIMIBE 10 MG TABLET 1 TABLET ORALLY ONCE A DAY TAKING SIMVASTATIN 80 MG TABLET 1 TABLET IN THE EVENING ORALLY ONCE A DAY TAKING GABAPENTIN 300 MG CAPSULE 1 ORALLY FOUR TIMES DAILY TAKING ALCOHOL SWABS 70 % PAD DIRECTED TWICE A DAY TAKING LANCETS - MISCELLANEOUS DIRECTED THREE TIMES DAILY TAKING EPIPEN 2-LEONARD 0.3 MG/0.3ML DEVICE DIRECTED INJECTION PRN TAKING INTRAROSA 6.5 MG OVULES DIRECTED VAGINAL INSERTION ONCE DAILY AT BEDTIME TAKING VENTOLIN HFA 108 (90 BASE) MCG/ACT AEROSOL SOLUTION 2 PUFFS NEEDED INHALATION EVERY 6 HRS TAKING ALIGN - CAPSULE DIRECTED ORALLY DAILY TAKING WOMENS ONE DAILY - TABLET ORALLY TAKING NICOTROL 10 MG INHALER 1 CARTRIDGE NEEDED INHALATION 6-16 CARTRIDGE/DAY FOR 12 WEEKS (AT LEAST 6/DAY FOR 3-6 WEEKS) TAKING VITAMIN B-12 500 MCG TABLET 1 TABLET ORALLY DAILY TAKING NARCAN 4 MG/0.1ML LIQUID DIRECTED NASALLY USE IF SIGNS OF RESPITORY DEPRESS OR ALTER MENTAL STAUS. CALL 911 IF USED TAKING LIDODERM 5 % PATCH 3 PATCH TO CHEST WALL AND RIBS EXTERNALLY ON 12 HOURS OFF 12 HOURS NEEDED TAKING DULOXETINE HCL 30 MG CAPSULE DELAYED RELEASE PARTICLES 2 CAPSULES ORALLY DAILY TAKING GLUCOMETER DIRECTED THREE TIMES A DAY NEEDED TAKING AMITRIPTYLINE HCL 10 MG TABLET 1 -2 TABLET ORALLY BEFORE BEDTIME TAKING ZOLPIDEM TARTRATE 10 MG TABLET 1 TAB ORALLY AT BEDTIME PRN INSOMNIA TAKING MORPHINE SULFATE 15 MG TABLET 1 - 2 TABLET NEEDED ORALLY EVERY 4- 6 HRS PRN PAIN MDD=8 MEDICATION LIST REVIEWED AND RECONCILED WITH THE PATIENT PAST MEDICAL HISTORY MDD HYERPTENSION, ESSENTIAL HYPERLIPIDEMIA 2B H/O JYOTI-STOPPED CPAP 12 11/17/2014 C WT LOSS P GB-PER DR. FAUSTIN LT WRIST NERVE DAMAGE/RSD A RESULT HX OVARIAN CANCER SP TAHBSO, THEN BRACHYXRT 2000 GERD-10 CM JEJUNAL POUCH, LOWER 1/3 ESOPHAGEAL LEIOMYOMA EXCISED-03/[address] 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 BELTRE [facility] GI ALLERGIES BEE STINGS: ANAPHYLAXIS - ALLERGY METFORMIN HCL: EXTREMLY TIRED - SIDE EFFECTS SURGICAL HISTORY BTL 08/1990 RT SIDE INGUINAL HERNIA REPAIR 03/2000 TAHBSO 2 OVARIAN CANCER 06/2000 LT WRIST RECONSTRUCTION/JOINT FUSION 05/2005 LAP GB-RACHAEL 01/23/2012 CHOLECYSTECTOMY DORSAL STIMULATOR PLACED FOR 5 DAYS THAN REMOVED ON 01/14/17 01/09/17 ENDOSCOPY WITH ESOPHAGUS BIOPSY 03/2018 LAPAROSCOPIC BOWEL RESECTION 06/11/18 FAMILY HISTORY FATHER: 54 YRS, ACID REFLUX-ASPIRATED, DIAGNOSED WITH HEART DISEASE, OTHER MOTHER: ALIVE 66 YRS, HEART DISEASE, D.M., HEART DISEASE, DIABETES SIBLINGS: ALIVE, ACID REFLUX, HYPERTENSION SON(S): ALIVE, HYPERTENSION, OTHER, HYPERTENSION DAUGHTER(S): ALIVE, OTHER 2 BROTHER(S) . 2 SON(S) , 1 DAUGHTER(S) . FATHER FROM ASPIRATION DUE TO ACID REFLUX.NO CANCER REPORTED IN FAMILY.DAUGHTER--FIBROMYALGIA AND RA1 SON ADHD1 SON HTN. SOCIAL HISTORY GENERAL: TOBACCO USE ARE YOU A:CURRENT SMOKER ARE YOU INTERESTED IN QUITTING?READY TO QUIT WILL WORK THROUGH [employer] WHEN SHE IS READY PREVIOUS QUIT ATTEMPTS?NO. COUNSELED THE PATIENT ON TOBACCO USE, CESSATION GOERIPXM95/03/2019 ASSIST (PHARMACOTHERAPY AND COUNSELING)QUIT DATE SET. HOW MANY CIGARETTES A DAY DO YOU SMOKE?11-20 HOW SOON AFTER YOU WAKE UP DO YOU SMOKE YOUR FIRST CIGARETTE?WITHIN 5 MIN HOW OFTEN DO YOU SMOKE CIGARETTES?EVERY DAY PATIENT COUNSELED ON THE DANGERS OF TOBACCO USE AND URGED TO QUIT:05/03/2018 SMOKING CESSATION INFORMATION GIVEN05/03/2018 VAPORNO E-CIGARETTENO ALCOHOL SCREENING DID YOU HAVE A DRINK CONTAINING ALCOHOL IN THE PAST YEAR?NO POINTS0 INTERPRETATIONNEGATIVE RECREATIONAL DRUG USE DRUG USE?NO CAFFEINE CAFFEINE USE?YES 2 CUPS OF COFFEE IN THE AM HOW OFTEN AND HOW MUCH? 2-3 DIET SNAPPLES/DAY SEXUAL HX HAD SEX IN THE LAST 12 MONTHS (VAGINAL, ORAL, OR ANAL)?NO LMP:HYSTER HAVE YOU EVER HAD AN STD?NO HIV / HEP-C SCREENING HIV TEST OFFERED TO PATIENT:YES DATE OFFERED:12/27/2016 JUST PREVIOUSLY HAD TEST ACCEPTED:NO HEP-C TEST OFFERED TO PATIENT:NO ALREADY TESTED REASON:OTHER (DOCUMENT IN NOTE) PT STATES SHE HAS HAD IT DONE PREVIOUSLY SHINTO [id number] NONE LANGUAGE GRENADIAN. EDUCATION LEVEL OF EDUCATION:HIGH SCHOOL REGENTS GED LEARNING BARRIERS / SPECIAL NEEDS CHANGE FROM LAST VISIT?NO BARRIERS TO LEARNING?NO HEARING IMPAIRED?YES VISION IMPAIRED?YES COGNITIVELY IMPAIRED?NO :CORRECTIVE LENSES READINESS TO LEARN?YES LEARNING PREFERENCES?YES :DEMONSTRATION/VERBAL INSTRUCTION LEARNING CAPABILITIES PRESENT?YES EMOTIONAL BARRIERS?NO SPECIAL DEVICES?NO ROLL FORGER NEEDED?NO DOMESTIC VIOLENCE DO YOU FEEL SAFE IN YOUR ENVIRONMENT?YES OCCUPATION: DISABLED. DIET: SMALL FERQUENT MEALS. EXERCISE: NO REGULAR EXERCISE DUE TO RIB FX. MARITAL STATUS: . OTHERS AT HOME: SPOUSE. NEW PATIENT PAIN DIARY FROM 0-10, WHAT NUMBER IS YOUR PAIN TODAY? 7. PAIN CLINIC PFS, CLERGY, PUBLIC HEALTH REFERRALS PFS REFERRAL NEEDED?NO CLERGY REFERRAL NEEDED?NO PUBLIC HEALTH REFERRAL NEEDED?NO HAS THE PATIENT BEEN EDUCATED REGARDING HIS/HER PLAN OF CARE?YES HAS THE PATIENT BEEN EDUCATED REGARDING PAIN, THE RISK FOR PAIN, THE IMPORTANCE OF EFFECTIVE PAIN MANAGEMENT, AND THE PAIN ASSESSMENT PROCESS?YES ADVANCE DIRECTIVE ADVANCE DIRECTIVE DISCUSSED WITH PATIENT:YES HCP BRE WEEMS [phone] THIS PATIENT LIVES AT HOME WITH HER AND SON. SHE FRACTURED HER LEFT WRIST IN THE PAST. NO HISTORY OF AN EATING DISORDER. NO HISTORY OF PHYSICAL/SEXUAL ABUSE. SHE SLEEPS OKAY ONLY; USES CPAP. SHE WEARS SEAT BELTS. SHE IS CURRENT WITH DENTAL AND EYE EXAMINATIONS. SHE IS UP TO DATE WITH IMMUNIZATIONS AND TETANUS.REVIEWED WITH PT 04/26/18 1020 LASREVIEWED WITH PT 07/02/18 1107 BV. HOSPITALIZATION/MAJOR DIAGNOSTIC PROCEDURE STROKE 06/2001 HYPOGLYCEMIA 1998 SURGERIES ? SEIZURE ACTIVITY 09/2017 REVIEW OF SYSTEMS REVIEWED BY: PROVIDER: LUÍS SWIFT . CONSTITUTIONAL: ANY CHANGE IN YOUR MEDICAL CONDITION? YES, PT RECENTLY DIAGNOSED WITH PSYCHOGENIC NON-EPILECTIC ATTACKS. . CHILLS NO . FEVER NO . INFECTION: DO YOU HAVE NEW INFECTIONS? NO . DO YOU HAVE HISTORY OF MRSA? NO . MUSCULOSKELETAL: ANY NEW PATTERNS OF PAIN OR NUMBNESS? NO . GASTROENTEROLOGY: ANY NEW CHANGE IN BOWEL CONTROL? NO . GENITOURINARY: ANY NEW CHANGE IN BLADDER CONTROL? NO . IS THERE A CHANCE YOU COULD BE ? NO . HEMATOLOGY/LYMPH: DO YOU TAKE ANY BLOOD THINNERS? (FOR EXAMPLE- COUMADIN, PLAVIX, AGGRENOX, PLATEL, PRADAXA, OR XARELTO) NO . WHEN WAS YOUR LAST DOSE? DATE: TIME: . NEUROLOGY: HAVE YOU FALLEN IN THE PAST 12 MONTHS? NO . ANY NEW EXTREMITY NUMBNESS OR WEAKNESS? NO . CARDIOLOGY: DO YOU HAVE A PACEMAKER OR DEFIBRILLATOR? NO . RESPIRATORY: HAVE YOU BEEN SICK IN THE PAST WEEK? NO . FEVER NO . FLU LIKE SYMPTOMS? NO . COUGH NO . INTEGUMENTARY: DO YOU HAVE ANY RASHES OR OPEN SORES? NO . ALLERGIC/IMMUNO: ARE YOU ALLERGIC TO IV DYE? NO . ANY NEW ALLERGIES? NO . PSYCHIATRIC: DO YOU HAVE THOUGHTS OF HURTING YOURSELF OR SOMEONE ELSE? NO . ARE YOU ABUSED, NEGLECTED, OR IN AN UNSAFE ENVIRONMENT? NO . ENDOCRINOLOGY: ARE YOU DIABETIC? NO . OTHER: DO YOU NEED ANY PRESCRIPTIONS? YES, MORPHINE SULFATE . IF YES, PLEASE LIST: ____ . ANY NEW PROBLEMS WITH YOUR MEDICATIONS? NO . WHEN DID YOU LAST EAT? ____ . WHEN DID YOU LAST DRINK? ____ . WHAT DID YOU LAST DRINK? ____ . NAME OF PERSON DRIVING YOU HOME? ____ . DO YOU HAVE ANY OTHER QUESTIONS OR CONCERNS NO . VITAL SIGNS WT 149 LBS, HT 62.5", BMI 26.82 INDEX, BP 112/66 MM HG, HR 77 /MIN, RR 18 /MIN, TEMP 96.0 F, OXYGEN SAT % 97%, NA INITIALS AW 1049, REVIEWED BY: BV. EXAMINATION GENERAL EXAMINATION: GENERAL APPEARANCE:AWAKE,ALERT ,PLEAASANT . PSYCHAFFECT NORMAL . LUNGS:LUNG MCGRAW ARE CLEAR TO AUSCULTATION BILATERALLY. GOOD MOVEMENT OF AIR . HEART:S1, S2 IN A REGULAR RATE AND RHYTHM. NO SIGNIFICANT MURMURS, RUBS OR GALLOPS NOTED . ASSESSMENTS CHEST WALL PAIN - R07.89 (PRIMARY) DRUG INDUCED CONSTIPATION - K59.03 TREATMENT CHEST WALL PAIN NOTES: SLOW TAPER OFF MORPHINE 15MG TAB-6 TAB DAY X 2WEEKS PLUS 2 TAB NUCYNTA 75MG 4 TAB PER DAY MORPHINE +4 TAB NUCYNTA 75MG X2WKS 2 TAB PER DAY MORPHINE +6 TAB NUCYNTA 75MG X2WKS . PREVENTIVE MEDICINE PAIN CLINIC TEACHING: MEDICATIONS PT GIVEN WRITTEN AND VERBAL EDUCATION ON STARTING NUCYNTA. DISCUSSED WITH PT THE WEAN DOWN SCHEDULE OF THE MORPHINE SULFATE AND STARTING THE NUCYNTA. PT VERBALIZED UNDERSTANDING OF ALL EDUCATION. EDNA PRAKASH 07/02/2018 12:02:55 PM > . PROCEDURE CODES FA211 ESTABILISHED PATIENT [facility] CHARGE DISPOSITION & COMMUNICATION FOLLOW UP 6-8-WKS ELECTRONICALLY SIGNED BY JENIFFER ALFORD ON 07/16/2018 AT 02:38 PM EDT DISCLAIMER : THIS IS A VISIT SUMMARY EXTRACTED FROM THE [employer] CHART. IT IS NOT A COPY OF THE [employer] PROGRESS NOTE. KATERIND
== END ==
LOC: M PAIN 10:45
PROVIDERS: ATTEND Nurse Practitioner Family
DX: R07.89 Other chest pain (principal); M54.6 Pain in thoracic spine; M54.5 Low back pain; G89.29 Other chronic pain; K59.03 Drug induced constipation; I10 Essential (primary) hypertension; E78.5 Hyperlipidemia, unspecified; G47.33 Obstructive sleep apnea (adult) (pediatric); K21.9 Gastro-esophageal reflux disease without esophagitis; F17.210 Nicotine dependence, cigarettes, uncomplicated; Z88.8 Allergy status to other drugs, medicaments and biological substances; Z91.030 Bee allergy status; Z79.899 Other long term (current) drug therapy; Z86.73 Personal history of transient ischemic attack (TIA), and cerebral infarction without residual deficits; Z85.43 Personal history of malignant neoplasm of ovary

== ENCOUNTER → 2018-07-10 | Outpatient (CLI) | payer MEDICARE, OTHER ==
[~2018-07-10] MED LIST changes: -DULO30CA PO; +DULO30CA9 PO
--- NOTE | 2018-07-10 19:54 | REPMRS ---
Patient History The patient states she had a clinical breast exam in 06/2018. Patient is postmenopausal, has history of colorectal cancer at age 47, and has history of ovarian cancer at age 28. Family history of ovarian cancer at age 38 in paternal grandmother, ovarian cancer in paternal cousin. Benign FNA biopsy of both breasts, July 07, 2008. Digital Woman Screen Mammo: July 10, 2018 - Exam #: [id number] Bilateral CC and MLO view(s) were taken. Technologist: Shelley Galvin Technologist Prior study comparison: July 18, 2017, digital woman screen mammo performed at [facility]. April 08, 2016, digital woman screen mammo performed at [facility]. FINDINGS: There are scattered fibroglandular densities. There has been no change in the appearance of the mammogram from the prior studies. There is a mild amount of residual fibroglandular tissue which is fairly symmetric. There is no interval development of dominant mass, architectural distortion, or clustered microcalcification suggestive of malignancy. There are scattered, small, benign calcifications of doubtful clinical significance. Large coarse benign appearing calcifications are present. 3-D tomosynthesis shows no additional findings. No significant changes when compared with prior studies. Assessment: BI-RADS/ACR category 2 mammogram. Benign Findings. Recommendation Routine screening mammogram in 1 year (for women over age 40). This mammogram was interpreted with the aid of an FDA-approved computer-aided dectection system. A. Negative x-ray reports should not delay biopsy if a dominant or clinically suspicious mass is present. B. Four to eight percent of cancers are not identified by mammography. C. Adenosis and dense breast may obscure an underlying neoplasm. Electronically Signed By: Jayden Perkins MD 07/10/181953
== END ==
LOC: M WHC 11:16
PROVIDERS: ATTEND Family Medicine
DX: Z01.419 Encounter for gynecological examination (general) (routine) without abnormal findings (principal); Z12.31 Encounter for screening mammogram for malignant neoplasm of breast; Z78.0 Asymptomatic menopausal state; R92.1 Mammographic calcification found on diagnostic imaging of breast; Z85.038 Personal history of other malignant neoplasm of large intestine; Z85.43 Personal history of malignant neoplasm of ovary; Z86.018 Personal history of other benign neoplasm
CPT/HCPCS: 77063; 77067; G0101; G0123

== ENCOUNTER → 2018-07-10 | Outpatient (REF) | payer MEDICARE, OTHER ==
[~2018-07-10] MED LIST changes: +DULO30CA PO; -DULO30CA9 PO
== END ==
LOC: M SFHCWAGY 11:55
PROVIDERS: ATTEND Nurse Practitioner Women's Health
DX: Z01.419 Encounter for gynecological examination (general) (routine) without abnormal findings (principal); N95.2 Postmenopausal atrophic vaginitis; Z85.43 Personal history of malignant neoplasm of ovary

== ENCOUNTER → 2018-08-17 | Outpatient (CLI) | payer MEDICARE, OTHER ==
[~2018-08-17] MED LIST changes: -DULO30CA PO; +DULO30CA9 PO
--- NOTE | 2018-09-05 01:22 | ECWPNPC ---
PATIENT NAME: ELIDIA WEEMS : 1970 GENDER: FEMALE VISIT DATE: 08/17/2018 DISCHARGE DATE: 08/17/18 1211 VISIT LOCKED DATE TIME: PHYSICIAN: LUÍS AGARWAL PHYSICIAN PAGER NO: [phone] RESOURCE: LUÍS AGARWAL REASON FOR APPOINTMENT 1. 6-8 WEEKS HISTORY OF PRESENT ILLNESS HISTORY OF PRESENT ILLNESS: HERE FOR F/U /MED MANAGEMENT FOR CHRONIC LOW BACK AND LEFT INTERCOSTAL PAIN.RATING PAIN VAS 4/10.FEELS NUCYNTA IS WORKING MUCH BETTER THAN MORPHINE.DENIES SIDE EFFECTS. PAIN THE PATIENT DESCRIBES THE PAIN... FALL RISK SCREENING: SCREENING :NO FALLS REPORTED IN THE LAST YEAR CURRENT MEDICATIONS TAKING OMEPRAZOLE 20 MG CAPSULE DELAYED RELEASE 1 CAPSULE ORALLY ONCE A DAY TAKING MOVANTIK 25 MG TABLET 1 TABLET IN THE MORNING ORALLY ONCE A DAY TAKING COLACE 100 MG CAPSULE 2 CAPSULE NEEDED ORALLY BID PRN CONSTIPATION TAKING RECLAST 5 MG/100ML SOLUTION INTRAVENOUS EVERY 12 MONTHS TAKING MAGNESIUM 300 MG CAPSULE 1 CAPSULE WITH A MEAL ORALLY ONCE A DAY TAKING POTASSIUM 99 MG TABLET 1 TABLET ORALLY ONCE A DAY OTC PRODUCT TAKING CALCIUM CITRATE + D 500MG/600MG TABLET 2 TABLET ORALLY FOUR TIMES A DAY TAKING EZETIMIBE 10 MG TABLET 1 TABLET ORALLY ONCE A DAY TAKING SIMVASTATIN 80 MG TABLET 1 TABLET IN THE EVENING ORALLY ONCE A DAY TAKING GABAPENTIN 300 MG CAPSULE 1 ORALLY FOUR TIMES DAILY TAKING ALCOHOL SWABS 70 % PAD DIRECTED TWICE A DAY TAKING LANCETS - MISCELLANEOUS DIRECTED THREE TIMES DAILY TAKING EPIPEN 2-LEONARD 0.3 MG/0.3ML DEVICE DIRECTED INJECTION PRN TAKING INTRAROSA 6.5 MG OVULES DIRECTED VAGINAL INSERTION ONCE DAILY AT BEDTIME TAKING VENTOLIN HFA 108 (90 BASE) MCG/ACT AEROSOL SOLUTION 2 PUFFS NEEDED INHALATION EVERY 6 HRS TAKING ALIGN - CAPSULE DIRECTED ORALLY DAILY TAKING WOMENS ONE DAILY - TABLET 2 TABS ORALLY DAILY TAKING NICOTROL 10 MG INHALER 1 CARTRIDGE NEEDED INHALATION 6-16 CARTRIDGE/DAY FOR 12 WEEKS (AT LEAST 6/DAY FOR 3-6 WEEKS) TAKING VITAMIN B-12 500 MCG TABLET 1 TABLET ORALLY DAILY TAKING NARCAN 4 MG/0.1ML LIQUID DIRECTED NASALLY USE IF SIGNS OF RESPITORY DEPRESS OR ALTER MENTAL STAUS. CALL 911 IF USED TAKING LIDODERM 5 % PATCH 3 PATCH TO CHEST WALL AND RIBS EXTERNALLY ON 12 HOURS OFF 12 HOURS NEEDED TAKING DULOXETINE HCL 30 MG CAPSULE DELAYED RELEASE PARTICLES 2 CAPSULES ORALLY DAILY TAKING GLUCOMETER DIRECTED THREE TIMES A DAY NEEDED TAKING AMITRIPTYLINE HCL 10 MG TABLET 1 -2 TABLET ORALLY BEFORE BEDTIME TAKING NUCYNTA 75 MG TABLET 1 TABLET ORALLY EVERY 6 HRS TAKING INTRAROSA 6.5 MG OVULES DIRECTED VAGINAL INSERTION ONCE DAILY AT BEDTIME TAKING ZOLPIDEM TARTRATE 10 MG TABLET 1 TAB ORALLY AT BEDTIME PRN INSOMNIA, NOTES: PATIENT TO HAND CARRY NOT-TAKING MORPHINE SULFATE 15 MG TABLET 2 TABLETS NEEDED ORALLY EVERY 6 HOURS NOT-TAKING FLINTSTONES COMPLETE 60 MG TABLET CHEWABLE 2 TABLETS ORALLY ONCE A DAY MEDICATION LIST REVIEWED AND RECONCILED WITH THE PATIENT PAST MEDICAL HISTORY MDD HYERPTENSION, ESSENTIAL HYPERLIPIDEMIA 2B H/O JYOTI-STOPPED CPAP 12 11/17/2014 C WT LOSS P GB-PER DR. FAUSTIN LT WRIST NERVE DAMAGE/RSD A RESULT HX OVARIAN CANCER SP TAHBSO, THEN BRACHYXRT 2000 GERD-10 CM JEJUNAL POUCH, LOWER 1/3 ESOPHAGEAL LEIOMYOMA EXCISED-03/[address] 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 [facility] GI ALLERGIES BEE STINGS: ANAPHYLAXIS - ALLERGY METFORMIN HCL: EXTREMLY TIRED - SIDE EFFECTS SURGICAL HISTORY BTL 08/1990 RT SIDE INGUINAL HERNIA REPAIR 03/2000 TAHBSO 2 OVARIAN CANCER 06/2000 LT WRIST RECONSTRUCTION/JOINT FUSION 05/2005 LAP GB-RACHAEL 01/23/2012 CHOLECYSTECTOMY DORSAL STIMULATOR PLACED FOR 5 DAYS THAN REMOVED ON 01/14/17 01/09/17 ENDOSCOPY WITH ESOPHAGUS BIOPSY 03/2018 LAPAROSCOPIC BOWEL RESECTION 06/11/18 FAMILY HISTORY FATHER: 54 YRS, ACID REFLUX-ASPIRATED, DIAGNOSED WITH HEART DISEASE, OTHER MOTHER: ALIVE 66 YRS, HEART DISEASE, D.M., HEART DISEASE, DIABETES SIBLINGS: ALIVE, ACID REFLUX, HYPERTENSION SON(S): ALIVE, HYPERTENSION, OTHER, HYPERTENSION DAUGHTER(S): ALIVE, OTHER PATERNAL GRAND MOTHER: OVARIAN CA 2 BROTHER(S) . 2 SON(S) , 1 DAUGHTER(S) . FATHER FROM ASPIRATION DUE TO ACID REFLUX.\\N\\NDAUGHTER--FIBROMYALGIA AND RA\\N1 SON ADHD\\N1 SON HTN\\N1 PATERNAL COUSIN AND PATERNAL GRANDMOTHER WITH OVARIAN CA. SOCIAL HISTORY GENERAL: TOBACCO USE ARE YOU A:CURRENT SMOKER ARE YOU INTERESTED IN QUITTING?READY TO QUIT WILL WORK THROUGH [employer] WHEN SHE IS READY PREVIOUS QUIT ATTEMPTS?NO. COUNSELED THE PATIENT ON TOBACCO USE, CESSATION [id number]/12/2019 ASSIST (PHARMACOTHERAPY AND COUNSELING)QUIT DATE SET. ARRANGE USING NICTROL INHALER HOW MANY CIGARETTES A DAY DO YOU SMOKE?6-10 HOW SOON AFTER YOU WAKE UP DO YOU SMOKE YOUR FIRST CIGARETTE?WITHIN 5 MIN HOW OFTEN DO YOU SMOKE CIGARETTES?EVERY DAY PATIENT COUNSELED ON THE DANGERS OF TOBACCO USE AND URGED TO QUIT:08/17/2018 SMOKING CESSATION INFORMATION GIVEN08/17/2018 VAPORNO E-CIGARETTENO LATEX QUESTIONNAIRE LATEX ALLERGY : HAVE YOU EVER DEVELOPED ANY TYPE OF REACTION AFTER HANDLING LATEX PRODUCTS SUCH RUBBER GLOVES, CONDOMS, DIAPHRAGMS, BALLOONS, SOCKS, OR UNDERWEAR?NO LATEX ALLERGY : HAVE YOU EVER DEVELOPED ANY TYPE OF REACTION DURING OR AFTER DENTAL APPOINTMENT, VAGINAL/RECTAL EXAMINATION, SURGICAL PROCEDURE, OR ANY OTHER EXPOSURE?NO LATEX RISK : HAVE YOU EVER HAD ANY DIFFICULTY BREATHING OR HIVES AFTER EATING OR HANDLING ANY FRUITS, OR VEGETABLES; SUCH KIWI, BANANAS, STONE FRUITS, OR CHESTNUTSNO LATEX RISK : DO YOU HAVE A PREVIOUS PERSONAL HISTORY OF MORE THAN NINE SURGERIES, SPINA BIFIDA, OR REPEATED CATHERTIZATIONS? NO LATEX RISK : ARE YOU FREQUENTLY EXPOSED TO LATEX PRODUCTS IN YOUR OCCUPATION?NO DATE ASKED : 08/17/2018 ALCOHOL SCREENING DID YOU HAVE A DRINK CONTAINING ALCOHOL IN THE PAST YEAR?NO POINTS0 INTERPRETATIONNEGATIVE RECREATIONAL DRUG USE DRUG USE?NO CAFFEINE CAFFEINE USE?YES 2 CUPS OF COFFEE IN THE AM HOW OFTEN AND HOW MUCH? 2-3 DIET SNAPPLES/DAY SEXUAL HX HAD SEX IN THE LAST 12 MONTHS (VAGINAL, ORAL, OR ANAL)?NO LMP:HYSTER HAVE YOU EVER HAD AN STD?NO HIV / HEP-C SCREENING HIV TEST OFFERED TO PATIENT:YES DATE OFFERED:12/27/2016 JUST PREVIOUSLY HAD TEST ACCEPTED:NO HEP-C TEST OFFERED TO PATIENT:NO ALREADY TESTED REASON:OTHER (DOCUMENT IN NOTE) PT STATES SHE HAS HAD IT DONE PREVIOUSLY AMISH [id number] NONE LANGUAGE MICRONESIAN. EDUCATION LEVEL OF EDUCATION:HIGH SCHOOL REGENTS GED LEARNING BARRIERS / SPECIAL NEEDS CHANGE FROM LAST VISIT?NO BARRIERS TO LEARNING?NO HEARING IMPAIRED?YES VISION IMPAIRED?YES COGNITIVELY IMPAIRED?NO :CORRECTIVE LENSES READINESS TO LEARN?YES LEARNING PREFERENCES?YES :DEMONSTRATION/VERBAL INSTRUCTION LEARNING CAPABILITIES PRESENT?YES EMOTIONAL BARRIERS?NO SPECIAL DEVICES?NO HOP STRAINER NEEDED?NO DOMESTIC VIOLENCE DO YOU FEEL SAFE IN YOUR ENVIRONMENT?YES OCCUPATION: DISABLED. DIET: SMALL FERQUENT MEALS. EXERCISE: NO REGULAR EXERCISE DUE TO RIB FX. MARITAL STATUS: . OTHERS AT HOME: SPOUSE. NEW PATIENT PAIN DIARY FROM 0-10, WHAT NUMBER IS YOUR PAIN TODAY? 7. PAIN CLINIC PFS, CLERGY, PUBLIC HEALTH REFERRALS PFS REFERRAL NEEDED?NO CLERGY REFERRAL NEEDED?NO PUBLIC HEALTH REFERRAL NEEDED?NO WAS THE PROVIDER NOTIFIED OF ANY PERTINENT INFO?YES HAS THE PATIENT BEEN EDUCATED REGARDING HIS/HER PLAN OF CARE?YES HAS THE PATIENT BEEN EDUCATED REGARDING PAIN, THE RISK FOR PAIN, THE IMPORTANCE OF EFFECTIVE PAIN MANAGEMENT, AND THE PAIN ASSESSMENT PROCESS?YES ADVANCE DIRECTIVE ADVANCE DIRECTIVE DISCUSSED WITH PATIENT:YES HCP BRE WEEMS [phone] THIS PATIENT LIVES AT HOME WITH HER AND SON. SHE FRACTURED HER LEFT WRIST IN THE PAST. NO HISTORY OF AN EATING DISORDER. NO HISTORY OF PHYSICAL/SEXUAL ABUSE. SHE SLEEPS OKAY ONLY; USES CPAP. SHE WEARS SEAT BELTS. SHE IS CURRENT WITH DENTAL AND EYE EXAMINATIONS. SHE IS UP TO DATE WITH IMMUNIZATIONS AND TETANUS.REVIEWED WITH PT 04/26/18 1020 LASREVIEWED WITH PT 07/02/18 1107 BV. HOSPITALIZATION/MAJOR DIAGNOSTIC PROCEDURE STROKE 06/2001 HYPOGLYCEMIA 1998 SURGERIES ? SEIZURE ACTIVITY 09/2017 REVIEW OF SYSTEMS REVIEWED BY: PROVIDER: LUÍS SWIFT . CONSTITUTIONAL: ANY CHANGE IN YOUR MEDICAL CONDITION? NO . CHILLS NO . FEVER NO . INFECTION: DO YOU HAVE NEW INFECTIONS? NO . DO YOU HAVE HISTORY OF MRSA? YES . MUSCULOSKELETAL: ANY NEW PATTERNS OF PAIN OR NUMBNESS? NO . GASTROENTEROLOGY: ANY NEW CHANGE IN BOWEL CONTROL? NO . GENITOURINARY: ANY NEW CHANGE IN BLADDER CONTROL? NO . IS THERE A CHANCE YOU COULD BE ? NO . HEMATOLOGY/LYMPH: DO YOU TAKE ANY BLOOD THINNERS? (FOR EXAMPLE- COUMADIN, PLAVIX, AGGRENOX, PLATEL, PRADAXA, OR XARELTO) NO . WHEN WAS YOUR LAST DOSE? DATE: TIME: . NEUROLOGY: HAVE YOU FALLEN IN THE PAST 12 MONTHS? NO . ANY NEW EXTREMITY NUMBNESS OR WEAKNESS? NO . CARDIOLOGY: DO YOU HAVE A PACEMAKER OR DEFIBRILLATOR? NO . RESPIRATORY: HAVE YOU BEEN SICK IN THE PAST WEEK? NO . FEVER NO . FLU LIKE SYMPTOMS? NO . COUGH NO . INTEGUMENTARY: DO YOU HAVE ANY RASHES OR OPEN SORES? NO . ALLERGIC/IMMUNO: ARE YOU ALLERGIC TO IV DYE? NO . ANY NEW ALLERGIES? NO . PSYCHIATRIC: DO YOU HAVE THOUGHTS OF HURTING YOURSELF OR SOMEONE ELSE? NO . ARE YOU ABUSED, NEGLECTED, OR IN AN UNSAFE ENVIRONMENT? NO . ENDOCRINOLOGY: ARE YOU DIABETIC? NO . OTHER: DO YOU NEED ANY PRESCRIPTIONS? YES, MOVANTIK, GABAPENTIN, AMITRIPTYLINE, LIDODERM PATCH, NUCYNTA . IF YES, PLEASE LIST: ____ . ANY NEW PROBLEMS WITH YOUR MEDICATIONS? NO . WHEN DID YOU LAST EAT? ____ . WHEN DID YOU LAST DRINK? ____ . WHAT DID YOU LAST DRINK? ____ . NAME OF PERSON DRIVING YOU HOME? ____ . DO YOU HAVE ANY OTHER QUESTIONS OR CONCERNS NO . VITAL SIGNS WT 148.2 LBS, HT 62.5", BMI 26.67 INDEX, BP 126/85 MM HG, HR 79 /MIN, RR 18 /MIN, TEMP 98.5 F, OXYGEN SAT % 96%, SAFE IN ENV? (Y/N) Y, NA INITIALS AL 11:42, REVIEWED BY: AMARA. EXAMINATION GENERAL EXAMINATION: GENERAL APPEARANCE:AWAKE,ALERT ,PLEAASANT . PSYCHAFFECT NORMAL . LUNGS:LUNG MCGRAW ARE CLEAR TO AUSCULTATION BILATERALLY. GOOD MOVEMENT OF AIR . HEART:S1, S2 IN A REGULAR RATE AND RHYTHM. NO SIGNIFICANT MURMURS, RUBS OR GALLOPS NOTED . ASSESSMENTS CHEST WALL PAIN - R07.89 (PRIMARY) TREATMENT CHEST WALL PAIN REFILL MOVANTIK TABLET, 25 MG, 1 TABLET IN THE MORNING, ORALLY, ONCE A DAY, 30 DAY(S), 30 TABLET, REFILLS 5 REFILL COLACE CAPSULE, 100 MG, 2 CAPSULE NEEDED, ORALLY, BID PRN CONSTIPATION, 30 DAY(S), 60, REFILLS 5 REFILL GABAPENTIN CAPSULE, 300 MG, 1, ORALLY, FOUR TIMES DAILY, 30 DAY(S), 120, REFILLS 5 REFILL LIDODERM PATCH, 5 %, 3 PATCH TO CHEST WALL AND RIBS, EXTERNALLY, ON 12 HOURS OFF 12 HOURS NEEDED, 30 DAY(S), 90, REFILLS 5 REFILL DULOXETINE HCL CAPSULE DELAYED RELEASE PARTICLES, 30 MG, 2 CAPSULES, ORALLY, DAILY, 30 DAY(S), 60 CAPSULE, REFILLS 5 REFILL AMITRIPTYLINE HCL TABLET, 10 MG, 1 -2 TABLET, ORALLY, BEFORE BEDTIME, 30 DAY(S), 60, REFILLS 5 NOTES: PT EDUCATION COMPLETED FOR NUCYNTA ER. DS , ISTOP REGISTRY REVIEWED AND DEMONSTRATES COMPLLIANCE. BRINGS IN MEDICATIONS WHICH IS APPROPRIATE FOR WHAT WAS DISPENSED. RECENT URINE TOXICOLOGY REVIEWED. NO UNAUTHORIZED MEDICATIONS. NO ILLICIT SUBSTANCES AND PRESCRIBED MEDICATIONS WERE PRESENT. , RISKS AND BENEFITS OF NARCOTIC/OPIOD MEDICATIONS WERE REVIEWED WITH PATIENT - THIS INCLUDES BUT IS NOT LIMITED TO RISK OF DEPENDANCE/DEVELOPMENT OF ADDICTION, MOOD DISTURBANCE AND DEPRESSION, OSTEOPOROSIS, HORMONAL AND LABIDAL CHANGES, RESPIRATORY DEPRESSION AND . PATIENT IS ADVISED NOT TO DRIVE OR DRINK ALCOHOL WHILE ON THESE MEDICATIONS. PROCEDURE CODES FA211 ESTABILISHED PATIENT [facility] CHARGE DISPOSITION & COMMUNICATION FOLLOW UP 4 WEEKS ELECTRONICALLY SIGNED BY JENIFFER ALFORD ON 09/03/2018 AT 04:34 PM EDT DISCLAIMER : THIS IS A VISIT SUMMARY EXTRACTED FROM THE [employer] CHART. IT IS NOT A COPY OF THE [employer] PROGRESS NOTE. KATERIND
== END ==
LOC: M PAIN 11:15
PROVIDERS: ATTEND Nurse Practitioner Family
DX: R07.89 Other chest pain (principal); M54.5 Low back pain; G89.29 Other chronic pain; I10 Essential (primary) hypertension; E78.5 Hyperlipidemia, unspecified; Z85.43 Personal history of malignant neoplasm of ovary; F17.210 Nicotine dependence, cigarettes, uncomplicated; Z88.8 Allergy status to other drugs, medicaments and biological substances; Z91.030 Bee allergy status; Z79.891 Long term (current) use of opiate analgesic; Z79.899 Other long term (current) drug therapy

== ENCOUNTER → 2018-10-03 | Outpatient (CLI) | payer MEDICARE, OTHER ==
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
== END ==
LOC: M PAIN 09:45
PROVIDERS: ATTEND Nurse Practitioner Family
DX: R07.89 Other chest pain (principal); Z79.891 Long term (current) use of opiate analgesic; Z79.899 Other long term (current) drug therapy; F17.210 Nicotine dependence, cigarettes, uncomplicated; Z79.84 Long term (current) use of oral hypoglycemic drugs; Z91.030 Bee allergy status

== ENCOUNTER 2018-12-26 11:05 | Emergency (ER) | payer MEDICARE, OTHER ==
[~2018-12-26] VITALS: Ht 157.5 cm; Wt 65.9 kg
[~2018-12-26 11:05] MED LIST changes: -OMEP20CA3 PO; +OMEP20CA4 PO; +ZETI10TA16 PO; -ZETI10TA30 PO
[2018-12-26] MEDS ORDERED: MS C15TA8 PO (11:52)
[2018-12-26] MEDS ORDERED: MS C30TA6 PO (11:52)
[2018-12-26] MEDS ORDERED: AMIT10TA PO (11:52)
[2018-12-26] MEDS ORDERED: DICL1GEL3 TOP (11:52)
[2018-12-26] MEDS ORDERED: MM S100C PO (11:52)
[2018-12-26] MEDS ORDERED: ESSETAB4 PO (11:52)
[2018-12-26] MEDS ORDERED: MOVA1TAB2 PO (11:52)
[2018-12-26] MEDS ORDERED: INTR6.5S VA (11:52)
[2018-12-26] MEDS ORDERED: NS 1,000 ML IV ONE (12:15)
[2018-12-26] MEDS ORDERED: MORPHINE 4 MG/ML 1ML VIAL/SYRINGE (J2270) IV PRN (12:15)
[2018-12-26 12:31] LABS: BASO % 0.4 % (0.0-1.0); EOS # 0.1 10^3/uL (0.0-0.50); EOS % 1.8 % (0.0-3.0); HEMATOCRIT 41.6 % (36.0-47.0); LYMPH # 2.6 10^3/uL (1.5-4.5); MEAN CORPUSCULAR HEMOGLOBIN 32.8 pg (27.0-33.0); MEAN CORPUSCULAR HGB CONC 33.7 g/dl (32.0-36.5); MEAN CORPUSCULAR VOLUME 97.4 fl (80.0-96.0); MONO # 0.5 10^3/uL (0.0-0.8); MONO % 6.4 % (0.0-5.0); NEUTROPHILS # 4.2 10^3/uL (1.8-7.7); NEUTROPHILS % 56.1 % (36.0-66.0); PLATELET COUNT, AUTOMATED 317 10^3/uL (150-450); RED BLOOD COUNT 4.27 10^6/uL (4.00-5.40); WHITE BLOOD COUNT 7.4 10^3/uL (4.0-10.0)
[2018-12-26] MEDS ORDERED: ISOVUE-370 76% 100ML VIAL (Q9967) As Ordered ONE (12:42)
[2018-12-26 12:55] LABS: ALBUMIN 2.6 GM/DL (3.2-5.2); BILIRUBIN,DIRECT 0.1 MG/DL (0.0-0.2); BILIRUBIN,TOTAL 0.3 MG/DL (0.2-1.0); TOTAL PROTEIN 5.4 GM/DL (6.4-8.2)
[2018-12-26 14:12] VITALS: BP 121/63
--- NOTE | 2018-12-26 14:45 | REP ---
CT of the abdomen pelvis with IV contrast, without bowel contrast: Comparison is 11/10/2017. The visualized lung zaragoza demonstrate small patchy densities bilaterally, likely atelectasis. There are surgical clips in the gallbladder fossa. The intrahepatic biliary ducts are mildly dilated, likely due to post cholecystectomy state. The hepatic parenchyma is otherwise unremarkable. The common biliary duct measures 9.5 ml in diameter which is in the normal range post cholecystectomy. The pancreas and spleen are unremarkable. There are surgical clips suggestive of bariatric surgery. This is unchanged. The adrenals are unremarkable. Kidneys are unremarkable. There are no renal calculi. There is no hydronephrosis. The abdominal aorta is unremarkable. There is no retroperitoneal adenopathy or mass. There is no bowel distension or obstruction. There is no pneumoperitoneum. There is no free fluid. Pelvis: There is a hysterectomy. Vaginal cuff and adnexa are unremarkable. The bladder is unremarkable. There is no adenopathy or ascites. The pelvic bowel loops are unremarkable. Impression: There is no pneumoperitoneum or free intraperitoneal fluid.. Cholecystectomy and hysterectomy. Bariatric surgery. No hydronephrosis. Otherwise, negative CT of the abdomen and pelvis. Electronically Signed by Saad Monreal MD 12/26/2018 02:37 P
== END 2018-12-26 14:32 | disposition home or self-care (01) ==
LOC: M ED 11:05
DX: R10.9 Unspecified abdominal pain (principal); I25.2 Old myocardial infarction; I10 Essential (primary) hypertension; K21.9 Gastro-esophageal reflux disease without esophagitis; G89.29 Other chronic pain; M54.5 Low back pain; Z98.84 Bariatric surgery status; Z90.49 Acquired absence of other specified parts of digestive tract; Z72.0 Tobacco use; Z79.899 Other long term (current) drug therapy; Z91.030 Bee allergy status; Z88.8 Allergy status to other drugs, medicaments and biological substances
CPT/HCPCS: 74177; 80047; 80076; 81001; 85025; 96374; 99284; J2270; Q9967

== ENCOUNTER → 2018-12-28 | Outpatient (CLI) | payer MEDICARE, OTHER ==
[~2018-12-28] MED LIST changes: +AMIT10TA PO; +DICL1GEL3 TOP; +ESSETAB4 PO; +INTR6.5S VA; +MM S100C PO; +MOVA1TAB2 PO; +MS C15TA8 PO; +MS C30TA6 PO
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
== END ==
LOC: M PAIN 09:45
PROVIDERS: ATTEND Nurse Practitioner Family
DX: M46.1 Sacroiliitis, not elsewhere classified (principal); G89.29 Other chronic pain; I10 Essential (primary) hypertension; E78.5 Hyperlipidemia, unspecified; K21.9 Gastro-esophageal reflux disease without esophagitis; M81.0 Age-related osteoporosis without current pathological fracture; Z98.84 Bariatric surgery status; F17.210 Nicotine dependence, cigarettes, uncomplicated; Z88.8 Allergy status to other drugs, medicaments and biological substances; Z91.030 Bee allergy status; Z86.73 Personal history of transient ischemic attack (TIA), and cerebral infarction without residual deficits; Z79.899 Other long term (current) drug therapy

== ENCOUNTER → 2019-01-03 | Outpatient (CLI) | payer MEDICARE, OTHER ==
[~2019-01-03] MED LIST changes: +OMEP1CAP73 PO; -OMEP20CA4 PO; -OMEP40CA2 PO; +OMEP40CA97 PO
--- NOTE | 2019-01-03 11:01 | REP ---
Clinical: Abnormal lung field findings for follow up. Comparison: 06/26/2018, 12/18/2017, 09/16/2016. Technique: Axial noncontrast images from the thoracic inlet to the upper abdomen with coronal and sagittal re-formations. Findings: With comparison to most recent prior examinations dated 06/26/2018 and 12/18/2017, the few scattered nonspecific noncalcified pulmonary nodules remains stable and no new acute lesion is appreciated. Small amount of inspissated material in the medial right lower lobe bronchus is essentially unchanged through 09/16/2016. No acute consolidation or pleural effusion appreciated. No pneumothorax. The remainder of the tracheobronchial tree is patent and normal. Mediastinal lymph nodes remain stable. Thoracic aorta is without aneurysm. Heart and pericardium are relatively normal. Surrounding musculoskeletal structures are intact. Upper abdomen demonstrates prior gastric bypass surgery and cholecystectomy with normal bilateral adrenal glands. Impression: 1. Few scattered noncalcified pulmonary nodules and densities remain stable through 12/18/2017. Small amount of chronic inspissated material in the medial right lower lobe bronchus relatively unchanged compared through 09/16/2016. 2. No new acute process is appreciated. Consider 9-12 month follow-up examination to confirm stability and chronicity. Electronically Signed by Jt Ng MD 01/03/2019 10:52 A
== END ==
LOC: M RAD 10:05
PROVIDERS: ATTEND Internal Medicine Pulmonary Disease
DX: R91.8 Other nonspecific abnormal finding of lung field (principal)

== ENCOUNTER → 2019-01-30 | Outpatient (CLI) | payer MEDICARE, OTHER ==
[~2019-01-30] MED LIST changes: +BUPIVACAINE HCL 0.25% 30 ML VIAL As Ordered ONE; +ISOVUE-M 300 61% 15ML VIAL (Q9967) As Ordered ONE; +LIDOCAINE 1% SDV INJ 30 ML VIAL As Ordered ONE; -OMEP1CAP73 PO; +OMEP20CA4 PO; +OMEP40CA2 PO; -OMEP40CA97 PO; +TRIAMCINOLONE ACETONIDE SUSP 40 MG/ML VIAL (J3301) As Ordered ONE; +diazePAM 5 MG TAB As Ordered ONE; +oxyCODONE 5MG TAB As Ordered ONE
--- NOTE | 2019-01-30 17:05 | REP ---
C-ARM VIEWS SACROILIAC JOINTS. Clinical history: Pain. 7 C-Arm views of the sacroiliac joints performed bilaterally during sacroiliac joint injections performed Dr. Keller. Bigelow overlie the sacroiliac joints bilaterally. A tiny amount of contrast is injected. 35 seconds fluoroscopy time utilized. Electronically Signed by Saad Ramirez MD 01/31/2019 05:39 P
== END ==
LOC: M PAIN 11:15
PROVIDERS: ATTEND Anesthesiology
DX: M46.1 Sacroiliitis, not elsewhere classified (principal); F32.9 Major depressive disorder, single episode, unspecified; I10 Essential (primary) hypertension; E78.5 Hyperlipidemia, unspecified; G47.33 Obstructive sleep apnea (adult) (pediatric); K21.9 Gastro-esophageal reflux disease without esophagitis; J47.9 Bronchiectasis, uncomplicated; M51.36 Other intervertebral disc degeneration, lumbar region; M47.816 Spondylosis without myelopathy or radiculopathy, lumbar region; F17.210 Nicotine dependence, cigarettes, uncomplicated; Z90.49 Acquired absence of other specified parts of digestive tract; Z79.899 Other long term (current) drug therapy; Z91.030 Bee allergy status; Z88.8 Allergy status to other drugs, medicaments and biological substances
CPT/HCPCS: G0260; J3301; Q9967

== ENCOUNTER → 2019-02-20 | Outpatient (CLI) | payer MEDICARE, OTHER ==
[~2019-02-20] MED LIST changes: -BUPIVACAINE HCL 0.25% 30 ML VIAL As Ordered ONE; -ISOVUE-M 300 61% 15ML VIAL (Q9967) As Ordered ONE; -LIDOCAINE 1% SDV INJ 30 ML VIAL As Ordered ONE; -OMEP40CA2 PO; +OMEP40CA97 PO; -TRIAMCINOLONE ACETONIDE SUSP 40 MG/ML VIAL (J3301) As Ordered ONE; -diazePAM 5 MG TAB As Ordered ONE; -oxyCODONE 5MG TAB As Ordered ONE
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
== END ==
LOC: M PAIN 09:45
PROVIDERS: ATTEND Nurse Practitioner Family
DX: M46.1 Sacroiliitis, not elsewhere classified (principal); I10 Essential (primary) hypertension; E78.5 Hyperlipidemia, unspecified; K21.9 Gastro-esophageal reflux disease without esophagitis; M81.0 Age-related osteoporosis without current pathological fracture; Z98.84 Bariatric surgery status; F17.210 Nicotine dependence, cigarettes, uncomplicated; Z88.5 Allergy status to narcotic agent; Z88.8 Allergy status to other drugs, medicaments and biological substances; Z91.030 Bee allergy status; Z86.14 Personal history of Methicillin resistant Staphylococcus aureus infection; Z79.891 Long term (current) use of opiate analgesic; Z79.899 Other long term (current) drug therapy

== ENCOUNTER → 2019-04-16 | Outpatient (CLI) | payer MEDICARE, OTHER ==
[~2019-04-16] MED LIST changes: +OMEP-172 PO; -OMEP20CA4 PO
--- NOTE | 2019-04-16 12:33 | REP ---
DIGITAL DIAGNOSTIC UNILATERAL RIGHT BREAST MAMMOGRAPHY WITH CAD AND FOCUSED RIGHT BREAST SONOGRAPHY: HISTORY: Lump in the right breast times 10 days. Comparison mammography July 10, 2018, July 18, 2017, and April 08, 2016. MAMMOGRAPHIC FINDINGS: A skin marker is affixed to this site of the palpable lump which projects at 12-o'clock position in the anterior third. Magnified focal spot compression CC, MLO, and true mediolateral views of the right breast were obtained. These show scattered fibroglandular elements. There is a benign calcification near the site of the palpable lump. No suspicious mammographic finding. SONOGRAPHIC FINDINGS: At the palpable lump at 12-o'clock position, there is a slightly dilated duct. No cyst or suspicious mass lesion is seen. IMPRESSION: BIRADS 2: BI-RADS/ACR category 2 mammogram. Benign Findings. BIRADS category 2 benign findings. No suspicious mammographic or sonographic features. Clinical followup is advised. This mammogram was interpreted with the aid of an FDA-approved computer-aided detection system. The patient states she had a clinical breast exam in March 2019. The patient letter being requested is M2 . Electronically Signed by Grady Briceno MD 04/16/2019 03:30 P
== END ==
LOC: M RAD 09:12
PROVIDERS: ATTEND Nurse Practitioner Women's Health
DX: N60.41 Mammary duct ectasia of right breast (principal)
CPT/HCPCS: 76642; 77065; G0279

== ENCOUNTER → 2019-04-22 | Outpatient (CLI) | payer MEDICARE, OTHER ==
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
== END ==
LOC: M PAIN 09:45
PROVIDERS: ATTEND Nurse Practitioner Family
DX: M46.1 Sacroiliitis, not elsewhere classified (principal)

== ENCOUNTER → 2019-06-24 | Outpatient (CLI) | payer MEDICARE, OTHER ==
[~2019-06-24] MED LIST changes: -OMEP-172 PO; +OMEP1CAP73 PO
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
== END ==
LOC: M PAIN 08:45
PROVIDERS: ATTEND Nurse Practitioner Family
DX: M46.1 Sacroiliitis, not elsewhere classified (principal); G89.29 Other chronic pain; I10 Essential (primary) hypertension; E78.5 Hyperlipidemia, unspecified; K21.9 Gastro-esophageal reflux disease without esophagitis; Z98.84 Bariatric surgery status; F17.210 Nicotine dependence, cigarettes, uncomplicated; Z88.5 Allergy status to narcotic agent; Z88.8 Allergy status to other drugs, medicaments and biological substances; Z91.030 Bee allergy status; Z86.14 Personal history of Methicillin resistant Staphylococcus aureus infection; Z79.891 Long term (current) use of opiate analgesic; Z79.899 Other long term (current) drug therapy

== ENCOUNTER → 2019-06-26 | Outpatient (CLI) | payer MEDICARE, OTHER ==
[2019-06-26 13:58] VITALS: BP 102/62
--- NOTE | 2019-06-26 15:51 | REP ---
Digital diagnostic unilateral right breast mammography: Two views. History: Marker clip placement views. The patient is status post ultrasound-guided needle biopsy procedure. Comparison mammography April 16, 2019. Findings: CC and true mediolateral views of the right breast demonstrate a marker clip in the right breast at approximately 12 o'clock position. There is no evidence of hematoma. No mammographic abnormality was seen to correspond with this site. Impression: Needle biopsy marker clip seen in position at approximately 12 o'clock in the right breast.
--- NOTE | 2019-06-26 19:13 | REP ---
Sonographic guidance: History: Right breast mass. Findings: Sonographic guidance is provided to Dr. Frost who performed ultrasound-guided needle biopsy procedure.
--- NOTE | 2019-06-26 20:47 | ROOPDOC ---
[facility] Report Of Operation Report of Operation DATE OF PROCEDURE: 06/26/19 PREPROCEDURE DIAGNOSES: Right breast mass POSTPROCEDURE DIAGNOSES: Right breast mass PROCEDURE: Ultrasound-guided right breast mass biopsy with clip placement SURGEON: Diane Martinez RADON INSPECTOR: ANESTHESIA: Local ESTIMATED BLOOD LOSS: Approximately 1 mL. COMPLICATIONS: None REMARKS: Postbiopsy mammogram showed clip in appropriate location DESCRIPTION OF PROCEDURE: Lidocaine 1% LOT [id number] Expiration 06/2020 Sodium Bicarbonate 8.4% LOT [id number] Expiration 12/2020 Hydromark clip LOT [id number] Expiration 10/2021 REF [id number] titanium shape 4 (close coil) Bx device: BARD [id number] x10 cm LOT HUEN [id number] Expiration 03/2022 Informed consent was obtained. The most common risk and possible complications including bleeding, hematoma, bruising, infection, injury to surrounding structures were explained to the patient and she expressed understanding. Patient was taken to the procedure room and placed on the bed in the supine position with the right upper extremity placed above the head. Appropriate time out was done stating patients name, date of , and the procedure to be performed. The right breast was prepped and draped in the usual fashion. The ultrasound was used to confirm the location of the lesion in the right breast at 12:00 1 centimeter from the nipple. Palpation was also used to confirm the location of the palpable lesion. Plain Lidocaine 1% and 8.4% sodium bicarbonate 10:1 mix was used to numb the skin, the biopsy site and tissues along the anticipated biopsy tract. Small skin incision was made with blade number 11. BARD Marquee 14G cannula with introducer ([id number]) was inserted through the incision and advanced under the ultrasound guidance to position immediately adjacent to the lesion. Next, the introducer was removed and BARD Marquee 14G biopsy device was places in the cannula. Pre-biopsy imaging, and post-biopsy imaging were captured. Five good core biopsies were taken at various levels of the lesion. Specimen was placed in formaldehyde, labeled with appropriate biopsy site and patients name, and sent to pathology for evaluation. Next, the biopsy device was withdrawn and a clip introducer was inserted into the biopsy site via the cannula. The Hydromark clip was deployed under direct vision. Post-clip placement image was captured. Manual pressure over the biopsy cavity and tract was held after the clip introducer was withdrawn. No bleeding was noted upon removal of the pressure. Post-biopsy mammogram of the right breast was obtained and showed clip in expected position. Postprocedural dressing was placed. Patient tolerated procedure well. Discharge instructions were discussed with the patient and she expressed understanding. DIANE MRATINEZ DO Jun 26, 2019 20:47
== END ==
LOC: M WHCPRO 12:19
PROVIDERS: ATTEND Surgery
DX: N63.11 Unspecified lump in the right breast, upper outer quadrant (principal); N63.12 Unspecified lump in the right breast, upper inner quadrant; N64.1 Fat necrosis of breast; R92.1 Mammographic calcification found on diagnostic imaging of breast

== ENCOUNTER → 2019-07-08 | Outpatient (CLI) | payer MEDICARE, OTHER ==
--- NOTE | 2019-07-08 17:47 | REP ---
CT chest without contrast: History: Abnormal finding of the lung field. Comparison chest CT studies are reviewed, the most recent of which is from January 03, 2019. Most remote is from September 16, 2016. CT findings: There is a stable rounded nodule in the left lower lobe on today's study page 48 of 100 series 201. This measures 6.6 mm in diameter. There are stable small subcentimeter nodular densities in the right upper lobe near the apex. However, there are multiple new noncalcified small subcentimeter pulmonary nodules. These include a new 4 mm nodule in the right upper lobe on page 19, a new 3 mm nodule in the left upper lobe on page 23, a new 2 to 3 mm nodule in the right upper lobe on page 30, a new 3 mm nodule in the right upper lobe on page 40, two adjacent new small subcentimeter nodules in the left lower lobe on page 46. No pleural or pericardial effusion is seen. Scattered normal-sized mediastinal lymph nodes are seen unchanged from January 03, 2019. The patient is status post gastric bypass surgery. No adrenal lesion is seen. There is an accessory splenule just beneath the left hemidiaphragm. The patient is status post cholecystectomy. Study is otherwise unremarkable. Impression: There are multiple new noncalcified small subcentimeter pulmonary nodules. Pulmonary metastatic disease cannot be excluded. Electronically Signed by Grady Briceno MD 07/09/2019 12:50 P
== END ==
LOC: M RAD 14:05
PROVIDERS: ATTEND Internal Medicine Pulmonary Disease
DX: R91.8 Other nonspecific abnormal finding of lung field (principal); Z98.84 Bariatric surgery status; Z90.49 Acquired absence of other specified parts of digestive tract

== ENCOUNTER → 2019-09-02 | Outpatient (CLI) | payer MEDICARE, OTHER ==
[~2019-09-02] MED LIST changes: +OXYC-1 PO; -OXYC15TA76 PO
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
== END ==
LOC: M PAIN 10:15
PROVIDERS: ATTEND Nurse Practitioner Family
DX: M46.1 Sacroiliitis, not elsewhere classified (principal); G89.29 Other chronic pain; I10 Essential (primary) hypertension; K21.9 Gastro-esophageal reflux disease without esophagitis; Z98.84 Bariatric surgery status; F17.210 Nicotine dependence, cigarettes, uncomplicated; Z88.5 Allergy status to narcotic agent; Z88.8 Allergy status to other drugs, medicaments and biological substances; Z91.030 Bee allergy status; Z79.891 Long term (current) use of opiate analgesic; Z79.899 Other long term (current) drug therapy

== ENCOUNTER → 2019-09-11 | Outpatient (CLI) | payer MEDICARE, OTHER | LOC: M PLALAB 10:11 | PROVIDERS: ATTEND Internal Medicine Pulmonary Disease | DX: R91.8 Other nonspecific abnormal finding of lung field (principal) ==

== ENCOUNTER → 2019-09-11 | Outpatient (REF) | payer MEDICARE, OTHER ==
[2019-09-11 14:14] LABS: BASO % 0.4 % (0.0-1.0); EOS # 0.1 10^3/uL (0.0-0.5); EOS % 0.9 % (0.0-3.0); HEMOGLOBIN 15.7 g/dl (12.0-15.5); LYMPH # 2.3 10^3/uL (1.5-5.0); LYMPH % 30.9 % (24.0-44.0); MEAN CORPUSCULAR HEMOGLOBIN 32.9 pg (27.0-33.0); MEAN CORPUSCULAR HGB CONC 33.4 g/dl (32.0-36.5); MEAN CORPUSCULAR VOLUME 98.5 fl (80.0-96.0); MONO # 0.4 10^3/uL (0.0-0.8); MONO % 4.9 % (0.0-5.0); NEUTROPHILS # 4.6 10^3/uL (1.5-8.5); NEUTROPHILS % 62.5 % (36.0-66.0); PLATELET COUNT, AUTOMATED 311 10^3/uL (150-450); RED BLOOD COUNT 4.77 10^6/uL (4.00-5.40); WHITE BLOOD COUNT 7.4 10^3/uL (4.0-10.0)
[2019-09-11 14:15] LABS: HEMATOCRIT 46.9 % (36.0-47.0)
[2019-09-11 14:38] LABS: ALBUMIN 3.1 GM/DL (3.2-5.2); ALT/SGPT 130 U/L (12-78); BILIRUBIN,TOTAL 0.7 MG/DL (0.2-1.0); BLOOD UREA NITROGEN 6 MG/DL (7-18); CALCIUM LEVEL 8.4 MG/DL (8.5-10.1); CARBON DIOXIDE LEVEL 31 MEQ/L (21-32); CHLORIDE LEVEL 102 MEQ/L (98-107); CHOLESTEROL LEVEL 143 MG/DL (<200); CHOLESTEROL RISK RATIO 2.465 (<5); CREATININE FOR GFR 0.58 MG/DL (0.55-1.30); FREE T4 1.04 NG/DL (0.76-1.46); GLOMERULAR FILTRATION RATE > 60.0 (>51); GLUCOSE, FASTING 85 MG/DL (70-100); HDL CHOLESTEROL 58 MG/DL (>40); LDL CHOLESTEROL 75 MG/DL (<100); NON-HDL-C 85 MG/DL; NT-PRO BNP 89 PG/ML (<125); POTASSIUM SERUM 4.1 MEQ/L (3.5-5.1); PTH INTACT 49.8 PG/ML (18.5-88.0); SODIUM LEVEL 138 MEQ/L (136-145); THYROID STIMULATING HORMONE 0.783 uIU/ML (0.358-3.740); TOTAL 25(OH) VITAMIN D 65.4 NG/ML (30.0-100.0); TOTAL PROTEIN 6.4 GM/DL (6.4-8.2); TRIGLYCERIDES LEVEL 50 MG/DL (<150); VITAMIN B12 LEVEL 1217 PG/ML (247-911)
[2019-09-12 11:33] LABS: ALBUMIN 3.51 GM/DL (3.29-5.55); ALBUMIN % 54.8 % (55.8-66.1); ALPHA-1-GLOBULIN % 7.3 % (2.9-4.9); ALPHA-1-GLOBULINS 0.47 GM/DL (0.17-0.41); ALPHA-2-GLOBULINS 0.87 GM/DL (0.42-0.99); ALPHA-2-GLOBULINS % 13.6 % (7.1-11.8); BETA-1-GLOBULINS 0.48 GM/DL (0.28-0.60); BETA-1-GLOBULINS % 7.5 % (4.7-7.2); BETA-2-GLOBULINS 0.31 GM/DL (0.19-0.55); BETA-2-GLOBULINS % 4.9 % (3.2-6.5); GAMMA GLOBULIN % 11.9 % (11.1-18.8); GAMMA GLOBULINS 0.76 GM/DL (0.65-1.58)
[2019-09-13 06:50] LABS: FREE KAPPA LIGHT CHAINS SERUM 17.2 mg/L (3.3-19.4); FREE KAPPA LIGHT CHAINS URINE 2.35 mg/L (0.63-113.79); FREE LAMBDA LIGHT CHAINS SERUM 15.4 mg/L (5.7-26.3); FREE LAMBDA LIGHT CHAINS URINE <0.65 mg/L (0.47-11.77); KAPPA/LAMBDA RATIO SERUM 1.12 (0.26-1.65); KAPPA/LAMBDA RATIO URINE >3.62 (1.03-31.76)
== END ==
LOC: M SFHCPLAZ 10:09
PROVIDERS: ATTEND Family Medicine
DX: D75.89 Other specified diseases of blood and blood-forming organs (principal); E53.8 Deficiency of other specified B group vitamins; E04.2 Nontoxic multinodular goiter; E55.9 Vitamin D deficiency, unspecified; F43.10 Post-traumatic stress disorder, unspecified; R60.0 Localized edema; R91.8 Other nonspecific abnormal finding of lung field; Z79.899 Other long term (current) drug therapy

== ENCOUNTER → 2019-10-01 | Outpatient (CLI) | payer MEDICARE, OTHER ==
--- NOTE | 2019-10-01 14:22 | REP ---
REASON FOR EXAM: History of hepatitis. The only priors for comparison is dated 12/01/2006, which was within normal limits. The patient is status post cholecystectomy since the last exam. Within the right lobe of the liver, there is a 1 cm sized echogenic focus which may have subtle increased through transmission. There are no other hepatic lesions. There is no intrahepatic ductal dilatation. The common bile duct measures 1.2 cm. Limited evaluation of the pancreas shows no evidence of a pancreatic mass or gross ductal dilatation. Imaged portion of the right kidney is within normal limits. IMPRESSION: Small echogenic focus is seen in the liver as described above possibly representing a small hemangioma, however, pre- and postcontrast enhanced hepatic MRI is recommended for complete evaluation.
== END ==
LOC: M PLAIMG 09:00
PROVIDERS: ATTEND Family Medicine
DX: K75.9 Inflammatory liver disease, unspecified (principal); D75.89 Other specified diseases of blood and blood-forming organs

== ENCOUNTER → 2019-10-01 | Outpatient (REF) | payer MEDICARE, OTHER ==
[2019-10-01 11:41] LABS: INR 1.08; PROTHROMBIN TIME 13.7 SECONDS (11.8-14.0)
[2019-10-01 11:42] LABS: PARTIAL THROMBOPLASTIN TIME 34.2 SECONDS (25.0-38.4)
[2019-10-01 12:52] LABS: TOTAL PROTEIN,RANDOM URINE 16.3 MG/DL (0.0-12.0)
[2019-10-01 12:54] LABS: ALBUMIN 2.9 GM/DL (3.2-5.2); ALT/SGPT 85 U/L (12-78); BILIRUBIN,DIRECT 0.2 MG/DL (0.0-0.2); BILIRUBIN,TOTAL 0.5 MG/DL (0.2-1.0); TOTAL PROTEIN 5.9 GM/DL (6.4-8.2)
[2019-10-02 09:24] LABS: HEPATITIS B SURFACE ANTIGEN NEGATIVE (NEGATIVE)
[2019-10-02 09:51] LABS: HEPATITIS C VIRUS ABY INDEX 0.2 INDEX (<0.8)
[2019-10-02 09:54] LABS: HEPATITIS A ANTIBODY IGM NEGATIVE (NEGATIVE)
[2019-10-03 16:08] LABS: ANA (HEP2) Negative (.); ANTI-MITOCHONDRIAL ANTIBODY <20.0 Units (0.0-20.0); FREE LAMBDA LIGHT CHAINS URINE 0.74 mg/L (0.47-11.77); KAPPA/LAMBDA RATIO URINE 11.49 (1.03-31.76); TISSUE TRANSGLUTAMINASE IgA <2 U/mL (0-3)
== END ==
LOC: M SFHCPLAZ 09:44
PROVIDERS: ATTEND Family Medicine
DX: K75.9 Inflammatory liver disease, unspecified (principal); D75.89 Other specified diseases of blood and blood-forming organs

== ENCOUNTER → 2019-10-16 | Outpatient (CLI) | payer MEDICARE, OTHER ==
[~2019-10-16] MED LIST changes: -MOVA1TAB2 PO; +NALO25TA PO; +PROHANCE 279.3MG/ML 15ML VIAL As Ordered ONE
--- NOTE | 2019-10-17 08:48 | REP ---
MRI ABDOMEN / LIVER WITHOUT AND WITH IV GADOLINIUM: HISTORY: Liver lesions. Comparison is made with ultrasound exam of the liver October 01, 2019. CT study from July 08, 2019 is also reviewed. There is a comparison CT study of the abdomen and pelvis from December 26, 2018 as well. TECHNIQUE: Axial and coronal T1- and T2-weighted sequences include spin-echo, fast spin echo, diffusion weighted scans, in- and wrk-gp-orios imaging, and dynamically acquired sequential post contrast T1-weighted fat sat images. The gadolinium enhancement dose is 13 mL of intravenous ProHance. MRI FINDINGS: On T2-weighted scans there is a 6 mm focal T2 hyperintensity in the posterior aspect of the right lobe of the liver corresponding with the ultrasound finding of a 9 mm hyperechoic area. This shows decreased T1 signal intensity and demonstrates contrast enhancement on dynamically acquired post contrast images consistent with a tiny benign hemangioma. There is a second tiny T2 hyperintense focus elsewhere in the right lobe measuring 3 mm. This also demonstrates enhancement and low T1 signal consistent with a second tiny benign hemangioma. No other focal liver lesion is appreciated. There is no evidence of ascites. Post cholecystectomy. The common bile duct is prominent post cholecystectomy measuring 12.5 mm in diameter. No obstructing choledocholithiasis or pancreatic mass lesion is evident however. There is some mural thickening in the distal stomach. The patient is status post gastric bypass. No pleural effusion is seen. No retroperitoneal mass or adenopathy is seen. No renal lesion or splenic lesion is observed. IMPRESSION: Findings consistent with two tiny benign hemangiomas of the liver. Post cholecystectomy. Mildly dilated common bile duct, 12.5 mm post cholecystectomy. No intrahepatic ductal dilation. Electronically Signed by Grady Briceno MD 10/17/2019 09:30 A
== END ==
LOC: M RAD 16:12
PROVIDERS: ATTEND Family Medicine
DX: K76.9 Liver disease, unspecified (principal)
CPT/HCPCS: 74183; A9576

== ENCOUNTER → 2019-10-30 | Outpatient (CLI) | payer MEDICARE, OTHER ==
[~2019-10-30] MED LIST changes: +MOVA1TAB2 PO; -NALO25TA PO; -PROHANCE 279.3MG/ML 15ML VIAL As Ordered ONE
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
== END ==
LOC: M PAIN 09:30
PROVIDERS: ATTEND Nurse Practitioner Family
DX: G89.4 Chronic pain syndrome (principal); Z79.891 Long term (current) use of opiate analgesic

== ENCOUNTER → 2019-10-30 | Outpatient (CLI) | payer MEDICARE, OTHER ==
--- NOTE | 2019-10-30 09:48 | REP ---
Clinical: Abnormal lung findings. Comparison: 07/08/2019. Technique: Moo axial noncontrast images from the thoracic inlet to the upper abdomen with coronal and sagittal re-formations. Findings: The bilateral lung zaragoza are well-aerated and while a few of the previously noted noncalcified nodules remain visible, few have also decreased in size or completely resolved. No new nodule/mass, consolidation, or effusion is appreciated. Mild mediastinal and hilar adenopathy is again noted and unchanged. Thoracic aorta, pulmonary vasculature, and heart/pericardium appear stable and relatively normal. Surrounding musculoskeletal structures are intact. Impression: 1. Pulmonary nodules on prior examination have either remain stable, decreased in size, or have resolved. No new nodule/mass or consolidation is appreciated. Electronically Signed by Jt Ng MD 10/30/2019 09:38 A
== END ==
LOC: M RAD 08:19
PROVIDERS: ATTEND Internal Medicine Pulmonary Disease
DX: R91.8 Other nonspecific abnormal finding of lung field (principal)

== ENCOUNTER → 2019-11-20 | Outpatient (CLI) | payer MEDICARE, OTHER ==
[~2019-11-20] MED LIST changes: -MOVA1TAB2 PO; +NALO25TA PO
--- NOTE | 2019-11-20 09:48 | REP ---
Clinical: Bilateral lower extremity pain and edema . Technique: Ramirez scale and color Doppler evaluation of the bilateral lower extremities using linear high frequency transducer. Findings: Ultrasound examination of the right and left lower extremity deep venous structures from the common femoral vein to the popliteal vein demonstrates normal compressibility flow and wave patterns in response to respiration and augmentation. There is no evidence for deep venous thrombosis. Impression: No evidence for deep venous thrombosis of the bilateral lower extremities . Electronically Signed by Jt Ng MD 11/20/2019 09:40 A
== END ==
LOC: M WHC 08:57
PROVIDERS: ATTEND Family Medicine
DX: R60.0 Localized edema (principal); M79.604 Pain in right leg; M79.605 Pain in left leg; Z79.899 Other long term (current) drug therapy

== ENCOUNTER → 2019-11-20 | Outpatient (CLI) | payer MEDICARE, OTHER ==
[2019-11-20 13:45] LABS: ALT/SGPT 27 U/L (12-78); BILIRUBIN,DIRECT < 0.1 MG/DL (0.0-0.2); BILIRUBIN,TOTAL 0.3 MG/DL (0.2-1.0); FERRITIN 10 NG/ML (8-252); IRON (FE) 65 UG/DL (50-170); PERCENT SATURATION 16.6 % (13.2-45.0); TOTAL IRON BINDING CAPACITY 391 UG/DL (250-450); TOTAL PROTEIN 5.6 GM/DL (6.4-8.2)
[2020-01-15 13:52] LABS: ANTI-MITOCHONDRIAL ANTIBODY SEE SEPARATE REPORT; ANTINUCLEAR ANTIBODIES DIRECT See Separate Report; LIVER-KIDNEY MICROSOMAL ABY SEE SEPARATE REPORT
== END ==
LOC: M PLALAB 09:31
PROVIDERS: ATTEND Family Medicine
DX: K75.9 Inflammatory liver disease, unspecified (principal)

== ENCOUNTER → 2019-12-03 | Outpatient (CLI) | payer MEDICARE, OTHER ==
--- NOTE | 2020-01-27 08:04 | REP ---
BILATERAL LOWER EXTREMITY DUPLEX DOPPLER VENOUS ULTRASOUND WITH EVALUATION FOR VENOUS REFLUX: TECHNIQUE: Real time compression and duplex Doppler interrogation of bilateral lower extremity deep venous systems is performed. FINDINGS: Bilaterally, the common femoral, superficial femoral, and popliteal veins are fully compressible with transducer pressure and demonstrate normal spontaneous and phasic flow without evidence of deep venous thrombosis. Evaluation for venous reflux on the right demonstrates minimal reflux in the common femoral vein and [id number] superficial femoral vein. There was no evidence of any anterior accessory greater saphenous vein. There was reflux in the greater saphenous vein at the saphenofemoral junction with a duration of 4.4 seconds, EP diameter 5 mm, also at the mid thigh with a duration of 3.4 seconds, AP diameter 3 mm. There was no reflux in the greater saphenous vein to the knee, which measures 3 mm. There is no reflux in the lesser saphenous vein, which measures 3 mm. Collateral vessel communicates with the mid greater saphenous vein. On the left, there is minimal reflux in the common femoral vein, superficial femoral vein, and popliteal vein. There is also minimal reflux in the anterior accessory greater saphenous vein. There is no reflux in the greater saphenous vein at the saphenofemoral junction, which measures 4 mm nor at the mid thigh or knee, which also measures 4 mm. There is no reflux in the lesser saphenous vein, which measures 3 mm. Please note the exam was done only with the bed tipped, as the patient is unable to stand. MTDD
== END ==
LOC: M RAD 12:30
PROVIDERS: ATTEND Family Medicine
DX: R60.0 Localized edema (principal)

== ENCOUNTER → 2019-12-04 | Outpatient (POV) | payer MEDICARE, OTHER | LOC: M PAIN 09:00 | PROVIDERS: ATTEND Nurse Practitioner Family | DX: Z79.891 Long term (current) use of opiate analgesic (principal) ==

== ENCOUNTER → 2020-01-01 | Outpatient (CLI) | payer MEDICARE, OTHER ==
--- NOTE | 2020-01-29 12:38 | REP ---
ULTRASOUND RIGHT BREAST HISTORY: Six month follow-up for biopsy right breast at 12 o'clock. TECHNIQUE: Real-time sonographic evaluation of the right breast is performed at the region of 12 o'clock at the site of the prior biopsy. FINDINGS: The biopsy clip is visualized at the 12 o'clock position surrounded by a small amount of fluid. No cystic or solid nodule is seen in that region. IMPRESSION: ACR 2 benign. At 12 o'clock right breast at the site of the prior biopsy is a biopsy clip surrounded by a small amount of fluid. No cystic or solid nodule is seen. MTDD
== END ==
LOC: M WHC 09:51
PROVIDERS: ATTEND Surgery
DX: R92.8 Other abnormal and inconclusive findings on diagnostic imaging of breast (principal); N63.10 Unspecified lump in the right breast, unspecified quadrant

== ENCOUNTER → 2020-01-07 | Outpatient (REF) | payer MEDICARE, OTHER ==
[2020-01-08 09:14] LABS: ALBUMIN 3.1 GM/DL (3.2-5.2); ALT/SGPT 89 U/L (12-78); BILIRUBIN,TOTAL 0.3 MG/DL (0.2-1.0); BLOOD UREA NITROGEN 9 MG/DL (7-18); CALCIUM LEVEL 8.5 MG/DL (8.5-10.1); CARBON DIOXIDE LEVEL 32 MEQ/L (21-32); CHLORIDE LEVEL 102 MEQ/L (98-107); CREATININE FOR GFR 0.66 MG/DL (0.55-1.30); GLOMERULAR FILTRATION RATE > 60.0 (>51); GLUCOSE, FASTING 77 MG/DL (70-100); MAGNESIUM LEVEL 2.3 MG/DL (1.8-2.4); NT-PRO BNP 39 PG/ML (<125); POTASSIUM SERUM 4.1 MEQ/L (3.5-5.1); SODIUM LEVEL 139 MEQ/L (136-145)
== END ==
LOC: M PLALAB 12:22
PROVIDERS: ATTEND Family Medicine
DX: R60.9 Edema, unspecified (principal)
CPT/HCPCS: 36415; 80053; 83735; 83880; G0463

== ENCOUNTER → 2020-02-07 | Outpatient (CLI) | payer MEDICARE, OTHER ==
[2020-02-07 16:06] LABS: ALBUMIN 2.9 GM/DL (3.2-5.2); ALT/SGPT 29 U/L (12-78); BILIRUBIN,DIRECT 0.1 MG/DL (0.0-0.2); BILIRUBIN,TOTAL 0.4 MG/DL (0.2-1.0); ETHYL ALCOHOL (ETHANOL) < 0.003 % (0.000-0.010); TOTAL PROTEIN 5.9 GM/DL (6.4-8.2)
== END ==
LOC: M PLALAB 12:50
PROVIDERS: ATTEND Family Medicine
DX: R94.5 Abnormal results of liver function studies (principal)
CPT/HCPCS: 36415; 80076; 80307; 82397; 83520; 83883; G0480

== ENCOUNTER → 2020-03-05 | Outpatient (CLI) | payer MEDICARE, OTHER ==
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
== END ==
LOC: M PAIN 09:00
PROVIDERS: ATTEND Nurse Practitioner Family
DX: G89.4 Chronic pain syndrome (principal); F32.9 Major depressive disorder, single episode, unspecified; I10 Essential (primary) hypertension; E78.5 Hyperlipidemia, unspecified; K21.9 Gastro-esophageal reflux disease without esophagitis; F17.210 Nicotine dependence, cigarettes, uncomplicated; Z79.891 Long term (current) use of opiate analgesic; Z79.899 Other long term (current) drug therapy; Z88.8 Allergy status to other drugs, medicaments and biological substances; Z91.030 Bee allergy status

== ENCOUNTER → 2020-05-11 | Outpatient (CLI) | payer MEDICARE, OTHER ==
--- NOTE | 2020-05-11 11:50 | REP ---
INDICATION: ABN FINDING OF LUNG FIELD COMPARISON: 10/30/2019 TECHNIQUE: Axial noncontrast images from the thoracic inlet to the upper abdomen with coronal and sagittal reformations. This CT examination was performed using the following dose reduction techniques: Automated exposure control, adjustment of mA and/or kv according to the patient's size, and use of iterative reconstruction technique. FINDINGS: The bilateral lung zaragoza are well aerated and few stable nodules measuring up to roughly 3 mm are again identified along with stable 7 mm nodule in the left lower lobe (image 51). No new consolidation, suspicious nodule or mass lesion. No pleural effusion. No pneumothorax. Few mediastinal lymph nodes including precarinal lymph node measuring 10 mm are unchanged. Further evaluation of the mediastinum demonstrates stable thoracic aorta, pulmonary vasculature, and heart/pericardium. No aortic aneurysm, cardiomegaly or pericardial effusion. Limited upper abdomen demonstrates prior gastric bypass surgery and cholecystectomy. IMPRESSION: Stable appearing nodules including 7 mm nodule in the left lower lobe. No new acute process appreciated. <Electronically signed by Jt Ng > 05/11/20 [id number]
== END ==
LOC: M RAD 11:08
PROVIDERS: ATTEND Internal Medicine Pulmonary Disease
DX: R91.8 Other nonspecific abnormal finding of lung field (principal); J47.9 Bronchiectasis, uncomplicated; E78.2 Mixed hyperlipidemia; E88.09 Other disorders of plasma-protein metabolism, not elsewhere classified; Z98.84 Bariatric surgery status; Z90.49 Acquired absence of other specified parts of digestive tract

== ENCOUNTER → 2020-05-11 | Outpatient (REF) | payer MEDICARE, OTHER ==
[2020-05-11 13:57] LABS: BASO % 0.3 % (0.0-1.0); EOS # 0.1 10^3/uL (0.0-0.5); HEMATOCRIT 48.7 % (36.0-47.0); LYMPH # 3.3 10^3/uL (1.5-5.0); LYMPH % 40.7 % (24.0-44.0); MEAN CORPUSCULAR HEMOGLOBIN 32.5 pg (27.0-33.0); MEAN CORPUSCULAR HGB CONC 32.9 g/dl (32.0-36.5); MONO # 0.5 10^3/uL (0.0-0.8); MONO % 6.5 % (0.0-5.0); NEUTROPHILS # 4.1 10^3/uL (1.5-8.5); NEUTROPHILS % 51.2 % (36.0-66.0); PLATELET COUNT, AUTOMATED 279 10^3/uL (150-450); RED BLOOD COUNT 4.92 10^6/uL (4.00-5.40)
[2020-05-11 14:09] LABS: INR 0.98; PROTHROMBIN TIME 13.2 SECONDS (12.5-14.3)
[2020-05-11 14:10] LABS: PARTIAL THROMBOPLASTIN TIME 34.1 SECONDS (24.2-38.5)
[2020-05-11 15:15] LABS: ALT/SGPT 40 U/L (12-78); BILIRUBIN,DIRECT 0.1 MG/DL (0.0-0.2); BILIRUBIN,TOTAL 0.5 MG/DL (0.2-1.0); C REACTIVE PROTEIN QUANTITATIV < 0.30 MG/DL (0.00-0.30); TOTAL PROTEIN 5.8 GM/DL (6.4-8.2)
== END ==
LOC: M SFHCPLAZ 11:32
PROVIDERS: ATTEND Family Medicine
DX: E78.2 Mixed hyperlipidemia (principal); E88.09 Other disorders of plasma-protein metabolism, not elsewhere classified

== ENCOUNTER → 2020-06-09 | Outpatient (CLI) | payer MEDICARE, OTHER ==
--- NOTE | 2020-06-12 00:30 | ECWPNPC ---
PATIENT NAME: ELIDIA WEEMS : 1970 GENDER: FEMALE VISIT DATE: 06/09/2020 DISCHARGE DATE: 06/09/20 1019 VISIT LOCKED DATE TIME: PHYSICIAN: LUÍS AGARWAL PHYSICIAN PAGER NO: ACTIVE RESOURCE: LUÍS AGARWAL REASON FOR APPOINTMENT 1. MEDICATION MANAGEMENT/REVIEW URINE TOXICOLOGY HISTORY OF PRESENT ILLNESS GENERAL: HERE FOR FOLLOW-UP AND MEDICATION MANAGEMENT OF PERSISTENT LEFT CHEST WALL PAIN. ACCOMPANIED IN THE EXAM ROOM WITH HER . PATIENT HAS SEIZURE DISORDER AND HAS BEEN HAVING SIGNIFICANT INCREASE IN SEIZURE ACTIVITY OVER THE PAST YEAR. PATIENT'S PAIN MEDICATIONS HAVE BEEN LOWER WHICH BEGAN ABOUT A YEAR AGO AND SINCE THEN SHE IS EXPERIENCING SIGNIFICANT INCREASE IN SEIZURE ACTIVITY. ALSO BEING FOLLOWED BY GASTROENTEROLOGY FOR POSSIBLE LIVER ISSUES. REPORTING POOR SLEEP DUE TO UNCONTROLLED PAIN UNDER CURRENT REGIMEN. TODAY WE DISCUSSED THE FACT THAT SHE WAS DOING BETTER ON A LITTLE BIT HIGHER DOSES OF MORPHINE DAILY IN REGARDS TO SLEEP AND SEIZURE ACTIVITY BUT I WOULD BE UNABLE TO INCREASE THAT WITHOUT SUPPORT FROM GASTROENTEROLOGY AND PRIMARY CARE. SHE IS IN THE PROCESS OF FINDING A NEW PRIMARY CARE PROVIDER. REPORTING NORMAL BOWEL AND BLADDER FUNCTION.-. FALL RISK SCREENING: SCREENING :NO FALLS REPORTED IN THE LAST YEAR PAIN SCREENING: PATIENT HAS A COMPLAINT OF ACUTE OR CHRONIC PAIN :YES LOCATION OF PAIN:MID BACK, LOW BACK INTENSITY OF PAIN (SCALE OF 1 TO 10):6 WHAT DOES YOUR PAIN FEEL LIKE:ACHING, BURNING, TENDER, THROBBING, SHOOTING DURATION:CONTINOUS, CONSTANT, ALL DAY PAIN IS INCREASED BY:ACTIVITIES PAIN IS DECREASED BY:USE OF PAIN MEDICATIONS NURSING NOTE: -. PAIN CENTER INTAKE QUESTIONS: DO YOU HAVE A HISTORY OF MRSA? :YES 2017 DO YOU TAKE A BLOOD THINNERS? :NO DO YOU HAVE ANY BLEEDING DISORDERS? :NO ANY NEW NUMBNESS OR WEAKNESS IN YOUR LEGS OR ARMS? :NO ANY PACEMAKER,DEFIBRILLATOR, OR DORSAL COLUMN STIMULATOR? :NO DO YOU HAVE ANY RASHES OR OPEN SORES? :NO ARE YOU ALLERGIC TO IV DYE? :NO ARE YOU DIABETIC? :NO ANY NEW PROBLEMS WITH YOUR MEDICATIONS? :NO HAVE YOU RECEIVED A VACCINE IN THE PAST 30 DAYS? :NO DO YOU PLAN TO RECEIVE A VACCINE IN THE NEXT 21 DAYS? :YES IF SO WHAT VACCINE AND WHEN? FLU SHOT DO YOU NEED ANY PRESCRIPTION? :YES MORPHINE, MS CONTIN, MOVANTIK, LIDODERM PATCHES, GABAPENTIN, AMIITRIPTLINE, DULOXETINE DO YOU TAKE ANY IMMUNOSUPPRESSIVE MEDICATIONS? :NO IS THERE A CHANCE YOU COULD BE ? :NO ARE YOU BREAST FEEDING? :NO CURRENT MEDICATIONS TAKING OMEPRAZOLE 20 MG CAPSULE DELAYED RELEASE 1 CAPSULE ORALLY ONCE A DAY TAKING CALCIUM CITRATE + D 500MG/600MG TABLET 2 TABLET ORALLY FOUR TIMES A DAY TAKING GLUCOMETER DIRECTED THREE TIMES A DAY NEEDED TAKING NARCAN 4 MG/0.1ML LIQUID DIRECTED NASALLY USE IF SIGNS OF RESPITORY DEPRESS OR ALTER MENTAL STAUS. CALL 911 IF USED TAKING ALIGN - CAPSULE DIRECTED ORALLY DAILY TAKING MAGNESIUM 300 MG CAPSULE 1 CAPSULE WITH A MEAL ORALLY ONCE A DAY TAKING POTASSIUM 99 MG TABLET 1 TABLET ORALLY ONCE A DAY OTC PRODUCT TAKING FLOVENT HFA 110 MCG/ACT AEROSOL 1 PUFF INHALATION TWICE A DAY TAKING VITAMIN D3 50 MCG (1999) TABLET 1 TABLET ORALLY ONCE A DAY TAKING EZETIMIBE 10 MG TABLET 1 TABLET ORALLY ONCE A DAY TAKING COMPRESSION STOCKINGS 15-20 MMHG DIRECTED _ DAILY I87.2 TAKING VOLTAREN 1 % GEL DIRECTED TRANSDERMAL TAKING GABAPENTIN 600 MG TABLET 1 ORALLY Q8H TID TAKING LIDODERM 5 % PATCH 3 PATCH TO CHEST WALL AND RIBS EXTERNALLY ON 12 HOURS OFF 12 HOURS NEEDED TAKING MOVANTIK 25 MG TABLET 1 TABLET IN THE MORNING ORALLY ONCE A DAY TAKING AMITRIPTYLINE HCL 10 MG TABLET 1 -2 TABLET ORALLY BEFORE BEDTIME TAKING COLACE 100 MG CAPSULE 2 CAPSULE NEEDED ORALLY TID TAKING INTRAROSA 6.5 MG OVULES DIRECTED VAGINAL INSERTION ONCE DAILY AT BEDTIME TAKING ZOLPIDEM TARTRATE 10 MG TABLET 1 TABLET AT BEDTIME NEEDED ORALLY AT BEDTIME PRN INSOMNIA TAKING DULOXETINE HCL 30 MG CAPSULE DELAYED RELEASE PARTICLES 2 CAPSULES ORALLY DAILY TAKING MORPHINE SULFATE 15 MG TABLET 1 TABLET NEEDED ORALLY HALF TO 1 WHOLE TAB DIRECTED EVERY 4-6 HOURS FOR PAIN MDD 5.5 TAKING MS CONTIN 30 MG TABLET EXTENDED RELEASE 1 TABLET ORALLY EVERY 12 HRS MDD=2 NOT-TAKING ZOLPIDEM TARTRATE 10 MG TABLET 1 TAB ORALLY AT BEDTIME PRN INSOMNIA, NOTES: PATIENT OT HAND CARRY MEDICATION LIST REVIEWED AND RECONCILED WITH THE PATIENT PAST MEDICAL HISTORY CHRONIC MDD HYERPTENSION, ESSENTIAL HYPERLIPIDEMIA 2B H/O JYOTI-STOPPED CPAP 12 11/17/2014 C WT LOSS P GB-PER DR. FAUSTIN LT WRIST NERVE DAMAGE/RSD A RESULT HX OVARIAN CANCER SP TAHBSO, THEN BRACHYXRT 2000 GERD-10 CM JEJUNAL POUCH, LOWER 1/3 ESOPHAGEAL LEIOMYOMA EXCISED-03/[address] BELTRE OCALA GI OSTEOPOROSIS RECURRENT BRONCHIECTASIS/RLS LUMBAR [id number] DIFFUSE BULGE C L4/5 HNP ABUTTING L L4 IN NF AND L5/S1 HNP COMPRESSION OF L L5 IN NF BY 10/2016 MRI-[facility] NE[facility]ATH[facility]-T4 VERTEBRAL BODY HEMANGIOMA, S BULGE/HNP BY 10/2016 MRI/05/2017 MILD ML DSN, OSTEOPHYTES BY 05/2017 XRAY, 05/2017 NROAM B RIB XRAY PNES-08/2017 -VEEG MONITORING OF 3 SPELLS//08/26/17 MRI BRAIN, MRA BRAIN, NECK 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 ALLERGIES BEE STINGS: ANAPHYLAXIS - ALLERGY METFORMIN HCL: KETOASCIDOSIS - ALLERGY NUCYNTA ER: BODY ON FIRE - ALLERGY SURGICAL HISTORY BTL 08/1990 RT SIDE INGUINAL HERNIA REPAIR 03/2000 TAHBSO 2 OVARIAN CANCER 06/2000 LT WRIST RECONSTRUCTION/JOINT FUSION 05/2005 LAP GASTRIC BYPASS-RACHAEL 01/23/2012 CHOLECYSTECTOMY DORSAL STIMULATOR PLACED FOR 5 DAYS THAN REMOVED ON 01/14/17 01/09/17 ENDOSCOPY WITH ESOPHAGUS BIOPSY 03/2018 LAPAROSCOPIC LYSIS OF ADHESIONS, RESECTION OF EFFERENT LIMB OF GASTROJEJUNOSTOMY-ROBERTO 06/11/18 ESOAGHEAL TUMOR REMOVED 03/2018 R BREAST BREAST US-GUIDED BIOPSY OF PALPABLE LUMP AT 12 (C2 BY MAMMO/US)-BENIGN-MICHELLE 06/28/19 SOCIAL HISTORY GENERAL: TOBACCO USE ARE YOU A:CURRENT SMOKER ARE YOU INTERESTED IN QUITTING?THINKING ABOUT QUITTING DOWN TO HALF PACK PER DAY COUNSELED THE PATIENT ON SMOKING CESSATION, EDUCATION [id number]/09/2021 HOW MANY CIGARETTES A DAY DO YOU SMOKE?6-10 HOW SOON AFTER YOU WAKE UP DO YOU SMOKE YOUR FIRST CIGARETTE?WITHIN 5 MIN HOW OFTEN DO YOU SMOKE CIGARETTES?EVERY DAY PATIENT COUNSELED ON THE DANGERS OF TOBACCO USE AND URGED TO QUIT:01/31/2020 SMOKING CESSATION INFORMATION GIVEN01/31/2020 VAPORNO E-CIGARETTENO LATEX QUESTIONNAIRE LATEX ALLERGY : HAVE YOU EVER DEVELOPED ANY TYPE OF REACTION AFTER HANDLING LATEX PRODUCTS SUCH RUBBER GLOVES, CONDOMS, DIAPHRAGMS, BALLOONS, SOCKS, OR UNDERWEAR?NO LATEX ALLERGY : HAVE YOU EVER DEVELOPED ANY TYPE OF REACTION DURING OR AFTER DENTAL APPOINTMENT, VAGINAL/RECTAL EXAMINATION, SURGICAL PROCEDURE, OR ANY OTHER EXPOSURE?NO LATEX RISK : HAVE YOU EVER HAD ANY DIFFICULTY BREATHING OR HIVES AFTER EATING OR HANDLING ANY FRUITS, OR VEGETABLES; SUCH KIWI, BANANAS, STONE FRUITS, OR CHESTNUTSNO LATEX RISK : DO YOU HAVE A PREVIOUS PERSONAL HISTORY OF MORE THAN NINE SURGERIES, SPINA BIFIDA, OR REPEATED CATHERIZATIONS? YES - PLEASE INDICATE : > 9 SURGERIES LATEX RISK : ARE YOU FREQUENTLY EXPOSED TO LATEX PRODUCTS IN YOUR OCCUPATION?NO DATE ASKED : 06/09/2020 ALCOHOL USE: NO. ALCOHOL SCREENING DID YOU HAVE A DRINK CONTAINING ALCOHOL IN THE PAST YEAR?NO POINTS0 INTERPRETATIONNEGATIVE RECREATIONAL DRUG USE DRUG USE?NO CAFFEINE CAFFEINE USE?YES 2 CUPS OF COFFEE IN THE AM HOW OFTEN AND HOW MUCH? 2-3 DIET SNAPPLES/DAY SEXUAL HX HAD SEX IN THE LAST 12 MONTHS (VAGINAL, ORAL, OR ANAL)?NO LMP:HYSTER HAVE YOU EVER HAD AN STD?NO HIV / HEP-C SCREENING HIV TEST OFFERED TO PATIENT:YES DATE OFFERED:12/27/2016 JUST PREVIOUSLY HAD TEST ACCEPTED:NO HEP-C TEST OFFERED TO PATIENT:NO ALREADY TESTED REASON:OTHER (DOCUMENT IN NOTE) PT STATES SHE HAS HAD IT DONE PREVIOUSLY BAPTIST [id number] NONE LANGUAGE SLOVENIAN. EDUCATION LEVEL OF EDUCATION:HIGH SCHOOL REGENTS GED LEARNING BARRIERS / SPECIAL NEEDS CHANGE FROM LAST VISIT?NO BARRIERS TO LEARNING?NO HEARING IMPAIRED?NO VISION IMPAIRED?YES :CORRECTIVE LENSES COGNITIVELY IMPAIRED?NO READINESS TO LEARN?YES LEARNING PREFERENCES?YES :DEMONSTRATION/VERBAL INSTRUCTION LEARNING CAPABILITIES PRESENT?YES EMOTIONAL BARRIERS?NO SPECIAL DEVICES?YES :CANE, WALKER NEEDED LADIES' LOCKER ROOM ATTENDANT NEEDED?NO DOMESTIC VIOLENCE DO YOU FEEL SAFE IN YOUR ENVIRONMENT?YES OCCUPATION: DISABLED. DIET: SMALL FERQUENT MEALS. EXERCISE: NO REGULAR EXERCISE DUE TO RIB FX. MARITAL STATUS: . OTHERS AT HOME: SPOUSE. TODAY'S VISIT 08/30/19 PATIENT DESCRIBES PAIN :ACHING, BURNING, HAVE IT ALL THE TIME FROM 0-10, WHAT LEVEL IS YOUR PAIN TODAY?7 PRECIPITATING FACTORS WHEN SHE BENDS OVER, OR MOVING "JUST RIGHT ', CAN'T LAY ON LEFT SIDE AT ALL ALLEVIATING FACTORS NOTHING - PFS REFERRAL NEEDED?NO CLERGY REFERRAL NEEDED?NO PUBLIC HEALTH REFERRAL NEEDED?NO HAS THE PATIENT BEEN EDUCATED REGARDING HIS/HER PLAN OF CARE?YES HAS THE PATIENT BEEN EDUCATED REGARDING PAIN, THE RISK FOR PAIN, THE IMPORTANCE OF EFFECTIVE PAIN MANAGEMENT, AND THE PAIN ASSESSMENT PROCESS?YES ADVANCE DIRECTIVE ADVANCE DIRECTIVE DISCUSSED WITH PATIENT:YES HCP BRE WEEMS [phone] THIS PATIENT LIVES AT HOME WITH HER AND SON. SHE FRACTURED HER LEFT WRIST IN THE PAST. NO HISTORY OF AN EATING DISORDER. NO HISTORY OF PHYSICAL/SEXUAL ABUSE. SHE SLEEPS OKAY ONLY; USES CPAP. SHE WEARS SEAT BELTS. SHE IS CURRENT WITH DENTAL AND EYE EXAMINATIONS. SHE IS UP TO DATE WITH IMMUNIZATIONS AND TETANUS.REVIEWED WITH PT 04/26/18 1020 LASREVIEWED WITH PT 07/02/18 1107 BV04/22/19 REVIEWED WITH PT. ADREVIEWED WITH PATIENT 12/28/18 0935 LASREVIEWED WITH PT 10/03/18 1019 BVREVIEWED WITH PT 01/30/19 1133 BVREVIEWED WITH PATIENT 02/20/19 1016 JS. HOSPITALIZATION/MAJOR DIAGNOSTIC PROCEDURE STROKE 06/2001 HYPOGLYCEMIA 1997 ? SEIZURE ACTIVITY 09/2017 REVIEW OF SYSTEMS CONSTITUTIONAL: ANY RECENT FEVER NO . CHILLS NO . WEIGHT CHANGE OF UNKNOWN REASONS NO . GASTROENTEROLOGY: NEW UNEXPLAINABLE CHANGES IN BOWEL CONTROL NO . CONSTIPATION NO . GENITOURINARY: ANY NEW CHANGE IN BLADDER CONTROL? NO . NEUROLOGY: NEW ONSET DIZZINESS OR NEUROLOGICAL CHANGES NOT MENTIONED NO . NEW NUMBNESS OR PAIN PATTERNS NOT MENTIONED AND PERTINENT TO TODAY'S VISIT NO . CARDIOLOGY: NEW CHEST PRESSURE NO . NEW CHEST PAIN NO . RESPIRATORY: UNEXPLAINABLE COUGH NO . NEW SHORTNESS OF BREATH NO . VITAL SIGNS WT 147 LBS, HT 62.5", BMI 26.46 INDEX, BP 123/74 MM HG, HR 71 /MIN, RR 18 /MIN, TEMP 97.3 F, OXYGEN SAT % 98%, SAFE IN ENV? (Y/N) YEST.TITA COPPOLA. EXAMINATION GENERAL EXAMINATION: GENERALAWAKE,ALERT ,PLEASANT . PSYCHAFFECT NORMAL . LUNGS:LUNG MCGRAW ARE CLEAR TO AUSCULTATION BILATERALLY. GOOD MOVEMENT OF AIR . HEART:S1, S2 IN A REGULAR RATE AND RHYTHM. NO SIGNIFICANT MURMURS, RUBS OR GALLOPS NOTED . ASSESSMENTS PAIN SYNDROME, CHRONIC - G89.4 (PRIMARY) CHRONIC PRESCRIPTION OPIATE USE - Z79.891 TREATMENT PAIN SYNDROME, CHRONIC REFILL MORPHINE SULFATE TABLET, 15 MG, 1 TABLET NEEDED, ORALLY, HALF TO 1 WHOLE TAB DIRECTED EVERY 4-6 HOURS FOR PAIN MDD 5.5, 30 DAYS, 165, REFILLS 0 REFILL VOLTAREN GEL, 1 %, DIRECTED, TRANSDERMAL, THREE TIMES DAILY NEEDED, 90 DAY(S), 3, REFILLS 0 REFILL GABAPENTIN TABLET, 600 MG, 1, ORALLY, Q8H TID, 90 DAY(S), 270, REFILLS 0 REFILL LIDODERM PATCH, 5 %, 3 PATCH TO CHEST WALL AND RIBS, EXTERNALLY, ON 12 HOURS OFF 12 HOURS NEEDED, 90 DAY(S), 90, REFILLS 0 REFILL MOVANTIK TABLET, 25 MG, 1 TABLET IN THE MORNING, ORALLY, ONCE A DAY, 90 DAY(S), 90 TABLET, REFILLS 0 REFILL AMITRIPTYLINE HCL TABLET, 10 MG, 1 -2 TABLET, ORALLY, BEFORE BEDTIME, 90 DAY(S), 180, REFILLS 0 REFILL COLACE CAPSULE, 100 MG, 2 CAPSULE NEEDED, ORALLY, TID, 90 DAY(S), 540 CAPSULE, REFILLS 0 NOTES: ISTOP REGISTRY REVIEWED AND DEMONSTRATES COMPLLIANCE. BRINGS IN MEDICATIONS WHICH IS APPROPRIATE FOR WHAT WAS DISPENSED. RECENT URINE TOXICOLOGY REVIEWED. NO UNAUTHORIZED MEDICATIONS. NO ILLICIT SUBSTANCES AND PRESCRIBED MEDICATIONS WERE PRESENT. UTOX TODAY , RISKS OF NARCOTIC/OPIOD MEDICATIONS INCLUDES BUT IS NOT LIMITED TO RISK OF DEPENDANCE/DEVELOPMENT OF ADDICTION, MOOD DISTURBANCE AND DEPRESSION, OSTEOPOROSIS, HORMONAL AND LABIDAL CHANGES, RESPIRATORY DEPRESSION AND . PATIENT IS ADVISED NOT TO DRIVE OR DRINK ALCOHOL WHILE ON THESE MEDICATIONS. PROCEDURE CODES FA211 ESTABILISHED PATIENT [facility] CHARGE DISPOSITION & COMMUNICATION FOLLOW UP 3 MONTHS (REASON: MED MGMNT/REVIEW UTOX) ELECTRONICALLY SIGNED BY JENIFFER ALFORD ON 06/11/2020 AT 08:45 PM EST DISCLAIMER : THIS IS A VISIT SUMMARY EXTRACTED FROM THE [employer] CHART. IT IS NOT A COPY OF THE [employer] PROGRESS NOTE. EUGENIO
== END ==
LOC: M PAIN 09:15
PROVIDERS: ATTEND Nurse Practitioner Family
DX: G89.4 Chronic pain syndrome (principal); F32.9 Major depressive disorder, single episode, unspecified; I10 Essential (primary) hypertension; E78.5 Hyperlipidemia, unspecified; K21.9 Gastro-esophageal reflux disease without esophagitis; M81.0 Age-related osteoporosis without current pathological fracture; F17.210 Nicotine dependence, cigarettes, uncomplicated; Z79.891 Long term (current) use of opiate analgesic; Z79.899 Other long term (current) drug therapy; Z88.8 Allergy status to other drugs, medicaments and biological substances; Z91.030 Bee allergy status

== ENCOUNTER → 2020-06-19 | Outpatient (REF) | payer MEDICARE, OTHER ==
[2020-06-19 15:53] LABS: BASO % 0.4 % (0.0-1.0); EOS % 1.3 % (0.0-3.0); HEMATOCRIT 45.6 % (36.0-47.0); LYMPH # 2.8 10^3/uL (1.5-5.0); LYMPH % 37.2 % (24.0-44.0); MEAN CORPUSCULAR HEMOGLOBIN 32.3 pg (27.0-33.0); MEAN CORPUSCULAR HGB CONC 32.9 g/dl (32.0-36.5); MEAN CORPUSCULAR VOLUME 98.1 fl (80.0-96.0); MONO # 0.6 10^3/uL (0.0-0.8); MONO % 7.8 % (2.0-8.0); NEUTROPHILS # 3.9 10^3/uL (1.5-8.5); PLATELET COUNT, AUTOMATED 293 10^3/uL (150-450); RED BLOOD COUNT 4.65 10^6/uL (4.00-5.40); WHITE BLOOD COUNT 7.4 10^3/uL (4.0-10.0)
[2020-06-19 15:54] LABS: EOS # 0.1 10^3/uL (0.0-0.5)
[2020-06-19 16:24] LABS: ALT/SGPT 29 U/L (12-78); BILIRUBIN,TOTAL 0.3 MG/DL (0.2-1.0); BLOOD UREA NITROGEN 9 MG/DL (7-18); CALCIUM LEVEL 8.6 MG/DL (8.5-10.1); CARBON DIOXIDE LEVEL 33 MEQ/L (21-32); CHLORIDE LEVEL 104 MEQ/L (98-107); CHOLESTEROL LEVEL 176 MG/DL (<200); CHOLESTEROL RISK RATIO 4.093 (<5); CPK CREATINE PHOSPHOKINASE 43 U/L (26-192); CREATININE FOR GFR 0.58 MG/DL (0.55-1.30); FREE T4 0.99 NG/DL (0.76-1.46); GLOMERULAR FILTRATION RATE > 60.0 (>51); GLUCOSE, FASTING 85 MG/DL (70-100); HDL CHOLESTEROL 43 MG/DL (>40); LDL CHOLESTEROL 119 MG/DL (<100); NON-HDL-C 133 MG/DL; POTASSIUM SERUM 4.5 MEQ/L (3.5-5.1); SODIUM LEVEL 141 MEQ/L (136-145); THYROID STIMULATING HORMONE 0.577 uIU/ML (0.358-3.740); TOTAL PROTEIN 5.7 GM/DL (6.4-8.2); TRIGLYCERIDES LEVEL 71 MG/DL (<150); VITAMIN B12 LEVEL 851 PG/ML (247-911)
[2020-06-23 10:24] LABS: ALBUMIN 3.32 GM/DL (3.29-5.55); ALBUMIN % 58.3 % (55.8-66.1); ALPHA-1-GLOBULIN % 6.3 % (2.9-4.9); ALPHA-1-GLOBULINS 0.36 GM/DL (0.17-0.41); ALPHA-2-GLOBULINS 0.73 GM/DL (0.42-0.99); ALPHA-2-GLOBULINS % 12.8 % (7.1-11.8); BETA-1-GLOBULINS 0.42 GM/DL (0.28-0.60); BETA-1-GLOBULINS % 7.3 % (4.7-7.2); BETA-2-GLOBULINS 0.26 GM/DL (0.19-0.55); BETA-2-GLOBULINS % 4.6 % (3.2-6.5); GAMMA GLOBULIN % 10.7 % (11.1-18.8); GAMMA GLOBULINS 0.61 GM/DL (0.65-1.58)
== END ==
LOC: M SFHCPLAZ 13:50
PROVIDERS: ATTEND Family Medicine
DX: E78.2 Mixed hyperlipidemia (principal); K75.9 Inflammatory liver disease, unspecified; E53.8 Deficiency of other specified B group vitamins
CPT/HCPCS: 36415; 80053; 80061; 82550; 82607; 82977; 84165; 84439; 84443; 85025; G0463

== ENCOUNTER → 2020-07-06 | Outpatient (CLI) | payer MEDICARE, OTHER ==
[~2020-07-06] MED LIST changes: -AMIT10TA PO; +AMIT10TA7 PO
--- NOTE | 2020-07-11 00:16 | ECWPNPC ---
PATIENT NAME: ELIDIA WEEMS : 1970 GENDER: FEMALE VISIT DATE: 07/06/2020 DISCHARGE DATE: 07/06/20921 VISIT LOCKED DATE TIME: PHYSICIAN: LUÍS AGARWAL PHYSICIAN PAGER NO: ACTIVE RESOURCE: LUÍS AGARWAL REASON FOR APPOINTMENT 1. MED MANAGEMENT [phone] HISTORY OF PRESENT ILLNESS GENERAL: PATIENT IS AGREEABLE TO TELEPHONE VISIT TODAY. THIS IS A MEDICATION MANAGEMENT VISIT FOR CHRONIC LEFT CHEST WALL PAIN. PATIENT IS FOLLOWING WITH DR. MELTON , PRIMARY CARE AT [facility]. HE WAS AGREEABLE TO HAVE US INCREASE MORPHINE. SHE WILL BE FOLLOWING UP WITH HIM IN REGARDS TO LIVER FUNCTION AND IF HER LIVER FUNCTION BEGINS TO DECLINE WE WILL DECREASE MORPHINE. SHE IS EXTREMELY OPIOID TOLERANT. WE CUT BACK HER MORPHINE SEVERAL MONTHS AGO DUE TO ABNORMAL LIVER FUNCTIONS. SHE STOPPED STATIN MEDICATION AND THERE HAS BEEN SOME IMPROVEMENT. SHE IS FOLLOWING WITH GASTROENTEROLOGY. THERE STILL HAS NOT BEEN A CAUSE FOUND FOR LIVER FUNCTION ABNORMALITY EXCEPT FOR MEDICATION TOXICITY. FALL RISK SCREENING: SCREENING : NO FALLS REPORTED IN THE LAST YEAR. PAIN SCREENING: PATIENT HAS A COMPLAINT OF ACUTE OR CHRONIC PAIN :YES LOCATION OF PAIN:MID BACK INTENSITY OF PAIN (SCALE OF 1 TO 10):7 WHAT DOES YOUR PAIN FEEL LIKE:ACHING, BURNING, STABBING, TENDER, THROBBING, SHOOTING DURATION:CONTINOUS, CONSTANT, ALL DAY PAIN IS INCREASED BY:ACTIVITIES PAIN IS DECREASED BY:USE OF PAIN MEDICATIONS, OTHERS HEATING, NOTHING REALLY HELPS NURSING NOTE: -. PAIN CENTER INTAKE QUESTIONS: DO YOU HAVE A HISTORY OF MRSA? :YES 2017 DO YOU TAKE A BLOOD THINNERS? :NO DO YOU HAVE ANY BLEEDING DISORDERS? :NO ANY NEW NUMBNESS OR WEAKNESS IN YOUR LEGS OR ARMS? :NO ANY PACEMAKER,DEFIBRILLATOR, OR DORSAL COLUMN STIMULATOR? :NO DO YOU HAVE ANY RASHES OR OPEN SORES? :NO ARE YOU ALLERGIC TO IV DYE? :NO ARE YOU DIABETIC? :NO ANY NEW PROBLEMS WITH YOUR MEDICATIONS? :NO HAVE YOU RECEIVED A VACCINE IN THE PAST 30 DAYS? :NO DO YOU PLAN TO RECEIVE A VACCINE IN THE NEXT 21 DAYS? :NO DO YOU NEED ANY PRESCRIPTION? :YES MORPHINE, DO YOU TAKE ANY IMMUNOSUPPRESSIVE MEDICATIONS? :NO IS THERE A CHANCE YOU COULD BE ? :NO ARE YOU BREAST FEEDING? :NO CURRENT MEDICATIONS TAKING MOVANTIK 25 MG TABLET 1 TABLET IN THE MORNING ORALLY ONCE A DAY TAKING COLACE 100 MG CAPSULE 2 CAPSULE NEEDED ORALLY BID PRN CONSTIPATION TAKING CALCIUM CITRATE + D 500MG/600MG TABLET 2 TABLET ORALLY FOUR TIMES A DAY TAKING GLUCOMETER DIRECTED THREE TIMES A DAY NEEDED TAKING AMITRIPTYLINE HCL 10 MG TABLET 1 -2 TABLET ORALLY BEFORE BEDTIME TAKING ZOLPIDEM TARTRATE 10 MG TABLET 1 TAB ORALLY AT BEDTIME PRN INSOMNIA TAKING ALIGN - CAPSULE DIRECTED ORALLY DAILY TAKING MAGNESIUM 300 MG CAPSULE 1 CAPSULE WITH A MEAL ORALLY ONCE A DAY TAKING POTASSIUM 99 MG TABLET 1 TABLET ORALLY ONCE A DAY OTC PRODUCT TAKING FLOVENT HFA 110 MCG/ACT AEROSOL 1 PUFF INHALATION TWICE A DAY TAKING VITAMIN D3 50 MCG (1999) TABLET 1 TABLET ORALLY ONCE A DAY TAKING EZETIMIBE 10 MG TABLET 1 TABLET ORALLY ONCE A DAY TAKING NARCAN 4 MG/0.1ML LIQUID DIRECTED NASALLY USE IF SIGNS OF RESPITORY DEPRESS OR ALTER MENTAL STAUS. CALL 911 IF USED TAKING GABAPENTIN 600 MG TABLET 1 ORALLY Q8H TID TAKING LIDODERM 5 % PATCH 3 PATCH TO CHEST WALL AND RIBS EXTERNALLY ON 12 HOURS OFF 12 HOURS NEEDED TAKING MS CONTIN 30 MG TABLET EXTENDED RELEASE 1 TABLET ORALLY EVERY 12 HRS MDD=2 TAKING DULOXETINE HCL 30 MG CAPSULE DELAYED RELEASE PARTICLES 2 CAPSULES ORALLY DAILY TAKING MORPHINE SULFATE 15 MG TABLET 1 TABLET NEEDED ORALLY HALF TO 1 WHOLE TAB DIRECTED EVERY 4-6 HOURS FOR PAIN MDD 5.5 TAKING CLOBETASOL PROPIONATE 0.05 % CREAM 1 APPLICATION EXTERNALLY BID TO PALMS, PLANTAR FEET X 10 DAYS WITH FLARES TAKING INTRAROSA 6.5 MG OVULES DIRECTED VAGINAL INSERTION ONCE DAILY AT BEDTIME TAKING ZOLPIDEM TARTRATE 10 MG TABLET 1 TABLET AT BEDTIME NEEDED ORALLY AT BEDTIME PRN INSOMNIA TAKING VOLTAREN 1 % GEL DIRECTED TRANSDERMAL THREE TIMES DAILY NEEDED TAKING COMPRESSION STOCKINGS 15-20 MMHG DIRECTED _ DAILY I87.2 TAKING OMEPRAZOLE 20 MG CAPSULE DELAYED RELEASE 1 CAPSULE ORALLY ONCE A DAY NOT-TAKING CETAPHIL MOISTURIZING - CREAM DIRECTED EXTERNALLY BID ARMS/LEGS NOT-TAKING FUROSEMIDE 20 MG TABLET 1 TABLET ORALLY EVERY MORNING PRN EDEMA MEDICATION LIST REVIEWED AND RECONCILED WITH THE PATIENT PAST MEDICAL HISTORY CHRONIC MDD HYERPTENSION, ESSENTIAL HYPERLIPIDEMIA 2B H/O JYOTI-STOPPED CPAP 12 11/17/2014 C WT LOSS P GB-PER DR. FAUSTIN LT WRIST NERVE DAMAGE/RSD A RESULT HX OVARIAN CANCER SP TAHBSO, THEN BRACHYXRT 2000 GERD-10 CM JEJUNAL POUCH, LOWER 1/3 ESOPHAGEAL LEIOMYOMA EXCISED-03/[address] BELTRE RANCHITA GI OSTEOPOROSIS RECURRENT BRONCHIECTASIS/RLS LUMBAR [id number] DIFFUSE BULGE C L4/5 HNP ABUTTING L L4 IN NF AND L5/S1 HNP COMPRESSION OF L L5 IN NF BY 10/2016 MRI-[facility]-T4 VERTEBRAL BODY HEMANGIOMA, S BULGE/HNP BY 10/2016 MRI/05/2017 MILD ML DSN, OSTEOPHYTES BY 05/2017 XRAY, 05/2017 NROAM B RIB XRAY PNES-08/2017 -VEEG MONITORING OF 3 SPELLS//08/26/17 MRI BRAIN, MRA BRAIN, NECK 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 [facility] GI ALLERGIES BEE STINGS: ANAPHYLAXIS - ALLERGY METFORMIN HCL: KETOASCIDOSIS - ALLERGY NUCYNTA ER: BODY ON FIRE - ALLERGY SOCIAL HISTORY GENERAL: TOBACCO USE ARE YOU A:CURRENT SMOKER HOW OFTEN DO YOU SMOKE CIGARETTES?EVERY DAY HOW SOON AFTER YOU WAKE UP DO YOU SMOKE YOUR FIRST CIGARETTE?WITHIN 5 MIN HOW MANY CIGARETTES A DAY DO YOU SMOKE?6-10 ARE YOU INTERESTED IN QUITTING?THINKING ABOUT QUITTING DOWN TO HALF PACK PER DAY PATIENT COUNSELED ON THE DANGERS OF TOBACCO USE AND URGED TO QUIT:01/31/2020 COUNSELED THE PATIENT ON SMOKING CESSATION, EDUCATION [id number]/09/2021 VAPORNO E-CIGARETTENO SMOKING CESSATION INFORMATION GIVEN01/31/2020 LATEX QUESTIONNAIRE LATEX ALLERGY : HAVE YOU EVER DEVELOPED ANY TYPE OF REACTION AFTER HANDLING LATEX PRODUCTS SUCH RUBBER GLOVES, CONDOMS, DIAPHRAGMS, BALLOONS, SOCKS, OR UNDERWEAR?NO LATEX ALLERGY : HAVE YOU EVER DEVELOPED ANY TYPE OF REACTION DURING OR AFTER DENTAL APPOINTMENT, VAGINAL/RECTAL EXAMINATION, SURGICAL PROCEDURE, OR ANY OTHER EXPOSURE?NO LATEX RISK : HAVE YOU EVER HAD ANY DIFFICULTY BREATHING OR HIVES AFTER EATING OR HANDLING ANY FRUITS, OR VEGETABLES; SUCH KIWI, BANANAS, STONE FRUITS, OR CHESTNUTSNO LATEX RISK : DO YOU HAVE A PREVIOUS PERSONAL HISTORY OF MORE THAN NINE SURGERIES, SPINA BIFIDA, OR REPEATED CATHERIZATIONS? YES - PLEASE INDICATE : > 9 SURGERIES LATEX RISK : ARE YOU FREQUENTLY EXPOSED TO LATEX PRODUCTS IN YOUR OCCUPATION?NO DATE ASKED : 07/06/2020 ALCOHOL USE: NO. ALCOHOL SCREENING DID YOU HAVE A DRINK CONTAINING ALCOHOL IN THE PAST YEAR?NO POINTS0 INTERPRETATIONNEGATIVE RECREATIONAL DRUG USE DRUG USE?NO CAFFEINE CAFFEINE USE?YES 2 CUPS OF COFFEE IN THE AM HOW OFTEN AND HOW MUCH? 2-3 DIET SNAPPLES/DAY SEXUAL HX HAD SEX IN THE LAST 12 MONTHS (VAGINAL, ORAL, OR ANAL)?NO LMP:HYSTER HAVE YOU EVER HAD AN STD?NO HIV / HEP-C SCREENING HIV TEST OFFERED TO PATIENT:YES DATE OFFERED:12/27/2016 JUST PREVIOUSLY HAD TEST ACCEPTED:NO HEP-C TEST OFFERED TO PATIENT:NO ALREADY TESTED REASON:OTHER (DOCUMENT IN NOTE) PT STATES SHE HAS HAD IT DONE PREVIOUSLY HOLINESS [id number] NONE LANGUAGE MICRONESIAN. EDUCATION LEVEL OF EDUCATION:HIGH SCHOOL REGENTS GED LEARNING BARRIERS / SPECIAL NEEDS CHANGE FROM LAST VISIT?NO BARRIERS TO LEARNING?NO HEARING IMPAIRED?NO VISION IMPAIRED?YES :CORRECTIVE LENSES COGNITIVELY IMPAIRED?NO READINESS TO LEARN?YES LEARNING PREFERENCES?YES :DEMONSTRATION/VERBAL INSTRUCTION LEARNING CAPABILITIES PRESENT?YES EMOTIONAL BARRIERS?NO SPECIAL DEVICES?YES :CANE, WALKER NEEDED DIAMOND GRADER NEEDED?NO DOMESTIC VIOLENCE DO YOU FEEL SAFE IN YOUR ENVIRONMENT?YES OCCUPATION: DISABLED. DIET: SMALL FERQUENT MEALS. EXERCISE: NO REGULAR EXERCISE DUE TO RIB FX. MARITAL STATUS: . OTHERS AT HOME: SPOUSE. TODAY'S VISIT 08/30/19 PATIENT DESCRIBES PAIN :ACHING, BURNING, HAVE IT ALL THE TIME FROM 0-10, WHAT LEVEL IS YOUR PAIN TODAY?7 PRECIPITATING FACTORS WHEN SHE BENDS OVER, OR MOVING "JUST RIGHT ', CAN'T LAY ON LEFT SIDE AT ALL ALLEVIATING FACTORS NOTHING - PFS REFERRAL NEEDED?NO CLERGY REFERRAL NEEDED?NO PUBLIC HEALTH REFERRAL NEEDED?NO HAS THE PATIENT BEEN EDUCATED REGARDING HIS/HER PLAN OF CARE?YES HAS THE PATIENT BEEN EDUCATED REGARDING PAIN, THE RISK FOR PAIN, THE IMPORTANCE OF EFFECTIVE PAIN MANAGEMENT, AND THE PAIN ASSESSMENT PROCESS?YES ADVANCE DIRECTIVE ADVANCE DIRECTIVE DISCUSSED WITH PATIENT:YES HCP BRE WEEMS [phone] THIS PATIENT LIVES AT HOME WITH HER AND SON. SHE FRACTURED HER LEFT WRIST IN THE PAST. NO HISTORY OF AN EATING DISORDER. NO HISTORY OF PHYSICAL/SEXUAL ABUSE. SHE SLEEPS OKAY ONLY; USES CPAP. SHE WEARS SEAT BELTS. SHE IS CURRENT WITH DENTAL AND EYE EXAMINATIONS. SHE IS UP TO DATE WITH IMMUNIZATIONS AND TETANUS.REVIEWED WITH PT 12/27/18 1020 LASREVIEWED WITH PT 07/02/18 1107 BV04/22/19 REVIEWED WITH PT. ADREVIEWED WITH PATIENT 12/28/18 0935 LASREVIEWED WITH PT 10/03/18 1019 BVREVIEWED WITH PT 01/30/19 1133 BVREVIEWED WITH PATIENT 02/20/19 1016 JS. REVIEW OF SYSTEMS CONSTITUTIONAL: ANY RECENT FEVER NO . CHILLS NO . WEIGHT CHANGE OF UNKNOWN REASONS NO . GASTROENTEROLOGY: NEW UNEXPLAINABLE CHANGES IN BOWEL CONTROL NO . CONSTIPATION NO . GENITOURINARY: ANY NEW CHANGE IN BLADDER CONTROL? NO . NEUROLOGY: NEW ONSET DIZZINESS OR NEUROLOGICAL CHANGES NOT MENTIONED NO . NEW NUMBNESS OR PAIN PATTERNS NOT MENTIONED AND PERTINENT TO TODAY'S VISIT NO . CARDIOLOGY: NEW CHEST PRESSURE NO . PATIENT DENIES NO . RESPIRATORY: UNEXPLAINABLE COUGH NO . NEW SHORTNESS OF BREATH NO . VITAL SIGNS WT 147 LBS, HT 62.5", BMI 26.46 INDEX, BP 0 MM HG, HR 0 /MIN, RR 0 /MIN, TEMP 0 F, OXYGEN SAT % 0, SAFE IN ENV? (Y/N) YEST.TITA COPPOLA. ASSESSMENTS PAIN SYNDROME, CHRONIC - G89.4 (PRIMARY) CHRONIC PRESCRIPTION OPIATE USE - Z79.891 TREATMENT PAIN SYNDROME, CHRONIC CONTINUE MS CONTIN TABLET EXTENDED RELEASE, 30 MG, 1 TABLET, ORALLY, EVERY 12 HRS MDD=2 NOTES: RECOMMEND INCREASING MORPHINE 15 MG TABLET TO 30 MG INSTANT RELEASE MORPHINE A HALF TABLET TO A FULL TABLET UP TO 4 TIMES DAILY NEEDED. SHE IS AWARE THAT THE LEAST AMOUNT OF MEDICATION THAT SHE CAN TAKE THE BETTER OFF LIVER FUNCTION WILL BE. CONTINUE MORPHINE 30 MG EXTENDED RELEASE TWICE A DAY. FOLLOW-UP IS SCHEDULED IN OUR CLINIC IN 2 MONTHS. TOTAL TIME SPENT DURING TELEPHONE VISIT WAS APPROXIMATELY 12 MINUTES. DISPOSITION & COMMUNICATION FOLLOW UP HAS SCHEDULED APPOINTMENT IN AUGUST (REASON: MEDICATION MANAGEMENT/FOLLOW-UP ON INCREASE IN MORPHINE) ELECTRONICALLY SIGNED BY JENIFFER ALFORD ON 07/10/2020 AT 02:28 PM EST DISCLAIMER : THIS IS A VISIT SUMMARY EXTRACTED FROM THE [facility] CHART. IT IS NOT A COPY OF THE [employer] PROGRESS NOTE. EUGENIO
== END ==
LOC: M PAIN 14:30
PROVIDERS: ATTEND Nurse Practitioner Family
DX: G89.4 Chronic pain syndrome (principal); Z79.891 Long term (current) use of opiate analgesic; F32.9 Major depressive disorder, single episode, unspecified; I10 Essential (primary) hypertension; E78.5 Hyperlipidemia, unspecified; K21.9 Gastro-esophageal reflux disease without esophagitis; M81.0 Age-related osteoporosis without current pathological fracture; F17.210 Nicotine dependence, cigarettes, uncomplicated; Z79.899 Other long term (current) drug therapy; Z88.8 Allergy status to other drugs, medicaments and biological substances; Z91.030 Bee allergy status

== ENCOUNTER → 2020-08-04 | Outpatient (REF) | payer MEDICARE, OTHER ==
[2020-08-04 15:20] LABS: ALBUMIN 2.9 GM/DL (3.2-5.2); ALT/SGPT 30 U/L (12-78); BILIRUBIN,TOTAL 0.3 MG/DL (0.2-1.0); BLOOD UREA NITROGEN 8 MG/DL (7-18); CALCIUM LEVEL 8.6 MG/DL (8.5-10.1); CARBON DIOXIDE LEVEL 31 MEQ/L (21-32); CHLORIDE LEVEL 105 MEQ/L (98-107); GLOMERULAR FILTRATION RATE > 60.0 (>51); GLUCOSE, FASTING 73 MG/DL (70-100); POTASSIUM SERUM 4.9 MEQ/L (3.5-5.1); SODIUM LEVEL 139 MEQ/L (136-145); TOTAL PROTEIN 5.7 GM/DL (6.4-8.2)
== END ==
LOC: M SFHCPLAZ 11:54
PROVIDERS: ATTEND Family Medicine
DX: K75.9 Inflammatory liver disease, unspecified (principal)

== ENCOUNTER → 2020-08-19 | Outpatient (CLI) | payer MEDICARE, OTHER | LOC: M LABSMTC 12:11 | PROVIDERS: ATTEND Internal Medicine | DX: Z20.822 Contact with and (suspected) exposure to COVID-19 (principal) ==

== ENCOUNTER → 2020-09-04 | Outpatient (REF) | payer MEDICARE, OTHER ==
[~2020-09-04] MED LIST changes: +GABA-283 PO; -GABA-845 PO
[2020-09-04 15:41] LABS: BASO % 0.3 % (0.0-1.0); EOS # 0.1 10^3/uL (0.0-0.5); EOS % 0.7 % (0.0-3.0); HEMATOCRIT 46.1 % (36.0-47.0); HEMOGLOBIN 15.6 g/dl (12.0-15.5); LYMPH # 2.7 10^3/uL (1.5-5.0); LYMPH % 31.2 % (24.0-44.0); MEAN CORPUSCULAR HEMOGLOBIN 33.5 pg (27.0-33.0); MEAN CORPUSCULAR HGB CONC 33.8 g/dl (32.0-36.5); MEAN CORPUSCULAR VOLUME 98.9 fl (80.0-96.0); MONO # 0.6 10^3/uL (0.0-0.8); MONO % 6.9 % (2.0-8.0); NEUTROPHILS # 5.3 10^3/uL (1.5-8.5); NEUTROPHILS % 60.7 % (36.0-66.0); PLATELET COUNT, AUTOMATED 275 10^3/uL (150-450); RED BLOOD COUNT 4.66 10^6/uL (4.00-5.40); WHITE BLOOD COUNT 8.7 10^3/uL (4.0-10.0)
[2020-09-04 16:18] LABS: ALT/SGPT 54 U/L (12-78); BILIRUBIN,TOTAL 0.3 MG/DL (0.2-1.0); BLOOD UREA NITROGEN 6 MG/DL (7-18); CALCIUM LEVEL 8.4 MG/DL (8.5-10.1); CARBON DIOXIDE LEVEL 32 MEQ/L (21-32); CHLORIDE LEVEL 104 MEQ/L (98-107); CREATININE FOR GFR 0.48 MG/DL (0.55-1.30); GLOMERULAR FILTRATION RATE > 60.0 (>51); GLUCOSE, FASTING 77 MG/DL (70-100); IMMUNOGLOBULIN G 714 MG/DL (681-1648); IMMUNOGLOBULIN M 41.5 MG/DL (40-230); POTASSIUM SERUM 4.4 MEQ/L (3.5-5.1); SODIUM LEVEL 140 MEQ/L (136-145)
== END ==
LOC: M SFHCPLAZ 14:06
PROVIDERS: ATTEND Family Medicine
DX: B37.81 Candidal esophagitis (principal); Z79.899 Other long term (current) drug therapy
CPT/HCPCS: 36415; 80053; 80307; 82140; 82784; 85025; 86335; G0463

== ENCOUNTER → 2020-09-07 | Outpatient (CLI) | payer MEDICARE, OTHER ==
--- NOTE | 2020-09-09 05:42 | ECWPNPC ---
PATIENT NAME: ELIDIA WEEMS : 1970 GENDER: FEMALE VISIT DATE: 09/07/2020 DISCHARGE DATE: 09/07/20936 VISIT LOCKED DATE TIME: PHYSICIAN: LUÍS AGARWAL PHYSICIAN PAGER NO: ACTIVE RESOURCE: LUÍS AGARWAL REASON FOR APPOINTMENT 1. MED MGMNT/REVIEW UTOX HISTORY OF PRESENT ILLNESS DEPRESSION SCREENING: PHQ-2 (2015 EDITION) LITTLE INTEREST OR PLEASURE IN DOING THINGS?NOT AT ALL FEELING DOWN, DEPRESSED, OR HOPELESS?NOT AT ALL TOTAL SCORE0 GENERAL: HERE FOR FOLLOW-UP OF CHRONIC LEFT CHEST WALL PAIN. RECENT INCREASE IN MORPHINE HAS MADE A BIG DIFFERENCE FAR GOOD PAIN CONTROL AND SEIZURE ACTIVITY. STATES SHE'S ONLY HAD 1 SEIZURE SINCE MORPHINE WAS INCREASED. STATES LABS IN FOLLOW-UP AT PRIMARY CARE ARE STABLE. OVERALL VERY HAPPY. REPORTING IMPROVED ACTIVITY TOLERANCE WITH MEDICATION ADJUSTMENTS MADE AT LAST VISIT. REPORTING NORMAL BOWEL MOVEMENTS AND URINATION. DENIES ADVERSE EFFECTS OF MEDICATION. ACCOMPANIED IN THE EXAM ROOM WITH HER . -. FALL RISK SCREENING: SCREENING ONE FALLS REPORTED IN THE LAST YEAR NO INJURIES, PATIENT STATED THATS HE DID NOT GO THE ER. PAIN SCREENING: PATIENT HAS A COMPLAINT OF ACUTE OR CHRONIC PAIN :YES LOCATION OF PAIN:CHEST LEFT SIDE OF CHEST INTENSITY OF PAIN (SCALE OF 1 TO 10):6 WHAT DOES YOUR PAIN FEEL LIKE:ACHING, BURNING, CONTINOUS, SHARP, STABBING, TENDER, THROBBING, SORE, SHOOTING DURATION:CONTINOUS, CONSTANT, ALL DAY PAIN IS INCREASED BY:ACTIVITIES PAIN IS DECREASED BY:USE OF PAIN MEDICATIONS NURSING NOTE: -. PAIN CENTER INTAKE QUESTIONS: DO YOU HAVE A HISTORY OF MRSA? :YES 2020- LOWER ABDOMINAL DO YOU TAKE A BLOOD THINNERS? :NO DO YOU HAVE ANY BLEEDING DISORDERS? :NO ANY NEW NUMBNESS OR WEAKNESS IN YOUR LEGS OR ARMS? :NO ANY PACEMAKER,DEFIBRILLATOR, OR DORSAL COLUMN STIMULATOR? :NO DO YOU HAVE ANY RASHES OR OPEN SORES? :YES OPEN SORE RIGHT SIDE OF THE LOWER ABDOMINAL ARE YOU ALLERGIC TO IV DYE? :NO ARE YOU DIABETIC? :NO ANY NEW PROBLEMS WITH YOUR MEDICATIONS? :NO HAVE YOU RECEIVED A VACCINE IN THE PAST 30 DAYS? :NO DO YOU PLAN TO RECEIVE A VACCINE IN THE NEXT 21 DAYS? :NO DO YOU NEED ANY PRESCRIPTION? :YES MORPHINE, DO YOU TAKE ANY IMMUNOSUPPRESSIVE MEDICATIONS? :NO IS THERE A CHANCE YOU COULD BE ? :NO ARE YOU BREAST FEEDING? :NO CURRENT MEDICATIONS TAKING GLUCOMETER DIRECTED THREE TIMES A DAY NEEDED TAKING AMITRIPTYLINE HCL 10 MG TABLET 1 -2 TABLET ORALLY BEFORE BEDTIME TAKING ZOLPIDEM TARTRATE 10 MG TABLET 1 TAB ORALLY AT BEDTIME PRN INSOMNIA TAKING MAGNESIUM 300 MG CAPSULE 1 CAPSULE WITH A MEAL ORALLY ONCE A DAY TAKING POTASSIUM 99 MG TABLET 1 TABLET ORALLY ONCE A DAY OTC PRODUCT TAKING FLOVENT HFA 110 MCG/ACT AEROSOL 1 PUFF INHALATION TWICE A DAY TAKING EZETIMIBE 10 MG TABLET 1 TABLET ORALLY ONCE A DAY TAKING COMPRESSION STOCKINGS 15-20 MMHG DIRECTED _ DAILY I87.2 TAKING FUROSEMIDE 20 MG TABLET 1 TABLET ORALLY EVERY MORNING PRN EDEMA TAKING CLOBETASOL PROPIONATE 0.05 % CREAM 1 APPLICATION EXTERNALLY BID TO PALMS, PLANTAR FEET X 10 DAYS WITH FLARES TAKING CETAPHIL MOISTURIZING - CREAM DIRECTED EXTERNALLY BID ARMS/LEGS TAKING MORPHINE SULFATE 15 MG TABLET 1 TABLET NEEDED ORALLY HALF TO 1 WHOLE TAB DIRECTED EVERY 4-6 HOURS FOR PAIN MDD 8 TAKING INTRAROSA 6.5 MG OVULES DIRECTED VAGINAL INSERTION ONCE DAILY AT BEDTIME TAKING VOLTAREN 1 % GEL DIRECTED TRANSDERMAL THREE TIMES DAILY NEEDED TAKING MUPIROCIN 2 % OINTMENT 1 APPLICATION EXTERNALLY THREE TIMES A DAY TAKING FLUCONAZOLE 100 MG TABLET 2 TABLET ORALLY DAILY X 14 DAYS TAKING MOVANTIK 25 MG TABLET 1 TABLET IN THE MORNING ORALLY ONCE A DAY TAKING COLACE 100 MG CAPSULE 2 CAPSULE NEEDED ORALLY BID PRN CONSTIPATION TAKING ALIGN - CAPSULE 1 TAB ORALLY DAILY TAKING CALCIUM CITRATE + D 500MG/600MG TABLET 2 TABLET ORALLY FOUR TIMES A DAY TAKING VITAMIN D3 50 MCG (1999 UT) TABLET 1 TABLET ORALLY ONCE A DAY TAKING OMEPRAZOLE 20 MG CAPSULE DELAYED RELEASE 1 CAPSULE ORALLY ONCE A DAY TAKING NARCAN 4 MG/0.1ML LIQUID DIRECTED NASALLY USE IF SIGNS OF RESPITORY DEPRESS OR ALTER MENTAL STAUS. CALL 911 IF USED TAKING GABAPENTIN 600 MG TABLET 1 ORALLY Q8H TID TAKING LIDODERM 5 % PATCH 3 PATCH TO CHEST WALL AND RIBS EXTERNALLY ON 12 HOURS OFF 12 HOURS NEEDED TAKING MS CONTIN 30 MG TABLET EXTENDED RELEASE 1 TABLET ORALLY EVERY 12 HRS MDD=2 TAKING DULOXETINE HCL 30 MG CAPSULE DELAYED RELEASE PARTICLES 2 CAPSULES ORALLY DAILY NOT-TAKING ZOLPIDEM TARTRATE 10 MG TABLET 1 TABLET AT BEDTIME NEEDED ORALLY AT BEDTIME PRN INSOMNIA MEDICATION LIST REVIEWED AND RECONCILED WITH THE PATIENT PAST MEDICAL HISTORY CHRONIC MDD HYERPTENSION, ESSENTIAL HYPERLIPIDEMIA 2B H/O JYOTI-STOPPED CPAP 12 11/17/2014 C WT LOSS P GB-PER DR. FAUSTIN LT WRIST NERVE DAMAGE/RSD A RESULT HX OVARIAN CANCER SP TAHBSO, THEN BRACHYXRT 2000 GERD-10 CM JEJUNAL POUCH, LOWER 1/3 ESOPHAGEAL LEIOMYOMA EXCISED-03/[address] BELTRE FRESNO GI OSTEOPOROSIS RECURRENT BRONCHIECTASIS/RLS LUMBAR [id number] DIFFUSE BULGE C L4/5 HNP ABUTTING L L4 IN NF AND L5/S1 HNP COMPRESSION OF L L5 IN NF BY 10/2016 MRI-[facility]-T4 VERTEBRAL BODY HEMANGIOMA, S BULGE/HNP BY 10/2016 MRI/05/2017 MILD ML DSN, OSTEOPHYTES BY 05/2017 XRAY, 05/2017 NROAM B RIB XRAY PNES-08/2017 -VEEG MONITORING OF 3 SPELLS//08/26/17 MRI BRAIN, MRA BRAIN, NECK 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 BEL[facility]RE [facility] GI/08/24/20 [id number] CANDIDAL ESOPHAGITIS, ASX BY 08/24/20 EGD-[facility] C FLUC 100 14D MRSA ALLERGIES BEE STINGS: ANAPHYLAXIS - ALLERGY METFORMIN HCL: KETOASCIDOSIS - ALLERGY NUCYNTA ER: BODY ON FIRE - ALLERGY SURGICAL HISTORY BTL 08/1990 RT SIDE INGUINAL HERNIA REPAIR 03/2000 TAHBSO 2 OVARIAN CANCER 06/2000 LT WRIST RECONSTRUCTION/JOINT FUSION 05/2005 LAP GASTRIC BYPASS-RACHAEL 01/23/2012 CHOLECYSTECTOMY DORSAL STIMULATOR PLACED FOR 5 DAYS THAN REMOVED ON 01/14/17 01/09/17 ENDOSCOPY WITH ESOPHAGUS BIOPSY 03/2018 LAPAROSCOPIC LYSIS OF ADHESIONS, RESECTION OF EFFERENT LIMB OF GASTROJEJUNOSTOMY-ROBERTO 06/11/18 ESOAGHEAL TUMOR REMOVED 03/2018 R BREAST BREAST US-GUIDED BIOPSY OF PALPABLE LUMP AT 12 (C2 BY MAMMO/US)-BENIGN-MICHELLE 06/28/19 COLONOSCOPY AND [id number] 08/24/20 SOCIAL HISTORY GENERAL: TOBACCO USE ARE YOU A:CURRENT SMOKER ARE YOU INTERESTED IN QUITTING?THINKING ABOUT QUITTING DOWN TO HALF PACK PER DAY COUNSELED THE PATIENT ON SMOKING CESSATION, EDUCATION [id number]/10/2021 HOW MANY CIGARETTES A DAY DO YOU SMOKE?6-10 HOW SOON AFTER YOU WAKE UP DO YOU SMOKE YOUR FIRST CIGARETTE?WITHIN 5 MIN HOW OFTEN DO YOU SMOKE CIGARETTES?EVERY DAY PATIENT COUNSELED ON THE DANGERS OF TOBACCO USE AND URGED TO QUIT:09/04/2020 SMOKING CESSATION INFORMATION GIVEN09/04/2020 VAPORNO E-CIGARETTENO LATEX QUESTIONNAIRE LATEX ALLERGY : HAVE YOU EVER DEVELOPED ANY TYPE OF REACTION AFTER HANDLING LATEX PRODUCTS SUCH RUBBER GLOVES, CONDOMS, DIAPHRAGMS, BALLOONS, SOCKS, OR UNDERWEAR?NO LATEX ALLERGY : HAVE YOU EVER DEVELOPED ANY TYPE OF REACTION DURING OR AFTER DENTAL APPOINTMENT, VAGINAL/RECTAL EXAMINATION, SURGICAL PROCEDURE, OR ANY OTHER EXPOSURE?NO LATEX RISK : HAVE YOU EVER HAD ANY DIFFICULTY BREATHING OR HIVES AFTER EATING OR HANDLING ANY FRUITS, OR VEGETABLES; SUCH KIWI, BANANAS, STONE FRUITS, OR CHESTNUTSNO LATEX RISK : DO YOU HAVE A PREVIOUS PERSONAL HISTORY OF MORE THAN NINE SURGERIES, SPINA BIFIDA, OR REPEATED CATHERIZATIONS? YES - PLEASE INDICATE : > 9 SURGERIES LATEX RISK : ARE YOU FREQUENTLY EXPOSED TO LATEX PRODUCTS IN YOUR OCCUPATION?NO DATE ASKED : 09/07/2020 ALCOHOL USE: NO. ALCOHOL SCREENING DID YOU HAVE A DRINK CONTAINING ALCOHOL IN THE PAST YEAR?NO POINTS0 INTERPRETATIONNEGATIVE RECREATIONAL DRUG USE DRUG USE?NO CAFFEINE CAFFEINE USE?YES 2 CUPS OF COFFEE IN THE AM HOW OFTEN AND HOW MUCH? 2-3 DIET SNAPPLES/DAY SEXUAL HX HAD SEX IN THE LAST 12 MONTHS (VAGINAL, ORAL, OR ANAL)?NO LMP:HYSTER HAVE YOU EVER HAD AN STD?NO HIV / HEP-C SCREENING HIV TEST OFFERED TO PATIENT:YES DATE OFFERED:12/27/2016 JUST PREVIOUSLY HAD TEST ACCEPTED:NO HEP-C TEST OFFERED TO PATIENT:NO ALREADY TESTED REASON:OTHER (DOCUMENT IN NOTE) PT STATES SHE HAS HAD IT DONE PREVIOUSLY PROTESTANT [id number] NONE LANGUAGE URDU. EDUCATION LEVEL OF EDUCATION:HIGH SCHOOL REGENTS GED LEARNING BARRIERS / SPECIAL NEEDS CHANGE FROM LAST VISIT?NO BARRIERS TO LEARNING?NO HEARING IMPAIRED?NO VISION IMPAIRED?YES :CORRECTIVE LENSES COGNITIVELY IMPAIRED?NO READINESS TO LEARN?YES LEARNING PREFERENCES?YES :DEMONSTRATION/VERBAL INSTRUCTION LEARNING CAPABILITIES PRESENT?YES EMOTIONAL BARRIERS?NO SPECIAL DEVICES?YES :CANE, WALKER NEEDED COURT TRANSCRIBER NEEDED?NO DOMESTIC VIOLENCE DO YOU FEEL SAFE IN YOUR ENVIRONMENT?YES OCCUPATION: DISABLED. DIET: SMALL FERQUENT MEALS. EXERCISE: NO REGULAR EXERCISE DUE TO RIB FX. MARITAL STATUS: . OTHERS AT HOME: SPOUSE. TODAY'S VISIT 08/30/19 PATIENT DESCRIBES PAIN :ACHING, BURNING, HAVE IT ALL THE TIME FROM 0-10, WHAT LEVEL IS YOUR PAIN TODAY?7 PRECIPITATING FACTORS WHEN SHE BENDS OVER, OR MOVING "JUST RIGHT ', CAN'T LAY ON LEFT SIDE AT ALL ALLEVIATING FACTORS NOTHING - PFS REFERRAL NEEDED?NO CLERGY REFERRAL NEEDED?NO PUBLIC HEALTH REFERRAL NEEDED?NO HAS THE PATIENT BEEN EDUCATED REGARDING HIS/HER PLAN OF CARE?YES HAS THE PATIENT BEEN EDUCATED REGARDING PAIN, THE RISK FOR PAIN, THE IMPORTANCE OF EFFECTIVE PAIN MANAGEMENT, AND THE PAIN ASSESSMENT PROCESS?YES ADVANCE DIRECTIVE ADVANCE DIRECTIVE DISCUSSED WITH PATIENT:YES HCP BRE WEEMS [phone] THIS PATIENT LIVES AT HOME WITH HER AND SON. SHE FRACTURED HER LEFT WRIST IN THE PAST. NO HISTORY OF AN EATING DISORDER. NO HISTORY OF PHYSICAL/SEXUAL ABUSE. SHE SLEEPS OKAY ONLY; USES CPAP. SHE WEARS SEAT BELTS. SHE IS CURRENT WITH DENTAL AND EYE EXAMINATIONS. SHE IS UP TO DATE WITH IMMUNIZATIONS AND TETANUS.REVIEWED WITH PT 04/26/18 1020 LASREVIEWED WITH PT 07/02/18 1107 BV04/22/19 REVIEWED WITH PT. ADREVIEWED WITH PATIENT 12/28/18 0935 LASREVIEWED WITH PT 10/03/18 1019 BVREVIEWED WITH PT 01/30/19 1133 BVREVIEWED WITH PATIENT 02/20/19 1016 JS. HOSPITALIZATION/MAJOR DIAGNOSTIC PROCEDURE STROKE 06/2001 HYPOGLYCEMIA 1997 ? SEIZURE ACTIVITY 09/2017 REVIEW OF SYSTEMS CONSTITUTIONAL: ANY RECENT FEVER NO . CHILLS NO . WEIGHT CHANGE OF UNKNOWN REASONS NO . GASTROENTEROLOGY: NEW UNEXPLAINABLE CHANGES IN BOWEL CONTROL NO . CONSTIPATION NO . GENITOURINARY: ANY NEW CHANGE IN BLADDER CONTROL? NO . NEUROLOGY: NEW ONSET DIZZINESS OR NEUROLOGICAL CHANGES NOT MENTIONED NO . NEW NUMBNESS OR PAIN PATTERNS NOT MENTIONED AND PERTINENT TO TODAY'S VISIT NO . CARDIOLOGY: NEW CHEST PRESSURE NO . PATIENT DENIES NO . RESPIRATORY: UNEXPLAINABLE COUGH NO . NEW SHORTNESS OF BREATH NO . VITAL SIGNS WT 143.0 LBS, HT 62.5", BMI 25.74 INDEX, BP 118/71 MM HG, HR 87 /MIN, RR 18 /MIN, TEMP 98.2 F, OXYGEN SAT % 94%, SAFE IN ENV? (Y/N) YES, NA INITIALS AW 0900T.TITA COPPOLA. EXAMINATION GENERAL EXAMINATION: GENERALAWAKE,ALERT ,PLEASANT . PSYCHAFFECT NORMAL . LUNGS:LUNG MCGRAW ARE CLEAR TO AUSCULTATION BILATERALLY. GOOD MOVEMENT OF AIR . HEART:S1, S2 IN A REGULAR RATE AND RHYTHM. NO SIGNIFICANT MURMURS, RUBS OR GALLOPS NOTED . ASSESSMENTS PAIN SYNDROME, CHRONIC - G89.4 (PRIMARY) CHRONIC PRESCRIPTION OPIATE USE - Z79.891 TREATMENT PAIN SYNDROME, CHRONIC REFILL MORPHINE SULFATE TABLET, 15 MG, 1 TO 2 TAB, ORALLY, Q4-6HR PRN MDD8, 30 DAYS, 240, REFILLS 0 REFILL MS CONTIN TABLET EXTENDED RELEASE, 30 MG, 1 TABLET, ORALLY, EVERY 12 HRS MDD=2, 30 DAYS, 60 NOTES: ISTOP REGISTRY REVIEWED AND DEMONSTRATES COMPLLIANCE. BRINGS IN MEDICATIONS WHICH IS APPROPRIATE FOR WHAT WAS DISPENSED. RECENT URINE TOXICOLOGY REVIEWED. NO UNAUTHORIZED MEDICATIONS. NO ILLICIT SUBSTANCES AND PRESCRIBED MEDICATIONS WERE PRESENT. PROCEDURE CODES FA211 ESTABILISHED PATIENT [facility] FACILITY CHARGE DISPOSITION & COMMUNICATION FOLLOW UP 3 MONTHS (REASON: MED MGMNT/UTOX) ELECTRONICALLY SIGNED BY JENIFFER ALFORD ON 09/08/2020 AT 09:52 AM EDT DISCLAIMER : THIS IS A VISIT SUMMARY EXTRACTED FROM THE [employer] CHART. IT IS NOT A COPY OF THE [employer] PROGRESS NOTE. EUGENIO
== END ==
LOC: M PAIN 09:00
PROVIDERS: ATTEND Nurse Practitioner Family
DX: G89.4 Chronic pain syndrome (principal); Z79.891 Long term (current) use of opiate analgesic; F32.9 Major depressive disorder, single episode, unspecified; I10 Essential (primary) hypertension; E78.5 Hyperlipidemia, unspecified; G47.33 Obstructive sleep apnea (adult) (pediatric); K21.9 Gastro-esophageal reflux disease without esophagitis; M81.0 Age-related osteoporosis without current pathological fracture; F17.210 Nicotine dependence, cigarettes, uncomplicated; Z79.899 Other long term (current) drug therapy; Z88.8 Allergy status to other drugs, medicaments and biological substances; Z91.030 Bee allergy status

== ENCOUNTER → 2020-09-23 | Outpatient (CLI) | payer MEDICARE, OTHER ==
[2020-09-23 15:48] LABS: FERRITIN 22 NG/ML (8-252); HEPATITIS B SURFACE ANTIBODY NEGATIVE (POSITIVE); IMMUNOGLOBULIN G 583 MG/DL (681-1648); IRON (FE) 140 UG/DL (50-170); PERCENT SATURATION 40.6 % (13.2-45.0); TOTAL IRON BINDING CAPACITY 345 UG/DL (250-450)
[2020-09-23 15:54] LABS: HEPATITIS B SURFACE ANTIGEN NEGATIVE (NEGATIVE)
[2020-09-23 16:23] LABS: HEPATITIS A ANTIBODY IGM NEGATIVE (NEGATIVE)
== END ==
LOC: M PLALAB 13:05
PROVIDERS: ATTEND Internal Medicine
DX: R74.8 Abnormal levels of other serum enzymes (principal)

== ENCOUNTER → 2020-12-03 | Outpatient (CLI) | payer MEDICARE, OTHER ==
[~2020-12-03] MED LIST changes: +OMEP40CA4 PO; -OMEP40CA97 PO
--- NOTE | 2020-12-04 04:06 | ECWPNPC ---
PATIENT NAME: ELIDIA WEEMS : 1970 GENDER: FEMALE VISIT DATE: 12/03/2020 DISCHARGE DATE: 12/03/20 1004 VISIT LOCKED DATE TIME: PHYSICIAN: LUÍS AGARWAL PHYSICIAN PAGER NO: ACTIVE RESOURCE: LUÍS AGARWAL REASON FOR APPOINTMENT 1. MED MGMNT/UTOX HISTORY OF PRESENT ILLNESS GENERAL: HERE FOR FOLLOW-UP AND MEDICATION MANAGEMENT FOR LEFT CHEST WALL PAIN/COMPLEX REGIONAL PAIN SYNDROME. FINDS CURRENT MEDICINES HELPFUL AT REDUCING PAIN AND KEEPING HER FUNCTIONAL. DENIES ADVERSE SIDE EFFECTS WITH THE MEDICATION. BRINGS HER MEDICATION WHICH IS APPROPRIATE FOR WHAT WAS DISPENSED. REPORTING SEVERE DISRUPTION IN SLEEP ON A PRETTY REGULAR BASIS DUE TO PAIN OVER THE PAST COUPLE OF MONTHS. REVIEWED MEDICATIONS AND DISCUSSED TREATMENT PLAN. -. FALL RISK SCREENING: SCREENING : NO FALLS REPORTED IN THE LAST YEAR. PAIN SCREENING: PATIENT HAS A COMPLAINT OF ACUTE OR CHRONIC PAIN :YES LOCATION OF PAIN:CHEST INTENSITY OF PAIN (SCALE OF 1 TO 10):6 WHAT DOES YOUR PAIN FEEL LIKE:ACHING, BURNING, STABBING, TENDER, THROBBING, SHOOTING DURATION:CONTINOUS, CONSTANT, ALL DAY PAIN IS INCREASED BY:ACTIVITIES PAIN IS DECREASED BY:USE OF PAIN MEDICATIONS NURSING NOTE: -. PAIN CENTER INTAKE QUESTIONS: DO YOU HAVE A HISTORY OF MRSA? :YES 2020- LOWER ABDOMINAL DO YOU TAKE A BLOOD THINNERS? :NO DO YOU HAVE ANY BLEEDING DISORDERS? :NO ANY NEW NUMBNESS OR WEAKNESS IN YOUR LEGS OR ARMS? :NO ANY PACEMAKER,DEFIBRILLATOR, OR DORSAL COLUMN STIMULATOR? :NO DO YOU HAVE ANY RASHES OR OPEN SORES? :NO ARE YOU ALLERGIC TO IV DYE? :NO ARE YOU DIABETIC? :NO ANY NEW PROBLEMS WITH YOUR MEDICATIONS? :NO HAVE YOU RECEIVED A VACCINE IN THE PAST 30 DAYS? :NO DO YOU PLAN TO RECEIVE A VACCINE IN THE NEXT 21 DAYS? :NO DO YOU NEED ANY PRESCRIPTION? :YES MORPHINE, DO YOU TAKE ANY IMMUNOSUPPRESSIVE MEDICATIONS? :NO IS THERE A CHANCE YOU COULD BE ? :NO ARE YOU BREAST FEEDING? :NO CURRENT MEDICATIONS TAKING GLUCOMETER DIRECTED THREE TIMES A DAY NEEDED TAKING ZOLPIDEM TARTRATE 10 MG TABLET 1 TAB ORALLY AT BEDTIME PRN INSOMNIA TAKING MAGNESIUM 300 MG CAPSULE 1 CAPSULE WITH A MEAL ORALLY ONCE A DAY TAKING POTASSIUM 99 MG TABLET 1 TABLET ORALLY ONCE A DAY OTC PRODUCT TAKING FLOVENT HFA 110 MCG/ACT AEROSOL 1 PUFF INHALATION TWICE A DAY TAKING COMPRESSION STOCKINGS 15-20 MMHG DIRECTED _ DAILY I87.2 TAKING CLOBETASOL PROPIONATE 0.05 % CREAM 1 APPLICATION EXTERNALLY BID TO PALMS, PLANTAR FEET X 10 DAYS WITH FLARES TAKING CETAPHIL MOISTURIZING - CREAM DIRECTED EXTERNALLY BID ARMS/LEGS TAKING INTRAROSA 6.5 MG OVULES DIRECTED VAGINAL INSERTION ONCE DAILY AT BEDTIME TAKING VOLTAREN 1 % GEL DIRECTED TRANSDERMAL THREE TIMES DAILY NEEDED TAKING FLUCONAZOLE 100 MG TABLET 2 TABLET ORALLY DAILY X 14 DAYS TAKING ALIGN - CAPSULE 1 TAB ORALLY DAILY TAKING CALCIUM CITRATE + D 500MG/600MG TABLET 2 TABLET ORALLY FOUR TIMES A DAY TAKING VITAMIN D3 50 MCG (1999) TABLET 1 TABLET ORALLY ONCE A DAY TAKING OMEPRAZOLE 20 MG CAPSULE DELAYED RELEASE 1 CAPSULE ORALLY ONCE A DAY TAKING NARCAN 4 MG/0.1ML LIQUID DIRECTED NASALLY USE IF SIGNS OF RESPITORY DEPRESS OR ALTER MENTAL STAUS. CALL 911 IF USED TAKING LIDODERM 5 % PATCH 3 PATCH TO CHEST WALL AND RIBS EXTERNALLY ON 12 HOURS OFF 12 HOURS NEEDED TAKING MUPIROCIN 2 % OINTMENT 1 APPLICATION EXTERNALLY THREE TIMES A DAY TAKING OPTIFOAM 4"X4" PAD DIRECTED TOPICALLY DAILY TAKING DULOXETINE HCL 30 MG CAPSULE DELAYED RELEASE PARTICLES 2 CAPSULES ORALLY DAILY TAKING EZETIMIBE 10 MG TABLET 1 TABLET ORALLY ONCE A DAY TAKING GABAPENTIN 600 MG TABLET 1 ORALLY Q8H TID TAKING AMITRIPTYLINE HCL 10 MG TABLET 1 -2 TABLET ORALLY BEFORE BEDTIME TAKING COLACE 100 MG CAPSULE 2 CAPSULE NEEDED ORALLY 3 TIMES A DAY TAKING MS CONTIN 30 MG TABLET EXTENDED RELEASE 1 TABLET ORALLY EVERY 12 HRS MDD=2 TAKING MORPHINE SULFATE 15 MG TABLET 1 TO 2 TAB ORALLY Q4-6HR PRN MDD8 NOT-TAKING MOVANTIK 25 MG TABLET 1 TABLET IN THE MORNING ORALLY ONCE A DAY NOT-TAKING FUROSEMIDE 20 MG TABLET 1 TABLET ORALLY EVERY MORNING PRN EDEMA NOT-TAKING ZOLPIDEM TARTRATE 10 MG TABLET 1 TABLET AT BEDTIME NEEDED ORALLY AT BEDTIME PRN INSOMNIA MEDICATION LIST REVIEWED AND RECONCILED WITH THE PATIENT PAST MEDICAL HISTORY CHRONIC MDD HYERPTENSION, ESSENTIAL HYPERLIPIDEMIA 2B H/O JYOTI-STOPPED CPAP 12 11/17/2014 C WT LOSS P GB-PER DR. FAUSTIN LT WRIST NERVE DAMAGE/RSD A RESULT HX OVARIAN CANCER SP TAHBSO, THEN BRACHYXRT 2000 GERD-10 CM JEJUNAL POUCH, LOWER 1/3 ESOPHAGEAL LEIOMYOMA EXCISED-03/[address] BELTRE WARD GI OSTEOPOROSIS RECURRENT BRONCHIECTASIS/RLS LUMBAR [id number] DIFFUSE BULGE C L4/5 HNP ABUTTING L L4 IN NF AND L5/S1 HNP COMPRESSION OF L L5 IN NF BY 10/2016 MRI-[facility]-T4 VERTEBRAL BODY HEMANGIOMA, S BULGE/HNP BY 10/2016 MRI/05/2017 MILD ML DSN, OSTEOPHYTES BY 05/2017 XRAY, 05/2017 NROAM B RIB XRAY PNES-08/2017 -VEEG MONITORING OF 3 SPELLS//08/26/17 MRI BRAIN, MRA BRAIN, NECK 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08/[facility] [id number] CANDIDAL ESOPHAGITIS, ASX BY 08/24/20 EGD-[facility] C FLUC 100 14D MRSA ALLERGIES BEE STINGS: ANAPHYLAXIS - ALLERGY METFORMIN HCL: KETOASCIDOSIS - ALLERGY NUCYNTA ER: BODY ON FIRE - ALLERGY SOCIAL HISTORY GENERAL: TOBACCO USE ARE YOU A:CURRENT SMOKER ARE YOU INTERESTED IN QUITTING?THINKING ABOUT QUITTING DOWN TO HALF PACK PER DAY COUNSELED THE PATIENT ON SMOKING CESSATION, EDUCATION [id number]/05/2021 HOW MANY CIGARETTES A DAY DO YOU SMOKE?6-10 HOW SOON AFTER YOU WAKE UP DO YOU SMOKE YOUR FIRST CIGARETTE?WITHIN 5 MIN HOW OFTEN DO YOU SMOKE CIGARETTES?EVERY DAY PATIENT COUNSELED ON THE DANGERS OF TOBACCO USE AND URGED TO QUIT:12/03/2020 SMOKING CESSATION INFORMATION GIVEN09/04/2020 VAPORNO E-CIGARETTENO LATEX QUESTIONNAIRE LATEX ALLERGY : HAVE YOU EVER DEVELOPED ANY TYPE OF REACTION AFTER HANDLING LATEX PRODUCTS SUCH RUBBER GLOVES, CONDOMS, DIAPHRAGMS, BALLOONS, SOCKS, OR UNDERWEAR?NO LATEX ALLERGY : HAVE YOU EVER DEVELOPED ANY TYPE OF REACTION DURING OR AFTER DENTAL APPOINTMENT, VAGINAL/RECTAL EXAMINATION, SURGICAL PROCEDURE, OR ANY OTHER EXPOSURE?NO LATEX RISK : HAVE YOU EVER HAD ANY DIFFICULTY BREATHING OR HIVES AFTER EATING OR HANDLING ANY FRUITS, OR VEGETABLES; SUCH KIWI, BANANAS, STONE FRUITS, OR CHESTNUTSNO LATEX RISK : DO YOU HAVE A PREVIOUS PERSONAL HISTORY OF MORE THAN NINE SURGERIES, SPINA BIFIDA, OR REPEATED CATHERIZATIONS? YES - PLEASE INDICATE : > 9 SURGERIES LATEX RISK : ARE YOU FREQUENTLY EXPOSED TO LATEX PRODUCTS IN YOUR OCCUPATION?NO DATE ASKED : 12/03/2020 ALCOHOL USE: NO. ALCOHOL SCREENING DID YOU HAVE A DRINK CONTAINING ALCOHOL IN THE PAST YEAR?NO POINTS0 INTERPRETATIONNEGATIVE RECREATIONAL DRUG USE DRUG USE?NO CAFFEINE CAFFEINE USE?YES 2 CUPS OF COFFEE IN THE AM HOW OFTEN AND HOW MUCH? 2-3 DIET SNAPPLES/DAY SEXUAL HX HAD SEX IN THE LAST 12 MONTHS (VAGINAL, ORAL, OR ANAL)?NO HAVE YOU EVER HAD AN STD?NO LMP:HYSTER HIV / HEP-C SCREENING HIV TEST OFFERED TO PATIENT:YES DATE OFFERED:12/27/2016 JUST PREVIOUSLY HAD TEST ACCEPTED:NO REASON:OTHER (DOCUMENT IN NOTE) PT STATES SHE HAS HAD IT DONE PREVIOUSLY HEP-C TEST OFFERED TO PATIENT:NO ALREADY TESTED TENRIISM [id number] NONE LANGUAGE VIETNAMESE. EDUCATION LEVEL OF EDUCATION:HIGH SCHOOL REGENTS GED LEARNING BARRIERS / SPECIAL NEEDS CHANGE FROM LAST VISIT?NO BARRIERS TO LEARNING?NO HEARING IMPAIRED?NO VISION IMPAIRED?YES :CORRECTIVE LENSES COGNITIVELY IMPAIRED?YES READINESS TO LEARN?YES LEARNING PREFERENCES?YES :DEMONSTRATION/VERBAL INSTRUCTION LEARNING CAPABILITIES PRESENT?YES EMOTIONAL BARRIERS?NO SPECIAL DEVICES?YES :CANE, WALKER NEEDED SYSTEMS PROJECT MANAGER NEEDED?NO DOMESTIC VIOLENCE DO YOU FEEL SAFE IN YOUR ENVIRONMENT?YES OCCUPATION: DISABLED. DIET: SMALL FERQUENT MEALS. EXERCISE: NO REGULAR EXERCISE DUE TO RIB FX. MARITAL STATUS: . OTHERS AT HOME: SPOUSE. TODAY'S VISIT 08/30/19 PATIENT DESCRIBES PAIN :ACHING, BURNING, HAVE IT ALL THE TIME FROM 0-10, WHAT LEVEL IS YOUR PAIN TODAY?7 PRECIPITATING FACTORS WHEN SHE BENDS OVER, OR MOVING "JUST RIGHT ', CAN'T LAY ON LEFT SIDE AT ALL ALLEVIATING FACTORS NOTHING - PFS REFERRAL NEEDED?NO CLERGY REFERRAL NEEDED?NO PUBLIC HEALTH REFERRAL NEEDED?NO HAS THE PATIENT BEEN EDUCATED REGARDING HIS/HER PLAN OF CARE?YES HAS THE PATIENT BEEN EDUCATED REGARDING PAIN, THE RISK FOR PAIN, THE IMPORTANCE OF EFFECTIVE PAIN MANAGEMENT, AND THE PAIN ASSESSMENT PROCESS?YES ADVANCE DIRECTIVE ADVANCE DIRECTIVE DISCUSSED WITH PATIENT:YES HCP BRE WEEMS [phone] THIS PATIENT LIVES AT HOME WITH HER AND SON. SHE FRACTURED HER LEFT WRIST IN THE PAST. NO HISTORY OF AN EATING DISORDER. NO HISTORY OF PHYSICAL/SEXUAL ABUSE. SHE SLEEPS OKAY ONLY; USES CPAP. SHE WEARS SEAT BELTS. SHE IS CURRENT WITH DENTAL AND EYE EXAMINATIONS. SHE IS UP TO DATE WITH IMMUNIZATIONS AND TETANUS.REVIEWED WITH PT 04/26/18 1020 LASREVIEWED WITH PT 07/02/18 1107 BV04/22/19 REVIEWED WITH PT. ADREVIEWED WITH PATIENT 12/28/18 0935 LASREVIEWED WITH PT 10/03/18 1019 BVREVIEWED WITH PT 01/30/19 1133 BVREVIEWED WITH PATIENT 02/20/19 1016 JS. REVIEW OF SYSTEMS CONSTITUTIONAL: ANY RECENT FEVER NO . CHILLS NO . WEIGHT CHANGE OF UNKNOWN REASONS NO . GASTROENTEROLOGY: NEW UNEXPLAINABLE CHANGES IN BOWEL CONTROL NO . CONSTIPATION NO . GENITOURINARY: ANY NEW CHANGE IN BLADDER CONTROL? NO . NEUROLOGY: NEW ONSET DIZZINESS OR NEUROLOGICAL CHANGES NOT MENTIONED NO . NEW NUMBNESS OR PAIN PATTERNS NOT MENTIONED AND PERTINENT TO TODAY'S VISIT NO . CARDIOLOGY: NEW CHEST PRESSURE NO . PATIENT DENIES NO . RESPIRATORY: UNEXPLAINABLE COUGH NO . NEW SHORTNESS OF BREATH NO . VITAL SIGNS WT 150 LBS, WT-KG 68.04 KG, HT 62.5", BMI 27.00 INDEX, BP 119/72 MM HG, HR 71 /MIN, RR 18 /MIN, TEMP 97.4 F, OXYGEN SAT % 97%, SAFE IN ENV? (Y/N) YEST.TITA COPPOLA. EXAMINATION GENERAL EXAMINATION: GENERALAWAKE,ALERT ,PLEASANT . PSYCHAFFECT NORMAL . LUNGS:LUNG MCGRAW ARE CLEAR TO AUSCULTATION BILATERALLY. GOOD MOVEMENT OF AIR . HEART:S1, S2 IN A REGULAR RATE AND RHYTHM. NO SIGNIFICANT MURMURS, RUBS OR GALLOPS NOTED . ASSESSMENTS PAIN SYNDROME, CHRONIC - G89.4 (PRIMARY) CHRONIC PRESCRIPTION OPIATE USE - Z79.891 TREATMENT PAIN SYNDROME, CHRONIC STOP AMITRIPTYLINE HCL TABLET, 10 MG, 1 -2 TABLET, ORALLY, BEFORE BEDTIME CONTINUE COLACE CAPSULE, 100 MG, 2 CAPSULE NEEDED, ORALLY, 3 TIMES A DAY CONTINUE MS CONTIN TABLET EXTENDED RELEASE, 30 MG, 1 TABLET, ORALLY, EVERY 12 HRS MDD=2, 30 DAYS, 60, REFILLS 0 CONTINUE MORPHINE SULFATE TABLET, 15 MG, 1 TO 2 TAB, ORALLY, Q4-6HR PRN MDD8, 30 DAYS, 240, REFILLS 0 START AMITRIPTYLINE HCL TABLET, 25 MG, 2 TAB, ORALLY, BEFORE BEDTIME, 30 DAY(S), 60, REFILLS 2 LAB: URINE TEST [facility] 12/03/2020 9:58:34 AM > LAST DOSE: GABAPENTIN 12/03/2020 , MS CONTIN 12/02/2020, MORPHINE 12/03/2020, ZOLPIDEM 12/02/2020 NOTES: ISTOP REGISTRY REVIEWED AND DEMONSTRATES COMPLLIANCE. BRINGS IN MEDICATIONS WHICH IS APPROPRIATE FOR WHAT WAS DISPENSED. RECENT URINE TOXICOLOGY REVIEWED. NO UNAUTHORIZED MEDICATIONS. NO ILLICIT SUBSTANCES AND PRESCRIBED MEDICATIONS WERE PRESENT. DUE TO POOR SLEEP SECONDARY TO PAIN I PRESCRIBED AMITRIPTYLINE 25 MG WITH INSTRUCTIONS TO TAKE 2 TABLETS AT NIGHTTIME. SHE WILL STOP AMITRIPTYLINE 10 MG 2 TABLETS AT NIGHT. PROCEDURE CODES FA211 ESTABILISHED PATIENT [facility] CHARGE DISPOSITION & COMMUNICATION FOLLOW UP 3 MONTHS (REASON: MED MGMNT/UTOX REVIEW) ELECTRONICALLY SIGNED BY JENIFFER ALFORD ON 12/03/2020 AT 11:00 AM EDT DISCLAIMER : THIS IS A VISIT SUMMARY EXTRACTED FROM THE [employer] CHART. IT IS NOT A COPY OF THE [employer] PROGRESS NOTE. EUGENIO
== END ==
LOC: M PAIN 09:30
PROVIDERS: ATTEND Nurse Practitioner Family
DX: G89.4 Chronic pain syndrome (principal); Z79.891 Long term (current) use of opiate analgesic; F33.9 Major depressive disorder, recurrent, unspecified; E78.5 Hyperlipidemia, unspecified; G47.33 Obstructive sleep apnea (adult) (pediatric); K21.9 Gastro-esophageal reflux disease without esophagitis; M81.0 Age-related osteoporosis without current pathological fracture; M47.816 Spondylosis without myelopathy or radiculopathy, lumbar region; F17.210 Nicotine dependence, cigarettes, uncomplicated; Z79.899 Other long term (current) drug therapy; Z88.8 Allergy status to other drugs, medicaments and biological substances; Z91.030 Bee allergy status

== ENCOUNTER → 2021-01-18 | Outpatient (CLI) | payer MEDICARE, OTHER ==
[2021-01-18 12:19] LABS: BASO # 0.1 10^3/uL (0.0-0.2); BASO % 0.5 % (0.0-1.0); EOS # 0.1 10^3/uL (0.0-0.5); EOS % 0.6 % (0.0-3.0); HEMATOCRIT 46.3 % (36.0-47.0); HEMOGLOBIN 15.6 g/dl (12.0-15.5); LYMPH % 17.1 % (24.0-44.0); MEAN CORPUSCULAR HEMOGLOBIN 33.5 pg (27.0-33.0); MEAN CORPUSCULAR HGB CONC 33.7 g/dl (32.0-36.5); MEAN CORPUSCULAR VOLUME 99.6 fl (80.0-96.0); MONO # 0.7 10^3/uL (0.0-0.8); MONO % 5.6 % (2.0-8.0); NEUTROPHILS # 9.1 10^3/uL (1.5-8.5); NEUTROPHILS % 75.9 % (36.0-66.0); PLATELET COUNT, AUTOMATED 286 10^3/uL (150-450); RED BLOOD COUNT 4.65 10^6/uL (4.00-5.40)
[2021-01-18 12:26] LABS: INR 0.87; PROTHROMBIN TIME 12.2 SECONDS (12.7-14.5)
[2021-01-18 12:27] LABS: PARTIAL THROMBOPLASTIN TIME 33.7 SECONDS (25.9-37.0)
[2021-01-18 12:50] LABS: ALBUMIN 3.1 GM/DL (3.2-5.2); ALT/SGPT 96 U/L (12-78); BILIRUBIN,TOTAL 0.4 MG/DL (0.2-1.0); BLOOD UREA NITROGEN 9 MG/DL (7-18); CALCIUM LEVEL 8.8 MG/DL (8.5-10.1); CARBON DIOXIDE LEVEL 31 MEQ/L (21-32); CHLORIDE LEVEL 103 MEQ/L (98-107); CHOLESTEROL LEVEL 190 MG/DL (<200); CHOLESTEROL RISK RATIO 3.275 (<5); CREATININE FOR GFR 0.46 MG/DL (0.55-1.30); FERRITIN 35 NG/ML (8-252); GLOMERULAR FILTRATION RATE > 60.0 (>51); GLUCOSE, FASTING 86 MG/DL (70-100); HDL CHOLESTEROL 58 MG/DL (>40); LDL CHOLESTEROL 119 MG/DL (<100); NON-HDL-C 132 MG/DL; POTASSIUM SERUM 4.8 MEQ/L (3.5-5.1); SODIUM LEVEL 138 MEQ/L (136-145); TOTAL PROTEIN 6.2 GM/DL (6.4-8.2); TRIGLYCERIDES LEVEL 67 MG/DL (<150)
== END ==
LOC: M PLALAB 09:51
PROVIDERS: ATTEND Family Medicine
DX: E78.2 Mixed hyperlipidemia (principal); E55.9 Vitamin D deficiency, unspecified; D75.89 Other specified diseases of blood and blood-forming organs; R74.8 Abnormal levels of other serum enzymes; K75.9 Inflammatory liver disease, unspecified

== ENCOUNTER → 2021-02-01 | Outpatient (REF) | payer MEDICARE, OTHER | LOC: M LAB REF 09:04 | PROVIDERS: ATTEND Surgery | DX: L72.3 Sebaceous cyst (principal) ==

== ENCOUNTER → 2021-02-02 | Outpatient (CLI) | payer MEDICARE, OTHER ==
--- NOTE | 2021-02-02 12:38 | REPMRS ---
Patient History The patient states she has not had a clinical breast exam in over a year. Family history of ovarian cancer at age 38 in paternal grandmother, ovarian cancer in paternal cousin. Benign US guided breast biopsy. of the right breast, June 26, 2019. Benign FNA biopsy of both breasts, July 07, 2008. 20 lb unintentional weight gain. Patient states no breast complaints today. Patient has signed MRS History Sheet. Digital Woman Screen Mammo: February 02, 2021 - Exam #: [id number] Bilateral CC and MLO view(s) were taken. Technologist: RT Dary Prior study comparison: June 26, 2019, right breast diagnostic unilateral mammo performed at [facility]. April 16, 2019, right breast digital mammo diagnostic unilateral, performed at [facility]. April 08, 2016, digital woman screen mammo performed at [facility]. FINDINGS: The breast tissue is heterogeneously dense. This may lower the sensitivity of mammography. The Volpara volumetric breast density category is: C. There is a moderate amount of heterogeneously dense fibroglandular tissue which is fairly symmetric. There is no interval development of dominant mass, architectural distortion, or grouped microcalcification typical of malignancy. There has been no change in the appearance of the mammogram from the prior studies. 3-D tomosynthesis shows no additional findings. Assessment: BI-RADS/ACR category 1 mammogram. Negative Mammogram. Recommendation Routine screening mammogram of both breasts in 1 year (for women over age 40). This patient's [facility] Lifetime Breast Cancer RIsk is estimated at 3.9 %. This mammogram was interpreted with the aid of an FDA-approved computer-aided dectection system. Electronically Signed By: Aquilino Briceno MD 02/02/21 [id number]
== END ==
LOC: M WHC 11:30
PROVIDERS: ATTEND Family Medicine
DX: Z12.31 Encounter for screening mammogram for malignant neoplasm of breast (principal); Z80.41 Family history of malignant neoplasm of ovary; Z98.890 Other specified postprocedural states; R63.5 Abnormal weight gain

== ENCOUNTER → 2021-03-10 | Outpatient (CLI) | payer MEDICARE, OTHER ==
[2021-03-10 10:00] LABS: HEMATOCRIT 46.5 % (36.0-47.0); HEMOGLOBIN 15.6 g/dl (12.0-15.5); MEAN CORPUSCULAR HEMOGLOBIN 33.3 pg (27.0-33.0); MEAN CORPUSCULAR HGB CONC 33.5 g/dl (32.0-36.5); MEAN CORPUSCULAR VOLUME 99.1 fl (80.0-96.0); PLATELET COUNT, AUTOMATED 346 10^3/uL (150-450); RED BLOOD COUNT 4.69 10^6/uL (4.00-5.40)
[2021-03-10 10:11] LABS: INR 0.92; PROTHROMBIN TIME 12.8 SECONDS (12.7-14.5)
--- NOTE | 2021-03-10 10:23 | REP ---
INDICATION: ABN LIVER ENZYMES, JIMENEZ. COMPARISON: None. TECHNIQUE: Real-time and Doppler imaging utilizing the external transducer FINDINGS: The liver is normal in size and echogenicity. The subcentimeter echogenic area consistent with a hemangioma is again noted and is approximately the same size as on the previous exam. The common duct measures 12 mm in diameter which is the same as on the prior examination. There is no intrahepatic duct dilatation identified. The pancreas is not enlarged. No abnormality of the right kidney is noted. IMPRESSION: Stable subcentimeter hemangioma in the right lobe of liver. 2. No other definite abnormality is identified on this examination. <Electronically signed by Javier Pike > 03/10/21 101
[2021-03-10 10:25] LABS: ALBUMIN 2.8 GM/DL (3.2-5.2); ALT/SGPT 54 U/L (12-78); BILIRUBIN,TOTAL 0.4 MG/DL (0.2-1.0); BLOOD UREA NITROGEN 9 MG/DL (7-18); CALCIUM LEVEL 8.9 MG/DL (8.5-10.1); CARBON DIOXIDE LEVEL 33 MEQ/L (21-32); CHLORIDE LEVEL 105 MEQ/L (98-107); CREATININE FOR GFR 0.52 MG/DL (0.55-1.30); GLOMERULAR FILTRATION RATE > 60.0 (>51); GLUCOSE, FASTING 83 MG/DL (70-100); POTASSIUM SERUM 4.3 MEQ/L (3.5-5.1); SODIUM LEVEL 140 MEQ/L (136-145); TOTAL PROTEIN 6.1 GM/DL (6.4-8.2)
== END ==
LOC: M LAB 08:54
PROVIDERS: ATTEND Physician Assistant
DX: R74.8 Abnormal levels of other serum enzymes (principal); K75.81 Nonalcoholic steatohepatitis (NASH); D18.03 Hemangioma of intra-abdominal structures

== ENCOUNTER → 2021-04-09 | Outpatient (CLI) | payer MEDICARE, OTHER | LOC: M PAIN 11:00 | PROVIDERS: ATTEND Anesthesiology | DX: R07.89 Other chest pain (principal); M79.2 Neuralgia and neuritis, unspecified; F33.9 Major depressive disorder, recurrent, unspecified; I10 Essential (primary) hypertension; E78.5 Hyperlipidemia, unspecified; K21.9 Gastro-esophageal reflux disease without esophagitis; M47.816 Spondylosis without myelopathy or radiculopathy, lumbar region; F17.210 Nicotine dependence, cigarettes, uncomplicated; Z79.891 Long term (current) use of opiate analgesic; Z79.899 Other long term (current) drug therapy; Z88.8 Allergy status to other drugs, medicaments and biological substances; Z91.030 Bee allergy status ==

== ENCOUNTER → 2021-05-14 | Outpatient (CLI) | payer MEDICARE, OTHER ==
[2021-05-14 13:19] LABS: BASO % 0.4 % (0.0-1.0); EOS # 0.1 10^3/uL (0.0-0.5); EOS % 1.2 % (0.0-3.0); HEMATOCRIT 47.4 % (36.0-47.0); HEMOGLOBIN 16.1 g/dl (12.0-15.5); LYMPH % 36.8 % (24.0-44.0); MEAN CORPUSCULAR HEMOGLOBIN 33.4 pg (27.0-33.0); MEAN CORPUSCULAR VOLUME 98.3 fl (80.0-96.0); MONO # 0.6 10^3/uL (0.0-0.8); MONO % 6.9 % (2.0-8.0); NEUTROPHILS # 4.4 10^3/uL (1.5-8.5); NEUTROPHILS % 54.5 % (36.0-66.0); PLATELET COUNT, AUTOMATED 316 10^3/uL (150-450); RED BLOOD COUNT 4.82 10^6/uL (4.00-5.40); WHITE BLOOD COUNT 8.1 10^3/uL (4.0-10.0)
[2021-05-14 14:09] LABS: ALBUMIN 3.3 GM/DL (3.2-5.2); ALT/SGPT 38 U/L (12-78); BILIRUBIN,TOTAL 0.4 MG/DL (0.2-1.0); BLOOD UREA NITROGEN 8 MG/DL (7-18); CARBON DIOXIDE LEVEL 31 MEQ/L (21-32); CHLORIDE LEVEL 102 MEQ/L (98-107); CHOLESTEROL LEVEL 194 MG/DL (<200); CHOLESTEROL RISK RATIO 4.311 (<5); CREATININE FOR GFR 0.56 MG/DL (0.55-1.30); FERRITIN 39 NG/ML (8-252); FREE T4 1.09 NG/DL (0.76-1.46); GLOMERULAR FILTRATION RATE > 60.0 (>51); GLUCOSE, FASTING 89 MG/DL (70-100); HDL CHOLESTEROL 45 MG/DL (>40); LDL CHOLESTEROL 119 MG/DL (<100); NON-HDL-C 149 MG/DL; POTASSIUM SERUM 4.7 MEQ/L (3.5-5.1); PTH INTACT 29.6 PG/ML (18.5-88.0); SODIUM LEVEL 138 MEQ/L (136-145); THYROID STIMULATING HORMONE 0.854 uIU/ML (0.358-3.740); TOTAL 25(OH) VITAMIN D 98.6 NG/ML (30.0-100.0); TOTAL PROTEIN 6.2 GM/DL (6.4-8.2); TRIGLYCERIDES LEVEL 150 MG/DL (<150); VITAMIN B12 LEVEL 581 PG/ML (247-911)
[2021-05-15 09:11] LABS: APOLIPOPROTEIN B/A-1 RATIO 0.9 ratio (0.0-0.6); INSULIN LEVEL 5.3 uIU/mL (2.6-24.9)
== END ==
LOC: M PLALAB 11:14
PROVIDERS: ATTEND Family Medicine
DX: E78.2 Mixed hyperlipidemia (principal); E55.9 Vitamin D deficiency, unspecified; E04.2 Nontoxic multinodular goiter; E53.8 Deficiency of other specified B group vitamins; E16.2 Hypoglycemia, unspecified; D75.89 Other specified diseases of blood and blood-forming organs; Z79.899 Other long term (current) drug therapy

== ENCOUNTER → 2021-06-14 | Outpatient (CLI) | payer MEDICARE, OTHER | LOC: M RAD 10:04 | PROVIDERS: ATTEND Internal Medicine Pulmonary Disease | DX: R91.8 Other nonspecific abnormal finding of lung field (principal) ==

== ENCOUNTER → 2021-07-23 | Outpatient (CLI) | payer MEDICARE, OTHER | LOC: M SLEEP 20:00 | PROVIDERS: ATTEND Internal Medicine Pulmonary Disease | DX: G47.30 Sleep apnea, unspecified (principal); K21.9 Gastro-esophageal reflux disease without esophagitis | CPT/HCPCS: 78264; 95810; A9541 ==

== ENCOUNTER → 2021-07-23 | Outpatient (CLI) | payer MEDICARE, OTHER | LOC: M RAD 11:15 | PROVIDERS: ATTEND Family Medicine | DX: K21.9 Gastro-esophageal reflux disease without esophagitis (principal) ==

== ENCOUNTER → 2021-08-11 | Outpatient (CLI) | payer MEDICARE, OTHER | LOC: M PAIN 09:15 | PROVIDERS: ATTEND Nurse Practitioner Family | DX: R07.89 Other chest pain (principal); F33.9 Major depressive disorder, recurrent, unspecified; I10 Essential (primary) hypertension; E78.5 Hyperlipidemia, unspecified; K21.9 Gastro-esophageal reflux disease without esophagitis; M81.0 Age-related osteoporosis without current pathological fracture; M47.816 Spondylosis without myelopathy or radiculopathy, lumbar region; M51.26 Other intervertebral disc displacement, lumbar region; F17.210 Nicotine dependence, cigarettes, uncomplicated; Z79.891 Long term (current) use of opiate analgesic; Z79.899 Other long term (current) drug therapy; Z88.8 Allergy status to other drugs, medicaments and biological substances; Z91.030 Bee allergy status ==

== ENCOUNTER → 2021-09-08 | Outpatient (CLI) | payer MEDICARE, OTHER | LOC: M SLEEP 20:00 | PROVIDERS: ATTEND Internal Medicine Pulmonary Disease | DX: G47.33 Obstructive sleep apnea (adult) (pediatric) (principal) ==

== ENCOUNTER → 2021-10-18 | Outpatient (CLI) | payer MEDICARE, OTHER | LOC: M PAIN 10:30 | PROVIDERS: ATTEND Nurse Practitioner Family | DX: R07.89 Other chest pain (principal); F33.9 Major depressive disorder, recurrent, unspecified; I10 Essential (primary) hypertension; E78.5 Hyperlipidemia, unspecified; G47.33 Obstructive sleep apnea (adult) (pediatric); K21.9 Gastro-esophageal reflux disease without esophagitis; M81.0 Age-related osteoporosis without current pathological fracture; M47.816 Spondylosis without myelopathy or radiculopathy, lumbar region; F17.210 Nicotine dependence, cigarettes, uncomplicated; Z85.43 Personal history of malignant neoplasm of ovary; Z79.899 Other long term (current) drug therapy; Z91.030 Bee allergy status; Z88.8 Allergy status to other drugs, medicaments and biological substances ==

== ENCOUNTER → 2021-10-19 | Outpatient (CLI) | payer MEDICARE, OTHER ==
[2021-10-19 13:57] LABS: HEMATOCRIT 47.8 % (36.0-47.0)
[2021-10-19 14:00] LABS: BASO % 0.4 % (0.0-1.0); EOS # 0.1 10^3/uL (0.0-0.5); EOS % 0.8 % (0.0-3.0); HEMATOCRIT 48.2 % (36.0-47.0); HEMOGLOBIN 16.2 g/dl (12.0-15.5); LYMPH # 2.1 10^3/uL (1.5-5.0); LYMPH % 27.9 % (24.0-44.0); MEAN CORPUSCULAR HEMOGLOBIN 33.8 pg (27.0-33.0); MEAN CORPUSCULAR HGB CONC 33.6 g/dl (32.0-36.5); MEAN CORPUSCULAR VOLUME 100.6 fl (80.0-96.0); MONO # 0.5 10^3/uL (0.0-0.8); MONO % 6.1 % (2.0-8.0); NEUTROPHILS # 4.8 10^3/uL (1.5-8.5); NEUTROPHILS % 64.7 % (36.0-66.0); PLATELET COUNT, AUTOMATED 282 10^3/uL (150-450); RED BLOOD COUNT 4.79 10^6/uL (4.00-5.40); WHITE BLOOD COUNT 7.5 10^3/uL (4.0-10.0)
[2021-10-19 14:09] LABS: INR 0.93; PROTHROMBIN TIME 12.9 SECONDS (12.7-14.5)
[2021-10-19 14:10] LABS: PARTIAL THROMBOPLASTIN TIME 31.9 SECONDS (25.9-37.0)
[2021-10-19 15:31] LABS: ALT/SGPT 82 U/L (12-78); BILIRUBIN,TOTAL 0.4 MG/DL (0.2-1.0); BLOOD UREA NITROGEN 10 MG/DL (7-18); CALCIUM LEVEL 9.4 MG/DL (8.5-10.1); CARBON DIOXIDE LEVEL 28 MEQ/L (21-32); CHLORIDE LEVEL 106 MEQ/L (98-107); CREATININE FOR GFR 0.57 MG/DL (0.55-1.30); FERRITIN 47 NG/ML (8-252); GLOMERULAR FILTRATION RATE > 60.0 (>51); GLUCOSE, FASTING 78 MG/DL (70-100); POTASSIUM SERUM 4.6 MEQ/L (3.5-5.1); SODIUM LEVEL 142 MEQ/L (136-145)
[2021-10-19 15:37] LABS: VITAMIN B12 LEVEL 526 PG/ML (247-911)
== END ==
LOC: M PLALAB 11:10
PROVIDERS: ATTEND Family Medicine
DX: K76.0 Fatty (change of) liver, not elsewhere classified (principal); E53.8 Deficiency of other specified B group vitamins; R91.8 Other nonspecific abnormal finding of lung field

== ENCOUNTER → 2021-11-24 | Outpatient (CLI) | payer MEDICARE, OTHER | LOC: M PAIN 10:00 | PROVIDERS: ATTEND Nurse Practitioner Family | DX: R07.89 Other chest pain (principal); F33.9 Major depressive disorder, recurrent, unspecified; I10 Essential (primary) hypertension; E78.5 Hyperlipidemia, unspecified; K21.9 Gastro-esophageal reflux disease without esophagitis; M81.0 Age-related osteoporosis without current pathological fracture; J47.9 Bronchiectasis, uncomplicated; M47.816 Spondylosis without myelopathy or radiculopathy, lumbar region; M51.14 Intervertebral disc disorders with radiculopathy, thoracic region; F17.210 Nicotine dependence, cigarettes, uncomplicated; Z86.14 Personal history of Methicillin resistant Staphylococcus aureus infection; Z85.43 Personal history of malignant neoplasm of ovary; Z79.899 Other long term (current) drug therapy; Z79.891 Long term (current) use of opiate analgesic; Z88.8 Allergy status to other drugs, medicaments and biological substances; Z91.030 Bee allergy status ==

== ENCOUNTER → 2022-01-12 | Outpatient (CLI) | payer MEDICARE, OTHER | LOC: M PAIN 14:00 | PROVIDERS: ATTEND Nurse Practitioner Family | DX: R07.89 Other chest pain (principal); F33.9 Major depressive disorder, recurrent, unspecified; I10 Essential (primary) hypertension; E78.5 Hyperlipidemia, unspecified; K21.9 Gastro-esophageal reflux disease without esophagitis; J47.9 Bronchiectasis, uncomplicated; M47.816 Spondylosis without myelopathy or radiculopathy, lumbar region; M51.26 Other intervertebral disc displacement, lumbar region; M75.21 Bicipital tendinitis, right shoulder; F17.210 Nicotine dependence, cigarettes, uncomplicated; Z79.899 Other long term (current) drug therapy; Z79.891 Long term (current) use of opiate analgesic; Z88.8 Allergy status to other drugs, medicaments and biological substances; Z91.030 Bee allergy status ==

== ENCOUNTER → 2022-01-17 | Outpatient (REF) | payer MEDICARE, OTHER | LOC: M PLALAB 16:25 | PROVIDERS: ATTEND Nurse Practitioner Family | DX: Z12.4 Encounter for screening for malignant neoplasm of cervix (principal) ==

== ENCOUNTER → 2022-01-17 | Outpatient (CLI) | payer MEDICARE, OTHER | LOC: M WHC 14:44 | PROVIDERS: ATTEND Nurse Practitioner Family | DX: Z53.9 Procedure and treatment not carried out, unspecified reason (principal) ==

== ENCOUNTER → 2022-02-22 | Outpatient (CLI) | payer MEDICARE, OTHER ==
[2022-02-22 18:54] LABS: ALBUMIN 3.2 GM/DL (3.2-5.2); ALT/SGPT 40 U/L (12-78); BILIRUBIN,TOTAL 0.3 MG/DL (0.2-1.0); BLOOD UREA NITROGEN 7 MG/DL (7-18); C REACTIVE PROTEIN QUANTITATIV 0.37 MG/DL (0.00-0.30); CALCIUM LEVEL 8.7 MG/DL (8.5-10.1); CARBON DIOXIDE LEVEL 30 MEQ/L (21-32); CHLORIDE LEVEL 105 MEQ/L (98-107); CHOLESTEROL LEVEL 189 MG/DL (<200); CREATININE FOR GFR 0.62 MG/DL (0.55-1.30); FREE T4 1.04 NG/DL (0.76-1.46); GLOMERULAR FILTRATION RATE > 60.0 (>51); GLUCOSE, FASTING 93 MG/DL (70-100); HDL CHOLESTEROL 50 MG/DL (>40); LDL CHOLESTEROL 124 MG/DL (<100); NON-HDL-C 139 MG/DL; POTASSIUM SERUM 4.6 MEQ/L (3.5-5.1); SODIUM LEVEL 138 MEQ/L (136-145); THYROID STIMULATING HORMONE 0.734 uIU/ML (0.358-3.740); TOTAL PROTEIN 6.1 GM/DL (6.4-8.2); TRIGLYCERIDES LEVEL 77 MG/DL (<150)
[2022-02-22 19:50] LABS: HEMOGLOBIN A1c 5.1 %
[2022-02-22 20:06] LABS: PTH INTACT 52.3 PG/ML (18.5-88.0); TOTAL 25(OH) VITAMIN D 81.9 NG/ML (30.0-100.0)
== END ==
LOC: M PLALAB 12:54
PROVIDERS: ATTEND Family Medicine
DX: K76.0 Fatty (change of) liver, not elsewhere classified (principal); E55.9 Vitamin D deficiency, unspecified; D75.89 Other specified diseases of blood and blood-forming organs; Z79.899 Other long term (current) drug therapy

== ENCOUNTER → 2022-03-15 | Outpatient (CLI) | payer MEDICARE, OTHER | LOC: M PAIN 13:45 | PROVIDERS: ATTEND Nurse Practitioner Family | DX: R07.89 Other chest pain (principal); F33.9 Major depressive disorder, recurrent, unspecified; I10 Essential (primary) hypertension; E78.5 Hyperlipidemia, unspecified; K21.9 Gastro-esophageal reflux disease without esophagitis; M81.0 Age-related osteoporosis without current pathological fracture; M47.816 Spondylosis without myelopathy or radiculopathy, lumbar region; F17.210 Nicotine dependence, cigarettes, uncomplicated; Z86.010 Personal history of colon polyps; Z79.891 Long term (current) use of opiate analgesic; Z79.899 Other long term (current) drug therapy; Z91.030 Bee allergy status; Z88.8 Allergy status to other drugs, medicaments and biological substances ==

== ENCOUNTER → 2022-04-18 | Outpatient (CLI) | payer MEDICARE, OTHER ==
[~2022-04-18] MED LIST changes: -VYTO10TA29 PO; +[UNRECOGNIZED DRUG - CODE] PO
== END ==
LOC: M PAIN 10:45 → M TMPAIN 10:45
PROVIDERS: ATTEND Nurse Practitioner Family
DX: R07.89 Other chest pain (principal); G89.29 Other chronic pain; I10 Essential (primary) hypertension; F17.210 Nicotine dependence, cigarettes, uncomplicated; Z86.14 Personal history of Methicillin resistant Staphylococcus aureus infection; Z86.59 Personal history of other mental and behavioral disorders; Z88.5 Allergy status to narcotic agent; Z88.8 Allergy status to other drugs, medicaments and biological substances; Z91.030 Bee allergy status; Z79.891 Long term (current) use of opiate analgesic; Z79.899 Other long term (current) drug therapy

== ENCOUNTER → 2022-05-09 | Outpatient (CLI) | payer MEDICARE, OTHER | LOC: M PAIN 14:45 | PROVIDERS: ATTEND Nurse Practitioner Family | DX: R07.89 Other chest pain (principal); F33.9 Major depressive disorder, recurrent, unspecified; I10 Essential (primary) hypertension; E78.5 Hyperlipidemia, unspecified; K21.9 Gastro-esophageal reflux disease without esophagitis; M81.0 Age-related osteoporosis without current pathological fracture; J47.9 Bronchiectasis, uncomplicated; M47.816 Spondylosis without myelopathy or radiculopathy, lumbar region; Z86.010 Personal history of colon polyps; F17.210 Nicotine dependence, cigarettes, uncomplicated; Z85.43 Personal history of malignant neoplasm of ovary; Z79.899 Other long term (current) drug therapy; Z91.030 Bee allergy status; Z88.8 Allergy status to other drugs, medicaments and biological substances ==

== ENCOUNTER → 2022-05-18 | Outpatient (CLI) | payer MEDICARE, OTHER | LOC: M WHC 09:15 | PROVIDERS: ATTEND Family Medicine | DX: Z12.31 Encounter for screening mammogram for malignant neoplasm of breast (principal) ==

== ENCOUNTER → 2022-06-28 | Outpatient (CLI) | payer MEDICARE, OTHER | LOC: M PAIN 15:15 | PROVIDERS: ATTEND Nurse Practitioner Family | DX: R07.89 Other chest pain (principal); G89.29 Other chronic pain; Z86.14 Personal history of Methicillin resistant Staphylococcus aureus infection; I10 Essential (primary) hypertension; K21.9 Gastro-esophageal reflux disease without esophagitis; F17.210 Nicotine dependence, cigarettes, uncomplicated; Z86.59 Personal history of other mental and behavioral disorders; Z88.5 Allergy status to narcotic agent; Z88.8 Allergy status to other drugs, medicaments and biological substances; Z91.030 Bee allergy status; Z79.891 Long term (current) use of opiate analgesic; Z79.899 Other long term (current) drug therapy ==

== ENCOUNTER → 2022-07-08 | Outpatient (CLI) | payer MEDICARE, OTHER | LOC: M RAD 09:49 | PROVIDERS: ATTEND Internal Medicine Pulmonary Disease | DX: R91.1 Solitary pulmonary nodule (principal) ==

== ENCOUNTER → 2022-08-01 | Outpatient (CLI) | payer MEDICARE, OTHER | LOC: M PAIN 09:00 | PROVIDERS: ATTEND Nurse Practitioner Family | DX: R07.89 Other chest pain (principal); F33.9 Major depressive disorder, recurrent, unspecified; I10 Essential (primary) hypertension; E78.5 Hyperlipidemia, unspecified; K21.9 Gastro-esophageal reflux disease without esophagitis; M81.0 Age-related osteoporosis without current pathological fracture; M47.816 Spondylosis without myelopathy or radiculopathy, lumbar region; F17.210 Nicotine dependence, cigarettes, uncomplicated; Z79.891 Long term (current) use of opiate analgesic; Z79.899 Other long term (current) drug therapy; Z88.8 Allergy status to other drugs, medicaments and biological substances; Z91.030 Bee allergy status ==

== ENCOUNTER → 2022-08-05 | Outpatient (CLI) | payer MEDICARE, OTHER ==
[2022-08-05 14:20] LABS: IMMUNOGLOBULIN G 794 MG/DL (650-1600)
[2022-08-05 14:21] LABS: IMMUNOGLOBULIN M 52.3 MG/DL (50-300)
[2022-08-05 14:22] LABS: ALBUMIN 3.5 G/DL (3.2-5.2); ALKALINE PHOSPHATASE 527 U/L (46-116); ALT/SGPT 159 U/L (7.0-40); AST/SGOT 298 U/L (<34); BILIRUBIN,DIRECT 0.2 MG/DL (<0.4); BILIRUBIN,TOTAL 0.5 MG/DL (0.3-1.2); BLOOD UREA NITROGEN 11 MG/DL (9-23); CALCIUM LEVEL 8.7 MG/DL (8.5-10.1); CARBON DIOXIDE LEVEL 30 MMOL/L (20-31); CHLORIDE LEVEL 104 MMOL/L (98-107); GLOMERULAR FILTRATION RATE > 60.0 (>51); GLUCOSE, FASTING 84 MG/DL (60-100); POTASSIUM SERUM 4.3 MMOL/L (3.5-5.1); SODIUM LEVEL 138 MMOL/L (136-145); TOTAL PROTEIN 6.4 G/DL (5.7-8.2)
[2022-08-05 14:25] LABS: INR 0.93; PROTHROMBIN TIME 12.7 SECONDS (12.5-14.5)
[2022-08-05 14:26] LABS: PARTIAL THROMBOPLASTIN TIME 31.6 SECONDS (24.8-34.2)
== END ==
LOC: M PLALAB 11:26
PROVIDERS: ATTEND Family Medicine
DX: K76.0 Fatty (change of) liver, not elsewhere classified (principal)

== ENCOUNTER → 2022-08-15 | Outpatient (CLI) | payer MEDICARE, OTHER | LOC: M PLAIMG 14:41 | PROVIDERS: ATTEND Family Medicine | DX: R10.11 Right upper quadrant pain (principal); K76.0 Fatty (change of) liver, not elsewhere classified; R74.8 Abnormal levels of other serum enzymes ==

== ENCOUNTER → 2022-08-16 | Outpatient (CLI) | payer MEDICARE, OTHER ==
[2022-08-16 16:11] LABS: ALBUMIN 3.3 G/DL (3.2-5.2); ALKALINE PHOSPHATASE 226 U/L (46-116); ALT/SGPT 81 U/L (7.0-40); AST/SGOT 48 U/L (<34); BASO % 0.5 % (0.0-1.0); BILIRUBIN,TOTAL 0.5 MG/DL (0.3-1.2); BLOOD UREA NITROGEN 10 MG/DL (9-23); CALCIUM LEVEL 8.5 MG/DL (8.5-10.1); CARBON DIOXIDE LEVEL 31 MMOL/L (20-31); CHLORIDE LEVEL 105 MMOL/L (98-107); CREATININE FOR GFR 0.59 MG/DL (0.55-1.30); EOS % 0.3 % (0.0-3.0); GLOMERULAR FILTRATION RATE > 60.0 (>51); GLUCOSE, FASTING 91 MG/DL (60-100); HEMOGLOBIN 15.7 g/dl (12.0-15.5); LYMPH # 2.5 10^3/uL (1.5-5.0); LYMPH % 40.6 % (24.0-44.0); MEAN CORPUSCULAR HEMOGLOBIN 34.1 pg (27.0-33.0); MEAN CORPUSCULAR HGB CONC 34.1 g/dl (32.0-36.5); MEAN CORPUSCULAR VOLUME 99.8 fl (80.0-96.0); MONO # 0.5 10^3/uL (0.0-0.8); NEUTROPHILS % 49.3 % (36.0-66.0); PLATELET COUNT, AUTOMATED 278 10^3/uL (150-450); POTASSIUM SERUM 4.6 MMOL/L (3.5-5.1); RED BLOOD COUNT 4.61 10^6/uL (4.00-5.40); SODIUM LEVEL 139 MMOL/L (136-145); TOTAL PROTEIN 5.9 G/DL (5.7-8.2)
[2022-08-16 16:17] LABS: HEPATITIS B SURFACE ANTIGEN NEGATIVE (NEGATIVE)
[2022-08-16 16:27] LABS: ERYTHROCYTE SEDIMENTATION RATE 23 mm/hr (0-30)
[2022-08-19 21:09] LABS: ANA (HEP2) Negative (.); ANTINUCLEAR ANTIBODIES DIRECT Negative (Negative)
== END ==
LOC: M PLALAB 13:26
PROVIDERS: ATTEND Family Medicine
DX: K76.0 Fatty (change of) liver, not elsewhere classified (principal); K83.8 Other specified diseases of biliary tract; R74.8 Abnormal levels of other serum enzymes

== ENCOUNTER → 2022-08-30 | Outpatient (CLI) | payer MEDICARE, OTHER ==
[~2022-08-30] MED LIST changes: +LIDOCAINE 1% MDV 20ML VIAL As Ordered ONE
[2022-08-30 14:51] VITALS: BP 123/78
== END ==
LOC: M IRPRO 12:14
PROVIDERS: ATTEND Family Medicine
DX: R74.8 Abnormal levels of other serum enzymes (principal)

== ENCOUNTER → 2022-09-08 | Outpatient (CLI) | payer MEDICARE, OTHER ==
[~2022-09-08] MED LIST changes: -LIDOCAINE 1% MDV 20ML VIAL As Ordered ONE
== END ==
LOC: M PAIN 09:30
PROVIDERS: ATTEND Nurse Practitioner Family
DX: R07.89 Other chest pain (principal); F33.9 Major depressive disorder, recurrent, unspecified; I10 Essential (primary) hypertension; E78.5 Hyperlipidemia, unspecified; K21.9 Gastro-esophageal reflux disease without esophagitis; M81.0 Age-related osteoporosis without current pathological fracture; M47.816 Spondylosis without myelopathy or radiculopathy, lumbar region; F17.210 Nicotine dependence, cigarettes, uncomplicated; Z79.891 Long term (current) use of opiate analgesic; Z79.899 Other long term (current) drug therapy; Z88.8 Allergy status to other drugs, medicaments and biological substances; Z91.030 Bee allergy status

== ENCOUNTER → 2022-10-10 | Outpatient (CLI) | payer MEDICARE, OTHER | LOC: M TMPAIN 09:15 → M PAIN 09:15 | PROVIDERS: ATTEND Nurse Practitioner Family | DX: Z53.9 Procedure and treatment not carried out, unspecified reason (principal) ==

== ENCOUNTER → 2022-12-12 | Outpatient (CLI) | payer MEDICARE, OTHER ==
[~2022-12-12] MED LIST changes: +DICL100G10 TOP; -DICL1GEL3 TOP; -GABA-283 PO; +GABA-284 PO
== END ==
LOC: M PAIN 10:30
PROVIDERS: ATTEND Nurse Practitioner Family
DX: R07.89 Other chest pain (principal); G89.29 Other chronic pain; F33.9 Major depressive disorder, recurrent, unspecified; I10 Essential (primary) hypertension; E78.5 Hyperlipidemia, unspecified; K21.9 Gastro-esophageal reflux disease without esophagitis; M81.0 Age-related osteoporosis without current pathological fracture; M47.816 Spondylosis without myelopathy or radiculopathy, lumbar region; F17.210 Nicotine dependence, cigarettes, uncomplicated; Z79.899 Other long term (current) drug therapy; Z88.8 Allergy status to other drugs, medicaments and biological substances; Z91.030 Bee allergy status

== ENCOUNTER → 2023-01-16 | Outpatient (REF) | payer MEDICARE, OTHER ==
[~2023-01-16] MED LIST changes: +CALC600T60 PO; +EZET10TA58 PO; -ZETI10TA16 PO
== END ==
LOC: M SFHCPLAZ 14:52
PROVIDERS: ATTEND Family Medicine
DX: Z01.818 Encounter for other preprocedural examination (principal)

== ENCOUNTER → 2023-01-16 | Outpatient (CLI) | payer MEDICARE, OTHER ==
[2023-01-16 16:26] LABS: BASO % 0.4 % (0.0-1.0); EOS # 0.1 10^3/uL (0.0-0.5); EOS % 1.3 % (0.0-3.0); HEMOGLOBIN 15.4 g/dl (12.0-15.5); LYMPH # 2.4 10^3/uL (1.5-5.0); LYMPH % 29.2 % (24.0-44.0); MEAN CORPUSCULAR HEMOGLOBIN 31.8 pg (27.0-33.0); MEAN CORPUSCULAR HGB CONC 32.8 g/dl (32.0-36.5); MEAN CORPUSCULAR VOLUME 96.9 fl (80.0-96.0); MONO # 0.6 10^3/uL (0.0-0.8); MONO % 6.6 % (2.0-8.0); NEUTROPHILS # 5.2 10^3/uL (1.5-8.5); NEUTROPHILS % 62.3 % (36.0-66.0); PLATELET COUNT, AUTOMATED 317 10^3/uL (150-450); RED BLOOD COUNT 4.85 10^6/uL (4.00-5.40); WHITE BLOOD COUNT 8.4 10^3/uL (4.0-10.0)
[2023-01-16 16:41] LABS: ALBUMIN 2.9 G/DL (3.2-5.2); ALKALINE PHOSPHATASE 158 U/L (46-116); ALT/SGPT 33 U/L (7.0-40); AST/SGOT 49 U/L (<34); BILIRUBIN,TOTAL 0.5 MG/DL (0.3-1.2); BLOOD UREA NITROGEN 7 MG/DL (9-23); CALCIUM LEVEL 8.4 MG/DL (8.5-10.1); CARBON DIOXIDE LEVEL 30 MMOL/L (20-31); CHLORIDE LEVEL 108 MMOL/L (98-107); GLOMERULAR FILTRATION RATE > 60.0 (>51); GLUCOSE, FASTING 86 MG/DL (60-100); INR 0.98; PARTIAL THROMBOPLASTIN TIME 30.4 SECONDS (24.8-34.2); POTASSIUM SERUM 4.5 MMOL/L (3.5-5.1); PROTHROMBIN TIME 12.7 SECONDS (12.5-14.5); SODIUM LEVEL 140 MMOL/L (136-145); TOTAL PROTEIN 5.7 G/DL (5.7-8.2)
== END ==
LOC: M PLALAB 14:49
PROVIDERS: ATTEND Family Medicine
DX: Z01.818 Encounter for other preprocedural examination (principal); M81.0 Age-related osteoporosis without current pathological fracture; K71.9 Toxic liver disease, unspecified

== ENCOUNTER → 2023-02-23 | Outpatient (CLI) | payer MEDICARE, OTHER ==
[2023-02-23 12:25] LABS: BASO % 0.5 % (0.0-1.0); EOS # 0.3 10^3/uL (0.0-0.5); EOS % 4.2 % (0.0-3.0); HEMOGLOBIN 13.5 g/dl (12.0-15.5); LYMPH # 2.7 10^3/uL (1.5-5.0); LYMPH % 45.3 % (24.0-44.0); MEAN CORPUSCULAR HEMOGLOBIN 32.5 pg (27.0-33.0); MEAN CORPUSCULAR HGB CONC 32.9 g/dl (32.0-36.5); MEAN CORPUSCULAR VOLUME 98.8 fl (80.0-96.0); MONO # 0.5 10^3/uL (0.0-0.8); MONO % 8.2 % (2.0-8.0); NEUTROPHILS # 2.5 10^3/uL (1.5-8.5); NEUTROPHILS % 41.6 % (36.0-66.0); PLATELET COUNT, AUTOMATED 304 10^3/uL (150-450); RED BLOOD COUNT 4.15 10^6/uL (4.00-5.40)
[2023-02-23 12:58] LABS: ALBUMIN 3.2 G/DL (3.2-5.2); ALKALINE PHOSPHATASE 164 U/L (46-116); ALT/SGPT 38 U/L (7.0-40); AST/SGOT 34 U/L (<34); BILIRUBIN,DIRECT 0.1 MG/DL (<0.4); BILIRUBIN,TOTAL 0.4 MG/DL (0.3-1.2); BLOOD UREA NITROGEN 13 MG/DL (9-23); CALCIUM LEVEL 8.4 MG/DL (8.5-10.1); CARBON DIOXIDE LEVEL 31 MMOL/L (20-31); CHLORIDE LEVEL 106 MMOL/L (98-107); GLOMERULAR FILTRATION RATE > 60.0 (>51); GLUCOSE, FASTING 75 MG/DL (60-100); POTASSIUM SERUM 4.4 MMOL/L (3.5-5.1); SODIUM LEVEL 141 MMOL/L (136-145); TOTAL PROTEIN 5.7 G/DL (5.7-8.2)
== END ==
LOC: M LAB 11:23
PROVIDERS: ATTEND Nurse Practitioner
DX: R79.89 Other specified abnormal findings of blood chemistry (principal); K83.8 Other specified diseases of biliary tract

== ENCOUNTER → 2023-02-23 | Outpatient (CLI) | payer MEDICARE, OTHER | LOC: M PAIN 10:15 | PROVIDERS: ATTEND Nurse Practitioner Family | DX: R07.89 Other chest pain (principal); Z79.891 Long term (current) use of opiate analgesic; G89.29 Other chronic pain; F33.9 Major depressive disorder, recurrent, unspecified; I10 Essential (primary) hypertension; E78.5 Hyperlipidemia, unspecified; K21.9 Gastro-esophageal reflux disease without esophagitis; M81.0 Age-related osteoporosis without current pathological fracture; M47.816 Spondylosis without myelopathy or radiculopathy, lumbar region; F17.210 Nicotine dependence, cigarettes, uncomplicated; Z79.899 Other long term (current) drug therapy; Z91.030 Bee allergy status; Z88.8 Allergy status to other drugs, medicaments and biological substances | CPT/HCPCS: 36415; 80048; 80076; 82977; 85025; 86255; G0463 ==

== ENCOUNTER → 2023-03-27 | Outpatient (CLI) | payer MEDICARE, OTHER | LOC: M PAIN 16:00 | PROVIDERS: ATTEND Nurse Practitioner Family | DX: R07.89 Other chest pain (principal); G89.29 Other chronic pain; F33.9 Major depressive disorder, recurrent, unspecified; I10 Essential (primary) hypertension; E78.5 Hyperlipidemia, unspecified; K21.9 Gastro-esophageal reflux disease without esophagitis; M81.0 Age-related osteoporosis without current pathological fracture; M47.816 Spondylosis without myelopathy or radiculopathy, lumbar region; F17.210 Nicotine dependence, cigarettes, uncomplicated; Z79.891 Long term (current) use of opiate analgesic; Z79.899 Other long term (current) drug therapy; Z88.8 Allergy status to other drugs, medicaments and biological substances; Z91.030 Bee allergy status ==

== ENCOUNTER → 2023-05-19 | Outpatient (CLI) | payer MEDICARE, OTHER ==
[2023-05-19 18:42] LABS: BASO % 0.3 % (0.0-1.0); EOS # 0.1 10^3/uL (0.0-0.5); EOS % 1.3 % (0.0-3.0); HEMATOCRIT 46.6 % (36.0-47.0); HEMOGLOBIN 15.6 g/dl (12.0-15.5); LYMPH # 2.8 10^3/uL (1.5-5.0); LYMPH % 25.5 % (24.0-44.0); MEAN CORPUSCULAR HEMOGLOBIN 32.9 pg (27.0-33.0); MEAN CORPUSCULAR HGB CONC 33.5 g/dl (32.0-36.5); MEAN CORPUSCULAR VOLUME 98.3 fl (80.0-96.0); MONO # 0.7 10^3/uL (0.0-0.8); MONO % 5.9 % (2.0-8.0); NEUTROPHILS # 7.4 10^3/uL (1.5-8.5); NEUTROPHILS % 66.5 % (36.0-66.0); PLATELET COUNT, AUTOMATED 278 10^3/uL (150-450); RED BLOOD COUNT 4.74 10^6/uL (4.00-5.40); WHITE BLOOD COUNT 11.1 10^3/uL (4.0-10.0)
[2023-05-19 18:56] LABS: FERRITIN 47.7 NG/ML (7.3-270.7); FREE T4 0.99 NG/DL (0.89-1.76); THYROID STIMULATING HORMONE 1.445 uIU/ML (0.55-4.78)
[2023-05-19 18:57] LABS: TOTAL 25(OH) VITAMIN D 110.3 NG/ML (20.0-100.0)
[2023-05-19 18:58] LABS: ALBUMIN 3.2 G/DL (3.2-5.2); ALKALINE PHOSPHATASE 411 U/L (46-116); ALT/SGPT 104 U/L (7.0-40); AST/SGOT 251 U/L (<34); BILIRUBIN,TOTAL 0.3 MG/DL (0.3-1.2); BLOOD UREA NITROGEN 13 MG/DL (9-23); CARBON DIOXIDE LEVEL 32 MMOL/L (20-31); CHLORIDE LEVEL 108 MMOL/L (98-107); CHOLESTEROL LEVEL 186 MG/DL (<200); CHOLESTEROL RISK RATIO 3.93 (<5); CREATININE FOR GFR 0.68 MG/DL (0.55-1.30); GLOMERULAR FILTRATION RATE > 60.0 (>51); GLUCOSE, FASTING 83 MG/DL (60-100); HDL CHOLESTEROL 47.3 MG/DL (>40); LDL CHOLESTEROL 113.9 MG/DL (<100); NON-HDL-C 138.7 MG/DL; POTASSIUM SERUM 4.8 MMOL/L (3.5-5.1); PTH INTACT 44.7 PG/ML (18.5-88.0); SODIUM LEVEL 143 MMOL/L (136-145); TOTAL PROTEIN 5.9 G/DL (5.7-8.2); TRIGLYCERIDES LEVEL 124 MG/DL (<150)
[2023-05-19 19:00] LABS: VITAMIN B12 LEVEL 973 PG/ML (211-911)
== END ==
LOC: M PLALAB 14:46
PROVIDERS: ATTEND Family Medicine
DX: E78.2 Mixed hyperlipidemia (principal); E53.8 Deficiency of other specified B group vitamins; E55.9 Vitamin D deficiency, unspecified; Z86.39 Personal history of other endocrine, nutritional and metabolic disease

== ENCOUNTER → 2023-05-25 | Outpatient (CLI) | payer MEDICARE, OTHER | LOC: M PAIN 11:45 | PROVIDERS: ATTEND Nurse Practitioner Family | DX: R07.89 Other chest pain (principal); G89.29 Other chronic pain; F33.9 Major depressive disorder, recurrent, unspecified; I10 Essential (primary) hypertension; E78.5 Hyperlipidemia, unspecified; K21.9 Gastro-esophageal reflux disease without esophagitis; M81.0 Age-related osteoporosis without current pathological fracture; J47.9 Bronchiectasis, uncomplicated; F17.210 Nicotine dependence, cigarettes, uncomplicated; Z79.891 Long term (current) use of opiate analgesic; Z88.8 Allergy status to other drugs, medicaments and biological substances; Z91.030 Bee allergy status; Z79.899 Other long term (current) drug therapy ==

== ENCOUNTER → 2023-06-02 | Outpatient (CLI) | payer MEDICARE, OTHER | LOC: M PLARAD 14:14 | PROVIDERS: ATTEND Family Medicine | DX: E88.09 Other disorders of plasma-protein metabolism, not elsewhere classified (principal); R74.8 Abnormal levels of other serum enzymes; K83.8 Other specified diseases of biliary tract; R10.11 Right upper quadrant pain ==

== ENCOUNTER → 2023-06-05 | Outpatient (CLI) | payer MEDICARE, OTHER | LOC: M WHC 13:20 | PROVIDERS: ATTEND Family Medicine | DX: M81.0 Age-related osteoporosis without current pathological fracture (principal); Z12.31 Encounter for screening mammogram for malignant neoplasm of breast ==

== ENCOUNTER → 2023-06-06 | Outpatient (REF) | payer MEDICARE, OTHER | LOC: M SFHCWAGY 06-05 13:24 | PROVIDERS: ATTEND Nurse Practitioner Family | DX: Z12.72 Encounter for screening for malignant neoplasm of vagina (principal) | CPT/HCPCS: 87624; G0123 ==

== ENCOUNTER → 2023-06-26 | Outpatient (CLI) | payer MEDICARE, OTHER | LOC: M PAIN 09:00 | PROVIDERS: ATTEND Nurse Practitioner Family | DX: R07.89 Other chest pain (principal); G89.29 Other chronic pain; F33.9 Major depressive disorder, recurrent, unspecified; I10 Essential (primary) hypertension; E78.5 Hyperlipidemia, unspecified; K21.9 Gastro-esophageal reflux disease without esophagitis; M81.0 Age-related osteoporosis without current pathological fracture; M47.816 Spondylosis without myelopathy or radiculopathy, lumbar region; F17.210 Nicotine dependence, cigarettes, uncomplicated; Z79.899 Other long term (current) drug therapy; Z88.8 Allergy status to other drugs, medicaments and biological substances; Z91.030 Bee allergy status ==

== ENCOUNTER → 2023-07-25 | Outpatient (CLI) | payer MEDICARE, OTHER | LOC: M PAIN 09:30 → M TMPAIN 09:30 | PROVIDERS: ATTEND Nurse Practitioner Family | DX: R07.89 Other chest pain (principal); G89.29 Other chronic pain; F33.9 Major depressive disorder, recurrent, unspecified; I10 Essential (primary) hypertension; E78.5 Hyperlipidemia, unspecified; K21.9 Gastro-esophageal reflux disease without esophagitis; M81.0 Age-related osteoporosis without current pathological fracture; M47.816 Spondylosis without myelopathy or radiculopathy, lumbar region; F17.210 Nicotine dependence, cigarettes, uncomplicated; Z79.891 Long term (current) use of opiate analgesic; Z79.899 Other long term (current) drug therapy; Z88.8 Allergy status to other drugs, medicaments and biological substances; Z91.030 Bee allergy status ==

== ENCOUNTER → 2023-08-09 | Outpatient (CLI) | payer MEDICARE, OTHER | LOC: M RAD 14:48 | PROVIDERS: ATTEND Internal Medicine Pulmonary Disease | DX: Z12.2 Encounter for screening for malignant neoplasm of respiratory organs (principal); F17.218 Nicotine dependence, cigarettes, with other nicotine-induced disorders ==

== ENCOUNTER → 2023-08-29 | Outpatient (CLI) | payer MEDICARE, OTHER | LOC: M PAIN 10:45 | PROVIDERS: ATTEND Nurse Practitioner Family | DX: R07.89 Other chest pain (principal); Z79.891 Long term (current) use of opiate analgesic; G89.29 Other chronic pain; Z79.899 Other long term (current) drug therapy ==

== ENCOUNTER → 2023-10-19 | Outpatient (CLI) | payer MEDICARE, OTHER ==
[2023-10-19 17:54] LABS: BASO % 0.4 % (0.0-1.0); EOS # 0.1 10^3/uL (0.0-0.5); EOS % 1.9 % (0.0-3.0); HEMOGLOBIN 15.8 g/dl (12.0-15.5); LYMPH # 2.7 10^3/uL (1.5-5.0); MEAN CORPUSCULAR HEMOGLOBIN 33.1 pg (27.0-33.0); MEAN CORPUSCULAR HGB CONC 33.6 g/dl (32.0-36.5); MEAN CORPUSCULAR VOLUME 98.5 fl (80.0-96.0); MONO # 0.6 10^3/uL (0.0-0.8); MONO % 8.4 % (2.0-8.0); NEUTROPHILS # 3.3 10^3/uL (1.5-8.5); PLATELET COUNT, AUTOMATED 294 10^3/uL (150-450); RED BLOOD COUNT 4.77 10^6/uL (4.00-5.40); WHITE BLOOD COUNT 6.7 10^3/uL (4.0-10.0)
[2023-10-19 18:18] LABS: ALBUMIN 3.2 G/DL (3.2-5.2); ALKALINE PHOSPHATASE 161 U/L (46-116); ALT/SGPT 36 U/L (7.0-40); AST/SGOT 49 U/L (<34); BILIRUBIN,TOTAL 0.3 MG/DL (0.3-1.2); BLOOD UREA NITROGEN 7 MG/DL (9-23); CALCIUM LEVEL 9.3 MG/DL (8.5-10.1); CARBON DIOXIDE LEVEL 30 MMOL/L (20-31); CHLORIDE LEVEL 104 MMOL/L (98-107); CHOLESTEROL LEVEL 143 MG/DL (<200); CHOLESTEROL RISK RATIO 5.39 (<5); GLOMERULAR FILTRATION RATE > 60.0 (>51); GLUCOSE, FASTING 52 MG/DL (60-100); HDL CHOLESTEROL 26.5 MG/DL (>40); LDL CHOLESTEROL 91.9 MG/DL (<100); NON-HDL-C 116.5 MG/DL; POTASSIUM SERUM 4.8 MMOL/L (3.5-5.1); SODIUM LEVEL 140 MMOL/L (136-145); TOTAL PROTEIN 5.9 G/DL (5.7-8.2); TRIGLYCERIDES LEVEL 123 MG/DL (<150)
[2023-10-19 18:19] LABS: PTH INTACT 30.8 PG/ML (18.5-88.0)
[2023-10-19 18:20] LABS: FERRITIN 21.5 NG/ML (7.3-270.7); THYROID STIMULATING HORMONE 0.687 uIU/ML (0.55-4.78); TOTAL 25(OH) VITAMIN D 107.4 NG/ML (20.0-100.0)
[2023-10-19 18:26] LABS: VITAMIN B12 LEVEL > 2000 PG/ML (211-911)
== END ==
LOC: M PLALAB 15:20
PROVIDERS: ATTEND Family Medicine
DX: E78.2 Mixed hyperlipidemia (principal); E53.8 Deficiency of other specified B group vitamins; E55.9 Vitamin D deficiency, unspecified; M47.816 Spondylosis without myelopathy or radiculopathy, lumbar region; D50.9 Iron deficiency anemia, unspecified

== ENCOUNTER → 2023-10-19 | Outpatient (CLI) | payer MEDICARE, OTHER ==
[2023-10-19 17:54] LABS: HEMOGLOBIN 15.7 g/dl (12.0-15.5); MEAN CORPUSCULAR HEMOGLOBIN 33.9 pg (27.0-33.0); MEAN CORPUSCULAR HGB CONC 34.1 g/dl (32.0-36.5); MEAN CORPUSCULAR VOLUME 99.4 fl (80.0-96.0); PLATELET COUNT, AUTOMATED 290 10^3/uL (150-450); RED BLOOD COUNT 4.63 10^6/uL (4.00-5.40); WHITE BLOOD COUNT 6.5 10^3/uL (4.0-10.0)
[2023-10-19 18:10] LABS: INR 1.03; PROTHROMBIN TIME 13.2 SECONDS (12.5-14.5)
[2023-10-19 18:15] LABS: ALBUMIN 3.3 G/DL (3.2-5.2); ALKALINE PHOSPHATASE 163 U/L (46-116); ALT/SGPT 39 U/L (7.0-40); AST/SGOT 53 U/L (<34); BILIRUBIN,DIRECT 0.1 MG/DL (<0.4); BILIRUBIN,TOTAL 0.4 MG/DL (0.3-1.2); BLOOD UREA NITROGEN 7 MG/DL (9-23); CALCIUM LEVEL 9.4 MG/DL (8.5-10.1); CARBON DIOXIDE LEVEL 29 MMOL/L (20-31); CHLORIDE LEVEL 102 MMOL/L (98-107); CREATININE FOR GFR 0.49 MG/DL (0.55-1.30); GLOMERULAR FILTRATION RATE > 60.0 (>51); GLUCOSE, FASTING 53 MG/DL (60-100); POTASSIUM SERUM 4.2 MMOL/L (3.5-5.1); SODIUM LEVEL 138 MMOL/L (136-145); TOTAL PROTEIN 6.1 G/DL (5.7-8.2)
== END ==
LOC: M PLALAB 15:18
PROVIDERS: ATTEND Nurse Practitioner
DX: R79.89 Other specified abnormal findings of blood chemistry (principal); K83.8 Other specified diseases of biliary tract

== ENCOUNTER → 2023-10-27 | Outpatient (CLI) | payer MEDICARE, OTHER | LOC: M PAIN 10:15 → M TMPAIN 10:15 | PROVIDERS: ATTEND Nurse Practitioner Family | DX: R07.89 Other chest pain (principal); Z79.891 Long term (current) use of opiate analgesic; G47.30 Sleep apnea, unspecified; Z99.89 Dependence on other enabling machines and devices; I25.2 Old myocardial infarction; Z86.73 Personal history of transient ischemic attack (TIA), and cerebral infarction without residual deficits; F17.200 Nicotine dependence, unspecified, uncomplicated; Z79.51 Long term (current) use of inhaled steroids; Z79.52 Long term (current) use of systemic steroids; Z79.83 Long term (current) use of bisphosphonates; Z88.8 Allergy status to other drugs, medicaments and biological substances; Z91.030 Bee allergy status ==

== ENCOUNTER → 2023-11-27 | Outpatient (CLI) | payer MEDICARE, OTHER | LOC: M PAIN 11:45 | PROVIDERS: ATTEND Nurse Practitioner Family | DX: R07.89 Other chest pain (principal); Z79.891 Long term (current) use of opiate analgesic; G89.29 Other chronic pain; F33.9 Major depressive disorder, recurrent, unspecified; I10 Essential (primary) hypertension; E78.5 Hyperlipidemia, unspecified; K21.9 Gastro-esophageal reflux disease without esophagitis; M81.0 Age-related osteoporosis without current pathological fracture; J47.9 Bronchiectasis, uncomplicated; M47.816 Spondylosis without myelopathy or radiculopathy, lumbar region; F17.210 Nicotine dependence, cigarettes, uncomplicated; Z79.899 Other long term (current) drug therapy; Z88.8 Allergy status to other drugs, medicaments and biological substances; Z91.030 Bee allergy status ==

== ENCOUNTER → 2023-12-28 | Outpatient (CLI) | payer MEDICARE, OTHER | LOC: M TMPAIN 09:45 → M PAIN 09:45 | PROVIDERS: ATTEND Nurse Practitioner Family | DX: R07.89 Other chest pain (principal); Z79.891 Long term (current) use of opiate analgesic; G89.29 Other chronic pain; F33.9 Major depressive disorder, recurrent, unspecified; I10 Essential (primary) hypertension; E78.2 Mixed hyperlipidemia; K21.9 Gastro-esophageal reflux disease without esophagitis; M81.0 Age-related osteoporosis without current pathological fracture; J47.9 Bronchiectasis, uncomplicated; M47.816 Spondylosis without myelopathy or radiculopathy, lumbar region; F17.210 Nicotine dependence, cigarettes, uncomplicated; Z79.899 Other long term (current) drug therapy; Z91.030 Bee allergy status; Z88.8 Allergy status to other drugs, medicaments and biological substances ==

== ENCOUNTER → 2024-01-26 | Outpatient (CLI) | payer MEDICARE, OTHER | LOC: M TMPAIN 11:00 → M PAIN 11:00 | PROVIDERS: ATTEND Nurse Practitioner Family | DX: R07.89 Other chest pain (principal); Z79.891 Long term (current) use of opiate analgesic; G89.29 Other chronic pain; F33.9 Major depressive disorder, recurrent, unspecified; I10 Essential (primary) hypertension; E78.2 Mixed hyperlipidemia; K21.9 Gastro-esophageal reflux disease without esophagitis; M81.0 Age-related osteoporosis without current pathological fracture; J47.9 Bronchiectasis, uncomplicated; M47.816 Spondylosis without myelopathy or radiculopathy, lumbar region; F17.210 Nicotine dependence, cigarettes, uncomplicated; Z79.899 Other long term (current) drug therapy; Z88.8 Allergy status to other drugs, medicaments and biological substances; Z91.030 Bee allergy status ==

== ENCOUNTER → 2024-01-29 | Outpatient (REF) | payer MEDICARE, OTHER ==
[2024-01-29 19:50] LABS: ALBUMIN 3.3 G/DL (3.2-5.2); ALKALINE PHOSPHATASE 134 U/L (46-116); ALT/SGPT 17 U/L (7.0-40); AST/SGOT 21 U/L (<34); BILIRUBIN,TOTAL 0.4 MG/DL (0.3-1.2); BLOOD UREA NITROGEN 15 MG/DL (9-23); CALCIUM LEVEL 10.2 MG/DL (8.5-10.1); CARBON DIOXIDE LEVEL 27 MMOL/L (20-31); CHLORIDE LEVEL 107 MMOL/L (98-107); CREATININE FOR GFR 0.69 MG/DL (0.55-1.30); GLOMERULAR FILTRATION RATE > 60.0 (>51); GLUCOSE, FASTING 90 MG/DL (60-100); SODIUM LEVEL 140 MMOL/L (136-145); TOTAL PROTEIN 6.5 G/DL (5.7-8.2)
== END ==
LOC: M LABDRWCV 16:52
PROVIDERS: ATTEND Internal Medicine Gastroenterology
DX: R79.89 Other specified abnormal findings of blood chemistry (principal)

== ENCOUNTER → 2024-02-22 | Outpatient (CLI) | payer MEDICARE, OTHER | LOC: M PAIN 11:00 | PROVIDERS: ATTEND Nurse Practitioner Family | DX: R07.89 Other chest pain (principal); Z79.891 Long term (current) use of opiate analgesic; G89.29 Other chronic pain; F33.9 Major depressive disorder, recurrent, unspecified; M81.0 Age-related osteoporosis without current pathological fracture; I10 Essential (primary) hypertension; E78.2 Mixed hyperlipidemia; K21.9 Gastro-esophageal reflux disease without esophagitis; F17.210 Nicotine dependence, cigarettes, uncomplicated; Z79.899 Other long term (current) drug therapy; Z88.8 Allergy status to other drugs, medicaments and biological substances; Z91.030 Bee allergy status ==

== ENCOUNTER → 2024-03-26 | Outpatient (CLI) | payer MEDICARE, OTHER | LOC: M PAIN 15:30 | PROVIDERS: ATTEND Nurse Practitioner Family | DX: R07.89 Other chest pain (principal); Z79.891 Long term (current) use of opiate analgesic; G89.29 Other chronic pain; F33.9 Major depressive disorder, recurrent, unspecified; I10 Essential (primary) hypertension; E78.2 Mixed hyperlipidemia; K21.9 Gastro-esophageal reflux disease without esophagitis; M81.0 Age-related osteoporosis without current pathological fracture; M47.816 Spondylosis without myelopathy or radiculopathy, lumbar region; F17.210 Nicotine dependence, cigarettes, uncomplicated; Z79.899 Other long term (current) drug therapy; Z88.8 Allergy status to other drugs, medicaments and biological substances; Z91.030 Bee allergy status ==

== ENCOUNTER → 2024-04-04 | Outpatient (REF) | payer MEDICARE, OTHER ==
[2024-04-04 17:54] LABS: BASO % 0.4 % (0.0-1.0); EOS # 0.2 10^3/uL (0.0-0.5); EOS % 2.1 % (0.0-3.0); HEMOGLOBIN 12.4 g/dl (12.0-15.5); LYMPH # 2.7 10^3/uL (1.5-5.0); LYMPH % 37.5 % (24.0-44.0); MEAN CORPUSCULAR HEMOGLOBIN 30.4 pg (27.0-33.0); MEAN CORPUSCULAR HGB CONC 31.8 g/dl (32.0-36.5); MEAN CORPUSCULAR VOLUME 95.6 fl (80.0-96.0); MONO # 0.7 10^3/uL (0.0-0.8); MONO % 9.4 % (2.0-8.0); NEUTROPHILS # 3.6 10^3/uL (1.5-8.5); NEUTROPHILS % 50.3 % (36.0-66.0); PLATELET COUNT, AUTOMATED 340 10^3/uL (150-450); RED BLOOD COUNT 4.08 10^6/uL (4.00-5.40); WHITE BLOOD COUNT 7.2 10^3/uL (4.0-10.0)
[2024-04-04 17:58] LABS: ALBUMIN 2.9 G/DL (3.2-5.2); ALKALINE PHOSPHATASE 157 U/L (35-104); ALT/SGPT 17 U/L (7.0-40); AST/SGOT 22 U/L (<34); BILIRUBIN,TOTAL 0.2 MG/DL (0.3-1.2); BLOOD UREA NITROGEN 16 MG/DL (9-23); CALCIUM LEVEL 9.2 MG/DL (8.5-10.1); CARBON DIOXIDE LEVEL 29 MMOL/L (20-31); CHLORIDE LEVEL 106 MMOL/L (98-107); CREATININE FOR GFR 0.67 MG/DL (0.55-1.30); GLOMERULAR FILTRATION RATE > 60.0 (>51); GLUCOSE, FASTING 84 MG/DL (60-100); POTASSIUM SERUM 4.5 MMOL/L (3.5-5.1); SODIUM LEVEL 140 MMOL/L (136-145); TOTAL PROTEIN 5.9 G/DL (5.7-8.2)
[2024-04-04 17:59] LABS: FREE T4 0.95 NG/DL (0.89-1.76); THYROID STIMULATING HORMONE 1.205 uIU/ML (0.55-4.78); VITAMIN B12 LEVEL 453 PG/ML (211-911)
[2024-04-04 18:00] LABS: FERRITIN 5.5 NG/ML (7.3-270.7); TOTAL 25(OH) VITAMIN D 100.9 NG/ML (20.0-100.0)
== END ==
LOC: M SFHCPLAZ 09:30
PROVIDERS: ATTEND Family Medicine
DX: E78.2 Mixed hyperlipidemia (principal); E53.8 Deficiency of other specified B group vitamins; E55.9 Vitamin D deficiency, unspecified; D50.9 Iron deficiency anemia, unspecified

== ENCOUNTER → 2024-04-25 | Outpatient (CLI) | payer MEDICARE, OTHER | LOC: M TMPAIN 17:00 → M PAIN 17:00 | PROVIDERS: ATTEND Nurse Practitioner Family | DX: R07.89 Other chest pain (principal); Z79.891 Long term (current) use of opiate analgesic; G89.29 Other chronic pain; F33.9 Major depressive disorder, recurrent, unspecified; I10 Essential (primary) hypertension; E78.2 Mixed hyperlipidemia; K21.9 Gastro-esophageal reflux disease without esophagitis; M81.0 Age-related osteoporosis without current pathological fracture; M47.816 Spondylosis without myelopathy or radiculopathy, lumbar region; F17.210 Nicotine dependence, cigarettes, uncomplicated; Z79.899 Other long term (current) drug therapy; Z88.8 Allergy status to other drugs, medicaments and biological substances; Z91.030 Bee allergy status ==

== ENCOUNTER → 2024-06-11 | Outpatient (REF) | payer MEDICARE, OTHER | LOC: M SFHCDERM 09:42 → M SFHCPLAZ 09:42 | PROVIDERS: ATTEND Family Medicine | DX: C44.329 Squamous cell carcinoma of skin of other parts of face (principal) ==

== ENCOUNTER → 2024-06-18 | Outpatient (CLI) | payer MEDICARE, OTHER | LOC: M PAIN 10:15 | PROVIDERS: ATTEND Nurse Practitioner Family | DX: R07.89 Other chest pain (principal); G89.29 Other chronic pain; I10 Essential (primary) hypertension; E78.2 Mixed hyperlipidemia; K21.9 Gastro-esophageal reflux disease without esophagitis; M47.816 Spondylosis without myelopathy or radiculopathy, lumbar region; F17.210 Nicotine dependence, cigarettes, uncomplicated; Z79.891 Long term (current) use of opiate analgesic; Z79.899 Other long term (current) drug therapy; Z88.8 Allergy status to other drugs, medicaments and biological substances; Z91.030 Bee allergy status ==

== ENCOUNTER → 2024-06-21 | Outpatient (REF) | payer MEDICARE, OTHER | LOC: M SFHCCLAY 13:31 | PROVIDERS: ATTEND Physician Assistant | DX: L98.9 Disorder of the skin and subcutaneous tissue, unspecified (principal) ==

== ENCOUNTER 2024-06-28 09:53 | Outpatient (CLI) | payer MEDICARE, OTHER ==
[~2024-06-28] VITALS: Ht 157.5 cm; Wt 62.7 kg
[~2024-06-28 09:53] MED LIST changes: +ALBUTEROL SULFATE 2.5MG/0.5ML INH NEB SOLN INH PRN; +EPINEPHrine INJ 1 MG/ML 1ML AMP IM PRN; +diphenhydrAMINE 50MG/ML VIAL IV PRN; +methylPREDNISolone 125MG 2ML VIAL IV PRN
[2024-06-28 10:00] VITALS: BP 128/66; O2SAT 97
[2024-06-28] MEDS: FERRIC CARBOXYMALTOSE INJ 750 MG, VIAL MATE ADAPTER 1 EACH in NS 100 ML IV ONE (10:26)
[2024-06-28 11:14] VITALS: BP 129/74; O2SAT 95
[2024-06-28 12:15] VITALS: BP 130/74; O2SAT 98
[2024-06-28 15:12] VITALS: BP 133/66; O2SAT 97
== END 2024-06-28 11:15 ==
LOC: M INFU 09:53
PROVIDERS: ATTEND Family Medicine
DX: D50.9 Iron deficiency anemia, unspecified (principal); Z88.8 Allergy status to other drugs, medicaments and biological substances; Z91.030 Bee allergy status
CPT/HCPCS: 96365; J1439

== ENCOUNTER 2024-07-05 12:20 | Outpatient (CLI) | payer MEDICARE, OTHER ==
[~2024-07-05] VITALS: Ht 157.5 cm; Wt 65.0 kg
[2024-07-05 12:05] VITALS: BP 122/80; O2SAT 97
[~2024-07-05 12:20] MED LIST changes: +FERRIC CARBOXYMALTOSE 750 MG (VIAL MATE) IN 100ML NS IV ONE; +NS (Normal Saline) 0.9% 1,000 ML IV SCH
[2024-07-05] MEDS: FERRIC CARBOXYMALTOSE 750 MG (VIAL MATE) IN 100ML NS IV ONE (12:37)
[2024-07-05 13:00] VITALS: BP 132/76; O2SAT 97
== END 2024-07-05 13:02 ==
LOC: M INFU 12:20
PROVIDERS: ATTEND Family Medicine
DX: D50.9 Iron deficiency anemia, unspecified (principal); Z88.8 Allergy status to other drugs, medicaments and biological substances; Z91.030 Bee allergy status
CPT/HCPCS: 96365; J1439

== ENCOUNTER → 2024-07-22 | Outpatient (CLI) | payer MEDICARE, OTHER ==
[~2024-07-22] MED LIST changes: -ALBUTEROL SULFATE 2.5MG/0.5ML INH NEB SOLN INH PRN; -EPINEPHrine INJ 1 MG/ML 1ML AMP IM PRN; -FERRIC CARBOXYMALTOSE 750 MG (VIAL MATE) IN 100ML NS IV ONE; -NS (Normal Saline) 0.9% 1,000 ML IV SCH; -diphenhydrAMINE 50MG/ML VIAL IV PRN; -methylPREDNISolone 125MG 2ML VIAL IV PRN
[2024-07-22 12:55] LABS: BASO # 0.1 10^3/uL (0.0-0.2); BASO % 0.6 % (0.0-1.0); EOS # 0.1 10^3/uL (0.0-0.5); EOS % 0.9 % (0.0-3.0); HEMATOCRIT 44.9 % (36.0-47.0); HEMOGLOBIN 14.8 g/dl (12.0-15.5); LYMPH # 3.2 10^3/uL (1.5-5.0); LYMPH % 35.6 % (24.0-44.0); MEAN CORPUSCULAR HEMOGLOBIN 33.1 pg (27.0-33.0); MEAN CORPUSCULAR VOLUME 100.4 fl (80.0-96.0); MONO # 0.7 10^3/uL (0.0-0.8); MONO % 7.5 % (2.0-8.0); NEUTROPHILS # 4.9 10^3/uL (1.5-8.5); NEUTROPHILS % 55.2 % (36.0-66.0); PLATELET COUNT, AUTOMATED 273 10^3/uL (150-450); RED BLOOD COUNT 4.47 10^6/uL (4.00-5.40); WHITE BLOOD COUNT 8.9 10^3/uL (4.0-10.0)
[2024-07-22 12:56] LABS: ALBUMIN 3.4 G/DL (3.2-5.2); ALKALINE PHOSPHATASE 87 U/L (35-104); ALT/SGPT 18 U/L (7.0-40); AST/SGOT 16 U/L (<34); BILIRUBIN,TOTAL 0.2 MG/DL (0.3-1.2); BLOOD UREA NITROGEN 20 MG/DL (9-23); CARBON DIOXIDE LEVEL 30 MMOL/L (20-31); CHLORIDE LEVEL 109 MMOL/L (98-107); CHOLESTEROL LEVEL 196 MG/DL (<200); CHOLESTEROL RISK RATIO 3.55 (<5); CREATININE FOR GFR 0.57 MG/DL (0.55-1.30); GLOMERULAR FILTRATION RATE > 60.0 (>51); GLUCOSE, FASTING 72 MG/DL (60-100); HDL CHOLESTEROL 55.2 MG/DL (>40); LDL CHOLESTEROL 111.6 MG/DL (<100); NON-HDL-C 140.8 MG/DL; POTASSIUM SERUM 4.8 MMOL/L (3.5-5.1); SODIUM LEVEL 142 MMOL/L (136-145); TRIGLYCERIDES LEVEL 146 MG/DL (<150)
[2024-07-22 13:00] LABS: THYROID STIMULATING HORMONE 1.296 uIU/ML (0.55-4.78)
[2024-07-22 13:01] LABS: FERRITIN 157.5 NG/ML (7.3-270.7); PTH INTACT 59.5 PG/ML (18.5-88.0)
[2024-07-22 13:02] LABS: FREE T4 1.12 NG/DL (0.89-1.76)
[2024-07-22 13:03] LABS: VITAMIN B12 LEVEL 392 PG/ML (211-911)
[2024-07-22 13:04] LABS: TOTAL 25(OH) VITAMIN D 85.8 NG/ML (20.0-100.0)
[2024-07-22 13:08] LABS: INR 0.87; PROTHROMBIN TIME 12.1 SECONDS (12.5-14.5)
== END ==
LOC: M PLALAB 10:54
PROVIDERS: ATTEND Family Medicine
DX: E53.8 Deficiency of other specified B group vitamins (principal); E55.9 Vitamin D deficiency, unspecified; E78.2 Mixed hyperlipidemia; E88.09 Other disorders of plasma-protein metabolism, not elsewhere classified; R74.8 Abnormal levels of other serum enzymes

== ENCOUNTER → 2024-10-23 | Outpatient (CLI) | payer MEDICARE, OTHER ==
[~2024-10-23] MED LIST changes: -AMBI10TA PO; +AMIT10TA11 PO; -AMIT10TA7 PO; +BIOT5CAP9 PO; -BIOTCAP PO; +BUPR150T15 PO; -BUPR1TAB53 PO; +LIDO1ADH93 TOP; -LIDO5DIS41 TOP; +ZOLP-533 PO
== END ==
LOC: M WHC 12:45
PROVIDERS: ATTEND Nurse Practitioner Family
DX: Z12.31 Encounter for screening mammogram for malignant neoplasm of breast (principal); R92.323 Mammographic fibroglandular density, bilateral breasts

== ENCOUNTER → 2024-11-04 | Outpatient (REF) | payer MEDICARE, OTHER ==
[2024-11-04 13:38] LABS: BASO # 0.0 10^3/uL (0.0-0.2); BASO % 0.5 % (0.0-1.0); EOS # 0.1 10^3/uL (0.0-0.5); EOS % 2.2 % (0.0-3.0); LYMPH # 2.0 10^3/uL (1.5-5.0); LYMPH % 35.7 % (24.0-44.0); MONO # 0.5 10^3/uL (0.0-0.8); MONO % 8.8 % (2.0-8.0); NEUTROPHILS # 2.9 10^3/uL (1.5-8.5); NEUTROPHILS % 52.4 % (36.0-66.0); PLATELET COUNT, AUTOMATED 246 10^3/uL (150-450)
[2024-11-04 14:06] LABS: ALT/SGPT 22 U/L (7.0-40); AST/SGOT 24 U/L (<34); CALCIUM LEVEL 9.1 MG/DL (8.5-10.1); CARBON DIOXIDE LEVEL 33 MMOL/L (20-31); CHLORIDE LEVEL 107 MMOL/L (98-107); CHOLESTEROL LEVEL 172 MG/DL (<200); CHOLESTEROL RISK RATIO 3.17 (<5); CREATININE FOR GFR 0.61 MG/DL (0.55-1.30); GLOMERULAR FILTRATION RATE > 90.0 (>51); LDL CHOLESTEROL 96.4 MG/DL (<100); NON-HDL-C 117.8 MG/DL; POTASSIUM SERUM 4.4 MMOL/L (3.5-5.1); PTH INTACT 27.7 PG/ML (18.5-88.0); SODIUM LEVEL 141 MMOL/L (136-145); TRIGLYCERIDES LEVEL 107 MG/DL (<150)
[2024-11-04 14:07] LABS: FREE T4 1.07 NG/DL (0.89-1.76)
[2024-11-04 14:09] LABS: TOTAL 25(OH) VITAMIN D 101.2 NG/ML (20.0-100.0); VITAMIN B12 LEVEL 394 PG/ML (211-911)
[2024-11-04 17:48] LABS: INR 0.85
[2024-11-11 12:37] LABS: ALPHA 2-MACROGLOBULINS,QN 158 mg/dL (106-279); ALT (SGPT) P5P 17 U/L (6-29); APOLIPOPROTEIN A-1 173 mg/dL (101-198); FIBROSIS SCORE 0.08; FIBROSIS STAGE NO FIBROSIS (F0); GGT 20 U/L (3-70); HAPTOGLOBIN 148 mg/dL (43-212); NECROINFLAM ACT GRADE NO ACTIVITY (A0); NECROINFLAM ACT SCORE 0.04
== END ==
LOC: M SFHCPLAZ 08:47
PROVIDERS: ATTEND Family Medicine
DX: E78.2 Mixed hyperlipidemia (principal); E53.8 Deficiency of other specified B group vitamins; E55.9 Vitamin D deficiency, unspecified; E88.09 Other disorders of plasma-protein metabolism, not elsewhere classified; R74.8 Abnormal levels of other serum enzymes

== ENCOUNTER → 2024-11-07 | Outpatient (CLI) | payer MEDICARE, OTHER | LOC: M RAD 09:31 | PROVIDERS: ATTEND Internal Medicine Pulmonary Disease | DX: R91.8 Other nonspecific abnormal finding of lung field (principal); T17.590A Other foreign object in bronchus causing asphyxiation, initial encounter; F17.218 Nicotine dependence, cigarettes, with other nicotine-induced disorders ==

== ENCOUNTER → 2025-03-31 | Outpatient (REF) | payer MEDICARE, OTHER ==
[2025-03-31 18:34] LABS: ALT/SGPT 22 U/L (7.0-40); AST/SGOT 26 U/L (<34); CALCIUM LEVEL 8.6 MG/DL (8.5-10.1); CARBON DIOXIDE LEVEL 30 MMOL/L (20-31); CHLORIDE LEVEL 108 MMOL/L (98-107); CREATININE FOR GFR 0.57 MG/DL (0.55-1.30); GLOMERULAR FILTRATION RATE > 90.0 (>51); IRON (FE) 92 UG/DL (50-170); MAGNESIUM LEVEL 1.9 MG/DL (1.8-2.4); PERCENT SATURATION 32.1 % (13.2-45.0); POTASSIUM SERUM 4.5 MMOL/L (3.5-5.1); SODIUM LEVEL 141 MMOL/L (136-145)
[2025-03-31 18:37] LABS: FREE T4 1.16 NG/DL (0.89-1.76)
[2025-03-31 18:38] LABS: TOTAL 25(OH) VITAMIN D 106.4 NG/ML (20.0-100.0)
[2025-03-31 18:39] LABS: VITAMIN B12 LEVEL 506 PG/ML (211-911)
[2025-03-31 19:05] LABS: BASO # 0.0 10^3/uL (0.0-0.2); BASO % 0.5 % (0.0-1.0); EOS # 0.1 10^3/uL (0.0-0.5); EOS % 1.8 % (0.0-3.0); LYMPH # 2.2 10^3/uL (1.5-5.0); LYMPH % 39.8 % (24.0-44.0); MONO # 0.5 10^3/uL (0.0-0.8); MONO % 9.1 % (2.0-8.0); NEUTROPHILS # 2.7 10^3/uL (1.5-8.5); NEUTROPHILS % 48.6 % (36.0-66.0); PLATELET COUNT, AUTOMATED 249 10^3/uL (150-450)
== END ==
LOC: M SFHCCAPE 08:49
PROVIDERS: ATTEND Physician Assistant Medical
DX: Z00.00 Encounter for general adult medical examination without abnormal findings (principal); R25.2 Cramp and spasm; K31.84 Gastroparesis; D50.9 Iron deficiency anemia, unspecified; E55.9 Vitamin D deficiency, unspecified; Z98.84 Bariatric surgery status; K21.9 Gastro-esophageal reflux disease without esophagitis; R63.4 Abnormal weight loss; E88.09 Other disorders of plasma-protein metabolism, not elsewhere classified; F32.9 Major depressive disorder, single episode, unspecified; R06.02 Shortness of breath